=== PATIENT | female | born 1980 | race Caucasian/White ===

== ENCOUNTER 2020-03-26 19:14 | Emergency (ER) | payer MEDICAID, SELFPAY | END 2020-03-26 20:30 | disposition left against medical advice (07) | PROVIDERS: Emergency Provider Internal Medicine; PCP Nurse Practitioner Family | DX: J45.909 Unspecified asthma, uncomplicated (principal) ==

== ENCOUNTER 2020-04-08 15:21 | Emergency (ER) | payer MEDICAID, SELFPAY ==
[2020-04-08 16:05] VITALS: BP 128/100; PULSE 90; RESP 18; TEMP 36.6; O2SAT 97; BMI 32.6
--- NOTE | 2020-04-08 16:55 | PC.NURSE ---
TO BED 20 AFTER EXTERNAL TRIAGE. AWAITING PRIMARY EVAL BY PROVIDER
[2020-04-08 16:57] VITALS: BP 117/79; PULSE 76; RESP 18; O2SAT 96
--- NOTE | 2020-04-08 17:19 | ED.ASTHMA ---
HPI - Asthma General Chief Complaint: Asthma Stated Complaint: ASTHMA Time Seen by Provider: 04/08/20 17:12 Source: patient Mode of arrival: ambulatory Limitations: no limitations History of Present Illness HPI Narrative: Patient comes to the emergency room complaining of shortness of breath, chest tightness. Patient states she has been having an asthma exacerbation that has been ongoing for about a week. Patient states she has been using albuterol nebulizations and her pump at home. Patient has not had any steroids yet. Patient denies any fever, no chest pain. To her knowledge she has no contact with [employer] people complaint: asthma attack Related Data Previous Rx's Medication Instructions Recorded albuterol sulfate 2 puff INHALATION Q4-6H PRN #18 g 04/08/20 albuterol sulfate 2.5 mg INHALATION Q6H PRN #600 ml 04/08/20 prednisone 50 mg PO DAILY #4 tab 04/08/20 Allergies Allergy/AdvReac Type Severity Reaction Status Date / Time No Known Allergies Allergy Verified 04/08/20 16:08 [No Known Allergies*] Review of Systems Review of Systems: Constitutional : No Weight loss, No Fever, No Chills, No Night Sweats, No Fatigue, No Malaise ENT/Mouth : No Hearing loss, No Ear Pain, No Nasal Congestion, No Sinus Pain, No Hoarseness, No sore throat, No Rhinorrhea, No Swallowing Difficulty Eyes: No Eye Pain, No Swelling, No Redness, No Foreign Body, No Discharge, No Vision Changes Cardiovascular : No Chest Pain, No SOB, No Dyspnea on Exertion, No Orthopnea, No Edema, No Palpitations Respiratory : Patient complaining of mild dry cough, chest tightness with wheezing No Smoke Exposure, mild Dyspnea Gastrointestinal : No Nausea, No Vomiting, No Diarrhea, No Constipation, No abdominal Pain, No Hematochezia, No Melena Genitourinary : no irregular bleeding, No Dysuria, No Urinary Frequency, No Hematuria, No Urinary Incontinence, No Urgency, No Flank Pain, No Urinary Flow Changes, No Hesitancy Musculoskeletal : No joint pain, No Myalgias, No Joint Swelling Skin : No Skin Lesions, No rash Neuro : No Weakness, No Numbness, No Paresthesias, No Loss of Consciousness, No Dizziness, No Headache Psych : No Anxiety/Panic, No Depression, No SI/HI/AH/VH, No Social Issues, Heme/Lymph: No Bruising, No Bleeding,No Lymphadenopathy Endocrine : No Polyuria, No Polydipsia, No Temperature Intolerance [facility] Past Medical History Medical History Asthma Surgical History (Updated 04/08/20 @ 17:21 by Michelle Peterson MD) History of lumpectomy of left breast Social History Social History Smoking Status: Current every day smoker Use of substances other than those prescribed or required for medical reasons: No Advance Directives: No Advance Directives Information Provided: Yes Physical Exam Vital Signs: Vital Signs: Last Vital Signs Temp 97.8 F 04/08/20 16:05 Pulse 76 04/08/20 17:28 Resp 18 04/08/20 16:57 BP 117/79 04/08/20 16:57 Pulse Ox 96 04/08/20 16:57 Body Mass Index 32.6 Appearance: Alert. Oriented X3. No acute distress. Eyes: Pupils equal, round and reactive to light. ENT: Pharynx normal. Neck: Normal inspection. Neck supple. No lymph nodes noted. No crepitus CVS: Normal heart rate and rhythm. Pulses normal. Normal S1 and S2 Respiratory: No respiratory distress. very mild bilateral wheezing, good air movement Abdomen: Soft and nontender. No rigidity. No distention. good BS x4 Skin: Skin warm and dry. Normal skin color. Normal skin turgor. Extremities: No lower extremity edema. No lower extremity edema. No Lacerations. No Rash Neuro: Oriented X 3. No motor deficit. No sensory deficit. Moving all extermities. No slurred speech. Course Course Course Narrative: Patient feeling much better after updraft an IV medications. On physical exam patient no longer wheezing, good air movement bilaterally, oxygen saturation 98% on room air. MDM - Asthma Differential Diagnosis Differential diagnosis: Likely Acute exacerbation, Acute asthmatic bronchitis and COPD exacerbation Medical Records Attestation: I reviewed the patient's medical records. Discharge Plan Discharge Clinical Impression: Asthma with acute exacerbation Qualifiers: Asthma severity: unspecified severity Asthma persistence: unspecified Qualified Code(s): J45.901 - Unspecified asthma with (acute) exacerbation Patient Disposition: Home, Self-Care Instructions: Asthma (ED) Additional Instructions: Please follow-up with your primary care physician tomorrow. If you have any worsening or new symptoms, please return to the emergency room or call 911 Prescriptions: New albuterol sulfate 90 mcg/actuation HFA aerosol inhaler 2 puff inhalation Q4-6H PRN (Reason: shortness of breath or wheezing) Qty: 18 RF: 0 albuterol sulfate 5 mg/mL solution for nebulization 2.5 mg inhalation Q6H PRN (Reason: shortness of breath or wheezing) Qty: 600 RF: 0 prednisone 50 mg tablet 50 mg PO DAILY Qty: 4 RF: 0
[2020-04-08] MEDS: Albuterol Sulfate (0.083%) 2.5 MG/3 ML VIAL.NEB 5 MG INHALE (17:25)
--- NOTE | 2020-04-08 17:25 | XR_ITS ---
EXAMINATION: XR CHEST CLINICAL INFORMATION: Cough COMPARISON: Chest x-ray 11/03/2018 TECHNIQUE: Frontal portable view of the chest was obtained. 5:28 PM FINDINGS: No significant abnormality is noted involving the heart, lungs, mediastinum, bony thorax or soft tissues. XR/XR chest 1V IMPRESSION: Unremarkable examination.
[2020-04-08 17:28] VITALS: PULSE 76; O2SAT 95
[2020-04-08] MEDS: methylPREDNISolone Sod Succ/PF 125 MG/2 ML VIAL IVPUSH (17:52)
[2020-04-08 18:39] VITALS: PULSE 108; RESP 16; O2SAT 96
== END 2020-04-08 18:46 | disposition home or self-care (01) ==
PROVIDERS: Emergency Provider Emergency Medicine; PCP Nurse Practitioner Family
DX: J45.901 Unspecified asthma with (acute) exacerbation (principal); F17.200 Nicotine dependence, unspecified, uncomplicated; Z71.6 Tobacco abuse counseling; Z20.828 Contact with and (suspected) exposure to other viral communicable diseases; Z79.899 Other long term (current) drug therapy
CPT/HCPCS: 71045; 94640; 96374; 99284; J2930

== ENCOUNTER 2020-04-24 11:34 | Outpatient (REF) | payer MEDICAID, SELFPAY ==
--- NOTE | 2020-04-24 11:44 | XR_ITS ---
EXAMINATION: XR CHEST CLINICAL INFORMATION: Shortness of breath, moderate persistent asthma COMPARISON: Chest radiographs 04/08/2020, 11/03/2018 TECHNIQUE: 2 views of the chest were obtained. FINDINGS: The heart is normal in size. The vascularity is normal. There is subsegmental disc atelectasis inferior lingula left anterior base. The lungs otherwise clear. There is no lobar or segmental airspace consolidation or groundglass opacities. No hyperinflation. The costophrenic sulci are clear. The hilar and mediastinal contours are normal. There are mild multilevel degenerative changes thoracic spine. XR/XR chest 2V IMPRESSION: 1. Disc atelectasis left anterior base. 2. Lungs otherwise clear. No hyperinflation.
== END 2020-04-24 11:35 | disposition home or self-care (01) ==
LOC: HO.XRAY 11:34
PROVIDERS: PCP Nurse Practitioner Family; Visit Provider Emergency Medicine
DX: J45.40 Moderate persistent asthma, uncomplicated (principal); R06.02 Shortness of breath
CPT/HCPCS: 71046

== ENCOUNTER 2020-05-12 15:44 | Outpatient (REF) | payer MEDICAID, SELFPAY ==
--- NOTE | 2020-05-12 15:48 | MM_ITS ---
EXAMINATION: MM SCREENING DIGITAL BREAST TOMOSYNTHESIS, BILATERAL CLINICAL INFORMATION: Screening. Asymptomatic. Prior benign left breast surgery 2009 and benign right breast biopsy 2015. The lifetime risk of breast cancer based on the Tyrer-Cuzick Model is 9%. COMPARISON: Mammography: 05/08/2019, 10/13/2016 TECHNIQUE: Digital breast tomosynthesis is performed in both the craniocaudal and mediolateral oblique views along with computer-aided detection (CAD). Synthesized 2D images are generated from the tomosynthesis. FINDINGS: There are scattered areas of fibroglandular density (ACR BI-RADS breast composition Category b). There are no significant masses, abnormal calcifications, or other abnormalities. Parenchymal pattern is similar to prior studies. There is a biopsy clip marker outer right breast. The axilla and skin contours are unremarkable. MM/MM tomosynthesis screening BI IMPRESSION: No mammographic evidence of malignancy. ASSESSMENT: BI-RADS 1: Negative RECOMMENDATION: Routine annual mammography screening. This patient's information was entered into a reminder system with a target due date for their next mammogram.
== END 2020-05-12 15:45 | disposition home or self-care (01) ==
LOC: HO.MAMMO 15:44
PROVIDERS: Visit Provider Nurse Practitioner Family
DX: Z12.31 Encounter for screening mammogram for malignant neoplasm of breast (principal)
CPT/HCPCS: 77063; 77067

== ENCOUNTER 2020-06-05 14:29 | Outpatient (REF) | payer MEDICAID, SELFPAY ==
--- NOTE | 2020-06-05 | US_ITS ---
EXAMINATION: US PELVIS COMPLETE US TRANSVAGINAL CLINICAL INFORMATION: Left lower quadrant pain. COMPARISON: Ultrasound pelvis 01/28/2017. TECHNIQUE: Transabdominal and transvaginal imaging of pelvis is performed. FINDINGS: The uterus is anteverted, anteflexed measuring 10.7 cm in length, 4.4 cm in AP and 6.2 cm in transverse dimension. The uterus is homogeneous echotexture. The endometrial stripe is thickened measuring 1.9 cm. Several anechoic nabothian cysts are seen in the cervix. Right ovary measures 2.6 x 2.1 x 1.4 cm and volume 4.0 mL. It appears unremarkable. Previously, the right ovary measured 2.3 x 2.1 x 1.1 cm. Left ovary measures 2.7 x 2.6 x 3.1 cm and volume 9.9 mL. There is a small corpus luteal cyst measuring 1.9 x 2.1 x 1.6 cm. Previously, the left ovary measured 2.6 x 1.8 x 2.8 cm. There is no free fluid in the cul-de-sac. US/US pelvic complete IMPRESSION: Unremarkable uterus. Multiple nabothian cysts seen in the cervix. Small corpus luteal cyst left ovary. Unremarkable right ovary.
--- NOTE | 2020-06-05 | US_ITS ---
EXAMINATION: US PELVIS COMPLETE US TRANSVAGINAL CLINICAL INFORMATION: Left lower quadrant pain. COMPARISON: Ultrasound pelvis 01/28/2017. TECHNIQUE: Transabdominal and transvaginal imaging of pelvis is performed. FINDINGS: The uterus is anteverted, anteflexed measuring 10.7 cm in length, 4.4 cm in AP and 6.2 cm in transverse dimension. The uterus is homogeneous echotexture. The endometrial stripe is thickened measuring 1.9 cm. Several anechoic nabothian cysts are seen in the cervix. Right ovary measures 2.6 x 2.1 x 1.4 cm and volume 4.0 mL. It appears unremarkable. Previously, the right ovary measured 2.3 x 2.1 x 1.1 cm. Left ovary measures 2.7 x 2.6 x 3.1 cm and volume 9.9 mL. There is a small corpus luteal cyst measuring 1.9 x 2.1 x 1.6 cm. Previously, the left ovary measured 2.6 x 1.8 x 2.8 cm. There is no free fluid in the cul-de-sac. US/US transvaginal IMPRESSION: Unremarkable uterus. Multiple nabothian cysts seen in the cervix. Small corpus luteal cyst left ovary. Unremarkable right ovary.
== END 2020-06-05 14:30 | disposition home or self-care (01) ==
LOC: HO.US 14:29
PROVIDERS: Visit Provider Nurse Practitioner
DX: R10.32 Left lower quadrant pain (principal)
CPT/HCPCS: 76830; 76856

== ENCOUNTER → 2020-07-17 15:15 | Outpatient (BNVA) | payer MEDICAID, SELFPAY | PROVIDERS: PCP Nurse Practitioner Family; Visit Provider Internal Medicine Pulmonary Disease | DX: J45.909 Unspecified asthma, uncomplicated (principal); Z91.09 Other allergy status, other than to drugs and biological substances | CPT/HCPCS: 99202 ==

== ENCOUNTER 2020-07-23 10:00 | Outpatient (REF) | payer MEDICAID, SELFPAY ==
[2020-07-23 10:24] LABS: MANUAL DIFF FLAG NO
[2020-07-23 10:27] LABS: Basophils Percent Auto 0.4 % (0-2); Eosinophils Absolute Auto 0.1 X10*3/uL (0.0-0.4); Eosinophils Percent Auto 1.3 % (0-4); Hematocrit 42.9 % (37-47); Hemoglobin 14.5 g/dl (12.0-16.0); Imm Gran Abs Auto 0.02 X10*3/uL (0.00-0.03); Imm Gran Pct Auto 0.2 % (0.0-0.4); Lymphocytes Absolute Auto 3.3 X10*3/uL (1.2-4.9); Lymphocytes Percent Auto 40.6 % (20-40); Mean Corpuscular HGB Conc 33.8 g/dl (31.0-35.0); Mean Corpuscular Hemoglobin 29.2 pg (27.0-33.0); Mean Corpuscular Volume 86.5 fL (80-98); Mean Platelet Volume 10.7 fL (9.4-12.3); Monocytes Absolute Auto 0.7 X10*3/uL (0.1-1.2); Neutrophils Percent Auto 49.5 % (45-73); Platelet Count 308 X10*3/uL (160-400); Red Blood Count 4.96 X10*6/uL (4.20-5.50); Red Cell Distribution Width 12.5 % (11.0-16.0); White Blood Count 8.2 X10*3/uL (4.8-10.8)
== END 2020-07-23 10:01 | disposition home or self-care (01) ==
LOC: HO.LAB 10:00
PROVIDERS: PCP Nurse Practitioner Family; Visit Provider Internal Medicine Pulmonary Disease
DX: Z91.09 Other allergy status, other than to drugs and biological substances (principal)
CPT/HCPCS: 36415; 82785; 85025; 86003

== ENCOUNTER → 2020-08-07 14:06 | Outpatient (BNVA) | payer MEDICAID, SELFPAY | PROVIDERS: Visit Provider Internal Medicine Pulmonary Disease | DX: J45.909 Unspecified asthma, uncomplicated (principal); Z91.09 Other allergy status, other than to drugs and biological substances; Z87.891 Personal history of nicotine dependence | CPT/HCPCS: 99212 ==

== ENCOUNTER 2020-08-26 15:42 | Outpatient (REF) | payer MEDICAID, SELFPAY ==
--- NOTE | 2020-08-26 17:22 | PFT_ITS ---
Forced vital capacity and FEV1 are both slightly decreased. [id number] is normal. MVV moderately decreased. Post bronchodilator therapy, there is no significant improvement. Total lung capacity and residual volume are moderately decreased. Diffusion capacity normal. CONCLUSION: Mild to moderate degree of restrictive pulmonary disorder. No significant obstructive airway disorder. MD ELANA Bautista/MODL / [id number]
== END 2020-08-26 15:43 | disposition home or self-care (01) ==
LOC: HO.RESP 15:42
PROVIDERS: PCP Nurse Practitioner Family; Visit Provider Internal Medicine Pulmonary Disease
DX: J45.909 Unspecified asthma, uncomplicated (principal)
CPT/HCPCS: 94060; 94727; 94729

== ENCOUNTER → 2020-08-28 15:10 | Outpatient (BNVA) | payer MEDICAID, SELFPAY | PROVIDERS: PCP Nurse Practitioner Family; Visit Provider Internal Medicine Pulmonary Disease | DX: J45.909 Unspecified asthma, uncomplicated (principal); Z91.09 Other allergy status, other than to drugs and biological substances | CPT/HCPCS: 99212 ==

== ENCOUNTER → 2020-11-26 15:24 | Outpatient (BNVA) | payer MEDICAID, SELFPAY | PROVIDERS: PCP Nurse Practitioner Family; Visit Provider Internal Medicine Pulmonary Disease | DX: J45.909 Unspecified asthma, uncomplicated (principal); Z91.09 Other allergy status, other than to drugs and biological substances | CPT/HCPCS: 99212 ==

== ENCOUNTER 2020-12-10 09:57 | Outpatient (REF) | payer MEDICAID, SELFPAY | END 2020-12-10 09:58 | disposition home or self-care (01) | LOC: HO.MDS 09:57 | PROVIDERS: PCP Nurse Practitioner Family; Visit Provider Internal Medicine Pulmonary Disease | DX: J45.50 Severe persistent asthma, uncomplicated (principal) | CPT/HCPCS: 96372; J2357 ==

== ENCOUNTER 2020-12-24 14:35 | Outpatient (REF) | payer MEDICAID, SELFPAY | END 2020-12-24 14:36 | disposition home or self-care (01) | LOC: HO.MDS 14:35 | PROVIDERS: PCP Nurse Practitioner Family; Visit Provider Internal Medicine Pulmonary Disease | DX: J45.50 Severe persistent asthma, uncomplicated (principal) | CPT/HCPCS: 96372; J2357 ==

== ENCOUNTER 2021-01-22 11:04 | Outpatient (REF) | payer MEDICAID, SELFPAY | END 2021-01-22 11:05 | disposition home or self-care (01) | LOC: HO.MDS 11:04 | PROVIDERS: PCP Nurse Practitioner Family; Visit Provider Internal Medicine Pulmonary Disease | DX: J45.50 Severe persistent asthma, uncomplicated (principal) | CPT/HCPCS: 96372; J2357 ==

== ENCOUNTER 2021-02-05 11:55 | Outpatient (REF) | payer MEDICAID, SELFPAY | END 2021-02-05 11:56 | disposition home or self-care (01) | LOC: HO.MDS 11:55 | PROVIDERS: PCP Nurse Practitioner Family; Visit Provider Internal Medicine Pulmonary Disease | DX: J45.50 Severe persistent asthma, uncomplicated (principal) | CPT/HCPCS: 96372; J2357 ==

== ENCOUNTER 2021-02-19 11:05 | Outpatient (REF) | payer MEDICAID, SELFPAY | END 2021-02-19 11:06 | disposition home or self-care (01) | LOC: HO.MDS 11:05 | PROVIDERS: PCP Nurse Practitioner Family; Visit Provider Internal Medicine Pulmonary Disease | DX: J45.50 Severe persistent asthma, uncomplicated (principal) | CPT/HCPCS: 96372; J2357 ==

== ENCOUNTER 2021-03-09 10:48 | Outpatient (REF) | payer MEDICAID, SELFPAY | END 2021-03-09 10:49 | disposition home or self-care (01) | LOC: HO.MDS 10:48 | PROVIDERS: PCP Nurse Practitioner Family; Visit Provider Internal Medicine Pulmonary Disease | DX: J45.50 Severe persistent asthma, uncomplicated (principal) ==

== ENCOUNTER → 2021-03-10 10:36 | Outpatient (BNVA) | payer MEDICAID, SELFPAY | PROVIDERS: PCP Nurse Practitioner Family; Visit Provider Internal Medicine Pulmonary Disease | DX: J45.909 Unspecified asthma, uncomplicated (principal); Z91.09 Other allergy status, other than to drugs and biological substances | CPT/HCPCS: 99212 ==

== ENCOUNTER → 2021-06-04 11:18 | Outpatient (BNVA) | payer MEDICAID, SELFPAY | PROVIDERS: PCP Nurse Practitioner Family; Visit Provider Internal Medicine Pulmonary Disease | DX: J45.909 Unspecified asthma, uncomplicated (principal); Z91.09 Other allergy status, other than to drugs and biological substances | CPT/HCPCS: 99212 ==

== ENCOUNTER → 2021-09-08 11:02 | Outpatient (BNVA) | payer MEDICAID, SELFPAY | PROVIDERS: PCP Nurse Practitioner Family; Visit Provider Internal Medicine Pulmonary Disease | DX: J45.909 Unspecified asthma, uncomplicated (principal); Z91.09 Other allergy status, other than to drugs and biological substances | CPT/HCPCS: 99212 ==

== ENCOUNTER → 2021-12-02 14:11 | Outpatient (BNVA) | payer MEDICAID, SELFPAY | PROVIDERS: PCP Nurse Practitioner Family; Visit Provider Internal Medicine Pulmonary Disease | DX: J45.909 Unspecified asthma, uncomplicated (principal); Z91.09 Other allergy status, other than to drugs and biological substances | CPT/HCPCS: 99212 ==

== ENCOUNTER 2021-12-17 08:02 | Outpatient (REF) | payer MEDICAID, SELFPAY | END 2021-12-17 08:03 | disposition home or self-care (01) | LOC: HO.MDS 08:02 | PROVIDERS: Visit Provider Internal Medicine Pulmonary Disease | DX: J45.50 Severe persistent asthma, uncomplicated (principal) | CPT/HCPCS: 96372; J2182 ==

== ENCOUNTER 2022-01-14 12:40 | Outpatient (REF) | payer MEDICAID, SELFPAY | END 2022-01-14 12:41 | disposition home or self-care (01) | LOC: HO.MDS 12:40 | PROVIDERS: Visit Provider Internal Medicine Pulmonary Disease | DX: J45.50 Severe persistent asthma, uncomplicated (principal) | CPT/HCPCS: 96372; J2182 ==

== ENCOUNTER 2022-02-19 08:41 | Outpatient (REF) | payer MEDICAID, SELFPAY | END 2022-02-19 08:42 | disposition home or self-care (01) | LOC: HO.MDS 08:41 | PROVIDERS: Visit Provider Internal Medicine Pulmonary Disease | DX: J45.50 Severe persistent asthma, uncomplicated (principal) | CPT/HCPCS: 96372; J2182 ==

== ENCOUNTER 2022-04-05 13:18 | Outpatient (REF) | payer MEDICAID, SELFPAY | END 2022-04-05 13:19 | disposition home or self-care (01) | LOC: HO.MDS 13:18 | PROVIDERS: Visit Provider Internal Medicine Pulmonary Disease | DX: J45.50 Severe persistent asthma, uncomplicated (principal) | CPT/HCPCS: 96372; J2182 ==

== ENCOUNTER → 2022-04-29 15:19 | Outpatient (BNVA) | payer MEDICAID, SELFPAY | PROVIDERS: PCP Nurse Practitioner Family; Visit Provider Internal Medicine Pulmonary Disease | DX: J45.50 Severe persistent asthma, uncomplicated (principal); E66.01 Morbid (severe) obesity due to excess calories; Z68.35 Body mass index [BMI] 35.0-35.9, adult; Z91.09 Other allergy status, other than to drugs and biological substances | CPT/HCPCS: 99212 ==

== ENCOUNTER 2022-06-01 13:37 | Outpatient (REF) | payer MEDICAID, SELFPAY | END 2022-06-01 13:38 | disposition home or self-care (01) | LOC: HO.MDS 13:37 | PROVIDERS: Visit Provider Internal Medicine Pulmonary Disease | DX: J45.50 Severe persistent asthma, uncomplicated (principal) | CPT/HCPCS: 96372; J2182 ==

== ENCOUNTER 2022-07-02 13:46 | Outpatient (REF) | payer MEDICAID, SELFPAY | END 2022-07-02 13:47 | disposition home or self-care (01) | LOC: HO.MDS 13:46 | PROVIDERS: Visit Provider Internal Medicine Pulmonary Disease | DX: J45.50 Severe persistent asthma, uncomplicated (principal) | CPT/HCPCS: 96372; J2182 ==

== ENCOUNTER 2022-07-30 14:57 | Outpatient (REF) | payer MEDICAID, SELFPAY | END 2022-07-30 14:58 | disposition home or self-care (01) | LOC: HO.MDS 14:57 | PROVIDERS: Visit Provider Internal Medicine Pulmonary Disease | DX: J45.50 Severe persistent asthma, uncomplicated (principal) | CPT/HCPCS: 96372; J2182 ==

== ENCOUNTER 2022-09-08 14:02 | Outpatient (REF) | payer MEDICAID, SELFPAY | END 2022-09-08 14:03 | disposition home or self-care (01) | LOC: HO.MDS 14:02 | PROVIDERS: Visit Provider Internal Medicine Pulmonary Disease | DX: J45.50 Severe persistent asthma, uncomplicated (principal) | CPT/HCPCS: 96372; J2182 ==

== ENCOUNTER 2022-09-14 09:05 | Outpatient (REF) | payer MEDICAID, SELFPAY | END 2022-09-14 09:06 | disposition home or self-care (01) | LOC: HO.MDS 09:05 | PROVIDERS: Visit Provider Internal Medicine Pulmonary Disease | DX: J45.50 Severe persistent asthma, uncomplicated (principal) | CPT/HCPCS: 96372; J2182 ==

== ENCOUNTER 2023-02-27 23:05 | Emergency (ER) | payer MEDICAID, SELFPAY ==
[2023-02-27 23:22] VITALS: BP 145/91; PULSE 90; RESP 16; TEMP 37.1; O2SAT 96; BMI 35.5
--- NOTE | 2023-02-27 23:44 | MHC.EDTECH ---
PATIENT EKG TAKEN AND WAS READ BY PROVIDER ,BLOOD DRAWN AND SENT TO LAB .
[2023-02-28 02:34] VITALS: BP 113/66; PULSE 83; RESP 16; TEMP 36.8; O2SAT 98
--- NOTE | 2023-02-28 02:34 | MHC.EDTECH ---
THIS PCT JUST ASSUMED CARE OF PT ,VITALS TAKEN PT WAS HOOKED UP TO AUDIO VISUAL TECH ,PATIENT AT BEDSIDE ,PT COMFORTABLE ,NO APPARENT DISTRESS ,WILL CONTINUE TO MONITOR .
--- NOTE | 2023-02-28 03:07 | ED.CHESTPAIN ---
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 Chest pain started 3 days ago on an off, no clear aggravating or relieving factor, radiates to the right shoulder, no association with SOB or fever or chills, no coughing, patient is known to have anxiety. Decline history of HTN, dm, high cholesterol, or history of smoking. No recent travel, no lower extremity swelling or tenderness. Related Data Previous Rx's Medication Instructions Recorded albuterol sulfate 5 mg/mL(0.5 %) 2.5 mg (0.5 mL) inhalation Q6H PRN 04/08/20 solution for nebulization shortness of breath or wheezing #600 mL albuterol sulfate 90 mcg/actuation 2 puff inhalation Q4-6H PRN 04/08/20 aerosol inhaler shortness of breath or wheezing #18 grams mepolizumab 100 mg/mL subcutaneous 100 mg subcut Q4W 28 days #1 mL 06/05/21 syringe (Nucala) Allergies Allergy/AdvReac Type Severity Reaction Status Date / Time No Known Allergies Allergy Verified 04/29/22 15:27 [No Known Allergies*] Review of Systems Review of Systems: All other systems are reviewed and are negative Constitutional: Reports as per HPI and Reports no additional constitutional complaints Eyes: Reports as per HPI and Reports no additional eye complaints Reports system reviewed and no additional complaints, except as documented Cardiovascular: Reports as per HPI and Reports no additional cardiovascular complaints Respiratory: Reports as per HPI and Reports no additional respiratory complaints Gastrointestinal: Reports as per HPI and Reports no additional gastrointestinal complaints Genitourinary: Reports no additional female genitourinary complaints Musculoskeletal: Reports no additional musculoskeletal complaints Skin/Breast: Reports system reviewed and no additional complaints, except as docu Psychiatric: Reports no additional psychiatric complaints Endocrine: Reports no additional endocrine complaints Hematologic/Lymphatic: Reports no additional hematologic/lymphatic complaints Allergic/Immunologic: Reports no additional allergic/immunologic complaints Reports system reviewed and no additional complaints, except as documented and Reports Abnormal speech present COUNTS INCLUDE 234 BEDS AT THE [facility] Past Medical History Medical History Asthma Surgical History History of lumpectomy of left breast Social History Social History Advance Directives: No Advance Directives Information Provided: No Physical Exam Vital Signs: Vital Signs: Last Vital Signs Temp 98.2 F 02/28/23 02:34 Pulse 83 02/28/23 02:34 Resp 16 02/28/23 02:34 BP 113/66 02/28/23 02:34 Pulse Ox 98 02/28/23 02:34 O2 Del Method Room Air 02/28/23 02:34 BMI result Body Mass Index 35.5 Vital signs have been reviewed and appear to be correct. Blood pressure elevated. Heart rate normal. Respiratory rate normal. Temperature normal. Oxygen saturation normal. Appearance: Alert. Oriented X3. No acute distress. Head: Normal external exam. Normocephalic. Atraumatic. No Fox signs noted. No raccoon eyes noted Eyes: PERRLA. EOMI. Conjunctiva and sclera normal. Eyelids normal. ENT: TM's Normal. Pharynx normal. Uvula midline. Moist mucous membranes. No trismus noted. No drooling noted. No muffled voice noted. Neck: Normal inspection. Neck supple. FROM. No adenopathy. Thyroid Normal. No meningeal signs. No neck mass noted. CVS: Normal heart rate and rhythm. Heart sound normal. No murmurs noted. Pulses normal throughout. Respiratory: No respiratory distress. Painless inspiration. Breath sounds normal. No wheezes/rales/rhonchi noted. Chest nontender. No accessory muscle usage noted or decreased air movement noted. Abdomen: Soft and nontender. Bowel sounds normal in all 4 quadrants. No distention noted. No organomegaly noted. No visible injury noted. Back: No CVA tenderness. Full range of motion noted. Skin: Skin warm and dry. Normal skin color. Normal skin turgor. No rashes/lesions/lacerations noted. Extremities: No lower extremity edema. Extremities exhibit normal range of motion. Extremities nontender. Neuro: Oriented X 3. Cranial nerve exam: II-XII are grossly intact No motor deficit. No sensory deficit. Reflexes normal. Course Course Course Narrative: Noncardiac chest pain for 2 days with unremarkable labs, patient's symptoms is likely related to anxiety. Will reassure and discharged. Medical Decision Making Differential Diagnosis Differential Diagnoses: The differential diagnosis associated with the presentation includes (Anxiety, ACS, pulmonary embolism, pneumonia, pleural effusion, [id number] abnormality, severe anemia.) Admission/Observation Consideration of admission/observation: Escalation of care including admission/observation considered Lab Data MDM Lab Attestation statement: I reviewed the patient's lab results. 02/27/23 23:42 02/27/23 23:42 Labs: Lab Results 02/27/23 Range/Units 23:42 WBC 9.1 (4.8-10.8) X10*3/uL RBC 4.88 (4.20-5.50) X10*6/uL Hgb 14.1 (12.0-16.0) g/dl Hct 40.9 (37.0-47.0) % MCV 83.8 (80.0-98.0) fL MCH 28.9 (27.0-33.0) pg MCHC 34.5 (31.0-35.0) g/dl RDW 12.4 (11.0-16.0) % Plt Count 289 (160-400) X10*3/uL MPV 9.9 (9.4-12.3) fL Immature Gran % (Auto) 0.1 (0.0-0.4) % Neut % (Auto) 50.0 (45-73) % Lymph % (Auto) 41.1 H (20-40) % Perry % (Auto) 7.3 (2-11) % Eos % (Auto) 1.2 (0-4) % Baso % (Auto) 0.3 (0-2) % Lymph # (Auto) 3.8 (1.2-4.9) X10*3/uL Perry # (Auto) 0.7 (0.1-1.2) X10*3/uL Eos # (Auto) 0.1 (0.0-0.4) X10*3/uL Baso # (Auto) 0.0 (0.0-0.2) X10*3/uL Abs Immat Gran (auto) 0.01 (0.00-0.03) X10*3/uL Absolute Neuts (auto) 4.6 (2.0-8.3) x10*3/uL Absolute Nucleated RBC 0.000 (0.0-0.012) X10*3/uL Nucleated RBC % (auto) 0.0 (0.0-0.2) /100WBC Sodium 141 (135-145) mmol/L Potassium 4.0 (3.3-5.1) mmol/L Chloride 107 (96-108) mmol/L Carbon Dioxide 23 (22-29) mmol/L Anion Gap 15 (12-20) BUN 12 (9-16) mg/dL Creatinine 0.92 (0.5-1.4) mg/dL Estim Creat Clear Calc 77.4 Estimated GFR > 60 Random Glucose 119 H (60-115) mg/dL Calcium 9.5 (8.4-10.2) mg/dL Total Bilirubin 0.2 (0.0-1.0) mg/dL AST 25 (5-31) U/L ALT 42 H (0-31) U/L Alkaline Phosphatase 73 (39-117) U/L Troponin I High Sens < 2.7 (<3.5-17.0) ng/L Total Protein 7.5 (6.5-8.0) g/dL Albumin 4.1 (3.5-5.0) g/dL Independent Interpretation I performed an independent interpretation of an: EKG (Normal sinus rhythm at 93 beats per minute, normal axis deviation, normal intervals, no ST-T changes.) and Plain X-Ray (Chest: No acute intrathoracic pathology.) Radiology Impression Discussion of test interpretation with radiology: I have reviewed the radiologist's reading. Discharge Plan Discharge Clinical Impression: Anxiety Chest pain Qualifiers: Chest pain type: unspecified Qualified Code(s): R07.9 - Chest pain, unspecified Patient Disposition: Home, Self-Care Instructions: Chest Pain (ED) Prescriptions: No Action Nucala 100 mg/mL syringe 100 mg subcut Q4W 28 Days Qty: 1 12RF albuterol sulfate 90 mcg/actuation HFA aerosol inhaler 2 puff inhalation Q4-6H PRN (Reason: shortness of breath or wheezing) Qty: 18 0RF albuterol sulfate 5 mg/mL solution for nebulization 2.5 mg inhalation Q6H PRN (Reason: shortness of breath or wheezing) Qty: 600 0RF Referrals: Stephanie Cotton FNP [Primary Care Provider] -
[2023-02-28 04:30] VITALS: BP 126/74; PULSE 79; RESP 18; O2SAT 99
== END 2023-02-28 05:05 | disposition home or self-care (01) ==
PROVIDERS: Emergency Provider Emergency Medicine; PCP Registered Nurse
DX: R07.89 Other chest pain (principal); F41.1 Generalized anxiety disorder; F43.0 Acute stress reaction; Z79.899 Other long term (current) drug therapy
CPT/HCPCS: 36415; 71045; 80053; 84484; 85025; 93005; 99284

== ENCOUNTER 2023-07-15 15:54 | Outpatient (AMB) | payer MEDICAID, SELFPAY ==
[2023-07-15 15:56] VITALS: BP 108/67; PULSE 98; O2SAT 96; BMI 37.0
--- NOTE | 2023-07-15 15:56 | MHC.OFFVIS ---
Intake Vital Signs 07/15/23 15:56 Height 5 ft 1 in Weight 196 lb BMI 37.0 BP 108/67 Blood Pressure Location Rt brachial Position Sitting Pulse 98 Pulse Source Doppler Pulse Oximetry (%) 96 Oxygen Delivery Method Room Air Intake Visit Reasons: Asthma Distribution Technician Required: Yes Distribution Technician Name: Mady Montoya Joseph Allergies No Known Allergies [No Known Allergies*] Allergy (Verified 07/15/23 15:59) HPI Asthma HPI Details 42-year-old lady, active 20 pack-year recent smoker, quit March 2020, with underlying history of asthma diagnosed in her childhood, now followed for underlying severe allergic asthma and environmental allergies.? She has had good symptom control on Xolair, however she developed and adverse reaction to it and it was stopped.? She has been using Nucala and Symbicort with excellent control of her symptoms. She rarely requires to use her albuterol MDI. [facility] Medical History Asthma Surgical History History of lumpectomy of left breast Review of Systems Const Denies daytime sleepiness, Denies excessive sweating, Denies fatigue, Denies fever(s), Denies lethargy, Denies malaise, Denies night sweats, Denies snoring and Denies weight loss Eyes Denies blurry vision and Denies itchy eyes ENT Denies nasal congestion, Denies post nasal drip, Denies sinus pain, Denies sinus pressure and Denies other ( Thrush) Card Denies chest pain, Denies pedal edema, Denies dyspnea, Denies orthopnea and Denies paroxysmal nocturnal dyspnea Resp Denies cough, Denies hemoptysis, Denies excessive phlegm production, Denies dyspnea, Denies snoring and Denies wheezing GI Denies abdominal pain and Denies heartburn Musc Denies myalgias, Denies arthralgias and Denies joint swelling Skin/Breast Denies rash Neuro Denies memory loss and Denies seizure-like activity Psych Denies abnormal sleep pattern, Denies anxiety and Denies memory loss Endo Denies excessive sweating, Denies fatigue and Denies heat intolerance Ike/Lymph Denies easy bruising Aller/Immun Denies itchy eyes, Denies seasonal rhinorrhea and Denies wheezing Physical Exam Vital Signs: Last Vital Signs Pulse 98 07/15/23 15:56 BP 108/67 07/15/23 15:56 Pulse Ox 96 07/15/23 15:56 Oxygen Delivery Method Room Air 07/15/23 15:56 BMI result Body Mass Index 37.0 Const General: no acute distress and alert Nutritional Appearance: obese Orientation/consciousness: Other orientation findings ( oriented) HEENT Head: Yes atraumatic Eyes General: appearance normal, both eyes and all related structures Sclerae: sclerae normal EOM: EOMs intact bilaterally Neck Neck: Yes supple Lymphatic: no lymphadenopathy noted Resp Effort & Inspection: normal respiratory effort and no use of accessory muscles Auscultation: clear to auscultation bilaterally Cardio Rate: regular rate Rhythm: regular rhythm Heart sounds: no gallops, no murmurs and no rubs Skin General skin exam: other ( warm) Extrem General: No clubbing, No cyanosis and No edema Assessment & Plan Assessment & Plan (1) Asthma: Code(s): J45.909 - Unspecified asthma, uncomplicated Plan: Well controlled on Symbicort, Nucala, and albuterol MDI. Continue current regimen. (2) Environmental allergies: Code(s): Z91.09 - Other allergy status, other than to drugs and biological substances Plan: Well controlled on Nucala. Continue current regimen. Coding Level of Care Code Est Pt Level 4 (12312) Diagnoses Asthma J45.909 Environmental allergies Z91.09
== END 2023-07-15 16:09 | disposition home or self-care (01) ==
PROVIDERS: PCP Registered Nurse; Visit Provider Internal Medicine Pulmonary Disease
DX: J45.909 Unspecified asthma, uncomplicated (principal); Z91.09 Other allergy status, other than to drugs and biological substances
CPT/HCPCS: 99214

== ENCOUNTER → 2023-07-15 15:54 | Outpatient (BNVA) | payer MEDICAID, SELFPAY | PROVIDERS: PCP Registered Nurse; Visit Provider Internal Medicine Pulmonary Disease | DX: J45.909 Unspecified asthma, uncomplicated (principal); Z91.09 Other allergy status, other than to drugs and biological substances | CPT/HCPCS: 99212 ==

== ENCOUNTER 2023-10-29 12:16 | Emergency (ER) | payer MEDICAID, SELFPAY ==
[2023-10-29 12:29] VITALS: BP 110/58; PULSE 85; RESP 16; TEMP 36.3; O2SAT 96; BMI 36.6
== END 2023-10-29 16:45 | disposition left against medical advice (07) ==
LOC: HO.ED 16:43
PROVIDERS: Emergency Provider Emergency Medicine; PCP Registered Nurse
DX: R21 Rash and other nonspecific skin eruption (principal); J02.9 Acute pharyngitis, unspecified; Z53.21 Procedure and treatment not carried out due to patient leaving prior to being seen by health care provider
CPT/HCPCS: 99281

== ENCOUNTER 2023-11-22 15:32 | Outpatient (REF) | payer MEDICAID, SELFPAY | END 2023-11-22 15:33 | disposition home or self-care (01) | LOC: HO.MAMMO 15:32 | PROVIDERS: PCP Registered Nurse; Visit Provider Registered Nurse | DX: Z13.89 Encounter for screening for other disorder (principal) ==

== ENCOUNTER 2024-08-08 05:53 | Emergency (ER) | payer OTHER, MEDICAID, SELFPAY ==
--- NOTE | 2024-08-08 | ECG_ITS ---
Test Reason : CP Blood Pressure : */* mmHG Vent. Rate : 77 BPM Atrial Rate : 77 BPM P-R Int : 146 ms QRS Dur : 74 ms QT Int : 386 ms P-R-T Axes : 8 16 16 degrees QTcB Int : 436 ms Normal sinus rhythm Normal ECG When compared with ECG of 27-Feb-2023 23:34, No significant change was found Referred By: Generic ED Physician Electronically Signed By: Javed Gao
--- NOTE | ~2024-08-08 | XR_ITS ---
EXAMINATION: XR CHEST CLINICAL INFORMATION: cp COMPARISON: February 28, 2023. TECHNIQUE: Frontal view of the chest was obtained. FINDINGS: No consolidation, pleural effusion or pneumothorax. No hyperinflation. Cardiomediastinal silhouette size is normal. Osseous structures are intact. XR/XR chest 1V IMPRESSION: No acute airspace disease. Electronically signed by: Lamberto Puckett MD 08/08/2024 07:51 AM EDT
--- NOTE | ~2024-08-08 | CT_ITS ---
EXAMINATION: CT HEAD WITHOUT CONTRAST CLINICAL INFORMATION: COFFEY, CP, body waarmth blurry vision COMPARISON: CT brain dated November 27, 2008 is not available on PACS. TECHNIQUE: Contiguous axial imaging was performed from the skull base to vertex without intravenous administration of contrast. This CT examination was performed using dose optimization techniques as appropriate, variously including the following: *Automated exposure control *Adjustment of mA and/or kV according to patient size (this includes techniques or standardized protocols for targeted exams where dose is matched to indication/reason for exam; i.e. extremities or head) *Use of iterative reconstruction technique DLP: 652 mGy-cm FINDINGS: Bony calvarium is intact. Skull base is intact. No acute intracranial hemorrhage, mass effect, midline shift, hydrocephalus or herniation. Posterior cranial fossa contents demonstrated a 1 cm peripheral calcified cystic lesion centered in the pineal gland. Sellar/suprasellar region demonstrated no masses. There is a intrasellar CSF prominence. Craniocervical junction is intact and normal. No air-fluid levels in the included paranasal sinuses. For pneumatization of the frontal sinuses. Tympanic cavities and mastoid cells are aerated. No masses or fluid collections in the intraconal or extraconal compartments of the orbits. CT/CT head/brain wo IV con IMPRESSION: No acute intracranial hemorrhage. 1 cm partially calcified pineal cyst. Electronically signed by: Lamberto Puckett MD 08/08/2024 08:10 AM EDT
[2024-08-08 06:09] LABS: Basophils Percent Auto 0.3 % (0-2); Eosinophils Absolute Auto 0.1 X10*3/uL (0.0-0.4); Eosinophils Percent Auto 1.6 % (0-4); Hematocrit 40.6 % (37.0-47.0); Hemoglobin 14.1 g/dl (12.0-16.0); Imm Gran Abs Auto 0.03 X10*3/uL (0.00-0.03); Imm Gran Pct Auto 0.3 % (0.0-0.4); Lymphocytes Absolute Auto 4.2 X10*3/uL (1.2-4.9); Lymphocytes Percent Auto 47.2 % (20-40); MANUAL DIFF FLAG NO; Mean Corpuscular HGB Conc 34.7 g/dl (31.0-35.0); Mean Corpuscular Hemoglobin 29.4 pg (27.0-33.0); Mean Corpuscular Volume 84.6 fL (80.0-98.0); Mean Platelet Volume 10.1 fL (9.4-12.3); Monocytes Absolute Auto 0.6 X10*3/uL (0.1-1.2); Monocytes Percent Auto 6.8 % (2-11); Neutrophils Absolute Auto 3.9 x10*3/uL (2.0-8.3); Neutrophils Percent Auto 43.8 % (45-73); Platelet Count 276 X10*3/uL (160-400); Red Cell Distribution Width 13.2 % (11.0-16.0)
[2024-08-08 06:13] VITALS: BP 136/79; PULSE 71; RESP 16; TEMP 37.1; O2SAT 95; BMI 33.8
[2024-08-08 06:29] LABS: Alanine Aminotransferase 15 U/L (0-31); Albumin Level 3.6 g/dL (3.5-5.0); Alkaline Phosphatase 68 U/L (39-117); Anion Gap 11 (12-20); Aspartate Amino Transferase 21 U/L (5-31); Bilirubin Total 0.3 mg/dL (0.0-1.0); Blood Urea Nitrogen 18 mg/dL (9-16); Calcium 8.9 mg/dL (8.4-10.2); Carbon Dioxide 20 mmol/L (22-29); Chloride 111 mmol/L (96-108); Creatinine Clr Calc Pharmacy 92.6; Estimated Glomerular Filt Rate > 60; Glucose Random 100 mg/dL (60-115); Potassium 3.8 mmol/L (3.3-5.1); Sodium 138 mmol/L (135-145); Total Protein 7.1 g/dL (6.5-8.0); Troponin-I High Sensitivity < 2.7 ng/L (<3.5-17.0)
[2024-08-08 08:12] LABS: Magnesium 1.9 mg/dL (1.6-2.6)
--- NOTE | 2024-08-08 08:58 | ED_ITS ---
HPI - General Adult General Chief complaint: General Medical Stated complaint: CP Time Seen by Provider: 08/08/24 06:30 Source: patient, RN notes reviewed and old records reviewed Mode of arrival: ambulatory History of Present Illness ED Provider: Ale Kurtz PA-C HPI narrative: 44-year-old female with a past medical history of asthma presenting to the ED complaining of warm sensation diffusely over body, starting in chest radiating to bilateral upper extremities and head since 5AM with associated headache, bilateral hand numbness, chest pain, & weakness. Also reports blurry vision and nausea. Denies fever, chills, vision loss, focal weakness, abdominal pain, vomiting, diarrhea. Denies anticoagulation use Related Data Previous Rx's ?Medication ?Instructions ?Recorded albuterol sulfate 5 mg/mL(0.5 %) 2.5 mg (0.5 mL) inhalation Q6H PRN 04/08/20 solution for nebulization shortness of breath or wheezing #600 mL albuterol sulfate 90 mcg/actuation 2 puff inhalation Q4-6H PRN 04/08/20 aerosol inhaler shortness of breath or wheezing #18 grams mepolizumab 100 mg/mL subcutaneous 100 mg subcut Q4W 28 days #1 mL 06/05/21 syringe (Nucala) budesonide-formoterol HFA 160 2 puff inhalation BID 30 days 06/08/23 mcg-4.5 mcg/actuation aerosol #10.2 grams inhaler (Symbicort) Allergies Allergy/AdvReac Type Severity Reaction Status Date / Time No Known Allergies Allergy Verified 08/08/24 06:13 [No Known Allergies*] Review of Systems 2 Review of Systems: Yes all other systems are reviewed and are negative Constitutional: Constitutional: Reports as per HPI Neurologic: Denies Abnormal speech present [facility] Past Medical History Attestation statement: The following information was validated with the patient. Source: old records reviewed Medical History Asthma Surgical History History of lumpectomy of left breast Social History Social History Unable to assess alcohol history related to: Unknown Physical Exam ED Vital Signs: Vital Signs - 24 hr 08/08/24 06:13 08/08/24 09:10 08/08/24 11:20 Temperature 98.7 F 98.5 F 98 F Pulse Rate 71 72 69 Respiratory Rate 16 14 14 Blood Pressure 136/79 123/70 122/72 Pulse Oximetry 95 95 99 Oxygen Delivery Method Room Air Room Air Room Air BMI result Body Mass Index 33.8 Const General: cooperative, healthy appearing and no acute distress Orientation/consciousness: patient oriented x3 Limitations: no limitations HENMT Head: Yes normal to inspection and Yes atraumatic Ears: hearing grossly normal bilaterally General nose exam: Normal external nose present Face and sinus: Yes normal facial exam Mouth: Normal oral and palatal mucosa present Throat: Yes posterior oropharynx normal Eyes General: appearance normal, both eyes and all related structures Pupils: Equal, round and reactive pupils present EOM: EOMs intact bilaterally Neck Neck: Yes normal visual inspection and Yes no meningeal signs Resp Effort & Inspection: normal respiratory effort, no respiratory distress and no stridor Auscultation: clear to auscultation bilaterally and no wheezes Cardio Rate: regular rate Heart sounds: S1 normal heart sound present and S2 normal heart sound present GI Inspection: Yes normal to inspection Palpation (GI): Soft to palpation, nontender, no guarding and not rigid Skin Rashes: no rashes Wounds: no wounds Neuro General: patient oriented x3, tone normal, moves all extremities, no meningeal signs, no focal motor deficits and CN's II-XI intact bilaterally Cranial nerves: Yes CN's II-XII intact bilaterally, Yes Equal, round and reactive pupils present and Yes Bilaterally intact EOM present Cognition (Neuro): normal cognition Speech: No Abnormal speech present Gait exam (Neuro): Normal gait present Motor exam (neuro): 5/5 motor strength present throughout and no tremor noted Romberg Test: Negative Extrem General: Yes normal to inspection Course Course Course Narrative: -0903--labs reassuring, initial troponin negative will obtain repeat XR chest 1V IMPRESSION: No acute airspace disease. CT head/brain wo IV con IMPRESSION: No acute intracranial hemorrhage. 1 cm partially calcified pineal cyst. -1105--troponin x2 negative, mi unlikely. Viral testing negative > on re-evaluation patient reports symptomatic improvement. Results discussed with patient including worrisome signs and symptoms and strict return precautions, and when to return to the emergency department. They verbalized understanding and feel safe for discharge at this time. Medications Administered Discontinued Medications Generic Name Dose Route Start Last Admin Trade Name Maida PRN Reason Stop Dose Admin Acetaminophen/Butalbital/Caffeine 1 tab 08/08/24 09:02 08/08/24 09:20 Butalb/Acetamin/Caff 50/325/40 Tablet PO 08/08/24 09:03 1 tab ONCE ONE Administration Medical Decision Making Medical Decision Making [facility] Narrative: 44-year-old female with a past medical history of asthma presenting to the ED complaining of warm sensation diffusely over body, starting in chest radiating to bilateral upper extremities and head since 5AM with associated headache, bilateral hand numbness, chest pain, & weakness. Also reports blurry vision and nausea. On exam vital signs stable, NAD, nontoxic appearing, no focal neuro deficits. Lungs CTA. Concern for atypical ACS vs complicated migraine headache vs metabolic/infectious etiologies. Lower suspicion for ICH, meningitis, encephalitis, CVA/TIA or SAH at this time. Plan: EKG, labs, CXR, head CT, re-evaluate Please refer to course for remaining clinical decision making, interpretation of labs/imaging results, and discussions with consultants and/or family members. Differential Diagnosis Differential Diagnoses: The differential diagnosis associated with the presentation includes As above Admission/Observation Consideration of admission/observation: Escalation of care including admission/observation considered Lab Data [facility] Lab Attestation statement: I reviewed the patient's lab results. 08/08/24 06:04 08/08/24 06:04 Labs: Lab Results 08/08/24 08/08/24 Range/Units 06:04 09:43 WBC 9.0 (4.8-10.8) X10*3/uL RBC 4.80 (4.20-5.50) X10*6/uL Hgb 14.1 (12.0-16.0) g/dl Hct 40.6 (37.0-47.0) % MCV 84.6 (80.0-98.0) fL MCH 29.4 (27.0-33.0) pg MCHC 34.7 (31.0-35.0) g/dl RDW 13.2 (11.0-16.0) % Plt Count 276 (160-400) X10*3/uL MPV 10.1 (9.4-12.3) fL Immature Gran % (Auto) 0.3 (0.0-0.4) % Neut % (Auto) 43.8 L (45-73) % Lymph % (Auto) 47.2 H (20-40) % [place] % (Auto) 6.8 (2-11) % Eos % (Auto) 1.6 (0-4) % Baso % (Auto) 0.3 (0-2) % Lymph # (Auto) 4.2 (1.2-4.9) X10*3/uL [place] # (Auto) 0.6 (0.1-1.2) X10*3/uL Eos # (Auto) 0.1 (0.0-0.4) X10*3/uL Baso # (Auto) 0.0 (0.0-0.2) X10*3/uL Abs Immat Gran (auto) 0.03 (0.00-0.03) X10*3/uL Absolute Neuts (auto) 3.9 (2.0-8.3) x10*3/uL Absolute Nucleated RBC 0.000 (0.0-0.012) X10*3/uL Nucleated RBC % (auto) 0.0 (0.0-0.2) /100WBC Sodium 138 (135-145) mmol/L Potassium 3.8 (3.3-5.1) mmol/L Chloride 111 H (96-108) mmol/L Carbon Dioxide 20 L (22-29) mmol/L Anion Gap 11 L (12-20) BUN 18 H (9-16) mg/dL Creatinine 0.74 (0.5-1.4) mg/dL Estim Creat Clear Calc 92.6 Estimated GFR > 60 Random Glucose 100 (60-115) mg/dL Calcium 8.9 D (8.4-10.2) mg/dL Magnesium 1.9 (1.6-2.6) mg/dL Total Bilirubin 0.3 (0.0-1.0) mg/dL AST 21 (5-31) U/L ALT 15 (0-31) U/L Alkaline Phosphatase 68 (39-117) U/L Troponin I High Sens < 2.7 < 2.7 (<3.5-17.0) ng/L Total Protein 7.1 (6.5-8.0) g/dL Albumin 3.6 (3.5-5.0) g/dL Influenza Type A (PCR) NEGATIVE (Negative) Influenza Type B (PCR) NEGATIVE (Negative) RSV RNA Qual (PCR) NEGATIVE (Negative) SARS-CoV-2 RNA (RT-PCR) NEGATIVE (Negative) Independent Interpretation I performed an independent interpretation of an: EKG (My interpretation EKG normal sinus rhythm rate of 77. ID interval 146. No significant change when compared to prior. No STEMI), Plain X-Ray and CT Scan Radiology Impression Discussion of test interpretation with radiology: I have reviewed the radiologist's reading. External Record Review External record reviewed: Inpatient record, Office record, Outpatient record, Prior outpatient labs, Prior outpatient radiology, Primary care record and Outside ED record Tests considered The following testing was considered but not selected: As above Prescription Management I considered prescription management with: Pain Medication and Other Chronic Conditions Patient?s care impacted by: Other (Asthma) Social Determinants Patient?s care significantly limited by Social Determinants of Health including: Other Social Determinant of Health Discharge Plan Discharge Clinical Impression: Headache, Sensation of being warm, Atypical chest pain Patient Disposition: Home, Self-Care Instructions: Acute Headache (DC), Paresthesia (ED), Noncardiac Chest Pain (ED) Additional Instructions: Your blood work, head CT, and x-ray are reassuring Continue home prescribed medications Please have close follow-up with your primary care doctor as well as Neurology Call to make an appointment If her symptoms persist or worsen, you have constant worsening headache, vision change or loss, focal weakness, chest pain/shortness of breath return to the ED immediately Prescriptions: No Action Nucala 100 mg/mL syringe 100 mg subcut Q4W 28 Days Qty: 1 12RF budesonide-formoterol [Symbicort] 160-4.5 mcg/actuation HFA aerosol inhaler 2 puff inhalation BID 30 Days Qty: 10.2 6RF albuterol sulfate 90 mcg/actuation HFA aerosol inhaler 2 puff inhalation Q4-6H PRN (Reason: shortness of breath or wheezing) Qty: 18 0RF albuterol sulfate 5 mg/mL solution for nebulization 2.5 mg inhalation Q6H PRN (Reason: shortness of breath or wheezing) Qty: 600 0RF Referrals: [facility] [place] Neuro/Sleep [Provider Group] - 5 days Physician,Unknown J [Primary Care Provider] - Interventions: ED Discharge Assessment Last Done: 08/08/24 11:20 Discharge Date/Time: 08/08/24 11:21 Print Language: Czech
[2024-08-08 09:10] VITALS: BP 123/70; PULSE 72; RESP 14; TEMP 36.9; O2SAT 95
[2024-08-08] MEDS: Butalb/Acetamin/Caff 50/325/40 TABLET 1 TAB PO (09:20)
[2024-08-08 10:22] LABS: Troponin-I High Sensitivity < 2.7 ng/L (<3.5-17.0)
[2024-08-08 10:40] LABS: Influenza A PCR NEGATIVE (Negative); Influenza B PCR NEGATIVE (Negative); Resp Syncy Virus RNA Qual PCR NEGATIVE (Negative); SARS COV2 PCR INHOUSE NEGATIVE (Negative)
[2024-08-08 11:20] VITALS: BP 122/72; PULSE 69; RESP 14; TEMP 36.6; O2SAT 99
== END 2024-08-08 11:21 | disposition home or self-care (01) ==
PROVIDERS: Physician Assistant; Emergency Provider Emergency Medicine
DX: R07.89 Other chest pain (principal); R51.9 Headache, unspecified; R20.0 Anesthesia of skin; R53.1 Weakness; Z03.818 Encounter for observation for suspected exposure to other biological agents ruled out; Z79.899 Other long term (current) drug therapy
CPT/HCPCS: 0241U; 36415; 70450; 71045; 80053; 83735; 84484; 85025; 93005; 99284

== ENCOUNTER → 2024-08-08 05:56 | Outpatient (BNV) | payer OTHER, MEDICAID, SELFPAY | PROVIDERS: Emergency Provider Emergency Medicine; Visit Provider Internal Medicine Cardiovascular Disease | DX: R07.9 Chest pain, unspecified (principal) | CPT/HCPCS: 93010 ==

== ENCOUNTER → 2024-08-08 07:25 | Outpatient (BNV) | payer OTHER, MEDICAID, SELFPAY | PROVIDERS: Emergency Provider Emergency Medicine; Visit Provider Radiology Diagnostic Radiology | DX: E34.8 Other specified endocrine disorders (principal); R51.9 Headache, unspecified; R07.9 Chest pain, unspecified | CPT/HCPCS: 70450; 71045 ==

== ENCOUNTER 2024-08-10 19:39 | Emergency (ER) | payer OTHER, MEDICAID, SELFPAY ==
--- NOTE | 2024-08-10 19:49 | ED.URI ---
HPI - URI/Sore Throat General Chief Complaint: General Medical Stated Complaint: chills Time Seen by Provider: 08/11/24 04:30 Source: patient Mode of arrival: ambulatory Limitations: no limitations History of Present Illness ED Provider: HPI Narrative: Patient is prediabetic no other significant medical history complaining of feeling shivering feeling in the chest off and on for last 3 days along with tingling in the hand was seen here on 08/08 workup was negative denies any urinary complaints no flank pain no nausea no vomiting no fever no cough to do also patient has had high sensitive troponin negative cardiogram without any ischemic changes Related Data Previous Rx's ?Medication ?Instructions ?Recorded albuterol sulfate 5 mg/mL(0.5 %) 2.5 mg (0.5 mL) inhalation Q6H PRN 04/08/20 solution for nebulization shortness of breath or wheezing #600 mL albuterol sulfate 90 mcg/actuation 2 puff inhalation Q4-6H PRN 04/08/20 aerosol inhaler shortness of breath or wheezing #18 grams mepolizumab 100 mg/mL subcutaneous 100 mg subcut Q4W 28 days #1 mL 06/05/21 syringe (Nucala) budesonide-formoterol HFA 160 2 puff inhalation BID 30 days 06/08/23 mcg-4.5 mcg/actuation aerosol #10.2 grams inhaler (Symbicort) Allergies Allergy/AdvReac Type Severity Reaction Status Date / Time No Known Allergies Allergy Verified 08/10/24 19:53 [No Known Allergies*] Review of Systems Review of Systems: Yes all other systems are reviewed and are negative PMFSH Past Medical History Medical History Asthma Surgical History History of lumpectomy of left breast Social History Social History Unable to assess alcohol history related to: Unknown Smoked in Last 30 Days: Yes Use of substances other than those prescribed or required for medical reasons: No Advance Directives: No Advance Directives Information Provided: Yes Patient : No Physical Exam Vital Signs: Vital Signs: Last Vital Signs Temp 98.8 F 08/11/24 01:14 Pulse 69 08/11/24 01:14 Resp 16 08/11/24 01:14 BP 113/71 08/11/24 01:14 Pulse Ox 97 08/11/24 01:14 O2 Del Method Room Air 08/11/24 01:14 BMI result Body Mass Index 34.3 Appearance: Alert. Oriented X3. No acute distress. Eyes: No pallor or icterus ENT: Pharynx normal. Oral Mucosa moist Neck: Normal inspection. Neck supple. CVS: Normal heart rate and rhythm. Pulses normal. Respiratory: No respiratory distress. Equal air entry bilateral, no wheezing/rales/rhonchi Abdomen: Soft and nontender. Bowel sounds are present, no mass palpable, no CVA tenderness Skin: Skin warm and dry. Normal skin color. Normal skin turgor. Extremities: No lower extremity edema. No calf tenderness Neuro: Oriented X 3. No motor deficit. No sensory deficit.No cerebellar signs , cranial nerves II-XII intact Course Course Course Narrative: This is a Rapid Medical Exam performed in triage by Ale Kurtz PA-C. Full HPI, ROS and PE to be performed by primary ED provider. 44yo F w/PMHx asthma presenting to the ED c/o chills, cold chest, hands/feet & feet feel numb. Patient was seen & tx in our ED on 08/08 for warm body sensation & COFFEY had negative w/u at that time. Took Motrin around 1800 PE: tearful, congested, nonfocal, afebrile Plan: EKG, SARs, labs Medical Decision Making Medical Decision Making MDM Narrative: Patient has atypical symptoms cardiac enzymes negative workup is negative will check UA rule out UTI UA is negative for UTI patient has slept during stay in the ER advised to follow up with PCP what nonspecific symptoms possible anxiety Lab Data [facility] Lab Attestation statement: I reviewed the patient's lab results. 08/10/24 20:00 08/10/24 20:00 Labs: Lab Results 08/10/24 08/11/24 Range/Units 20:00 05:40 WBC 10.8 (4.8-10.8) X10*3/uL RBC 4.71 (4.20-5.50) X10*6/uL Hgb 13.8 (12.0-16.0) g/dl Hct 39.6 (37.0-47.0) % MCV 84.1 (80.0-98.0) fL MCH 29.3 (27.0-33.0) pg MCHC 34.8 (31.0-35.0) g/dl RDW 13.1 (11.0-16.0) % Plt Count 292 (160-400) X10*3/uL MPV 10.3 (9.4-12.3) fL Immature Gran % (Auto) 0.3 (0.0-0.4) % Neut % (Auto) 57.6 (45-73) % Lymph % (Auto) 34.6 (20-40) % [place] % (Auto) 6.4 (2-11) % Eos % (Auto) 0.6 (0-4) % Baso % (Auto) 0.5 (0-2) % Lymph # (Auto) 3.7 (1.2-4.9) X10*3/uL [place] # (Auto) 0.7 (0.1-1.2) X10*3/uL Eos # (Auto) 0.1 (0.0-0.4) X10*3/uL Baso # (Auto) 0.1 (0.0-0.2) X10*3/uL Abs Immat Gran (auto) 0.03 (0.00-0.03) X10*3/uL Absolute Neuts (auto) 6.2 (2.0-8.3) x10*3/uL Absolute Nucleated RBC 0.000 (0.0-0.012) X10*3/uL Nucleated RBC % (auto) 0.0 (0.0-0.2) /100WBC Sodium 140 (135-145) mmol/L Potassium 3.6 (3.3-5.1) mmol/L Chloride 111 H (96-108) mmol/L Carbon Dioxide 23 (22-29) mmol/L Anion Gap 10 L (12-20) BUN 10 (9-16) mg/dL Creatinine 0.76 (0.5-1.4) mg/dL Estim Creat Clear Calc 91.0 Estimated GFR > 60 Random Glucose 99 (60-115) mg/dL Calcium 9.2 (8.4-10.2) mg/dL Magnesium 2.2 (1.6-2.6) mg/dL Total Bilirubin 0.4 (0.0-1.0) mg/dL Direct Bilirubin 0.1 (0.0-0.5) mg/dL AST 20 (5-31) U/L ALT 21 (0-31) U/L Alkaline Phosphatase 60 (39-117) U/L Troponin I High Sens < 2.7 (<3.5-17.0) ng/L Total Protein 7.6 (6.5-8.0) g/dL Albumin 4.0 (3.5-5.0) g/dL Urine Color Yellow Urine Appearance Clear Urine pH 5.5 (5.0-9.0) Ur Specific [place] 1.020 (1.005-1.025) Urine Protein Negative (Neg-Trace) mg/dL Urine Glucose (UA) Negative (Negative) mg/dL Urine Ketones Negative (Negative) mg/dL Urine Blood Trace H (Negative) Urine Nitrite Negative (Negative) Ur Leukocyte Esterase Negative (Negative) Urine RBC 0-2 (0-2) /HPF Urine WBC 0-5 (0-5) /HPF Ur Squamous Epith Cells 3-5 (0-2) /HPF Urine Bacteria Trace (None Seen) Hyaline Casts 0-2 (0-2) /LPF Influenza Type A (PCR) NEGATIVE (Negative) Influenza Type B (PCR) NEGATIVE (Negative) RSV RNA Qual (PCR) NEGATIVE (Negative) SARS-CoV-2 RNA (RT-PCR) NEGATIVE (Negative) Independent Interpretation I performed an independent interpretation of an: EKG Interpretation: Normal sinus rhythm heart rate 77 beats per minute normal intervals normal axis no acute STT changes no ischemia impression normal EKG Discharge Plan Discharge Clinical Impression: Atypical chest pain Patient Disposition: Home, Self-Care Instructions: Noncardiac Chest Pain (ED) Additional Instructions: Follow with your PCP Your chest pain is not from the heart Prescriptions: No Action Nucala 100 mg/mL syringe 100 mg subcut Q4W 28 Days Qty: 1 12RF budesonide-formoterol [Symbicort] 160-4.5 mcg/actuation HFA aerosol inhaler 2 puff inhalation BID 30 Days Qty: 10.2 6RF albuterol sulfate 90 mcg/actuation HFA aerosol inhaler 2 puff inhalation Q4-6H PRN (Reason: shortness of breath or wheezing) Qty: 18 0RF albuterol sulfate 5 mg/mL solution for nebulization 2.5 mg inhalation Q6H PRN (Reason: shortness of breath or wheezing) Qty: 600 0RF Interventions: ED Discharge Assessment Last Done: 08/11/24 06:41 Print Language: Chinese
[2024-08-10 19:50] VITALS: BP 148/93; PULSE 85; RESP 18; TEMP 36.7; O2SAT 99; BMI 34.3
--- NOTE | 2024-08-10 19:53 | ECG_ITS ---
Test Reason : COLD CHEST Blood Pressure : */* mmHG Vent. Rate : 77 BPM Atrial Rate : 77 BPM P-R Int : 154 ms QRS Dur : 70 ms QT Int : 374 ms P-R-T Axes : 23 12 20 degrees QTcB Int : 423 ms Normal sinus rhythm Normal ECG When compared with ECG of 08-Aug-2024 05:56, No significant change was found Referred By: Ale uKrtz Electronically Signed By: Javed Gao
[2024-08-10 20:08] LABS: MANUAL DIFF FLAG NO
[2024-08-10 20:11] LABS: Basophils Absolute Auto 0.1 X10*3/uL (0.0-0.2); Basophils Percent Auto 0.5 % (0-2); Eosinophils Absolute Auto 0.1 X10*3/uL (0.0-0.4); Eosinophils Percent Auto 0.6 % (0-4); Hematocrit 39.6 % (37.0-47.0); Hemoglobin 13.8 g/dl (12.0-16.0); Imm Gran Abs Auto 0.03 X10*3/uL (0.00-0.03); Imm Gran Pct Auto 0.3 % (0.0-0.4); Lymphocytes Absolute Auto 3.7 X10*3/uL (1.2-4.9); Lymphocytes Percent Auto 34.6 % (20-40); Mean Corpuscular HGB Conc 34.8 g/dl (31.0-35.0); Mean Corpuscular Hemoglobin 29.3 pg (27.0-33.0); Mean Corpuscular Volume 84.1 fL (80.0-98.0); Mean Platelet Volume 10.3 fL (9.4-12.3); Monocytes Absolute Auto 0.7 X10*3/uL (0.1-1.2); Monocytes Percent Auto 6.4 % (2-11); Neutrophils Absolute Auto 6.2 x10*3/uL (2.0-8.3); Neutrophils Percent Auto 57.6 % (45-73); Platelet Count 292 X10*3/uL (160-400); Red Blood Count 4.71 X10*6/uL (4.20-5.50); Red Cell Distribution Width 13.1 % (11.0-16.0); White Blood Count 10.8 X10*3/uL (4.8-10.8)
[2024-08-10 20:28] LABS: Alanine Aminotransferase 21 U/L (0-31); Alkaline Phosphatase 60 U/L (39-117); Anion Gap 10 (12-20); Aspartate Amino Transferase 20 U/L (5-31); Bilirubin Direct 0.1 mg/dL (0.0-0.5); Bilirubin Total 0.4 mg/dL (0.0-1.0); Blood Urea Nitrogen 10 mg/dL (9-16); Calcium 9.2 mg/dL (8.4-10.2); Carbon Dioxide 23 mmol/L (22-29); Chloride 111 mmol/L (96-108); Estimated Glomerular Filt Rate > 60; Glucose Random 99 mg/dL (60-115); Magnesium 2.2 mg/dL (1.6-2.6); Potassium 3.6 mmol/L (3.3-5.1); Sodium 140 mmol/L (135-145); Total Protein 7.6 g/dL (6.5-8.0)
[2024-08-10 20:36] LABS: Troponin-I High Sensitivity < 2.7 ng/L (<3.5-17.0)
[2024-08-10 20:59] LABS: Influenza A PCR NEGATIVE (Negative); Influenza B PCR NEGATIVE (Negative); Resp Syncy Virus RNA Qual PCR NEGATIVE (Negative); SARS COV2 PCR INHOUSE NEGATIVE (Negative)
[2024-08-11 01:14] VITALS: BP 113/71; PULSE 69; RESP 16; TEMP 37.1; O2SAT 97
[2024-08-11 05:47] LABS: Appearance Urine Clear; Color Urine Yellow; Glucose Urine UA Negative (Negative); Leukocyte Esterase Urine Negative (Negative); Nitrite Urine Negative (Negative); PH 5.5 (5.0-9.0); UMIC TRIGGER UACC YES; Urine Blood Trace (Negative); Urine Ketones Negative (Negative); Urine Protein Negative (Neg-Trace)
[2024-08-11 05:51] LABS: Bacteria Urine Trace (None Seen); Hyaline Casts Urine 0-2 /LPF (0-2); RBC Urine 0-2 /HPF (0-2); WBC Urine 0-5 /HPF (0-5)
[2024-08-11 06:41] VITALS: BP 113/71; PULSE 69; RESP 16; TEMP 37.1; O2SAT 97
== END 2024-08-11 06:41 | disposition home or self-care (01) ==
PROVIDERS: Physician Assistant; Emergency Provider Internal Medicine; PCP Registered Nurse
DX: R07.89 Other chest pain (principal); R68.83 Chills (without fever); J45.909 Unspecified asthma, uncomplicated; Z03.818 Encounter for observation for suspected exposure to other biological agents ruled out; Z79.899 Other long term (current) drug therapy
CPT/HCPCS: 0241U; 80048; 80076; 81001; 83735; 84484; 85025; 93005; 99283; 99284

== ENCOUNTER → 2024-08-10 19:53 | Outpatient (BNV) | payer OTHER, MEDICAID, SELFPAY | PROVIDERS: Emergency Provider Internal Medicine; PCP Registered Nurse; Visit Provider Internal Medicine Cardiovascular Disease | DX: R09.89 Other specified symptoms and signs involving the circulatory and respiratory systems (principal) | CPT/HCPCS: 93010 ==

== ENCOUNTER → 2024-08-26 13:30 | Outpatient (BNV) | payer OTHER, MEDICAID, SELFPAY | PROVIDERS: PCP Registered Nurse; Visit Provider Radiology Diagnostic Radiology | DX: E34.8 Other specified endocrine disorders (principal); M50.221 Other cervical disc displacement at C4-C5 level | CPT/HCPCS: 70553; 72141 ==

== ENCOUNTER 2024-08-26 13:33 | Outpatient (REF) | payer OTHER, MEDICAID, SELFPAY ==
--- NOTE | ~2024-08-26 | MR_ITS ---
EXAMINATION: MR CERVICAL SPINE WITHOUT CONTRAST CLINICAL INFORMATION: Numbness and tingling, both upper extremities COMPARISON: None available. TECHNIQUE: MRI of the cervical spine was obtained using routine sequences without contrast. FINDINGS: Craniocervical junction is intact. No bone marrow STIR signal abnormality. Normal alignment. Mild disc desiccation more conspicuous at C4-5. Cervical spinal cord signal is normal. C2-3: No disc herniation. No neuroforamina stenosis. The C3-4: Small central disc herniation. Mild ventral indentation to the thecal sac. No cord compression. No neuroforamina stenosis. C4-5: Central disc herniation resulting in ventral deformity of spinal cord. No cord compression. No cord signal abnormality. No neuroforamina stenosis. C5-6: No disc herniation. No neuroforamina stenosis. C6-7: No disc herniation. No neuroforamina stenosis. C7-T1: No disc herniation. No neuroforamina stenosis. No prevertebral compartment hematoma, mass or fluid collection. Flow-void signal within the mean vessels is normal. Right vertebral artery is dominant. MR/MR cervical spine wo con IMPRESSION: Central disc herniation C4-5 abutting the cord without cord compression, edema and or myelopathy. Electronically signed by: Lamberto Puckett MD 08/27/2024 09:01 AM EDT
--- NOTE | ~2024-08-26 | MR_ITS ---
EXAMINATION: MR BRAIN WITHOUT AND WITH CONTRAST CLINICAL INFORMATION: 1 cm partially calcified pineal cyst. COMPARISON: Correlated to CT dated August 08, 2024. TECHNIQUE: Multiplanar, multisequence MRI of the brain was obtained before and after the intravenous administration of 8.5 mL gadolinium based without reported complications. FINDINGS: There is a 1 cm nonenhancing peripheral susceptibility signal in the pineal gland. No restricted diffusion. No acute intracranial hemorrhage, mass effect, midline shift, hydrocephalus or herniation. Singh-white matter differentiation is normal. Nonspecific bilateral multifocal punctate nonenhancing no restricted diffusion hyperintense T2 FLAIR signal within the white matter of the centrum semiovale and ocampo radiata. Sellar/suprasellar region demonstrated no signal abnormality or enhancing lesion. Craniocervical junction is intact and normal. Flow-void signal within the main cerebral vessels is normal No enhancing mass within the intra-axial or extra-axial compartment of the cranium. MR/MR head/brain wo/w con IMPRESSION: No enhancing mass. No acute brain abnormality. Nonspecific, white matter T2 FLAIR signal. This could be seen patients with migraines. Electronically signed by: Lamberto Puckett MD 08/27/2024 09:18 AM EDT
--- OUTSIDE RECORDS SUMMARY | 2024-08-26 14:04 | XMS_ITS | Encounter Summary ---
Author Organization [employer] Address [address] [place] [address] Care Team Providers Care Emergency Care Attendant Name Role Phone Stephanie Cotton Primary Care Provider [phone] Reason for Visit * Reason Comments Med Refill Encounter Details Date Type Department Care Team (Late st Contact Info) Description 09/29/2023 Refill [facility] [address] [place] [address] Stephanie Engel FNP Social History Tobacco Use Types Packs/Day Years Used Date Smoking Tobacco: Never Passive Smoke Exposure: Current Smokeless Tobacco: Never Comments:Vape Passive Exposure Comments:Vape Alcohol Use Standard Drinks/Week Comments Never 0 (1 standard drink = 0.6 oz pur e alcohol) Depression Answer Date Recorded Patient Health Questionnaire-9 Score 15 08/31/2023 Patient Health Questionnaire-9 Score 15 08/31/2023 Last PHQ-9: Questionnaire Data Not on file 0 08/31/2023 Housing Stability Answer Date Recorded What is your housing situation today? I have [place] 08/31/[address] you li ve. Do you have problems with any of the following? None of the above 08/31/2023 Food Insecurity Answer Date Recorded Within the past 12 months, y ou worried that your food would run out before you got money to buy more: Never True 08/31/2023 Within the past 12 months,th e food you bought just didn't last and you didn't have enough money to get more: Never True 02/2024 Transportation Answer Date Recorded In the past 12 months, has l ack of transportation kept you from medical appts, meetings, work or from getting things needed for daily living? No 08/31/2023 Utilities Answer Date Recorded In the past 12 months, has t he electric, gas, oil or water company threatened to shut off services in your home? No 08/31/2023 Depression Answer Date Recorded Patient Health Questionnaire-2 Score 3 08/31/2023 Comments Unknown Sex and Gender Information Value Date Recorded Sex Assigned at Female 03/22/2022 10:16 AM EDT Legal Sex Female 10:16 AM EDT Gender Identity Female 06/16/2022 10:53 AM EST Sexual Orientation Don't know 06/16/2022 10 :53 AM EST documented as of this encounter Plan of Treatment Upcoming Encounters Date Type Department Care Team (Late st Contact Info) Description 10/19/2024 2:30 PM EDT Office Visit [facility] [address] [place] [address] Stephanie Cotton FNP [address] [place] [address] 10/26/2024 8:30 AM EDT Procedure Visit [facility] [address] [place] [address] Stephanie Cotton FNP [address] [place] [address] documented as of this encounter Visit Diagnoses Not on filedocumented in this encounter Additional Health Concerns Assessment Noted Time PHQ-9 Depression Total Score: 15 024 10:16 AM EDT documented as of this encounter Care Teams Emergency Care Attendant Relationship Specialty Start Date End Date Stephanie Cotton FNP [address] [place] [id number] PCP - General Family Medicine 03/16/21 documented as of this encounter
--- OUTSIDE RECORDS SUMMARY | 2024-08-26 14:04 | XMS_ITS | Clinical Summary ---
Author Organization [employer] Address [address] [place] [address] Care Team Providers Care Bus Trolley And Taxi Instructor Name Role Phone Stephanie Cotton MARRIAGE COUNSELOR Primary Care Provider [phone] Allergies No known active allergies Medications biotin 1 MG capsule Take by mouth. Activ e hydrocortisone (Anusol-HC) 2.5 % rectal creamIndication s:Constipation, unspecified constipation type,Other hemorrhoids Apply to rectal area twice daily as needed for hemorrhoids 28 g 2 023 Active polyethylene glycol, PEG, 3350 (MiraLax) 17 GM/SCOOP powderIndicatio ns:Constipation , unspecified constipation type Mix 17g into 8oz liquid and drink daily for constipation 527 g 2 023 Active omeprazole OTC (PriLOSEC OTC) 20 MG EC tabletIndicatio ns:Dysphagia, unspecified type Take 1 tablet (20 mg) by mouth before breakfast. Do not crush, chew, or split. 30 tablet 11 023 Active Diclofenac Sodium 1 % gelIndications: Acute right-sided thoracic back pain Apply to the affected areas 4x/day as needed 50 g 1 023 Active FreeStyle lancets 1 each by Other route in the morning. 100 each 024 Active Alcohol Swabs pads 1 each in the morning. 100 each 3 024 Active glucose blood test strip Use to check BG once daily 100 each 12 024 2024 Active ibuprofen 600 MG tabletIndicatio ns:Pain Take 1 tablet (600 mg) by mouth every 8 (eight) hours if needed for mild pain, moderate pain or fever. 90 tablet 2 Active loratadine (Claritin) 10 MG tabletIndicatio ns:Seasonal allergies Take 1 tablet (10 mg) by mouth in the morning. For allergies 90 tablet 3 Active famotidine (Pepcid) 20 MG tablet Take 1 tablet (20 mg) by mouth if needed in the morning and at bedtime for heartburn. 90 tablet 3 Active lidocaine (Lidoderm) 5 % patch Apply 1 patch topically in the morning. Remove & discard patch within 12 hours or as directed by MD. 30 patch 3 Active Fluocinonide Emulsified Base 0.05 % cream Apply small amount to affected area on arms, abdomen, legs twice daily. Do not apply to face. 60 g 1 Active calamine-zinc oxide lotion Apply topically if needed (itching). 118 mL Active doxepin (SINEquan) 10 MG capsuleIndicati ons:Mixed insomnia Take 1 capsule (10 mg) by mouth at bedtime. 90 capsule 025 2025 Active citalopram (CeleXA) 20 MG tabletIndicatio ns:Anxiety and depression Take 1 tablet (20 mg) by mouth in the morning. 90 tablet 1 Active Symbicort 160-4.5 MCG/ACT inhalerIndicati ons:Severe persistent allergic asthma .INHALE 2 PUFFS BY MOUTH 2 TIMES A DAY. Rinse mouth with water after use to reduce aftertaste and incidence of candidiasis. Do not swallow 1 each 3 Active albuterol 108 (90 Base) MCG/ACT inhalerIndicati ons:Severe persistent allergic asthma Inhale 2 puffs every 4 (four) hours if needed for wheezing or shortness of breath. 18 g 11 025 2025 Active albuterol (2.5 MG/3ML) 0.083% nebulizer solutionIndicat ions:Severe persistent allergic asthma Take 3 mL (2.5 mg) by nebulization every 4 (four) hours if needed for wheezing. 75 mL 11 025 2025 Active montelukast (Singulair) 10 MG tabletIndicatio ns:Severe persistent allergic asthma Take 1 tablet (10 mg) by mouth at bedtime. 90 tablet 3 025 Active Tirzepatide-Gianfranco ght Management (Zepbound) 2.5 MG/0.5ML solution auto-injectorIn dications:Class 2 obesity without serious comorbidity with body mass index (BMI) of 37.0 to 37.9 in adult, unspecified obesity type Inject 0.5 mL (2.5 mg) under the skin 1 (one) time per week. 2 mL 3 025 Active Tirzepatide-Gianfranco ght Management (Zepbound) 2.5 MG/0.5ML solution auto-injectorIn dications:Class 2 obesity without serious comorbidity with body mass index (BMI) of 37.0 to 37.9 in adult, unspecified obesity type Inject 1 mL (5 mg) under the skin 1 (one) time per week. 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 Overview (08/12/2024): - Incidental finding on CT head/brain wo contrast 08[place]08[place]24 [place] [facility] 1 cm partially calcified pineal cyst - Referral to neurology placed 08/12/2024 Mixed insomnia 06/25/2024 Overview (08/12/2024): -Previous med trials for sleep include: ambien, hydroxyzine, trazodone, doxepin, and melatonin -Reviewed lifestyle recommendations -Declines referral to at this time -Referral to sleep medicine placed July 2024 Healthcare maintenance 09/01/2023 Overview (06/25/2024): Optometry: scheduled 09/15/23 Colonoscopy: referral placed 06/25/24 Mammogram: ordered 06/25/24 Pap: encouraged to schedule following appt 06/25/24 Allergic rhinitis 06/12/2015 Constipation 06/12/2015 Assessment & Plan (06/16/2022 8:43 PM EST): -Restart miralax daily -Restart colace 100mg BID PRN -Reviewed med safety and SE -Encourage hydration, movement, and fiber rich diet Anxiety and depression 06/12/2015 Assessment & Plan (06/25/2024 2:57 PM EST): - Continue escitalopram 20 mg daily - Follow up if interested in referral to [facility] Assessment & Plan (09/01/2022 12:50 PM EDT): -Increased situational stress/anxiety related to family matters -Previous med trials for sleep include: ambien, hydroxyzine, and melatonin -Start trazodone 25mg nightly PRN for sleep -Restart escitalopram 10mg daily for anxiety, increase to 20mg daily in 1 month if well tolerated. Reviewed med SE and safety -Declines referral to [facility]/therapist at this time -Follow up in 6 weeks for transfer patient visit, sooner PRN Severe persistent allergic asthma 06/12/2015 Overview (06/25/2024): Previously [place] [facility]. Had received Nucala injections, no longer using d/t improvement in symptoms. Continues with Symbicort 160-4.5mcg/act: 2 puffs BID Rescue: albuterol PRN Assessment & Plan (06/25/2024 2:52 PM EST): Well controlled, cont with current regimen Assessment & Plan (09/01/2023 8:11 AM EDT): [place] [facility] Continues with Symbicort 160-4.5mcg/act: 2 puffs BID Well controlled, cont with current regimen Smoker 06/12/2015 Obesity 06/12/2015 Overview (08/12/2024): Wt Readings from Last 7 Encounters: 06/25/24 181 lb 6 oz (82.3 kg) 03/02/24 181 lb 8 oz (82.3 kg) 12/16/23 190 lb (86.2 kg) 11/01/23 187 lb (84.8 kg) 09/26/23 196 lb 6 oz (89.1 kg) 08/31/23 199 lb (90.3 kg) -Continues multimodal approach to sustainable weight loss including nutrition, movement, social support, and sleep. Previously tx with Wegovy with good therapeutic response from August - Apr 2024. Lost ~9% total body weight, and noticed improvements in energy level throughout the day. Transition to Zepbound 2024. PA requested July 2024 as her insurance has changed. Will start with dose 2.5 mg subcutaneous weekly Assessment & Plan (06/25/2024 2:51 PM EST): Starting weight: 199 lbs Today's weight: 181 lbs - She has lost ~9% of BW since initiating Wegovy, which is within target for medication goals. She is considered appropriate to continue with GLP1. Initiate Zepbound transition. Assessment & Plan (03/08/2024 8:18 PM EDT): Starting weight: 199 lbs Today's weight: 181 lbs - She has lost ~9% of BW over the past 6 months, which is within target for medication goals. She is considered appropriate to continue with medication. Request for PA renewal sent 03/08/24 Assessment & Plan (12/18/2023 7:15 PM EDT): Wt Readings from Last 10 Encounters: 12/16/23 190 lb (86.2 kg) 11/01/23 187 lb (84.8 kg) 09/26/23 196 lb 6 oz (89.1 kg) 08/31/23 199 lb (90.3 kg) 08/03/23 200 lb 6.4 oz (90.9 kg) 03/14/23 194 lb 12.8 oz (88.4 kg) 09/01/22 190 lb (86.2 kg) 08/31/22 191 lb 3.2 oz (86.7 kg) 06/16/22 187 lb (84.8 kg) 03/12/20 179 lb 12.8 oz (81.6 kg) -Reports difficulty with losing weight, associated with worsening of pre- existing mental health conditions. Discussed multimodal approach to sustainable weight loss including nutrition, movement, and sleep. Given that there is a component of eating 2/2 stress, would also expect therapy to be a helpful tx avenue. Continue Wegovy subcutaneous weekly, Reviewed med SE, injection teaching, safety. Dosing as follows: 0.25mg subcutaneous dose initiated 09/13/23 0.5mg subcutaneous dose to start 10/11/23 1mg subcutaneous dose to start 11/08/23 1.7mg subcutaneous dose to start 12/06/23 - Increased to 2.4mg subcutaneous weekly with next med refill. Pt to call in with any symptoms -Congratulated on increase in exercise and social outings Assessment & Plan (09/26/2023 9:10 PM EDT): Wt Readings from Last 10 Encounters: 09/26/23 196 lb 6 oz (89.1 kg) 08/31/23 199 lb (90.3 kg) 08/03/23 200 lb 6.4 oz (90.9 kg) 03/14/23 194 lb 12.8 oz (88.4 kg) 09/01/22 190 lb (86.2 kg) 08/31/22 191 lb 3.2 oz (86.7 kg) 06/16/22 187 lb (84.8 kg) 03/12/20 179 lb 12.8 oz (81.6 kg) 05/17/19 178 lb (80.7 kg) -Reports difficulty with losing weight, associated with worsening of pre- existing mental health conditions. Discussed multimodal approach to sustainable weight loss including nutrition, movement, and sleep. Given that there is a component of eating 2/2 stress, would also expect therapy to be a helpful tx avenue. Continue Wegovy subcutaneous weekly, Reviewed med SE, injection teaching, safety. Dosing as follows: 0.25mg subcutaneous dose initiated 09/13/23 0.5mg subcutaneous dose to start 10/11/23 1mg subcutaneous dose to start 11/08/23 1.7mg subcutaneous dose to start 12/06/23 Assessment & Plan (09/01/2023 8:13 AM EDT): Wt Readings from Last 10 Encounters: 08/31/23 199 lb (90.3 kg) 08/03/23 200 lb 6.4 oz (90.9 kg) 03/14/23 194 lb 12.8 oz (88.4 kg) 09/01/22 190 lb (86.2 kg) 08/31/22 191 lb 3.2 oz (86.7 kg) 06/16/22 187 lb (84.8 kg) 03/12/20 179 lb 12.8 oz (81.6 kg) 05/17/19 178 lb (80.7 kg) -Reports difficulty with losing weight, associated with worsening of pre- existing mental health conditions. Discussed multimodal approach to sustainable weight loss including nutrition, movement, and sleep. Given that there is a component of eating 2/2 stress, would also expect therapy to be a helpful tx avenue. Discussed available pharmacotherapy, pt interested in trial of Wegovy. -PA for Wegovy sent 09/01/23. Plan to return to office once approved for med start. Resolved Problems Problem Noted Date Diagnosed Date Resolved Date Prediabetes 09/01/2023 09/26/2023 Overview (09/01/2023): Lab Results Component Value Date HGBA1C 5.7 08/03/2023 -Reviewed healthy lifestyle interventions Acute cough 07/06/2022 09/01/2022 Assessment & Plan (07/06/2022 10:09 AM EST): Patient refers having sore throat, cough, congestion, chills started on Tuesday, tested positive for covid 07/06. Paxlovid offered, reviewed medications, risk vs benefits were discussed, told to rest, stay hydrated and in case of worsening symtpoms to visit er COVID 07/06/2022 09/01/2022 Encounters Date Type Department Care Team Description 08/13/2024 Orders Only [place] [employer] [facility] [address] [place] [address] Provider, MD Charisse 08/10/2024 3:30 PM EDT Office Visit [facility] [address] [place] [address] Stephanie Cotton, BUCKY Numbness and tingling of both upper extremities (Primary Dx); Class 2 obesity without serious comorbidity with body mass index (BMI) of 37.0 to 37.9 in adult, unspecified obesity type; Mixed insomnia; Cyst of pineal gland; Cervical pain (neck) 08/10/2024 Travel 08/10/2024 Telephone [facility] [address] [place] [address] Stephanie Cotton FNP Chart Prep 07/30/2024 Telephone [facility] [address] [place] [address] Stephanie Cotton FNP No Show 07/06/2024 Telephone [facility] [address] [place] [address] Stephanie Cotton FNP Prior Authorization 06/25/2024 1:45 PM EST Office Visit [facility] [address] [place] [address] Stephanie Cotton FNP Class 2 obesity without serious comorbidity with body mass index (BMI) of 37.0 to 37.9 in adult, unspecified obesity type (Primary Dx); Encounter for screening mammogram for malignant neoplasm of breast; Colon cancer screening; Mixed insomnia; Severe persistent allergic asthma; Healthcare maintenance; Anxiety and depression 06/25/2024 Travel 06/21/2024 Telephone [facility] [address] [place] [address] Judie Pena MA Chart Prep 06/07/2024 Travel 06/01/2024 Orders Only [facility] [address] [place] [address] Stephanie Cotton FNP Class 2 obesity without serious comorbidity with body mass index (BMI) of 37.0 to 37.9 in adult, unspecified obesity type from Last 3 Months Immunizations Name Administration Dates Next Due Influenza Injectable Quadriv alant Preservative Free IIV4 MDCK 02/13/2018 Influenza injectable quadrivalent preservative f ree 03/29/2020,03/27/2019 Influenza, IIV3, injectable 03/06/2007 Moderna Covid-19 Vaccine 12+ 10/15/2020,09/18/19 21 Pneumococcal Polysaccharide PPSV23 05/25/2011 TD (adult), 2 Lf tetanus tox oid, preservative free, adsorbed 12/12/2007 Tdap 01/19/2016 Social History Tobacco Use Types Packs/Day Years Used Date Smoking Tobacco: Never Passive Smoke Exposure: Current Smokeless Tobacco: Never Tobacco Cessation:Counseling Given: Not Answered Comments:Vape Passive Exposure Comments:Vape Alcohol Use Standard Drinks/Week Comments Never 0 (1 standard drink = 0.6 oz pur e alcohol) Depression Answer Date Recorded Patient Health Questionnaire-9 Score 9 06/25/2024 Patient Health Questionnaire-9 Score 9 06/25/2024 Last PHQ-9: Questionnaire Data Not on file 0 06/25/2024 Housing Stability Answer Date Recorded What is your housing situation today? I have cliffkaitlynn salas 08/31/[address] you [...] Answer Date Recorded Patient Health Questionnaire-2 Score 2 06/25/2024 Comments Unknown Sex and Gender Information Value Date Recorded Sex Assigned at Female 03/22/2022 10:16 AM EDT Legal Sex Female 10:16 AM EDT Gender Identity Female 06/16/2022 10:53 AM EST Sexual Orientation Don't know 06/16/2022 10 :53 AM EST Last Filed Vital Signs Vital Sign Reading Time Taken Comments Blood Pressure 117/73 08/10/2024 3:41 PM EDT Pulse 70 08/10/2024 3:41 PM EDT Temperature 36.9 ??C (98.5 ??F) 08/10/2024 3:41 PM ED T Respiratory Rate 20 08/10/2024 3:41 PM EDT Oxygen Saturation 97% 08/10/2024 3:41 PM EDT Inhaled Oxygen Concentration - - Weight 80.8 kg (178 lb 2 oz) 08/10/2024 3:41 PM EDT Height 154.9 cm (5' 1 ) 08/10/2024 3:41 PM EDT Body Mass Index 33.66 08/10/2024 3:41 PM EDT Plan of Treatment Upcoming Encounters Date Type Department Care Team ([facility] st Contact Info) Description 10/19/2024 2:30 PM EDT Office Visit [facility] [address] [place] [address] Stephanie Cotton FNP [address] [place] [address] 10/26/2024 8:30 AM EDT Procedure Visit [facility] [address] [place], [place] [phone] Stephanie Cotton FNP [address] [place] [address] Health Maintenance Due Date Last Done Comments CT Colonography 1979 Colonoscopy 1979 Colorectal Cancer Screening 1979 FIT DNA/Cologuard 1979 FIT 1979 FOBT 1979 Lipid Panel 1979 Sigmoidoscopy 1979 Family Planning (PISQ) 1994 Hepatitis B Vaccines (1 of 3 - 19+ 3-dose series) 1998 Pap Smear 01/09/2000 Pneumococcal Vaccine: Pediatrics (0 to 5 Years) and At-Risk Patients (6 to 49) Years) (2 of 2 - PCV) 05/25/2012 05/25/2011 Mammogram 05/09/2021 05/09/2019 Cervical Cancer Screening 11/08/2022 HPV/Cotest 11/08/2022 11/08/2017 COVID-19 Vaccine ( season) 2024 10/15/2020, 09/17/2020 Influenza Vaccine (#1) 2024 , 03/27/2019, 02/13/2018, Additional history exists Diabetes: Hemoglobin A1C 08/02/2024 08/03/2023, 12/0 01/2019 SDOH Screening 08/30/2024 08/31/2023 Depression Monitoring (PHQ-9) 12/23/2024 06/25/2024, 06/25/2024 Alcohol/Substance Use Screening 03/02/2025 03/02/2024 Depression Screening 06/25/2025 06/25/2024, 06/25/19 Tobacco Screening 08/10/2025 08/10/2024 DTaP/Tdap/Td Vaccines (2 - Td or Tdap) 01/18/2026 01/19/2016, 12/12/2007 Zoster Vaccines (1 of 2) 2029 RSV Patients and Patients Aged 60 years or older (1 - 1-dose 75+ series) 2054 HIV Screening Completed 04/30/2019 Hepatitis C Screening Completed 04/30/2019 HIB Vaccines Aged Out No longer eligi ble based on patient's age to complete this topic HPV Vaccines Aged Out No longer eligi ble based on patient's age to complete this topic Hepatitis A Vaccines Aged Out No long er eligible based on patient's age to complete this topic IPV Vaccines Aged Out No longer eligi ble based on patient's age to complete this topic Meningococcal Vaccine Aged Out No lars robert eligible based on patient's age to complete this topic RSV under 20 months Aged Out No longe r eligible based on patient's age to complete this topic Rotavirus Vaccines Aged Out No longer eligible based on patient's age to complete this topic Procedures Procedure Name Priority Date/Time Associated Diagnosis Comments URINALYSIS, COMPLETE, WITH REFLEX TO CULTURE Routine 08/11/2024 5:40 AM EDT Class 2 obesity without serious comorbidity with body mass index (BMI) of 37.0 to 37.9 in adult, unspecified obesity type CT HEAD WO CONTRAST Routine 08/08/2024 1 :46 PM EDT POCT GLYCATED HEMOGLOBIN, TOTAL Routine 08/03/2023 6:36 PM EDT Prediabetes BI MAMMOGRAM SCREENING BILATERAL Routine 05/09/2019 10:16 AM EST ZZZ HISTORICAL HEPATITIS C ANTIBODY Routine 04/30/2019 11:10 AM EST ZZZ HISTORICAL HIV AB/AG Routine 04/30/2019 11:10 AM EST REGINALDO HISTORICAL HPV MRNA E6/E7 Routine 11/08/2017 10:07 AM EDT from Last 3 Months or Most Recently Relevant to Health Maintenance Results * (ABNORMAL) Urinalysis, Complete, with Reflex to Culture (08/11/2024 5:40 AM EDT) Color Urine Yellow [facility] Appearance Urine Clear [facility] PH 5.5 5.0 - 9.0 [facility] Glucose Urine UA Negative Negative mg/dL [facility] Urine Blood Trace(A) Negative [facility] Specific [place] - Urine 1.020 1.005 - 1.025 [facility] Urine Protein Negative Neg-Trace mg/dL [facility] Urine Ketones Negative Negative mg/dL [facility] Nitrite Urine Negative Negative [facility] Leukocyte Esterase Urine Negative Negative [facility] RBC Urine 0-2 0 - 2 /HPF [facility] Urine WBC 0-5 0 - 5 /HPF [facility] Urine Squamous Epithelial Cell 3-5 0 - 2 /HPF [facility] Urine Bacteria Trace None Seen [facility] Hyaline Casts, Urine 0-2 0 - 2 /LPF [facility] 08/11/2024 5:40 AM EDT 08/11/2024 5:43 AM EDT Narrative [facility] - 08/11/2024 5:52 AM EDT [id number], [employer] us Generic External Data Provider LAB URINE ORDERAB LES Final Result [facility] [address] [place] [phone] * CT Head w/o Contrast (08/08/2024 1:46 PM EDT) Anatomical Region Laterality Modality Head, Neck Computed Tomogra phy us Historical Provider MD IMG CT PROCEDURES Final R esult * POCT A1C (08/03/2023 6:36 PM EDT) [facility] Hemoglobin A1C 5.7 4.0 - 6.0 % QC Media Lot # [id number] Lot# Expiration Date Blood 08/03/2023 6:36 PM EDT Stephanie Engel MARRIAGE COUNSELOR POINT OF CARE TEST ENTER/EDIT ORDERABLES Final Result * 3D DIGITAL ALLISON SCR MAMMO 1 (05/09/2019 10:16 AM EST) Anatomical Region Laterality Modality Breast Bilateral Mammography 05/09/2019 10:1 6 AM EST Narrative 05/09/2019 10:17 AM EST Refer to the Notes tab for result details [facility] Procedure: 3D DIGITAL ALLISON SCR MAMMO 1 Procedure Note Provider, Charisse, - 08/14/2022 Refer to the Notes tab for result details [facility] Procedure: 3D DIGITAL ALLISON SCR MAMMO 1 us Felecia Moseley NP IMG BI PROCEDURES Final Result * HEPATITIS C ANTIBODY (04/30/2019 11:10 AM EST) [facility] HEPATITIS C ANTIBODY NONREACTIVE NONREACTIVE [facility] Comment: Antibodies to HCV not detected; does not exclude early acute HCV infection. 04/30/2019 11:1 0 AM EST Felecia Moseley NP HISTORICAL/NON ORDERABLE LABS Fi nal Result [facility] [address] * HIV AB/AG (04/30/2019 11:10 AM EST) [facility] HIV AG/AB [facility] Comment: HIV-1 p24 Ag and/or HIV-1/HIV-2 Ab not detected. ?? A test result that is nonreactive does not exclude the possibility of exposure to or infection with HIV-1 and/or HIV-2. Nonreactive results in this assay for individuals with prior exposure to HIV-1 and/or HIV-2 may be due to antigen and antibody levels that are below the limit of detection of this assay. ?? The [employer] Specialist HIV Ag/Ab Combo assay result and supplemental assay results should be interpreted in conjunction with the patient's clinical presentation, history and other laboratory results. ??If the results are inconsistent with clinical evidence, additional testing is suggested to confirm the result. 04/30/2019 11:1 0 AM EST us Felecia Moseley NP HISTORICAL/NON ORDERABLE LABS Fi nal Result [facility] [address] * HPV mRNA E6/E7 (11/08/2017 10:07 AM EDT) HPV mRNA E6/E7 Not Detected NOT DETECTED [facility] Comment: This test was performed using the APTIMA(R) HPV Assay ([employer] This assay detects E6/E7 viral messenger RNA (mRNA) from 14 high-risk HPV types (16,18,31,33,35,39,45,51, 52,56,58,59,66,68). For additional information please refer to: http://education.[employer] OTR/faq/CAB589h0 (This link is being provided for informational/ educational purposes only.) The analytical performance characteristics of this assay have been determined by [employer] [place], [place]. The modifications have not been cleared or approved by the FDA. This assay has been validated pursuant to the CLIA regulations and is used for clinical purposes. Test Performed by [email or web address] [employer] [facility], [address] [place] [address] Claudio Sanchez M.D., Ph.D., Director of Laboratories , CLIA [id number] Please note: ??Effective 02/02/2016, HPV testing will be performed using [employer]'s APTIMA test which targets mRNA. Detecting mRNA instead of DNA, as in older methods, offers significant improvements in specificity. 11/08/2017 10:0 7 AM EDT us Felecia oMseley NP HISTORICAL/NON ORDERABLE LABS Fi nal Result [facility] [address] from Last 3 Months or Most Recently Relevant to Health Maintenance [place] [address] [place] [address] Care Teams Bus Trolley And Taxi Instructor Relationship Specialty Start Date End Date Stephanie Cotton FNP [address] [place], [place] PCP - General Family Medicine 03/16/21
--- OUTSIDE RECORDS SUMMARY | 2024-08-26 14:04 | XMS_ITS | Encounter Summary ---
Author Organization [employer] Address [address] [facility] [address] [place] [address] Care Team Providers Care Captain/Check Airman Name Role Phone Stephanie Cotton OPHTHALMIC TECH Primary Care Provider [phone] Encounter Details Date Type Department Care Team ([facility] Contact Info) Description 08/13/2024 Orders Only [facility] [address] [place] [address] ProviderCharisse MD Social History Tobacco Use Types Packs/Day Years [...] Description 10/19/2024 2:30 PM EDT Office Visit [facility] [address] [place] [address] Stephanie Cotton FNP [address] [place] [address] 10/26/2024 8:30 AM EDT Procedure Visit [facility] [address] [place] [address] Stephanie Cotton FNP [address] [place] [address] documented as of this encounter Procedures Procedure Name Priority Date/Time Associated Diagnosis Comments CT HEAD WO CONTRAST Routine 08/08/2024 1:46 PM EDT documented in this encounter Results * CT Head w/o Contrast (08/08/2024 1:46 PM EDT) Anatomical Region Laterality Modality Head, Neck Computed Tomogra phy us Historical Provider MD [facility]CL[facility] CT PROCEDURES Final R esult documented in this encounter Visit Diagnoses Not on filedocumented in this encounter Additional Health Concerns Assessment Noted Time PHQ-9 Depression Total Score: 9 06/25/19 25 2:35 PM EST documented as of this encounter Care Teams Captain/Check Airman Relationship Specialty Start Date End Date Stephanie Cotton FNP [address] [place] [address] PCP - General Family Medicine 03/16/21 documented as of this encounter
--- OUTSIDE RECORDS SUMMARY | 2024-08-26 14:04 | XMS_ITS | Encounter Summary ---
Author Organization [employer] [facility] Address [address] [place] [address] Care Team Providers Care Cartridge Filler Name Role Phone Stephanie Cotton Primary Care Provider [phone] Reason for Visit * Reason Comments Med Change Request Encounter Details Date Type Department Care Team (Late Contact Info) Description 03/14/2023 Refill [facility] [address] [place] [address] Scott Ferguson MD [address] [place] [address] Dysphagia, unspecified type Social History Tobacco Use Types Packs/Day Years Used Date Smoking Tobacco: Never Passive Smoke Exposure: Current Smokeless Tobacco: Never Comments:Vape Passive Exposure Comments:Vape Alcohol Use Standard Drinks/Week Comments Never 0 (1 standard drink = 0.6 oz pur e alcohol) Comments Unknown Sex and Gender Information Value Date Recorded Sex Assigned at Female 03/22/2022 10:16 AM EDT Legal Sex Female 10:16 AM EDT Gender Identity Female 06/16/2022 10:53 AM EST Sexual Orientation Don't know 06/16/2022 10 :53 AM EST documented as of this encounter Plan of Treatment Upcoming Encounters Date Type Department Care Team ([facility] Contact Info) Description 10/19/2024 2:30 PM EDT Office Visit [facility] [address] [place], [place] [phone] Stephanie Cotton FNP [address] [place], [place] [phone] 10/26/2024 8:30 AM EDT Procedure Visit [facility] [address] [place] [address] Stephanie Cotton FNP [address] [place] [address] documented as of this encounter Visit Diagnoses Diagnosis Dysphagia, unspecified type documented in this encounter Care Teams Cartridge Filler Relationship Specialty Start Date End Date Stephanie Cotton FNP [address] [place] [id number] PCP - General Family Medicine 03/16/21 documented as of this encounter
[2024-08-26] MEDS: gadobutroL 10 ML VIAL IVPUSH (15:04)
== END 2024-08-26 13:34 | disposition home or self-care (01) ==
LOC: HO.MRI 13:33
PROVIDERS: PCP Registered Nurse; Visit Provider Registered Nurse
DX: E34.8 Other specified endocrine disorders (principal); R20.2 Paresthesia of skin; R20.0 Anesthesia of skin; M54.2 Cervicalgia
CPT/HCPCS: 70553; 72141; A9585

== ENCOUNTER 2024-11-07 14:43 | Outpatient (AMB) | payer OTHER, MEDICAID, SELFPAY ==
--- NOTE | 2024-11-07 14:49 | A.OFFVIS_ITS ---
Vital Signs 11/07/24 14:50 Height 5 ft 1 in Weight 185 lb BMI 35.0 BP 111/63 Blood Pressure Location Lt brachial Position Sitting Pulse 86 Pulse Oximetry (%) 99 Oxygen Delivery Method Room Air Intake Visit Reasons: [place] screening. Intake Note: Patient new consult for 1st pre Colonoscopy screening. Patient cc: abdominal bloating, heartburn, constipation, and also swallowing diificulty. Internet Marketing Coordinator Required: No Internet Marketing Coordinator Name: [facility] interpeter Accompanied by: Family/Other Allergies No Known Allergies (No Known Allergies*) Allergy (Verified 11/07/24 14:49) Medication List - Last Reconciled 11/07/24 by Pretty Carpio CNP albuterol sulfate 90 mcg/actuation 2 puffs inhalation Q4-6H PRN albuterol sulfate 2.5 mg (0.5 mL) inhalation Q6H PRN bisacodyl 5 mg PO ONCE 1 day budesonide-formoterol 160-4.5 mcg/actuation (Symbicort) 2 puffs inhalation BID 30 days citalopram 20 mg PO QAM doxepin 10 mg PO BEDTIME ibuprofen 600 mg PO Q8H PRN mepolizumab (Nucala) 100 mg subcut Q4W 28 days montelukast 10 mg PO BEDTIME omeprazole 20 mg PO DAILY polyethylene glycol 3350 (Miralax) 17 grams PO DAILY 30 days polyethylene glycol 3350 (Miralax) 238 grams PO ONCE tirzepatide (weight loss) (Zepbound) 2.5 mg subcut QWEEK HPI HPI [place] screening.: Details: Patient is a Estonian-speaking 44-year-old female with PMH of asthma, obesity, anxiety and depression. Referred by PCP for pre colonoscopy screening Patient is accompanied by her who is translating during this visit. This will be her first colonoscopy. Abbie reports experiencing bloating and constipation. She has bowel movements every other day and describes her stools as hard, requiring significant straining. There is no blood in stools. She has been using suppositories approximately once or twice a week which provides some relief. Abbie experiences associated lower abdominal pain, primarily on the left side, which sometimes radiates to the back. This discomfort is intermittent associated with her constipation and resolves after a bowel movement. Abbie also reports occasional nausea when constipated but denies vomiting. She struggles with heartburn daily and has had infrequent difficulty swallowing, particularly with certain types of food, although this does not cause choking. Reports symptoms relief with Tums. Patient denies: fever/chills, appetite changes, unintentional wt loss or melena/hematochezia. Social History - Diet: Avoids sodas, prefers natural juices (orange, cranberry), consumes maribell alejandro occasionally, and eats bananas. - Alcohol/Tobacco/Drug Use: Occasional alcohol, recently resumed smoking cigarettes (3/day), no recreational drug use. - family hx as below -denies personal hx of [facility] Medical History (Updated 11/07/24 @ 16:46 by Pretty Carpio CNP) Constipation Acid reflux Colon cancer screening Asthma Surgical History History of lumpectomy of left breast Family History (Updated 11/07/24 @ 15:21 by Pretty Carpio CNP) Father Liver disease Mother Hypertension Diabetes Social History Unable to assess alcohol history related to: Unknown Review of Systems Const Reports as per HPI ENT Reports as per HPI Card Reports as per HPI Resp Reports as per HPI GI Reports as per HPI Reports as per HPI Physical Exam Vital Signs: Last Vital Signs Pulse 86 11/07/24 14:50 BP 111/63 11/07/24 14:50 Pulse Ox 99 11/07/24 14:50 Oxygen Delivery Method Room Air 11/07/24 14:50 BMI result Body Mass Index 35.0 Const General: healthy appearing, no acute distress and well developed Nutritional Appearance: average body habitus Orientation/consciousness: patient oriented x3 HEENT Head: Yes normal to inspection, Yes normocephalic and Yes atraumatic Face and sinus: Yes normal facial exam Eyes General: appearance normal, both eyes and all related structures Neck Neck: Yes normal visual inspection Resp Effort & Inspection: normal respiratory effort, able to speak in complete sentences, no tracheal deviation and symmetric chest movement Auscultation: clear to auscultation bilaterally Cardio Jugular venous distension: no JVD Rate: regular rate Rhythm: regular rhythm Heart sounds: S1 normal heart sound present, S2 normal heart sound present, no gallops and no murmurs GI Inspection: Yes normal to inspection, No distended and Yes obesity Palpation (GI): Soft to palpation, not firm, nontender and No hepatosplenomegaly present Auscultation: normal bowel sounds Neuro General: patient oriented x3 Gait exam (Neuro): Normal gait present Psych Appearance: grossly normal Mental Status: mental status grossly normal Speech and movement: Normal speech and movement present Affect: normal affect Attitude: cooperative Thought process: Normal thought process present Thought content: Normal thought content present Insight: Good insight present (Psych) Judgement: Good judgement present (Psych) Assessment & Plan Assessment & Plan (1) Colon cancer screening: Code(s): Z12.11 - Encounter for screening for malignant neoplasm of colon Category: Medical Plan: Due for index screening colonoscopy Medications: -prescriptions for laxative tablets and MiraLax sent to pharmacy; instructions for Gatorade purchase and clear liquid diet given. - understands to hold zepbound 7 days prior to procedure. Patient educated on scheduling process, procedure preparation, including avoiding certain foods and ensuring clear liquid intake Advised on necessity for ride post-procedure due to sedation. (2) Acid reflux: Code(s): K21.9 - Gastro-esophageal reflux disease without esophagitis Category: Medical Qualifiers: Esophagitis presence: esophagitis presence not specified Qualified Code(s): K21.9 - Gastro-esophageal reflux disease without esophagitis Plan: Daily heartburn, mild dysphagia, partial response to OTC antacids, NSAID use, and dietary triggers. Upper endoscopy indicated to evaluate for esophagitis, stricture, or other pathology given chronicity and dysphagia. Additional Tests: - EGD at time of colonoscopy Medications: - Start Omeprazole 20mg, once daily before breakfast. - Reduce ibuprofen use; switch to Tylenol if necessary for pain. Encouraged to take omeprazole as prescribed, taken at least 30-60 minutes before a meal. Education on GERD prevention : -Advised against heavy meals; encouraged small, frequent meals instead of large ones. - Instructed to remain upright for 2?3 hours after eating. - Advised to avoid late-night meals, spicy foods, caffeine, alcohol, known dietary triggers, and tight-fitting clothing. - Emphasis placed on gradual implementation of lifestyle changes to improve adherence and symptom control. (3) Constipation: Code(s): K59.00 - Constipation, unspecified Category: Medical Qualifiers: Constipation type: unspecified constipation type Qualified Code(s): K59.00 - Constipation, unspecified Plan: Chronic symptoms, hard stools, straining, intermittent relief with suppositories , no alarm features. Additional Tests: colonoscopy scheduled for routine screening and to rule out structural causes. Medications: - Miralax 17g PO QD in 8oz beverage Reinforced lifestyle modifications to promote regularity: -higher fiber diet, examples provided -adequate hydration with water -150 minutes of moderate intensity exercise per week Plan Follow-up after endoscopy or sooner as needed Time: I spent a total of 45 minutes on the date of encounter which includes: Preparing to see the patient (reviewed previous documentation, test results and medical history) Performing a medically appropriate exam and/or evaluation Ordering medications, tests, and procedures Documenting clinical information in the health record Medications: New bisacodyl Take four tablets once for 1 day per colonoscopy instructions 5 mg PO ONCE 4 tabs 0RF 1 day polyethylene glycol 3350 (Miralax) Take 17G (one cap full) daily with 8oz of water 17 grams PO DAILY 510 grams 2RF constipation 30 days omeprazole 20 mg PO DAILY 90 caps 1RF polyethylene glycol 3350 (Miralax) per colonoscopy prep instructions 238 grams PO ONCE 238 grams 0RF Coding Level of Care Code New Pt New Pt Level 4 (91398) Patient Type New Diagnoses Colon cancer screening Z12.11 Gastroesophageal reflux disease, unspecified whether esophagitis present K21.9 Esophagitis presence: esophagitis presence not specified Constipation, unspecified constipation type K59.00 Constipation type: unspecified constipation type
[2024-11-07 14:50] VITALS: BP 111/63; PULSE 86; O2SAT 99; BMI 35.0
--- OUTSIDE RECORDS SUMMARY | 2024-11-07 16:56 | XMS_ITS | Encounter Summary ---
Author Organization [employer] Address [address] [facility] [address] [place] [address] Care Team Providers Care Pairer Name Role Phone Stephanie Cotton BUCKY Primary Care Provider [phone] Encounter Details Date Type Department Care Team ([facility] st Contact Info) Description 08/13/2024 Orders Only [facility] [address] [place], [place] [phone] Provider, MD Charisse Social History Tobacco Use Types Packs/Day Years [...] the past 12 months, has t he [employer], gas, oil or water company threatened to [...] as of this encounter Plan of Treatment Not on file documented as of this encounter Procedures Procedure [...] documented as of this encounter Care Teams Pairer Relationship Specialty Start Date End Date Stephanie Cotton FNP [address] [place] [address] PCP - General Family Medicine 03/16/21 documented as of this encounter
== END 2024-11-07 15:36 | disposition home or self-care (01) ==
LOC: HO.HGI 14:44
PROVIDERS: PCP Registered Nurse; Visit Provider Nurse Practitioner Family
DX: Z01.818 Encounter for other preprocedural examination (principal); Z12.11 Encounter for screening for malignant neoplasm of colon; K21.9 Gastro-esophageal reflux disease without esophagitis; K59.00 Constipation, unspecified
CPT/HCPCS: 99202

== ENCOUNTER 2024-11-15 11:22 | Emergency (ER) | payer OTHER, MEDICAID, SELFPAY ==
--- NOTE | ~2024-11-15 | XR_ITS ---
EXAMINATION: XR CHEST CLINICAL INFORMATION: CP COMPARISON: August 08, 2024 TECHNIQUE: 2 views of the chest were obtained. FINDINGS: The lungs are clear and well aerated. Heart size is within normal limits. There is no pleural effusion. Bony structures are within normal limits. XR/XR chest 2V IMPRESSION: No acute disease Electronically signed by: Stiven Mi MD 11/15/2024 12:16 PM EDT
--- NOTE | 2024-11-15 11:24 | ECG_ITS ---
Test Reason : chest pain Blood Pressure : */* mmHG Vent. Rate : 83 BPM Atrial Rate : 83 BPM P-R Int : 152 ms QRS Dur : 74 ms QT Int : 368 ms P-R-T Axes : 15 8 38 degrees QTcB Int : 432 ms Normal sinus rhythm Normal ECG When compared with ECG of 10-Aug-2024 19:57, No significant change was found Referred By: Generic ED Physician Electronically Signed By: SAUL YAN
[2024-11-15 11:40] VITALS: BP 123/81; PULSE 80; RESP 18; TEMP 36.6; O2SAT 97; BMI 34.5
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
[2024-11-15 12:23] LABS: MANUAL DIFF FLAG NO
[2024-11-15 12:27] LABS: Basophils Percent Auto 0.5 % (0-2); Eosinophils Absolute Auto 0.1 X10*3/uL (0.0-0.4); Eosinophils Percent Auto 0.7 % (0-4); Hematocrit 44.3 % (37.0-47.0); Hemoglobin 15.3 g/dl (12.0-16.0); Imm Gran Abs Auto 0.02 X10*3/uL (0.00-0.03); Imm Gran Pct Auto 0.2 % (0.0-0.4); Lymphocytes Absolute Auto 2.3 X10*3/uL (1.2-4.9); Lymphocytes Percent Auto 28.2 % (20-40); Mean Corpuscular HGB Conc 34.5 g/dl (31.0-35.0); Mean Corpuscular Hemoglobin 29.4 pg (27.0-33.0); Mean Corpuscular Volume 85.2 fL (80.0-98.0); Mean Platelet Volume 9.8 fL (9.4-12.3); Monocytes Absolute Auto 0.4 X10*3/uL (0.1-1.2); Monocytes Percent Auto 5.4 % (2-11); Neutrophils Absolute Auto 5.3 x10*3/uL (2.0-8.3); Platelet Count 311 X10*3/uL (160-400); Red Cell Distribution Width 12.7 % (11.0-16.0); White Blood Count 8.2 X10*3/uL (4.8-10.8)
[2024-11-15 12:36] VITALS: BP 121/79; PULSE 66; RESP 16; O2SAT 97
[2024-11-15 12:50] LABS: Alanine Aminotransferase 19 U/L (0-31); Albumin Level 4.4 g/dL (3.5-5.0); Alkaline Phosphatase 62 U/L (39-117); Anion Gap 12 (12-20); Aspartate Amino Transferase 20 U/L (5-31); Bilirubin Direct 0.1 mg/dL (0.0-0.5); Bilirubin Total 0.4 mg/dL (0.0-1.0); Blood Urea Nitrogen 13 mg/dL (9-16); Calcium 9.4 mg/dL (8.4-10.2); Carbon Dioxide 23 mmol/L (22-29); Chloride 109 mmol/L (96-108); Creatinine Clr Calc Pharmacy 105.1; Estimated Glomerular Filt Rate > 60; Glucose Random 86 mg/dL (60-115); Lipase 25 U/L (8-78); Magnesium 2.1 mg/dL (1.6-2.6); Potassium 3.7 mmol/L (3.3-5.1); Sodium 140 mmol/L (135-145); Total Protein 7.3 g/dL (6.5-8.0)
[2024-11-15 12:52] LABS: HCG Quantitative < 2 mIU/mL; Troponin-I High Sensitivity < 2.7 ng/L (<3.5-17.0)
[2024-11-15 13:01] LABS: Influenza A PCR NEGATIVE (Negative); Influenza B PCR NEGATIVE (Negative); Resp Syncy Virus RNA Qual PCR NEGATIVE (Negative); SARS COV2 PCR INHOUSE NEGATIVE (Negative)
[2024-11-15 14:05] VITALS: BP 111/65; PULSE 70; RESP 16; O2SAT 96
[2024-11-15 14:08] VITALS: BP 111/65; PULSE 70; RESP 16; TEMP 36.6; O2SAT 96
--- OUTSIDE RECORDS SUMMARY | 2024-11-15 16:25 | XMS_ITS | Encounter Summary ---
Author Organization [employer] Address [address] [place] [address] Care Team Providers Care Business Agent Name Role Phone Stephanie Cotton BUCKY Primary Care Provider [phone] Encounter Details Date Type Department Care Team ([facility] st Contact Info) Description 08/13/2024 Orders Only [facility] [address] [place], [place] [id number] Provider, MD Charisse Social History Tobacco Use [...] the past 12 months, has t he [employer] gas, oil or water company threatened to [...] documented as of this encounter Care Teams Business Agent Relationship Specialty Start Date End Date Stephanie Cotton FNP [address] [place] [address] PCP - General Family Medicine 03/16/21 documented as of this encounter
== END 2024-11-15 14:08 | disposition home or self-care (01) ==
PROVIDERS: Physician Assistant Medical; Emergency Provider Emergency Medicine; PCP Registered Nurse
DX: R07.89 Other chest pain (principal); R20.0 Anesthesia of skin; R51.9 Headache, unspecified; R10.2 Pelvic and perineal pain; Z79.899 Other long term (current) drug therapy; Z03.818 Encounter for observation for suspected exposure to other biological agents ruled out
CPT/HCPCS: 0241U; 36415; 71046; 80048; 80076; 83690; 83735; 84484; 84702; 85025; 93005; 99283; 99285

== ENCOUNTER → 2024-11-15 11:24 | Outpatient (BNV) | payer OTHER, MEDICAID, SELFPAY | PROVIDERS: Emergency Provider Emergency Medicine; PCP Registered Nurse; Visit Provider Internal Medicine | DX: R07.9 Chest pain, unspecified (principal) | CPT/HCPCS: 93010 ==

== ENCOUNTER → 2024-11-15 11:43 | Outpatient (BNV) | payer OTHER, MEDICAID, SELFPAY | PROVIDERS: Emergency Provider Emergency Medicine; PCP Registered Nurse; Visit Provider Radiology Diagnostic Radiology | DX: R07.9 Chest pain, unspecified (principal) | CPT/HCPCS: 71046 ==

== ENCOUNTER 2024-11-22 03:01 | Emergency (ER) | payer OTHER, MEDICAID, SELFPAY ==
[2024-11-22 03:10] VITALS: BP 143/98; PULSE 96; RESP 17; TEMP 36.6; O2SAT 98; BMI 36.5
--- NOTE | 2024-11-22 03:23 | ECG_ITS ---
Test Reason : FALL Blood Pressure : */* mmHG Vent. Rate : 85 BPM Atrial Rate : 85 BPM P-R Int : 146 ms QRS Dur : 86 ms QT Int : 358 ms P-R-T Axes : -4 14 36 degrees QTcB Int : 426 ms Normal sinus rhythm Normal ECG When compared with ECG of 15-Nov-2024 11:30, No significant change was found Referred By: Kiesha Aguiar Electronically Signed By: ISATU LEVY MD
--- NOTE | 2024-11-22 03:51 | ED.GENADULT ---
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 She has pain in both trapezius areas but no trauma. She felt tingling in all of her hands/feet. She has no fevers. She has chronic metal taste in mouth (not new). She states she just doesn't feel good but no travel, sick contacts. She is newly on zepbound has had two injections but feels she is eating and drinking enough. She notes they start after zepbound injections - she was put on prednisone on last visit her for inflammation she notes she feels shaky and weak and has a glucometer one time her sugar was 70 but she was able to eat a banana and bring it up. She has not talked to her prescriber about this yet MD complaint: malaise Onset (ago): hour(s) (several) Location: neck, left, right, upper extremity and lower extremity Radiation: non-radiation Severity: moderate Quality: aching Pain Consistency: constant Relieving factors: immobilization Exacerbating factors: movement Associated symptoms: malaise and weakness Treatments prior to arrival: none Related Data Home Medications ?Medication ?Instructions ?Recorded ?Confirmed citalopram 20 mg tablet 20 mg PO QAM 11/07/24 11/07/24 doxepin 10 mg capsule 10 mg PO BEDTIME 11/07/24 11/07/24 ibuprofen 600 mg tablet 600 mg PO Q8H PRN fever 11/07/24 11/07/24 montelukast 10 mg tablet 10 mg PO BEDTIME 11/07/24 11/07/24 tirzepatide (weight loss) 2.5 2.5 mg subcut QWEEK 11/07/24 11/07/24 mg/0.5 mL subcutaneous pen injector (Zepbound) Previous Rx's ?Medication ?Instructions ?Recorded albuterol sulfate 5 mg/mL(0.5 %) 2.5 mg (0.5 mL) inhalation Q6H PRN 04/08/20 solution for nebulization shortness of breath or wheezing #600 mL albuterol sulfate 90 mcg/actuation 2 puff inhalation Q4-6H PRN 04/08/20 aerosol inhaler shortness of breath or wheezing #18 grams mepolizumab 100 mg/mL subcutaneous 100 mg subcut Q4W 28 days #1 mL 06/05/21 syringe (Nucala) budesonide-formoterol HFA 160 2 puff inhalation BID 30 days 06/08/23 mcg-4.5 mcg/actuation aerosol #10.2 grams inhaler (Symbicort) bisacodyl 5 mg tablet,delayed 5 mg PO ONCE 1 day #4 tabs 11/07/24 release omeprazole 20 mg capsule,delayed 20 mg PO DAILY #90 caps 11/07/24 release polyethylene glycol 3350 17 17 g PO DAILY constipation 30 days 11/07/24 gram/dose oral powder (Miralax) #510 grams polyethylene glycol 3350 17 238 g PO ONCE #238 grams 11/07/24 gram/dose oral powder (Miralax) prednisone 10 mg tablet See Rx Instructions .Route 11/15/24 .COMPLEX #15 tabs Allergies Allergy/AdvReac Type Severity Reaction Status Date / Time No Known Allergies (No Known Allergy Verified 11/22/24 03:12 Allergies*) Review of Systems Review of Systems: Constitutional : No Fever, No Chills, pos Fatigue ENT/Mouth : No sore throat, No Rhinorrhea Eyes: No Eye Pain, No Swelling, No Redness Cardiovascular : No Chest Pain, No SOB, No Dyspnea on Exertion Respiratory : No Cough, No Sputum Gastrointestinal : No Nausea, No Vomiting, No Diarrhea, No abdominal Pain Genitourinary : No Dysuria, No Urinary Frequency, No Hematuria, Musculoskeletal : No joint pain, pos Myalgias, No Joint Swelling Skin : No Skin Lesions, No rash Neuro : No Weakness, No Numbness, No Dizziness, positive Headache All other systems reviewed and are negative [facility] Past Medical History Attestation statement: The following information was validated with the patient. Source: old records reviewed Medical History Constipation Acid reflux Colon cancer screening Asthma Surgical History History of lumpectomy of left breast Family History Family History (Updated 11/07/24 @ 15:21 by Pretty Carpio CNP) Father Liver disease Mother Hypertension Diabetes Social History Social History Unable to assess alcohol history related to: Unknown Smoked in Last 30 Days: Yes Use of substances other than those prescribed or required for medical reasons: No Advance Directives: No Advance Directives Information Provided: Yes Do you have a plan to hurt others: No Plan Patient : No Physical Exam ED Vital Signs: Vital Signs - 24 hr 11/22/24 03:10 11/22/24 05:08 Temperature 97.8 F 97.6 F Pulse Rate 96 80 Respiratory Rate 17 16 Blood Pressure 143/98 H 106/64 Pulse Oximetry 98 95 Oxygen Delivery Method Room Air Room Air BMI result Body Mass Index 36.5 Appearance: Alert. Oriented X3. No acute distress. Eyes: Pupils equal, round and reactive to light. ENT: Pharynx normal. Neck: Normal inspection. Neck supple. ttp along L trapezius CVS: Normal heart rate and rhythm. Pulses normal. Respiratory: No respiratory distress. Breath sounds normal. Abdomen: Soft and nontender. Skin: Skin warm and dry. Normal skin color. Normal skin turgor. Extremities: No lower extremity edema. No calf ttp Neuro: Oriented X 3. No motor deficit. No sensory deficit. CN2-12 intact. NV intact in both UE and LE Course Course Course Narrative: repeat trips to the bathroom with steady gait Medications Administered Discontinued Medications Generic Name Dose Route Start Last Admin Trade Name Freq PRN Reason Stop Dose Admin Lactated Ringer's 1,000 mls @ 999 mls/hr 11/22/24 04:16 11/22/24 04:38 Lr IV 11/22/24 05:16 999 mls/hr .Q1H1M ONE Administration Methocarbamol 500 mg 11/22/24 04:16 11/22/24 04:40 Methocarbamol 500 Mg Tablet PO 11/22/24 04:17 500 mg ONCE ONE Administration Potassium Chloride 20 meq 11/22/24 04:45 11/22/24 05:22 Potassium Chloride Er 20 Meq Tab.Er.Prt PO 11/22/24 04:46 20 meq ONCE ONE Administration Medical Decision Making Medical Decision Making MDM Narrative: 44 yo female with PMH of asthma, GERD, constipation here with c/o body aches and feeling shaky with paresthesias on exam she is NV intact she will need labs, EKG, UA. She denies travel/tick bites, infectious symptoms. She has a steady gait. She is on zepbound but feels she is eating and drinking okay. She has no meningeal signs or symptoms. IVF ordered. She just took a dose and her prior symptoms were after her first dose. I suspect her shakiness and feeling unwell are related to her zepbound. She has had BS checks of 70 but she responds to snacks. I had a long discussion with them about possible side effects they are going to talk to her doctor Differential Diagnosis Differential Diagnoses: The differential diagnosis associated with the presentation includes viral syndrome lyte abnormality dehydration reaction to zepbound Admission/Observation Consideration of admission/observation: Escalation of care including admission/observation considered feels better stable for DC Lab Data MDM Lab Attestation statement: I reviewed the patient's lab results. wbc count from prednisone 11/22/24 03:50 11/22/24 03:50 Labs: Lab Results 11/22/24 11/22/24 Range/Units 03:50 04:37 WBC 13.9 H (4.8-10.8) X10*3/uL RBC 4.79 (4.20-5.50) X10*6/uL Hgb 14.2 (12.0-16.0) g/dl Hct 40.2 (37.0-47.0) % MCV 83.9 (80.0-98.0) fL MCH 29.6 (27.0-33.0) pg MCHC 35.3 H (31.0-35.0) g/dl RDW 12.7 (11.0-16.0) % Plt Count 288 (160-400) X10*3/uL MPV 10.1 (9.4-12.3) fL Immature Gran % (Auto) 0.5 H (0.0-0.4) % Neut % (Auto) 63.4 (45-73) % Lymph % (Auto) 29.9 (20-40) % [place] % (Auto) 5.5 (2-11) % Eos % (Auto) 0.4 (0-4) % Baso % (Auto) 0.3 (0-2) % Lymph # (Auto) 4.2 (1.2-4.9) X10*3/uL [place] # (Auto) 0.8 (0.1-1.2) X10*3/uL Eos # (Auto) 0.1 (0.0-0.4) X10*3/uL Baso # (Auto) 0.0 (0.0-0.2) X10*3/uL Abs Immat Gran (auto) 0.07 H (0.00-0.03) X10*3/uL Absolute Neuts (auto) 8.8 H (2.0-8.3) x10*3/uL Absolute Nucleated RBC 0.000 (0.0-0.012) X10*3/uL Nucleated RBC % (auto) 0.0 (0.0-0.2) /100WBC Sodium 138 (135-145) mmol/L Potassium 3.3 (3.3-5.1) mmol/L Chloride 106 (96-108) mmol/L Carbon Dioxide 23 (22-29) mmol/L Anion Gap 12 (12-20) BUN 13 (9-16) mg/dL Creatinine 0.78 (0.5-1.4) mg/dL Estim Creat Clear Calc 91.5 Estimated GFR > 60 Random Glucose 96 (60-115) mg/dL Calcium 8.8 D (8.4-10.2) mg/dL Urine Color Yellow Urine Appearance Clear Urine pH 6.0 (5.0-9.0) Ur Specific [place] <= 1.005 (1.005-1.025) Urine Protein Negative (Neg-Trace) mg/dL Urine Glucose (UA) Negative (Negative) mg/dL Urine Ketones Negative (Negative) mg/dL Urine Blood Negative (Negative) Urine Nitrite Negative (Negative) Ur Leukocyte Esterase Negative (Negative) Influenza Type A (PCR) NEGATIVE (Negative) Influenza Type B (PCR) NEGATIVE (Negative) RSV RNA Qual (PCR) NEGATIVE (Negative) SARS-CoV-2 RNA (RT-PCR) NEGATIVE (Negative) Independent Interpretation I performed an independent interpretation of an: EKG Interpretation: Rate: 85 Rhythm: NSR [place]: normal Normal P waves. Normal KARI. Normal QRS complex. ST T wave : normal no CHERRIE qTC: 426 prior studies: no acute ischemia The study has been interpreted contemporaneously by me. . Independent Historian Clinical information obtained from an independent historian. History obtained from or confirmed by: Spouse External Record Review External record reviewed: Outpatient record Discharge Plan Discharge Clinical Impression: Malaise and fatigue Patient Disposition: Home, Self-Care Instructions: Fatigue (ED) Additional Instructions: labs reassuring, urine normal at this time suspect your symptoms might be due to lower blood sugar levels - please talk to your zeound provider would follow up next week and repeat your labs including potassium carry your glucometer and small snacks with you at all times. Prescriptions: No Action Nucala 100 mg/mL syringe 100 mg subcut Q4W 28 Days Qty: 1 12RF budesonide-formoterol [Symbicort] 160-4.5 mcg/actuation HFA aerosol inhaler 2 puff inhalation BID 30 Days Qty: 10.2 6RF albuterol sulfate 90 mcg/actuation HFA aerosol inhaler 2 puff inhalation Q4-6H PRN (Reason: shortness of breath or wheezing) Qty: 18 0RF albuterol sulfate 5 mg/mL solution for nebulization 2.5 mg inhalation Q6H PRN (Reason: shortness of breath or wheezing) Qty: 600 0RF prednisone 10 mg tablet See Rx Instructions .ROUTE .COMPLEX Qty: 15 0RF Rx Instructions: 50mg (5 tabs) x1 day, then 40 mg (4 tabs) x1 day, then 30 mg (3 tabs) x1 day, then 20 mg (2 tabs) times 1 day, then 10 mg (1 tab) x1 day doxepin 10 mg capsule 10 mg PO BEDTIME citalopram 20 mg tablet 20 mg PO QAM montelukast 10 mg tablet 10 mg PO BEDTIME ibuprofen 600 mg tablet 600 mg PO Q8H PRN (Reason: fever) omeprazole 20 mg capsule,delayed release(DR/EC) 20 mg PO DAILY Qty: 90 1RF bisacodyl 5 mg tablet,delayed release (DR/EC) 5 mg PO ONCE 1 Days Qty: 4 0RF Rx Instructions: Take four tablets once for 1 day per colonoscopy instructions polyethylene glycol 3350 [Miralax] 17 gram/dose powder 17 g PO DAILY 30 Days Qty: 510 2RF Rx Instructions: Take 17G (one cap full) daily with 8oz of water polyethylene glycol 3350 [Miralax] 17 gram/dose powder 238 g PO ONCE Qty: 238 0RF Rx Instructions: per colonoscopy prep instructions Zepbound 2.5 mg/0.5 mL pen injector 2.5 mg subcut QWEEK Rx Instructions: for 4 weeks Print Language: [place]
[2024-11-22 04:12] LABS: MANUAL DIFF FLAG NO
[2024-11-22 04:14] LABS: Hematocrit 40.2 % (37.0-47.0); Hemoglobin 14.2 g/dl (12.0-16.0); Imm Gran Abs Auto 0.07 X10*3/uL (0.00-0.03); Imm Gran Pct Auto 0.5 % (0.0-0.4); Lymphocytes Absolute Auto 4.2 X10*3/uL (1.2-4.9); Mean Corpuscular HGB Conc 35.3 g/dl (31.0-35.0); Mean Corpuscular Hemoglobin 29.6 pg (27.0-33.0); Mean Corpuscular Volume 83.9 fL (80.0-98.0); NRBC Abs Auto 0.000 X10*3/uL (0.0-0.012); NRBC Pct Auto 0.0 /100WBC (0.0-0.2); Platelet Count 288 X10*3/uL (160-400); Red Blood Count 4.79 X10*6/uL (4.20-5.50); White Blood Count 13.9 X10*3/uL (4.8-10.8)
[2024-11-22 04:23] LABS: Anion Gap 12 (12-20); Blood Urea Nitrogen 13 mg/dL (9-16); Calcium 8.8 mg/dL (8.4-10.2); Carbon Dioxide 23 mmol/L (22-29); Chloride 106 mmol/L (96-108); Creatinine Clr Calc Pharmacy 91.5; Estimated Glomerular Filt Rate > 60; Potassium 3.3 mmol/L (3.3-5.1); Sodium 138 mmol/L (135-145)
[2024-11-22] MEDS: Lactated Ringers 1,000 ML 999 ML IV (04:38)
[2024-11-22 04:47] LABS: Appearance Urine Clear; Glucose Urine UA Negative (Negative); PH 6.0 (5.0-9.0); Specific Gravity - Urine <= 1.005 (1.005-1.025)
[2024-11-22 05:08] VITALS: BP 106/64; PULSE 80; RESP 16; TEMP 36.4; O2SAT 95
[2024-11-22 05:22] LABS: Resp Syncy Virus RNA Qual PCR NEGATIVE (Negative); SARS COV2 PCR INHOUSE NEGATIVE (Negative)
[2024-11-22] MEDS: Potassium Chloride ER 20 MEQ TAB.ER.PRT PO (05:22)
[2024-11-22 06:22] VITALS: BP 113/58; PULSE 86; RESP 16; TEMP 36.8; O2SAT 95
[2024-11-22 06:28] VITALS: BP 113/58; PULSE 86; RESP 16; TEMP 36.8; O2SAT 95
== END 2024-11-22 06:29 | disposition home or self-care (01) ==
PROVIDERS: Emergency Provider Emergency Medicine
DX: M54.50 Low back pain, unspecified (principal); R53.83 Other fatigue; R11.2 Nausea with vomiting, unspecified; Z79.899 Other long term (current) drug therapy; Z03.818 Encounter for observation for suspected exposure to other biological agents ruled out
CPT/HCPCS: 36415; 80048; 81003; 85025; 87637; 93005; 96360; 96361; 99284; J2250; J3010; J7120

== ENCOUNTER → 2024-11-22 03:23 | Outpatient (BNV) | payer OTHER, MEDICAID, SELFPAY | PROVIDERS: Emergency Provider Emergency Medicine; Visit Provider Internal Medicine Cardiovascular Disease | DX: Z13.6 Encounter for screening for cardiovascular disorders (principal); W19.XXXA Unspecified fall, initial encounter | CPT/HCPCS: 93010 ==

== ENCOUNTER 2024-12-09 01:37 | Emergency (ER) | payer OTHER, MEDICAID, SELFPAY ==
--- NOTE | ~2024-12-09 | CT_ITS ---
CLINICAL HISTORY: Epigastric Tenderness; Nausea; Body Aches CT abdomen and pelvis with contrast Comparison: CT - CT ABDOMEN PELVIS W IV CON - 12/09/24 04:38 EDT Findings: The lung bases are clear. The gallbladder demonstrates a likely Phrygian cap but is otherwise unremarkable. The liver is normal. The rest of the solid organs are unremarkable. No bowel obstruction, pneumoperitoneum, or pneumatosis. Fallopian tube clips are noted. The uterus and adnexa are otherwise unremarkable. The bones are intact. IMPRESSION: No acute findings. This document has been electronically signed by: Tyrone Malone MD on 12/09/2024 06:19:01
[2024-12-09 01:44] VITALS: BP 126/81; PULSE 82; RESP 20; TEMP 36.3; O2SAT 97; BMI 34.0
--- NOTE | 2024-12-09 03:31 | ED.GENADULT ---
HPI - General Adult General Chief complaint: General Medical Stated complaint: generalized pain Time Seen by Provider: 12/09/24 03:05 Source: patient Mode of arrival: ambulatory Limitations: language barrier (Offset Second Press Operator utilized) History of Present Illness ED Provider: Clive DIAZ HPI narrative: The patient is a 44-year-old female presenting to the ED for evaluation of multiple complaints including cold sensation of her hands, intermittent rigorous movements of her extremities, subjective chills, waxing and waning headache, and frequent urination without hesitancy, dysuria, or hematuria. The patient also reports experiencing epigastric abdominal pain with associated nausea without vomiting. The patient was evaluated here twice in the past 2 months for similar symptoms, the 1st time was primarily for neck pain which was diagnosed as a herniated cervical disc for which she is following up with a spinal surgeon. The patient returned approximately 2 weeks ago for evaluation of symptoms similar to today's complaints which began after starting weekly Zepbound injections. The patient reports she has not administered the Zepbound since her most recent visit on 11/22. Patient reports this evening her symptoms increased in severity prompting ED evaluation. The patient denies associated chest pain, shortness of breath, pleurisy, cough, vomiting, diarrhea, hematochezia, melena, focal neurological deficit, near-syncope, or syncope. Related Data Home Medications ?Medication ?Instructions ?Recorded ?Confirmed citalopram 20 mg tablet 20 mg PO QAM 11/07/24 11/07/24 doxepin 10 mg capsule 10 mg PO BEDTIME 11/07/24 11/07/24 ibuprofen 600 mg tablet 600 mg PO Q8H PRN fever 11/07/24 11/07/24 montelukast 10 mg tablet 10 mg PO BEDTIME 11/07/24 11/07/24 tirzepatide (weight loss) 2.5 2.5 mg subcut QWEEK 11/07/24 11/07/24 mg/0.5 mL subcutaneous pen injector (Zepbound) Previous Rx's ?Medication ?Instructions ?Recorded albuterol sulfate 5 mg/mL(0.5 %) 2.5 mg (0.5 mL) inhalation Q6H PRN 04/08/20 solution for nebulization shortness of breath or wheezing #600 mL albuterol sulfate 90 mcg/actuation 2 puff inhalation Q4-6H PRN 04/08/20 aerosol inhaler shortness of breath or wheezing #18 grams mepolizumab 100 mg/mL subcutaneous 100 mg subcut Q4W 28 days #1 mL 06/05/21 syringe (Nucala) budesonide-formoterol HFA 160 2 puff inhalation BID 30 days 06/08/23 mcg-4.5 mcg/actuation aerosol #10.2 grams inhaler (Symbicort) bisacodyl 5 mg tablet,delayed 5 mg PO ONCE 1 day #4 tabs 11/07/24 release omeprazole 20 mg capsule,delayed 20 mg PO DAILY #90 caps 11/07/24 release polyethylene glycol 3350 17 17 g PO DAILY constipation 30 days 11/07/24 gram/dose oral powder (Miralax) #510 grams polyethylene glycol 3350 17 238 g PO ONCE #238 grams 11/07/24 gram/dose oral powder (Miralax) prednisone 10 mg tablet See Rx Instructions .Route 11/15/24 .COMPLEX #15 tabs lorazepam 1 mg tablet (Ativan) 1 mg PO TID PRN anxiety #10 tabs 12/09/24 Allergies Allergy/AdvReac Type Severity Reaction Status Date / Time No Known Allergies (No Known Allergy Verified 12/09/24 01:46 Allergies*) Review of Systems Review of Systems: Yes all other systems are reviewed and are negative [facility] Past Medical History Medical History Constipation Acid reflux Colon cancer screening Asthma Surgical History History of lumpectomy of left breast Family History Family History (Updated 11/07/24 @ 15:21 by Pretty Carpio CNP) Father Liver disease Mother Hypertension Diabetes Social History Social History Unable to assess alcohol history related to: Unknown Alcohol intake: never Smoked in Last 30 Days: Yes Use of substances other than those prescribed or required for medical reasons: No Advance Directives: No Advance Directives Information Provided: Yes Patient : No Physical Exam ED Vital Signs: Vital Signs - 24 hr 12/09/24 01:44 12/09/24 03:53 12/09/24 04:33 Temperature 97.4 F 98.5 F Pulse Rate 82 75 70 Respiratory Rate 20 18 20 Blood Pressure 126/81 113/58 L 98/53 L Pulse Oximetry 97 96 95 Oxygen Delivery Method Room Air Room Air Room Air BMI result Body Mass Index 34.0 CONSTITUTIONAL: The patient appears non-toxic, well nourished and in no acute distress. Vital signs as documented. HEAD: Atraumatic, normocephalic. EYES: EOMs grossly intact, pupils equal, conjunctiva clear, no exudate. ENT: Nares patent, no discharge. Airway patent, no audible stridor, visible mucosa is pink and moist without noted lesions. NECK: Trachea is midline, no obvious masses or gross abnormalities. CHEST: Symmetric movement, normal appearance. LUNGS: LS present and CTAB, no w/r/r. Non-labored work of breathing. CARDIAC: Regular Rhythm, S1/S2 appreciated, no murmurs, rubs or gallops. ABDOMEN: Abdomen soft x4 quadrants, positive tenderness to palpation of the epigastrium and periumbilical area, negative rebound, negative Flores's, no palpable masses or organomegaly. Negative CVAT bilaterally. : Deferred. EXTREMITIES: Normal tone, moves all extremities spontaneously without reported pain. No obvious acute injury or deformity noted. NEURO: Alert and oriented x3, CN II-XII appear grossly intact. Cerebellar Functioning grossly intact. No obvious sensory or motor deficits. Speech clear and appropriate. PSYCH: normal affect, appropriate eye contact, fluid speech, with appropriate response to questioning. No reported suicidality or homicidality. SKIN: Warm, dry, color appropriate, normal turgor. No rashes noted. Medications Administered Discontinued Medications Generic Name Dose Route Start Last Admin Trade Name Freq PRN Reason Stop Dose Admin Al Hydroxide/Mg Hydroxide 30 ml 12/09/24 03:22 12/09/24 03:42 Magnesium Hydrox/Alum Hydrox 30 Ml Oral.Susp PO 12/09/24 03:23 30 ml ONCE ONE Administration Famotidine 20 mg 12/09/24 03:22 12/09/24 03:41 Famotidine 20 Mg Tablet PO 12/09/24 03:23 20 mg ONCE ONE Administration Iohexol 85 ml 12/09/24 04:46 12/09/24 04:46 Iohexol 350 Mg/Ml 100 Ml Infus..Btl IV 12/09/24 04:47 85 ml ONCE ONE Administration Lidocaine HCl 15 ml 12/09/24 03:22 12/09/24 03:42 Lidocaine Hcl Viscous 2 % 15 Ml Solution PO 12/09/24 03:23 15 ml ONCE ONE Administration Medical Decision Making Medical Decision Making MDM Narrative: 3:50 AM 12/09/2024 (Ko DIAZ): The patient is a 44-year-old female presenting to the ED for evaluation of multiple complaints including shaking chills, frequent urination, cold sensation in the bilateral upper extremities, epigastric abdominal pain, nausea, and generalized malaise. The patient's exam is positive for epigastric and periumbilical tenderness without rebound. The patient was ordered for urinalysis which is pending collection. We will add on CBC, CMP, lipase, and the patient will be sent for CT abdomen and pelvis due to epigastric and periumbilical tenderness. Patient was offered Toradol for pain control however advises that her epigastric pain feels burning in nature, as such patient will be treated 1st with a GI cocktail, if no relief from GI cocktail patient will be treated with Toradol while awaiting CT results. 12/09/24 Los Rojo MD 08:22 I assumed care of this patient from my colleague, Physician Wiring Technician Clive Ortega at 04:00 hours pending the patient's laboratory evaluation and CT abdomen pelvis result. 44-year-old female with a history of anxiety, gastritis, GERD, asthma who presents emergency department for evaluation of feeling cold shaky, lightheaded and dizzy. Patient states that she has had episodes where she developed perioral numbness and numbness in her hands and feet. She states she had times times feels like her extremities are very cold when she has these events and that her hands and feet are cramping. She feels lightheaded and dizzy as if she was going to pass out. Patient states that these symptoms started since she took Zepbound I am but she has not taken this medication in 2 weeks. Patient states she does take citalopram for anxiety and depression has been compliant with these medications. My independent interpretation of the patient's laboratory evaluation is as follows: CBC was normal. CMP was normal. Urinalysis was unremarkable. Quantitative beta-hCG was below detectable limits. CT scan of the abdomen pelvis with IV contrast did not reveal any acute abnormalities. Medical Decision Making: The patient's symptoms are consistent with hyperventilation/anxiety syndrome and I did discuss this with the patient. And I did reassure her that her studies were all negative and that the Zepbound should be out of her system at this time. The patient was advised to continue taking your medications as prescribed including your citalopram. The patient was prescribed Ativan 1 mg pills, 1 pill every 6 hours as needed for anxiety. She was given printed and verbal instructions and discharged home. Admission/Observation Consideration of admission/observation: Escalation of care including admission/observation considered Lab Data MDM Lab Attestation statement: I reviewed the patient's lab results. 12/09/24 03:49 12/09/24 03:49 Labs: Lab Results 12/09/24 12/09/24 Range/Units 03:49 04:38 WBC 10.4 (4.8-10.8) X10*3/uL RBC 4.82 (4.20-5.50) X10*6/uL Hgb 14.3 (12.0-16.0) g/dl Hct 40.9 (37.0-47.0) % MCV 84.9 (80.0-98.0) fL MCH 29.7 (27.0-33.0) pg MCHC 35.0 (31.0-35.0) g/dl RDW 13.0 (11.0-16.0) % Plt Count 302 (160-400) X10*3/uL MPV 10.0 (9.4-12.3) fL Immature Gran % (Auto) 0.3 (0.0-0.4) % Neut % (Auto) 54.5 (45-73) % Lymph % (Auto) 37.8 (20-40) % Morris % (Auto) 6.2 (2-11) % Eos % (Auto) 0.8 (0-4) % Baso % (Auto) 0.4 (0-2) % Lymph # (Auto) 3.9 (1.2-4.9) X10*3/uL Morris # (Auto) 0.6 (0.1-1.2) X10*3/uL Eos # (Auto) 0.1 (0.0-0.4) X10*3/uL Baso # (Auto) 0.0 (0.0-0.2) X10*3/uL Abs Immat Gran (auto) 0.03 (0.00-0.03) X10*3/uL Absolute Neuts (auto) 5.7 (2.0-8.3) x10*3/uL Absolute Nucleated RBC 0.000 (0.0-0.012) X10*3/uL Nucleated RBC % (auto) 0.0 (0.0-0.2) /100WBC Sodium 142 (135-145) mmol/L Potassium 4.0 D (3.3-5.1) mmol/L Chloride 110 H (96-108) mmol/L Carbon Dioxide 23 (22-29) mmol/L Anion Gap 13 (12-20) BUN 13 (9-16) mg/dL Creatinine 0.73 (0.5-1.4) mg/dL Estim Creat Clear Calc 94.2 Estimated GFR > 60 Random Glucose 102 (60-115) mg/dL Calcium 9.1 (8.4-10.2) mg/dL Total Bilirubin 0.2 (0.0-1.0) mg/dL AST 20 (5-31) U/L ALT 19 (0-31) U/L Alkaline Phosphatase 66 (39-117) U/L Total Protein 6.7 (6.5-8.0) g/dL Albumin 4.0 (3.5-5.0) g/dL Lipase 18 (8-78) U/L Beta HCG, Quant < 2 mIU/mL Urine Color Yellow Urine Appearance Clear Urine pH 6.5 (5.0-9.0) Ur Specific [place] 1.015 (1.005-1.025) Urine Protein Negative (Neg-Trace) mg/dL Urine Glucose (UA) Negative (Negative) mg/dL Urine Ketones Negative (Negative) mg/dL Urine Blood Trace H (Negative) Urine Nitrite Negative (Negative) Ur Leukocyte Esterase Negative (Negative) Urine RBC 0-2 (0-2) /HPF Urine WBC 0-5 (0-5) /HPF Ur Squamous Epith Cells 0-2 (0-2) /HPF Urine Bacteria None Seen (None Seen) Hyaline Casts 0-2 (0-2) /LPF Radiology Impression Discussion of test interpretation with radiology: I have reviewed the radiologist's reading. Radiologist Impression: CT abdomen and pelvis with contrast Comparison: CT - CT ABDOMEN PELVIS W IV CON - 12/09/24 04:38 EDT Findings: The lung bases are clear. The gallbladder demonstrates a likely Phrygian cap but is otherwise unremarkable. The liver is normal. The rest of the solid organs are unremarkable. No bowel obstruction, pneumoperitoneum, or pneumatosis. Fallopian tube clips are noted. The uterus and adnexa are otherwise unremarkable. The bones are intact. IMPRESSION: No acute findings. This document has been electronically signed by: Tyrone Malone MD on 12/09/2024 06:19:01 Independent Historian Clinical information obtained from an independent historian. History obtained from or confirmed by: Other (Significant other/boyfriend) Critical Care Time Critical Care Time Critical Care Time: Yes Total Critical Care Time: 35 Attestation: Critical Care: The patient was critically ill with a high probability of imminent or life threatening deterioration. I spent greater than 30 minutes of discontinuous time evaluating the patient,delivering critical care at the bedside, discussing and evaluating pertinent data with consultants. Critical care time does not include time spent performing separately billable procedures or teaching. Total time spent performing critical care was 35 minutes. Discharge Plan Discharge Clinical Impression: Gastritis, Acute hyperventilation syndrome, Anxiety Patient Disposition: Home, Self-Care Instructions: Hyperventilation (ED) Additional Instructions: Your blood work was unremarkable. The CT scan of your abdomen pelvis with IV contrast did not reveal any significant abnormalities which is very reassuring. Your abdominal pain is most likely caused by inflammation of your stomach (gastritis). Continue take your omeprazole as prescribed by your provider. At this time, I do not think that your symptoms are secondary to Zepbound and are more consistent with hyperventilation/anxiety syndrome. Continue taking your citalopram as prescribed by your provider. Take Ativan 1 mg pills, 1 pill every 6 hours as needed for anxiety. ?This medication will make you sleepy, do not drive or work while taking this medication. ?This medication can be addicting, if your concerned about addiction you can ask the pharmacist for less medications or do not get the prescription filled. Follow-up with your doctor in 2 days. Please return to the emergency department if your symptoms get worse or if you develop any symptoms that are concerning to you. Prescriptions: New lorazepam [Ativan] 1 mg tablet 1 mg PO TID PRN (Reason: anxiety) Qty: 10 0RF Rx Instructions: Patient may request partial fill No Action Nucala 100 mg/mL syringe 100 mg subcut Q4W 28 Days Qty: 1 12RF budesonide-formoterol [Symbicort] 160-4.5 mcg/actuation HFA aerosol inhaler 2 puff inhalation BID 30 Days Qty: 10.2 6RF albuterol sulfate 90 mcg/actuation HFA aerosol inhaler 2 puff inhalation Q4-6H PRN (Reason: shortness of breath or wheezing) Qty: 18 0RF albuterol sulfate 5 mg/mL solution for nebulization 2.5 mg inhalation Q6H PRN (Reason: shortness of breath or wheezing) Qty: 600 0RF prednisone 10 mg tablet See Rx Instructions .ROUTE .COMPLEX Qty: 15 0RF Rx Instructions: 50mg (5 tabs) x1 day, then 40 mg (4 tabs) x1 day, then 30 mg (3 tabs) x1 day, then 20 mg (2 tabs) times 1 day, then 10 mg (1 tab) x1 day doxepin 10 mg capsule 10 mg PO BEDTIME citalopram 20 mg tablet 20 mg PO QAM montelukast 10 mg tablet 10 mg PO BEDTIME ibuprofen 600 mg tablet 600 mg PO Q8H PRN (Reason: fever) omeprazole 20 mg capsule,delayed release(DR/EC) 20 mg PO DAILY Qty: 90 1RF bisacodyl 5 mg tablet,delayed release (DR/EC) 5 mg PO ONCE 1 Days Qty: 4 0RF Rx Instructions: Take four tablets once for 1 day per colonoscopy instructions polyethylene glycol 3350 [Miralax] 17 gram/dose powder 17 g PO DAILY 30 Days Qty: 510 2RF Rx Instructions: Take 17G (one cap full) daily with 8oz of water polyethylene glycol 3350 [Miralax] 17 gram/dose powder 238 g PO ONCE Qty: 238 0RF Rx Instructions: per colonoscopy prep instructions Zepbound 2.5 mg/0.5 mL pen injector 2.5 mg subcut QWEEK Rx Instructions: for 4 weeks Print Language: Lithuanian
[2024-12-09] MEDS: Magnesium Hydrox/Alum Hydrox 30 ML ORAL.SUSP PO (03:42)
[2024-12-09] MEDS: Lidocaine HCl Viscous 2 % 15 ML SOLUTION PO (03:42)
[2024-12-09 03:53] VITALS: BP 113/58; PULSE 75; RESP 18; O2SAT 96
[2024-12-09 03:57] LABS: Hematocrit 40.9 % (37.0-47.0); Hemoglobin 14.3 g/dl (12.0-16.0); Imm Gran Abs Auto 0.03 X10*3/uL (0.00-0.03); Imm Gran Pct Auto 0.3 % (0.0-0.4); Lymphocytes Absolute Auto 3.9 X10*3/uL (1.2-4.9); MANUAL DIFF FLAG NO; Mean Corpuscular HGB Conc 35.0 g/dl (31.0-35.0); Mean Corpuscular Hemoglobin 29.7 pg (27.0-33.0); Mean Corpuscular Volume 84.9 fL (80.0-98.0); NRBC Abs Auto 0.000 X10*3/uL (0.0-0.012); NRBC Pct Auto 0.0 /100WBC (0.0-0.2); Platelet Count 302 X10*3/uL (160-400); Red Blood Count 4.82 X10*6/uL (4.20-5.50); White Blood Count 10.4 X10*3/uL (4.8-10.8)
[2024-12-09 04:17] LABS: Alanine Aminotransferase 19 U/L (0-31); Albumin Level 4.0 g/dL (3.5-5.0); Alkaline Phosphatase 66 U/L (39-117); Anion Gap 13 (12-20); Aspartate Amino Transferase 20 U/L (5-31); Blood Urea Nitrogen 13 mg/dL (9-16); Calcium 9.1 mg/dL (8.4-10.2); Carbon Dioxide 23 mmol/L (22-29); Chloride 110 mmol/L (96-108); Creatinine Clr Calc Pharmacy 94.2; Estimated Glomerular Filt Rate > 60; Lipase 18 U/L (8-78); Potassium 4.0 mmol/L (3.3-5.1); Sodium 142 mmol/L (135-145); Total Protein 6.7 g/dL (6.5-8.0)
[2024-12-09 04:33] VITALS: BP 98/53; PULSE 70; RESP 20; TEMP 36.9; O2SAT 95
[2024-12-09] MEDS: iohexoL 350 MG/ML 100 ML INFUS..BTL 85 ML IV (04:46)
[2024-12-09 04:55] LABS: Appearance Urine Clear; Glucose Urine UA Negative (Negative); PH 6.5 (5.0-9.0); Specific Gravity - Urine 1.015 (1.005-1.025); UMIC TRIGGER UACC YES
[2024-12-09 08:24] VITALS: BP 113/68; PULSE 76; RESP 17; TEMP 36.8; O2SAT 95
== END 2024-12-09 08:30 | disposition home or self-care (01) ==
PROVIDERS: Physician Assistant; Emergency Provider Emergency Medicine Emergency Medical Services; PCP Registered Nurse
DX: K29.70 Gastritis, unspecified, without bleeding (principal); F41.9 Anxiety disorder, unspecified; R51.9 Headache, unspecified; R35.0 Frequency of micturition; R31.9 Hematuria, unspecified; R30.0 Dysuria; R10.2 Pelvic and perineal pain; R42 Dizziness and giddiness; R20.0 Anesthesia of skin; M54.2 Cervicalgia; Z79.899 Other long term (current) drug therapy
CPT/HCPCS: 36415; 74177; 80053; 81001; 83690; 84702; 85025; 99284; 99291; Q9967

== ENCOUNTER → 2024-12-09 03:22 | Outpatient (BNV) | payer OTHER, MEDICAID, SELFPAY | PROVIDERS: Emergency Provider Emergency Medicine Emergency Medical Services; PCP Registered Nurse; Visit Provider Radiology Diagnostic Radiology | DX: R10.13 Epigastric pain (principal) | CPT/HCPCS: 74177 ==

== ENCOUNTER 2024-12-11 10:20 | Outpatient (REF) | payer OTHER, MEDICAID, SELFPAY ==
--- OUTSIDE RECORDS SUMMARY | 2024-12-11 11:27 | XMS_ITS | Encounter Summary ---
Author Organization [employer] Address [address] [place] [address] Care Team Providers Care Inside Sales Assistant Name Role Phone Stephanie Cotton BUCKY Primary Care Provider [phone] Encounter Details Date Type Department Care Team ([facility] st Contact Info) Description 08/13/2024 Orders Only [facility] [address] [place], [place] [id number] Provider, MD Charisse Social History Tobacco Use [...] the past 12 months, has t he [employer] gas, oil or water company threatened to [...] documented as of this encounter Care Teams Inside Sales Assistant Relationship Specialty Start Date End Date Stephanie Cotton FNP [address] [place] [address] PCP - General Family Medicine 03/16/21 documented as of this encounter
== END 2024-12-11 10:21 | disposition home or self-care (01) ==
LOC: HO.NEURO 10:20
PROVIDERS: PCP Registered Nurse; Visit Provider Psychiatry & Neurology Neurology
DX: Z13.89 Encounter for screening for other disorder (principal)

== ENCOUNTER 2024-12-28 07:05 | Emergency (ER) | payer OTHER, SELFPAY ==
--- NOTE | 2024-12-28 07:37 | ED.ANXIETY ---
HPI - Anxiety General Chief Complaint: General Medical Stated Complaint: Anxiety Time Seen by Provider: 12/28/24 07:41 Source: patient and old records reviewed Mode of arrival: ambulatory Limitations: no limitations History of Present Illness ED Provider: STEVEN BENNETT narrative: 44 yo female with PMH of asthma, GERD, constipation here with c/o again a few weeks of cold sensation of her hands, intermittent rigorous movements of her extremities, subjective chills, waxing and waning headache - she gets a warm sensation in her head she did not sleep at all last night. She has not seen her PCP. She has an appointment in Jan with PCP. She does have a lot of stress at home. Her son has been in snf. She has other significant stress. She feels chest tightness at time as well. She notes when she was given ativan the symptoms went away. Her symptoms resolved with the anxiety medications. MD complaint: anxiety Onset (ago): week(s) Symptoms: chest pain, palpitations, extremity numbness/tingling, dry mouth and sense of impending doom Severity: moderate Quality: intermittent Place: home History of similar episodes: Yes Provoking factors: emotional stress Relieving factors: medication Exacerbating factors: nothing Associated symptoms: chest pain, shortness of breath, palpitations and weakness Related Data Home Medications ?Medication ?Instructions ?Recorded ?Confirmed citalopram 20 mg tablet 20 mg PO QAM 11/07/24 11/07/24 doxepin 10 mg capsule 10 mg PO BEDTIME 11/07/24 11/07/24 ibuprofen 600 mg tablet 600 mg PO Q8H PRN fever 11/07/24 11/07/24 montelukast 10 mg tablet 10 mg PO BEDTIME 11/07/24 11/07/24 tirzepatide (weight loss) 2.5 2.5 mg subcut QWEEK 11/07/24 11/07/24 mg/0.5 mL subcutaneous pen injector (Zepbound) Previous Rx's ?Medication ?Instructions ?Recorded albuterol sulfate 5 mg/mL(0.5 %) 2.5 mg (0.5 mL) inhalation Q6H PRN 04/08/20 solution for nebulization shortness of breath or wheezing #600 mL albuterol sulfate 90 mcg/actuation 2 puff inhalation Q4-6H PRN 04/08/20 aerosol inhaler shortness of breath or wheezing #18 grams mepolizumab 100 mg/mL subcutaneous 100 mg subcut Q4W 28 days #1 mL 06/05/21 syringe (Nucala) budesonide-formoterol HFA 160 2 puff inhalation BID 30 days 06/08/23 mcg-4.5 mcg/actuation aerosol #10.2 grams inhaler (Symbicort) bisacodyl 5 mg tablet,delayed 5 mg PO ONCE 1 day #4 tabs 11/07/24 release omeprazole 20 mg capsule,delayed 20 mg PO DAILY #90 caps 11/07/24 release polyethylene glycol 3350 17 17 g PO DAILY constipation 30 days 11/07/24 gram/dose oral powder (Miralax) #510 grams polyethylene glycol 3350 17 238 g PO ONCE #238 grams 11/07/24 gram/dose oral powder (Miralax) prednisone 10 mg tablet See Rx Instructions .Route 11/15/24 .COMPLEX #15 tabs lorazepam 1 mg tablet (Ativan) 1 mg PO TID PRN anxiety #10 tabs 12/09/24 hydroxyzine HCl 50 mg tablet 50 mg PO BEDTIME PRN anxiety #30 12/28/24 tabs Allergies Allergy/AdvReac Type Severity Reaction Status Date / Time No Known Allergies (No Known Allergy Verified 12/28/24 07:39 Allergies*) Review of Systems Review of Systems: Constitutional : No Weight loss, No Fever, No Chills, pos fatigue ENT/Mouth : No sore throat, No Rhinorrhea Eyes: No Eye Pain, No Swelling Cardiovascular : pos Chest Pain, pos SOB, no Dyspnea on Exertion, No Orthopnea, No Edema, pos Palpitations Respiratory : No Cough, No Sputum Gastrointestinal : pos Nausea, No Vomiting, No Diarrhea, No abdominal Pain, No Hematochezia, No Melena Genitourinary : No Dysuria, No Urinary Frequency Musculoskeletal : No joint pain, No Myalgias, No Joint Swelling Skin : No Skin Lesions, No rash Neuro : No Weakness, No Numbness, No Dizziness, No Headache Psych : pos Anxiety/Panic, pos Depression All other systems reviewed and are negative [facility] Past Medical History Attestation statement: The following information was validated with the patient. Source: old records reviewed Medical History Constipation Acid reflux Colon cancer screening Asthma Surgical History History of lumpectomy of left breast Family History Family History (Updated 11/07/24 @ 15:21 by Pretty Carpio CNP) Father Liver disease Mother Hypertension Diabetes Social History Social History (Updated 12/28/24 @ 07:48 by Kiesha Aguiar DO) Unable to assess alcohol history related to: Unknown Alcohol intake: never Patient Tobacco Use Status: Never used Tobacco Physical Exam Vital Signs: Vital Signs: Last Vital Signs Temp 97 F 12/28/24 07:38 Pulse 70 12/28/24 07:38 Resp 18 12/28/24 07:38 BP 134/73 12/28/24 07:38 Pulse Ox 96 12/28/24 07:38 O2 Del Method Room Air 12/28/24 07:38 BMI result Body Mass Index 33.8 Appearance: Alert. Oriented X3. No acute distress. Eyes: Pupils equal, round and reactive to light. ENT: Pharynx normal. Neck: Normal inspection. Neck supple. CVS: Normal heart rate and rhythm. Pulses normal. Respiratory: No respiratory distress. Breath sounds normal. Abdomen: Soft and nontender. Skin: Skin warm and dry. Normal skin color. Normal skin turgor. Extremities: No lower extremity edema. No calf ttp Neuro: Oriented X 3. No motor deficit. No sensory deficit. CN2-12 intact Medical Decision Making Medical Decision Making [facility] Narrative: 44 yo female with PMH of asthma, GERD, anxiety who has been having anxiety and inabilty to sleep with atypical symptoms of cold tinling, warmth in head overall she looks well will obtain basic labs and EKG, treat for anxiety plan to start on atarax 50mg nightly PRN anxiety. Low susp for VTE/ACS. Her symptoms improved with ativan in the past. Differential Diagnosis Differential Diagnoses: The differential diagnosis associated with the presentation includes anxiety, lyte abnormality Admission/Observation Consideration of admission/observation: Escalation of care including admission/observation considered work up reassuring stable for DC Lab Data [facility] Lab Attestation statement: I reviewed the patient's lab results. 12/28/24 07:50 12/28/24 07:50 Labs: Lab Results 12/28/24 Range/Units 07:50 WBC 8.1 (4.8-10.8) X10*3/uL RBC 4.76 (4.20-5.50) X10*6/uL Hgb 14.1 (12.0-16.0) g/dl Hct 40.6 (37.0-47.0) % MCV 85.3 (80.0-98.0) fL MCH 29.6 (27.0-33.0) pg MCHC 34.7 (31.0-35.0) g/dl RDW 12.9 (11.0-16.0) % Plt Count 261 (160-400) X10*3/uL MPV 10.2 (9.4-12.3) fL Immature Gran % (Auto) 0.4 (0.0-0.4) % Neut % (Auto) 58.5 (45-73) % Lymph % (Auto) 32.8 (20-40) % [place] % (Auto) 6.9 (2-11) % Eos % (Auto) 1.0 (0-4) % Baso % (Auto) 0.4 (0-2) % Lymph # (Auto) 2.7 (1.2-4.9) X10*3/uL [place] # (Auto) 0.6 (0.1-1.2) X10*3/uL Eos # (Auto) 0.1 (0.0-0.4) X10*3/uL Baso # (Auto) 0.0 (0.0-0.2) X10*3/uL Abs Immat Gran (auto) 0.03 (0.00-0.03) X10*3/uL Absolute Neuts (auto) 4.7 (2.0-8.3) x10*3/uL Absolute Nucleated RBC 0.000 (0.0-0.012) X10*3/uL Nucleated RBC % (auto) 0.0 (0.0-0.2) /100WBC Independent Interpretation I performed an independent interpretation of an: EKG Interpretation: Rate: 72 Rhythm: NSR [place]: normal Normal P waves. Normal KARI. Normal QRS complex. ST T wave : no CHER[place], normal qTC: 418 prior studies: no acute ischemia The study has been interpreted contemporaneously by me. . Independent Historian Clinical information obtained from an independent historian. History obtained from or confirmed by: Spouse External Record Review External record reviewed: Inpatient record and Outpatient record Prescription Management I considered prescription management with: Other Discharge Plan Discharge Clinical Impression: Anxiety Patient Disposition: Home, Self-Care Instructions: Anxiety (ED) Additional Instructions: labs and EKG reassuring return for any worsening symptoms or concerns please follow up with your family medicine doctor as planned Prescriptions: New hydroxyzine HCl 50 mg tablet 50 mg PO BEDTIME PRN (Reason: anxiety) Qty: 30 0RF No Action Nucala 100 mg/mL syringe 100 mg subcut Q4W 28 Days Qty: 1 12RF budesonide-formoterol [Symbicort] 160-4.5 mcg/actuation HFA aerosol inhaler 2 puff inhalation BID 30 Days Qty: 10.2 6RF albuterol sulfate 90 mcg/actuation HFA aerosol inhaler 2 puff inhalation Q4-6H PRN (Reason: shortness of breath or wheezing) Qty: 18 0RF albuterol sulfate 5 mg/mL solution for nebulization 2.5 mg inhalation Q6H PRN (Reason: shortness of breath or wheezing) Qty: 600 0RF prednisone 10 mg tablet See Rx Instructions .ROUTE .COMPLEX Qty: 15 0RF Rx Instructions: 50mg (5 tabs) x1 day, then 40 mg (4 tabs) x1 day, then 30 mg (3 tabs) x1 day, then 20 mg (2 tabs) times 1 day, then 10 mg (1 tab) x1 day lorazepam [Ativan] 1 mg tablet 1 mg PO TID PRN (Reason: anxiety) Qty: 10 0RF Rx Instructions: Patient may request partial fill doxepin 10 mg capsule 10 mg PO BEDTIME citalopram 20 mg tablet 20 mg PO QAM montelukast 10 mg tablet 10 mg PO BEDTIME ibuprofen 600 mg tablet 600 mg PO Q8H PRN (Reason: fever) omeprazole 20 mg capsule,delayed release(DR/EC) 20 mg PO DAILY Qty: 90 1RF bisacodyl 5 mg tablet,delayed release (DR/EC) 5 mg PO ONCE 1 Days Qty: 4 0RF Rx Instructions: Take four tablets once for 1 day per colonoscopy instructions polyethylene glycol 3350 [Miralax] 17 gram/dose powder 17 g PO DAILY 30 Days Qty: 510 2RF Rx Instructions: Take 17G (one cap full) daily with 8oz of water polyethylene glycol 3350 [Miralax] 17 gram/dose powder 238 g PO ONCE Qty: 238 0RF Rx Instructions: per colonoscopy prep instructions Zepbound 2.5 mg/0.5 mL pen injector 2.5 mg subcut QWEEK Rx Instructions: for 4 weeks Print Language: Mohawk
[2024-12-28 07:38] VITALS: BP 134/73; PULSE 70; RESP 18; TEMP 36.1; O2SAT 96; BMI 33.8
--- NOTE | 2024-12-28 07:41 | ECG_ITS ---
Test Reason : cp Blood Pressure : */* mmHG Vent. Rate : 72 BPM Atrial Rate : 72 BPM P-R Int : 142 ms QRS Dur : 76 ms QT Int : 382 ms P-R-T Axes : 2 8 16 degrees QTcB Int : 418 ms Normal sinus rhythm Normal ECG When compared with ECG of 22-Nov-2024 03:37, No significant change was found Referred By: Kiesha Aguiar Electronically Signed By: SAUL YAN
[2024-12-28 07:55] LABS: MANUAL DIFF FLAG NO
[2024-12-28 07:58] LABS: Hematocrit 40.6 % (37.0-47.0); Hemoglobin 14.1 g/dl (12.0-16.0); Imm Gran Abs Auto 0.03 X10*3/uL (0.00-0.03); Imm Gran Pct Auto 0.4 % (0.0-0.4); Lymphocytes Absolute Auto 2.7 X10*3/uL (1.2-4.9); Mean Corpuscular HGB Conc 34.7 g/dl (31.0-35.0); Mean Corpuscular Hemoglobin 29.6 pg (27.0-33.0); Mean Corpuscular Volume 85.3 fL (80.0-98.0); NRBC Abs Auto 0.000 X10*3/uL (0.0-0.012); NRBC Pct Auto 0.0 /100WBC (0.0-0.2); Platelet Count 261 X10*3/uL (160-400); Red Blood Count 4.76 X10*6/uL (4.20-5.50); White Blood Count 8.1 X10*3/uL (4.8-10.8)
[2024-12-28 08:11] LABS: Alanine Aminotransferase 23 U/L (0-31); Albumin Level 4.0 g/dL (3.5-5.0); Alkaline Phosphatase 63 U/L (39-117); Anion Gap 10 (12-20); Aspartate Amino Transferase 21 U/L (5-31); Blood Urea Nitrogen 9 mg/dL (9-16); Calcium 8.6 mg/dL (8.4-10.2); Carbon Dioxide 24 mmol/L (22-29); Chloride 111 mmol/L (96-108); Creatinine Clr Calc Pharmacy 103.9; Estimated Glomerular Filt Rate > 60; Magnesium 2.1 mg/dL (1.6-2.6); Potassium 3.6 mmol/L (3.3-5.1); Sodium 141 mmol/L (135-145); Total Protein 6.8 g/dL (6.5-8.0)
[2024-12-28 08:20] LABS: Troponin-I High Sensitivity < 2.7 ng/L (<3.5-17.0)
[2024-12-28 08:32] VITALS: BP 134/73; PULSE 70; RESP 18; TEMP 36.1; O2SAT 96
== END 2024-12-28 08:33 | disposition home or self-care (01) ==
PROVIDERS: Emergency Provider Emergency Medicine; PCP Registered Nurse
DX: F41.9 Anxiety disorder, unspecified (principal); R07.9 Chest pain, unspecified; R51.9 Headache, unspecified; R20.2 Paresthesia of skin
CPT/HCPCS: 36415; 80048; 80076; 83735; 84484; 85025; 93005; 99283

== ENCOUNTER → 2024-12-28 07:41 | Outpatient (BNV) | payer OTHER, SELFPAY | PROVIDERS: Emergency Provider Emergency Medicine; PCP Registered Nurse; Visit Provider Internal Medicine | DX: R07.9 Chest pain, unspecified (principal) | CPT/HCPCS: 93010 ==

== ENCOUNTER 2025-01-01 23:02 | Emergency (ER) | payer OTHER, SELFPAY ==
[2025-01-01 23:08] VITALS: BP 130/80; PULSE 82; RESP 18; TEMP 36.2; O2SAT 97; BMI 34.0
--- NOTE | 2025-01-02 00:15 | ED.GENADULT ---
HPI - General Adult General Chief complaint: General Medical Stated complaint: neck pain Time Seen by Provider: 01/02/25 00:15 Source: patient Mode of arrival: ambulatory Limitations: language barrier History of Present Illness ED Provider: Dr. Batsheva Cason HPI narrative: 44 year old female with history of GERD, anxiety, chronic neck and back pain presenting with continued neck and back pain, numbness and sweating of the hands, headaches that have been an issue over the last several months, worsening over the last 6 weeks or so. Patient admits that her symptoms are really unchanged since before August when she had an MRI of the head and neck. States that she continues to have these symptoms and has been seen in this emergency department at least 4 times since then with the same complaints. Each time she comes to the hospital she is prescribed some new drug. Initially prescribed lorazepam which she admits helped her symptoms extensively. The next visit she got hydroxyzine which she reports makes her feel ?drunk?. Her last visit to urgent care this week she was given tizanidine, which she reports does help her neck pain/headaches. No reported fever. No neck stiffness. Denies numbness/tingling/weakness of the extremities. No facial droop or word-finding issues. She still gets her menstrual cycle, she is currently menstruating. 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 No direct trauma or injury. Denies other issues or illness. Related Data Home Medications ?Medication ?Instructions ?Recorded ?Confirmed citalopram 20 mg tablet 20 mg PO QAM 11/07/24 11/07/24 doxepin 10 mg capsule 10 mg PO BEDTIME 11/07/24 11/07/24 ibuprofen 600 mg tablet 600 mg PO Q8H PRN fever 11/07/24 11/07/24 montelukast 10 mg tablet 10 mg PO BEDTIME 11/07/24 11/07/24 tirzepatide (weight loss) 2.5 2.5 mg subcut QWEEK 11/07/24 11/07/24 mg/0.5 mL subcutaneous pen injector (Zepbound) Previous Rx's ?Medication ?Instructions ?Recorded albuterol sulfate 5 mg/mL(0.5 %) 2.5 mg (0.5 mL) inhalation Q6H PRN 04/08/20 solution for nebulization shortness of breath or wheezing #600 mL albuterol sulfate 90 mcg/actuation 2 puff inhalation Q4-6H PRN 04/08/20 aerosol inhaler shortness of breath or wheezing #18 grams mepolizumab 100 mg/mL subcutaneous 100 mg subcut Q4W 28 days #1 mL 06/05/21 syringe (Nucala) budesonide-formoterol HFA 160 2 puff inhalation BID 30 days 06/08/23 mcg-4.5 mcg/actuation aerosol #10.2 grams inhaler (Symbicort) bisacodyl 5 mg tablet,delayed 5 mg PO ONCE 1 day #4 tabs 11/07/24 release omeprazole 20 mg capsule,delayed 20 mg PO DAILY #90 caps 11/07/24 release polyethylene glycol 3350 17 17 g PO DAILY constipation 30 days 11/07/24 gram/dose oral powder (Miralax) #510 grams polyethylene glycol 3350 17 238 g PO ONCE #238 grams 11/07/24 gram/dose oral powder (Miralax) prednisone 10 mg tablet See Rx Instructions .Route 11/15/24 .COMPLEX #15 tabs lorazepam 1 mg tablet (Ativan) 1 mg PO TID PRN anxiety #10 tabs 12/09/24 hydroxyzine HCl 50 mg tablet 50 mg PO BEDTIME PRN anxiety #30 12/28/24 tabs Allergies Allergy/AdvReac Type Severity Reaction Status Date / Time No Known Allergies (No Known Allergy Verified 01/01/25 23:09 Allergies*) Review of Systems Review of Systems: As per HPI, full review of systems performed and negative but for the above mentioned pertinent positives and negatives. [facility] Past Medical History Attestation statement: The following information was validated with the patient. (GERD, asthma, anxiety) [facility] Narrative: Uses tobacco daily Denies alcohol or illicit substance use Source: old records reviewed Medical History Constipation Acid reflux Colon cancer screening Asthma Surgical History History of lumpectomy of left breast Family History Family History Father Liver disease Mother Hypertension Diabetes Social History Social History Unable to assess alcohol history related to: Unknown Alcohol intake: never Patient Tobacco Use Status: Never used Tobacco Smoked in Last 30 Days: No Use of substances other than those prescribed or required for medical reasons: No Advance Directives: No Do you have a plan to hurt others: No Plan Physical Exam ED Exam Exam: GENERAL: Anxious, tearful. SKIN: Normal skin color for ethnicity, warm, dry, intact, no rashes noted. HEENT: Normocephalic, atraumatic, no stridor, posterior oropharynx nonerythematous, dentition intact, EOMI. NECK: Soft, supple, full ROM, midline structures nontender, no step-offs, no deformities, no lymphadenopathy. CHEST: Heart regular rhythm, no murmurs, symmetric chest rise and fall, no crepitus. PULMONARY: Clear to auscultation bilaterally, no labored breathing, no wheezes/rhales/ rhonchi. ABDOMINAL: Soft, nondistended, nontender, positive bowel sounds in all quadrants. : Deferred. MUSCULOSKELETAL: Normal tone, full range of motion, no deformities, no peripheral edema. NEURO: Alert and oriented x3, CN II through XII intact, equal strength and sensation bilateral upper and lower extremities, no focal neurologic deficits. PSYCHIATRIC: Anxious affect, tearful, fluid speech, good eye contact and appropriate demeanor. Vital Signs: Vital Signs - 24 hr 01/01/25 23:08 01/02/25 01:10 01/02/25 01:18 Temperature 97.1 F 98.5 F 98.5 F Pulse Rate 82 71 71 Respiratory Rate 18 20 Blood Pressure 130/80 106/43 L 106/43 L Pulse Oximetry 97 95 95 Oxygen Delivery Method Room Air Room Air Room Air BMI result Body Mass Index 34.0 Medical Decision Making Medical Decision Making MDM Narrative: Patient presents with a chief complaint of headache. The differential diagnosis on this patient includes but is not limited to migraine headache, tension headache, cluster headache, subarachnoid hemorrhage, dissection, venous thrombosis, meningitis, sinusitis, bleeding or tumor. Based on history and physical exam, appropriate work-up was initiated. She no focal neurologic deficits on my exam. Clinical picture is consistent with anxiety which she is not treating very effectively. It sounds like she barely takes her citalopram that she is prescribed for anxiety and instead has come to the emergency department, seeing several different providers for this issue over the last 6 weeks. Admits that when she takes tizanidine it does help her symptoms. I feel that her hot flashes may be hormonal in nature. No evidence of serotonin syndrome on exam though we discussed the possibility of developing serotonin syndrome if she continues to have multiple different drugs for her neck and headache pain. After an extensive discussion, decision was made to follow-up with the primary care. I encouraged her to start taking her citalopram every day to see if this helps her underlying anxiety. 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 Using shared decision making, plan for discharge home to follow-up with primary care and/or specialist. Patient understands and agrees with plan for discharge. Discharged home in stable condition. Differential Diagnosis Differential Diagnoses: The differential diagnosis associated with the presentation includes (as above) Admission/Observation Consideration of admission/observation: Escalation of care including admission/observation considered External Record Review External record reviewed: Outpatient record and Prior outpatient labs Prescription Management I considered prescription management with: Pain Medication (Tizanidine for muscle relaxation, citalopram for anxiety) Chronic Conditions Patient?s care impacted by: Other (GERD, asthma) Discharge Plan Discharge Clinical Impression: Cervical myofascial strain, Anxiety and depression, At risk for polypharmacy Patient Disposition: Home, Self-Care Instructions: Cervical Strain (ED), Generalized Anxiety Disorder (ED) Additional Instructions: Take tizanidine up to 3 times a day as needed for muscle spasms and neck pain. Continue to use Motrin as well. Take your citalopram every day, once a day, to prevent panic attacks. Return to the emergency department with any new or worsening symptoms including: Worsening chest pain, difficulty breathing, fevers greater than 100?, passing out, any new symptom that concerns you. Otherwise follow-up with your primary care doctor as soon as possible. Colman tizanidina hasta 3 veces al d?a seg?n sea necesario para espasmos musculares y dolor de carey. Contin?e usando Motrin. Colman citalopram todos los d?as, gurwinder vez al d?a, para prevenir ataques de p?igor. Regrese a urgencias si presenta cualquier s?ntoma nuevo o que empeore, incluyendo: empeoramiento del dolor en el pecho, dificultad para respirar, fiebre superior a 38 ?C, desmayos o cualquier s?ntoma nuevo que le preocupe. De lo contrario, consulte con rodriguez m?dico de cabecera lo antes posible. Prescriptions: No Action Nucala 100 mg/mL syringe 100 mg subcut Q4W 28 Days Qty: 1 12RF budesonide-formoterol [Symbicort] 160-4.5 mcg/actuation HFA aerosol inhaler 2 puff inhalation BID 30 Days Qty: 10.2 6RF albuterol sulfate 90 mcg/actuation HFA aerosol inhaler 2 puff inhalation Q4-6H PRN (Reason: shortness of breath or wheezing) Qty: 18 0RF albuterol sulfate 5 mg/mL solution for nebulization 2.5 mg inhalation Q6H PRN (Reason: shortness of breath or wheezing) Qty: 600 0RF prednisone 10 mg tablet See Rx Instructions .ROUTE .COMPLEX Qty: 15 0RF Rx Instructions: 50mg (5 tabs) x1 day, then 40 mg (4 tabs) x1 day, then 30 mg (3 tabs) x1 day, then 20 mg (2 tabs) times 1 day, then 10 mg (1 tab) x1 day lorazepam [Ativan] 1 mg tablet 1 mg PO TID PRN (Reason: anxiety) Qty: 10 0RF Rx Instructions: Patient may request partial fill hydroxyzine HCl 50 mg tablet 50 mg PO BEDTIME PRN (Reason: anxiety) Qty: 30 0RF doxepin 10 mg capsule 10 mg PO BEDTIME citalopram 20 mg tablet 20 mg PO QAM montelukast 10 mg tablet 10 mg PO BEDTIME ibuprofen 600 mg tablet 600 mg PO Q8H PRN (Reason: fever) omeprazole 20 mg capsule,delayed release(DR/EC) 20 mg PO DAILY Qty: 90 1RF bisacodyl 5 mg tablet,delayed release (DR/EC) 5 mg PO ONCE 1 Days Qty: 4 0RF Rx Instructions: Take four tablets once for 1 day per colonoscopy instructions polyethylene glycol 3350 [Miralax] 17 gram/dose powder 17 g PO DAILY 30 Days Qty: 510 2RF Rx Instructions: Take 17G (one cap full) daily with 8oz of water polyethylene glycol 3350 [Miralax] 17 gram/dose powder 238 g PO ONCE Qty: 238 0RF Rx Instructions: per colonoscopy prep instructions Zepbound 2.5 mg/0.5 mL pen injector 2.5 mg subcut QWEEK Rx Instructions: for 4 weeks Interventions: ED Discharge Assessment Last Done: 01/02/25 01:18 Discharge Date/Time: 01/02/25 01:19 Print Language: Kinyarwanda
[2025-01-02 01:10] VITALS: BP 106/43; PULSE 71; TEMP 36.9; O2SAT 95
--- NOTE | 2025-01-02 01:16 | PC.NURSE ---
review discharge instruction with pt. pt verbalized understanding, no sign of distress.
[2025-01-02 01:18] VITALS: BP 106/43; PULSE 71; RESP 20; TEMP 36.9; O2SAT 95
== END 2025-01-02 01:19 | disposition home or self-care (01) ==
PROVIDERS: Emergency Provider Emergency Medicine; PCP Registered Nurse
DX: M62.838 Other muscle spasm (principal); M54.2 Cervicalgia; F41.8 Other specified anxiety disorders; Z91.148 Patient's other noncompliance with medication regimen for other reason
CPT/HCPCS: 99283; 99284

== ENCOUNTER 2025-01-18 12:54 | Outpatient (AMB) | payer OTHER, SELFPAY ==
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
[2025-01-18 13:00] VITALS: BP 119/79; PULSE 85; O2SAT 99; BMI 33.6
== END 2025-01-18 14:07 | disposition home or self-care (01) ==
LOC: HO.PMC 12:55
PROVIDERS: PCP Registered Nurse; Visit Provider Nurse Practitioner Family
DX: M47.812 Spondylosis without myelopathy or radiculopathy, cervical region (principal); M54.12 Radiculopathy, cervical region; M50.20 Other cervical disc displacement, unspecified cervical region; M54.6 Pain in thoracic spine; M62.838 Other muscle spasm
CPT/HCPCS: 99204

== ENCOUNTER 2025-01-18 12:54 | Outpatient (REF) | payer OTHER, SELFPAY ==
--- NOTE | ~2025-01-18 | XR_ITS ---
CLINICAL HISTORY: M54.6 - Pain in thoracic spine Two views of the thoracic spine. COMPARISON: None provided. FINDINGS: Normal vertebral body alignment. Vertebral body heights are maintained. No evidence of acute vertebral body injury. Prominent marginal osteophytes along the midthoracic spine. Vertebral disc space heights are preserved. Visualized portions of the lungs are unremarkable. IMPRESSION: 1. No radiographic evidence of acute injury to the thoracic spine. 2. Moderate midthoracic spondylosis. This document has been electronically signed by: Anil Payne MD on 01/19/2025 14:32:17
--- NOTE | ~2025-01-18 | XR_ITS ---
EXAMINATION: XR CERVICAL SPINE 2-3 VIEWS HISTORY: M47.812 - Spondylosis without myelopathy or radiculopathy, cervical region COMPARISON: Comparison is made with the prior examination 02/16/2013. FINDINGS: AP, lateral, swimmer's, and open-mouth odontoid views of the cervical spine are submitted. Osseous mineralization is normal. Seven cervical vertebral bodies are identified maintaining normal height without evidence of fracture or subluxation. There is straightening of the normal cervical lordosis. The intervertebral disc spaces are preserved. The odontoid and lateral masses of C1 are intact. There is no prevertebral soft tissue swelling. XR/XR cervical spine 3V IMPRESSION: Straightening of the normal cervical lordosis. Otherwise unremarkable examination of the cervical spine. Electronically signed by: Ld Yepez MD 01/18/2025 02:04 PM EDT
--- OUTSIDE RECORDS SUMMARY | 2025-01-18 13:47 | XMS_ITS | Encounter Summary ---
Author Organization [employer] Address [address] [facility] [address] [place] [address] Care Team Providers Care Fishing Hand Name Role Phone Stephanie Cotton BUCKY Primary Care Provider [phone] Encounter Details Date Type Department Care Team ([facility] st Contact Info) Description 08/13/2024 Orders Only [facility] [address] [place], [place] [phone] Provider, MD Charisse Social History Tobacco Use [...] the past 12 months, has t he [employer], gas, oil or water company threatened to [...] Care Team (Late st Contact Info) Description 01/18/2025 3:15 PM EDT Office Visit [facility] [address] [place] [address] Stephanie Cotton FNP [address] [place] [address] 02/11/2025 10:15 AM EDT Office Visit [facility] [address] [place] [address] Stephanie Cotton FNP [address] [place] [address] documented as of this encounter Procedures Procedure [...] documented as of this encounter Care Teams Fishing Hand Relationship Specialty Start Date End Date Stephanie Cotton FNP [address] [place] [address] PCP - General Family Medicine 03/16/21 documented as of this encounter
--- OUTSIDE RECORDS SUMMARY | 2025-01-18 13:47 | XMS_ITS | Encounter Summary ---
Author Organization [employer] Address [address] [facility] [address] [place] [address] Care Team Providers Care Burrer Marker Axle Name Role Phone Lula Stephanie LAWLER Primary Care Provider [phone] Reason for Visit * Reason Comments Med Refill Encounter Details Date Type Department Care Team ([facility] st Contact Info) Description 09/29/2023 Refill [facility] [address] [place] [address] Stephanie Engel FNP Social History Tobacco Use [...] Description 01/18/2025 3:15 PM EDT Office Visit [facility] PED[facility] [address] [place] [address] Stephanie Cotton FNP [address] [place] [address] 02/11/2025 10:15 AM EDT Office Visit [facility] [address] [place] [address] Stephanie Cotton FNP [address] [place] [address] documented as of this encounter Visit Diagnoses Not on filedocumented in this encounter Additional Health Concerns Assessment Noted Time PHQ-9 Depression Total Score: 15 024 10:16 AM EDT documented as of this encounter Care Teams Burrer Marker Axle Relationship Specialty Start Date End Date Stephanie Cotton FNP [address] [place] [address] PCP - General Family Medicine 03/16/21 documented as of this encounter
--- OUTSIDE RECORDS SUMMARY | 2025-01-18 13:47 | XMS_ITS | Encounter Summary ---
Author Organization [employer] Address [address] [facility] [address] [place] [address] Care Team Providers Care Blueprint Duplicator Name Role Phone Stephanie Cotton Primary Care Provider Reason for Visit * Reason Comments Med Change Request Encounter Details Date Type Department Care Team ([facility] Contact Info) Description 03/14/2023 Refill [facility] [address] [place] [address] Scott Ferguson MD [address] [place] [address] Dysphagia, unspecified type Social History Tobacco Use [...] Encounters Date Type Department Care Team (Late Contact Info) Description 01/18/2025 3:15 PM EDT Office Visit [facility] [address] [place], [place] [phone] Stephanie Cotton FNP [address] [place] [address] 02/11/2025 10:15 AM EDT Office Visit [facility] [address] [place] [address] Stephanie Cotton FNP [address] [place] [address] documented as of this encounter Visit Diagnoses Diagnosis Dysphagia, unspecified type documented in this encounter Care Teams Blueprint Duplicator Relationship Specialty Start Date End Date Stephanie Cotton FNP [address] [place] [address] PCP - General Family Medicine 03/16/21 documented as of this encounter
--- OUTSIDE RECORDS SUMMARY | 2025-01-18 13:47 | XMS_ITS | Clinical Summary ---
Author Organization [employer] Address [address] [place] [address] Care Team Providers Care Mate Relief Name Role Phone Stephanie Cotton BUCKY Primary Care Provider [phone] Allergies No known active allergies Medications biotin 1 MG capsule Take by mouth. Activ e hydrocortisone (Anusol-HC) 2.5 % rectal creamIndication s:Constipation, unspecified constipation type,Other hemorrhoids Apply to rectal area twice daily as needed for hemorrhoids 28 g 2 023 Active Diclofenac Sodium 1 % gelIndications: Acute right-sided thoracic back pain Apply to the affected areas 4x/day as needed 50 g 1 023 Active FreeStyle lancets 1 each by Other route in the morning. 100 each 11 024 Active Alcohol Swabs pads 1 each in the morning. 100 each 3 024 Active Fluocinonide Emulsified Base 0.05 % cream Apply small amount to affected area on arms, abdomen, legs twice daily. Do not apply to face. 60 g 1 024 Active calamine-zinc oxide lotion Apply topically if needed (itching). 118 mL 024 Active albuterol 108 (90 Base) MCG/ACT inhalerIndicati ons:Severe persistent allergic asthma Inhale 2 puffs every 4 (four) hours if needed for wheezing or shortness of breath. 18 g 025 2025 Active albuterol (2.5 MG/3ML) 0.083% nebulizer solutionIndicat ions:Severe persistent allergic asthma Take 3 mL (2.5 mg) by nebulization every 4 (four) hours if needed for wheezing. 75 mL 11 2025 Active montelukast (Singulair) 10 MG tabletIndicatio ns:Severe persistent allergic asthma Take 1 tablet (10 mg) by mouth at bedtime. 90 tablet 3 Active Tirzepatide-Gianfranco ght Management (Zepbound) 2.5 MG/0.5ML solution auto-injectorIn dications:Class 2 obesity without serious comorbidity with body mass index (BMI) of 37.0 to 37.9 in adult, unspecified obesity type Inject 0.5 mL (2.5 mg) under the skin 1 (one) time per week. 2 mL 3 Active loratadine (Claritin) 10 MG tabletIndicatio ns:Seasonal allergies Take 1 tablet (10 mg) by mouth Once per day. For allergies 90 tablet 3 Active Symbicort 160-4.5 MCG/ACT inhalerIndicati ons:Severe persistent allergic asthma .INHALE 2 PUFFS BY MOUTH 2 TIMES A DAY. Rinse mouth with water after use to reduce aftertaste and incidence of candidiasis. Do not swallow 1 each Active citalopram (CeleXA) 20 MG tabletIndicatio ns:Anxiety and depression Take 1 tablet (20 mg) by mouth in the morning. 90 tablet 1 Active lidocaine (Lidoderm) 5 % patchIndication s:Cervical disc herniation Apply 1 patch topically Once per day. Remove & discard patch within 12 hours or as directed by MD. 30 patch 3 Active polyethylene glycol, PEG, 3350 (MiraLax) 17 GM/SCOOP powderIndicatio ns:Constipation , unspecified constipation type Mix 17g into 8oz liquid and drink daily for constipation 527 g 2 Active famotidine (Pepcid) 20 MG tablet Take 1 tablet (20 mg) by mouth if needed in the morning and at bedtime for heartburn. 90 tablet 3 Active omeprazole OTC (PriLOSEC OTC) 20 MG EC tabletIndicatio ns:Dysphagia, unspecified type Take 1 tablet (20 mg) by mouth before breakfast. Do not crush, chew, or split. 30 tablet 11 025 2025 Active tiZANidine (Zanaflex) 2 MG tabletIndicatio ns:Cervical disc herniation Take 1-2 tablets (2-4 mg) by mouth if needed at bedtime for muscle spasms for up to 10 days. 30 tablet 2 025 Active ibuprofen 600 MG tabletIndicatio ns:Pain TAKE 1 TABLET BY MOUTH EVERY 8 HOURS NEEDED FOR MILD PAIN OR FEVER 90 tablet 2 025 Active meloxicam (Mobic) 15 MG tabletIndicatio ns:Cervical disc herniation TAKE 1 TABLET BY MOUTH EVERY DAY NEEDED FOR PAIN 30 tablet 1 025 Active meloxicam (Mobic) 15 MG tabletIndicatio ns:Cervical disc herniation Take 1 tablet (15 mg) by mouth if needed each day (pain). 30 tablet 1 025 2024 Discontinued(R eorder (will not trigger notification to Pharmacy)) Active Problems Problem Noted Date Diagnosed Date Cervical disc herniation 10/21/2024 Overview (10/21/2024): - August 2024: Cervical spine w/o contrast: Central disc herniation C4-5 abutting the cord without cord compression, edema and or myelopathy. - Referral to [facility] placed 10/21/24 Assessment & Plan (10/21/2024 7:37 AM EDT): - No red flag s/sx but continues with moderate pain impacting iADLs. Discussed possible tx options. - Pharmacotherapy: start meloxicam PRN pain. Start tizanidine PRN muscle spasms. Reviewed med safety and SE. Cont topical lidocaine patches PRN - Referrals: interested in eval at [facility]. Will consider physical therapy therapy. - Encouraged to cont with symptomatic management Cyst of pineal gland 08/12/2024 Overview (10/21/2024): - Incidental finding on CT head/brain wo contrast 08/08/24 at [facility] ED: 1 cm partially calcified pineal cyst - Brain MRI August 2024: There is a 1 cm nonenhancing peripheral susceptibility signal in the pineal gland. - Consult with [facility] neurology Dr. Bryant on 10/16/2024. 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 No need for intervention. Reassurance provided. Mixed insomnia 06/25/2024 Overview (08/12/2024): -Previous med [...] med SE and safety -Declines referral to N/therapist at this time -Follow up in 6 weeks for transfer patient visit, sooner PRN Severe persistent allergic asthma 06/12/2015 Overview (06/25/2024): Previously by [facility] Pulm - Dr. Whitney. Had received Nucala injections, no longer using d/t improvement in symptoms. Continues with Symbicort 160-4.5mcg/act: 2 puffs BID Rescue: albuterol PRN Assessment & Plan (06/25/2024 2:52 PM EST): Well controlled, cont with current regimen Assessment & Plan (09/01/2023 8:11 AM EDT): Followed by [facility] Pulm - Dr. Whitney Continues with Symbicort 160-4.5mcg/act: 2 puffs [...] 2.5 mg subcutaneous weekly Assessment & Plan (10/21/2024 7:34 AM EDT): Request update on PA for Zepbound Assessment & Plan (06/25/2024 2:51 PM EST): [...] Encounters Date Type Department Care Team Description 01/07/2025 Refill [facility] [address] [place] [address] Stephanie Cotton FNP Cervical disc herniation 01/04/[address] [address] Stephanie Cotton FNP Hospital Follow-up 12/28/2024 Orders Only GENERIC EXTERNAL DATA DEPARTMENT Provider, Generic External Data 12/12/2024 Refill [facility] [address] [place] [address] Stephanie Cotton FNP Pain 12/09/2024 Orders Only GENERIC EXTERNAL DATA DEPARTMENT Provider, Generic External Data 11/15/2024 Orders Only [facility] External Provider, [facility] 10/26/[address] [address] Stephanie Cotton FNP No Show 10/25/2024 Telephone [facility] [address] [place] [address] Stephanie Cotton FNP Pa Approval 10/25/2024 Telephone [facility] [address] [place] [address] Stephanie Cotton FNP Chart Prep 10/19/2024 2:30 PM EDT Office Visit [facility] [address] [place] [address] Stephanie Cotton FNP Chronic bilateral back pain, unspecified back location (Primary Dx); Seasonal allergies; Severe persistent allergic asthma; Anxiety and depression; Constipation, unspecified constipation type; Dysphagia, unspecified type; Class 2 obesity without serious comorbidity with body mass index (BMI) of 37.0 to 37.9 in adult, unspecified obesity type; Cervical disc herniation; Cyst of pineal gland 10/19/2024 Travel from Last 3 Months Immunizations Immunization Administration Dates Next Due Influenza Injectable Quadriv [...] housing situation today? I have [place] 10/08/[address] you li ve. Do you have problems with any of the following? None of the above 10/08/2024 Food Insecurity Answer Date Recorded Within the past 12 months, y ou worried that your food would run out before you got money to buy more: Never True 10/08/2024 Within the past 12 months,th e food you bought just didn't last and you didn't have enough money to get more: Never True Transportation Answer Date Recorded In the past 12 months, has l ack of transportation kept you from medical appts, meetings, work or from getting things needed for daily living? No 10/08/2024 Utilities Answer Date Recorded In the past 12 months, has t he electric, gas, oil or water company threatened to shut off services in your home? No 10/08/2024 Depression Answer Date Recorded Patient Health Questionnaire-2 Score 2 06/25/2024 Internet Access Answer Date Recorded Internet Access Q1 Yes 10/08/2024 Internet Access Q2 Not on file 10/08/2024 Comments Unknown Sex and Gender Information Value Date Recorded Sex Assigned at Female 03/22/2022 10:16 AM EDT Legal Sex Female 10:16 AM EDT Gender Identity Female 06/16/2022 10:53 AM EST Sexual Orientation Don't know 06/16/2022 10 :53 AM EST Last Filed Vital Signs Vital Sign Reading Time Taken Comments Blood Pressure 131/86 10/19/2024 2:41 PM EDT Pulse 81 10/19/2024 2:41 PM EDT Temperature 37 C (98.6 F) 10/19/2024 2:41 PM EDT Respiratory Rate 16 10/19/2024 2:41 PM EDT Oxygen Saturation 97% 10/19/2024 2:41 PM EDT Inhaled Oxygen Concentration - - Weight 83.9 kg (185 lb) 10/19/2024 2:41 PM EDT Height 154.9 cm (5' 1 ) 10/19/2024 2:41 PM EDT Body Mass Index 34.96 10/19/2024 2:41 PM EDT Plan of Treatment Upcoming Encounters Date Type Department Care Team (Late st Contact Info) Description 01/18/2025 3:15 PM EDT Office Visit [facility] [address] [place] [address] Stephanie Cotton FNP [address] [place] [address] 02/11/2025 10:15 AM EDT Office Visit [facility] [address] [place] [address] Stephanie Cotton FNP [address] [place] [address] Health Maintenance Due Date Last Done Comments CT Colonography 1980 Colonoscopy 1980 Colorectal Cancer Screening 1980 FIT DNA/Cologuard 1979 FIT 1980 FOBT 1980 Lipid Panel 1980 Sigmoidoscopy 1980 Disability Screening 1980 Family Planning (PISQ) 1994 Hepatitis B Vaccines (1 of 3 - 19+ 3-dose series) 1998 Pap Smear 01/09/2000 Pneumococcal Vaccine: Pediatrics (0 to 5 Years) and At-Risk Patients (6 to 49) Years (2 of 2 - PCV) 05/25/2012 05/25/2011 Mammogram 05/09/2021 05/09/2019 Cervical Cancer Screening 11/08/2022 HPV/Cotest 11/08/2022 11/08/2017 COVID-19 Vaccine ( season) 2024 10/15/2020, 09/17/2020 Depression Monitoring 12/23/2024 06/25/2024, 025 Influenza Vaccine (#1) 2025 , 03/27/2019, 02/13/2018, Additional history exists Alcohol/Substance Use Screening 03/02/2025 03/02/2024 Tobacco Screening 08/10/2025 08/10/2024 SDOH Screening 10/08/2025 10/08/2024 DTaP/Tdap/Td Vaccines (2 - Td or Tdap) [...] patient's age to complete this topic Meningococcal B Vaccine Aged Out No l onger eligible based on patient's age to complete [...] Procedure Name Priority Date/Time Associated Diagnosis Comments HIGH SENSITIVITY TROPONIN I Routine 12/28/2024 7:50 AM EDT MAGNESIUM Routine 12/28/2024 7:50 AM EDT BASIC METABOLIC PANEL Routine 12/28/2024 7:50 AM EDT HEPATIC FUNCTION PANEL Routine 7:50 AM EDT CBC WITH AUTO DIFFERENTIAL Routine 12/28/2024 7:[address] ABDOMEN PELVIS W CONTRAST Routine 12/09/2024 6:19 AM EDT URINALYSIS, COMPLETE, WITH REFLEX TO CULTURE Routine 12/09/2024 4:38 AM EDT HCG, TOTAL, QN Routine 12/09/2024 3:49 AM EDT LIPASE Routine 12/09/2024 3:49 AM EDT COMPREHENSIVE METABOLIC PANEL Routine 12/09/2024 3:49 AM EDT CBC WITH AUTO DIFFERENTIAL Routine 12/09/2024 3:49 AM EDT HIGH SENSITIVITY TROPONIN I Routine 11/15/2024 12:13 PM EDT HCG, TOTAL, QN Routine 11/15/2024 12:13 PM EDT LIPASE Routine 11/15/2024 12:13 PM EDT MAGNESIUM Routine 11/15/2024 12:13 PM EDT BASIC METABOLIC PANEL Routine 11/15/2024 12:13 PM EDT HEPATIC FUNCTION PANEL Routine 12:13 PM EDT CBC WITH AUTO DIFFERENTIAL Routine 11/15/2024 12:13 PM EDT SARS COV2/INFLUENZA A/B AND RSV RNA QL NAAT Routine 11/15/2024 12:13 PM EDT XR CHEST 2 VIEWS Routine 11/15/2024 11:0 3 AM EDT BI MAMMOGRAM SCREENING BILATERAL Routine 05/09/2019 10:16 AM EST [facility] HISTORICAL HEPATITIS C ANTIBODY Routine 04/30/2019 11:10 AM EST [facility] HISTORICAL HIV AB/AG Routine 04/30/2019 11:10 AM EST [facility] HISTORICAL HPV MRNA E6/E7 Routine 11/08/2017 10:07 AM EDT from Last 3 Months or Most Recently Relevant to Health Maintenance Results * High Sensitivity Troponin I (12/28/2024 7:50 AM EDT) Only the most recent of2 resultswithin the time period is included. Pathologist [facility] TROPONIN I HIGH SENSITIVITY <2.7 <3.5 - 17.0 ng/L [facility] Comment:The [facility] high sens itivity Troponin-I results should beused in conjunction with other diagnostic information suchas ECG, clinical observations and information, and patientsymptoms to aid in the diagnosis of [place]. 12/28/2024 7:50 AM EDT 12/28/2024 7:54 AM EDT us Generic External Data Provider LAB BLOOD ORDERAB LES Final Result [facility] [address] [place] [phone] * CBC auto differential (12/28/2024 7:50 AM EDT) Only the most recent of3 resultswithin the time period is included. White Blood Count 8.1 4.8 - 10.8 X10*3/uL [facility] Red Blood Count 4.76 4.20 - 5.50 X10*6/uL [facility] Hemoglobin 14.1 12.0 - 16.0 g/dl [facility] Hematocrit 40.6 37.0 - 47.0 % [facility] Mean Corpuscular Volume 85.3 80.0 - 98.0 fL [facility] Mean Corpuscular Hemoglobin 29.6 27.0 - 33.0 pg [facility] Mean Corpuscular HGB Conc 34.7 31.0 - 35.0 g/dl [facility] Red Cell Distribution Width 12.9 11.0 - 16.0 % [facility] Platelet Count 261 160 - 400 X10*3/uL [facility] Mean Platelet Volume 10.2 9.4 - 12.3 fL [facility] Neutrophils Percent Auto 58.5 45 - 73 % [facility] Imm Gran Pct Auto 0.4 0.0 - 0.4 % [facility] Lymphocytes Percent Auto 32.8 20 - 40 % [facility] Monocytes Percent Auto 6.9 2 - 11 % [facility] Eosinophils Percent Auto 1.0 0 - 4 % [facility] Basophils Percent Auto 0.4 0 - 2 % [facility] NRBC Pct Auto 0.0 0.0 - 0.2 /100WBC [facility] Neutrophils Absolute Auto 4.7 2.0 - 8.3 x10*3/uL [facility] Imm Gran Abs Auto 0.03 0.00 - 0.03 X10*3/uL [facility] Lymphocytes Absolute Auto 2.7 1.2 - 4.9 X10*3/uL [facility] Monocytes Absolute Auto 0.6 0.1 - 1.2 X10*3/uL [facility] Eosinophils Absolute Auto 0.1 0.0 - 0.4 X10*3/uL [facility] Basophils Absolute Auto 0.0 0.0 - 0.2 X10*3/uL [facility] NRBC Abs Auto 0.000 0.0 - 0.012 X10*3/uL [facility] 12/28/2024 7:50 AM EDT 12/28/2024 7:54 AM EDT us Generic External Data Provider LAB BLOOD ORDERAB LES Final Result Performing Organization Address City/[facility] Co de Phone Number [facility] [address] [place] [phone] * Magnesium (12/28/2024 7:50 AM EDT) Only the most recent of2 resultswithin the time period is included. Magnesium 2.1 1.6 - 2.6 mg/dL [facility] 12/28/2024 7:50 AM EDT 12/28/2024 7:54 AM EDT us Generic External Data Provider LAB BLOOD ORDERAB LES Final Result Performing Organization Address [facility] Co de Phone Number [facility] [address] [place] [phone] * Hepatic Function Panel (12/28/2024 7:50 AM EDT) Only the most recent of2 resultswithin the time period is included. Bilirubin, Total 0.5 0.0 - 1.0 mg/dL [facility] Bilirubin, Direct 0.2 0.0 - 0.5 mg/dL [facility] Aspartate Amino Transferase 21 5 - 31 U/L [facility] Alanine Aminotransferase 23 0 - 31 U/L [facility] Total Protein 6.8 6.5 - 8.0 g/dL [facility] Albumin Level 4.0 3.5 - 5.0 g/dL [facility] Alkaline Phosphatase 63 39 - 117 U/L [facility] 12/28/2024 7:50 AM EDT 12/28/2024 7:54 AM EDT Generic External Data Provider LAB BLOOD ORDERAB LES Final Result Performing Organization Address City/[facility]/ZIP Co de Phone Number [facility] [address] [place] [phone] * (ABNORMAL) Basic Metabolic Panel (12/28/2024 7:50 AM EDT) Only the most recent of2 resultswithin the time period is included. Sodium 141 135 - 145 mmol/L [facility] Potassium 3.6 3.3 - 5.1 mmol/L [facility] Chloride 111(H) 96 - 108 mmol/L [facility] Carbon Dioxide 24 22 - 29 mmol/L [facility] Anion Gap 10(L) 12 - 20 [facility] Urea Nitrogen (BUN) 9 9 - 16 mg/dL [facility] Creatinine, Serum 0.66 0.5 - 1.4 mg/dL [facility] Creatinine Clr Calc Pharmacy 103.9 [facility] Comment:Provided height and weight: 154.94 cm,81.193 kg.eGFR (calculated from the MDRD study equation) and eCrCl(calculated from the Cockcroft-Gault equation) are based ondifferent parameters and may not yield comparable results.If eCrCl result is absurd, please check patient'sheight/weight. Estimated Glomerular Filt Rate >60 [facility] Comment:Chronic Kidney Disea se: Estimated GFR < 60 mL/min/1.04i2Qwtidj Kidney Disease: Estimated GFR < 15 mL/min/1.73m2 Glucose 102 60 - 115 mg/dL [facility] Calcium 8.6 8.4 - 10.2 mg/dL [facility] 12/28/2024 7:50 AM EDT 12/28/2024 7:54 AM EDT us Generic External Data Provider LAB BLOOD ORDERAB LES Final Result Performing Organization Address [facility]/ZIP Co de Phone Number [facility] [address] [place] [phone] [phone] * CT Abdomen Pelvis w/ Contrast (12/09/2024 6:19 AM EDT) Anatomical Region Laterality Modality Body, Pelvis, Abdomen Computed T omography 12/09/2024 6:19 AM EDT Narrative 12/09/2024 6:21 AM EDT [address] [address] [address] Scan Report Signed Patient: Abbie Hernandez MR#: [id number] : 1980 Acct:[id number] Age/Sex: 44 / F ADM Date: 12/09/24 Loc: HO.ED Attending Dr: Ordering Physician: Clive Ortega PA-C Date of Service: 12/09/24 Procedure(s): CT abdomen pelvis w IV con Accession Number(s): [id number] cc: Clive Ortega PA-C; Stephanie Cotton LINE PERSON Report Number: [id number]: Total DLP = 669.00 mGy-cm CLINICAL HISTORY: Epigastric Tenderness; Nausea; Body Aches CT abdomen and pelvis with contrast Comparison: CT - CT ABDOMEN PELVIS W IV CON - 12/09/24 04:38 EDT Findings: The lung bases are clear. The gallbladder demonstrates a likely Phrygian cap but is otherwise unremarkable. The liver is normal. The rest of the solid organs are unremarkable. No bowel obstruction, pneumoperitoneum, or pneumatosis. Fallopian tube clips are noted. The uterus and adnexa are otherwise unremarkable. The bones are intact. IMPRESSION: No acute findings. This document has been electronically signed by: Tyrone Malone MD on 12/09/2024 06:19:01 Dictated By: Tyrone Malone MD Signed By: <Electronically signed by Tyrone Malone MD in OV> 12/09/24619 DD/ 8 TD/TT: 12/09/24618 Senior Interactive Developer: Procedure Note Donotuseinterpreter, Image - 12/09/[address] [address] [address] Scan Report Signed Patient: Galen HernandezR#: [id number] : 1980Acct:[id number] Age/Sex: 44 / FADM Date: 12/09/24 Loc: HO.ED Attending Dr: Ordering Physician: Clive Ortega PA-C Date of Service: 12/09/24 Procedure(s): CT abdomen pelvis w IV con Accession Number(s): [id number] cc: Clive Ortega PA-C; Stephanie Cotton [facility] Report Number: [id number]: Total DLP = 669.00 mGy-cm CLINICAL HISTORY: Epigastric Tenderness; Nausea; Body Aches CT abdomen and pelvis with contrast Comparison: CT - CT ABDOMEN PELVIS W IV CON - 12/09/24 04:38 EDT Findings: The lung bases are clear. The gallbladder demonstrates a likely Phrygian cap but is otherwise unremarkable. The liver is normal. The rest of the solid organs are unremarkable. No bowel obstruction, pneumoperitoneum, or pneumatosis. Fallopian tube clips are noted. The uterus and adnexa are otherwise unremarkable. The bones are intact. IMPRESSION: No acute findings. This document has been electronically signed by: Tyrone Malone MD on 12/09/2024 06:19:01 Dictated By: Tyrone Malone MD Signed By: <Electronically signed by Tyrone Malone MD in OV> 12/09/24619 DD/ 8 TD/TT: 12/09/24618 Senior Interactive Developer: [facility] External Provider IMG CT PROCEDURES Final Result * (ABNORMAL) Urinalysis, Complete, with Reflex to Culture (12/09/2024 4:38 AM EDT) Color Urine Yellow [facility] Appearance Urine Clear [facility] PH 6.5 5.0 - 9.0 [facility] Glucose Urine UA Negative Negative mg/dL [facility] Urine Blood Trace(A) Negative [facility] Specific [place] - Urine 1.015 1.005 - 1.025 [facility] Urine Protein Negative Neg-Trace mg/dL [facility] Urine Ketones Negative Negative mg/dL [facility] Nitrite Urine Negative Negative [facility] Leukocyte Esterase Urine Negative Negative [facility] RBC Urine 0-2 0 - 2 /HPF [facility] Urine WBC 0-5 0 - 5 /HPF [facility] Urine Squamous Epithelial Cell 0-2 0 - 2 /HPF [facility] Urine Bacteria None Seen None Seen [facility] Hyaline Casts, Urine 0-2 0 - 2 /LPF [facility] 12/09/2024 4:38 AM EDT 12/09/2024 4:52 AM EDT Narrative [facility] - 12/09/2024 5:06 AM EDT Urine, Clean Catch us Generic External Data Provider LAB URINE ORDERAB LES Final Result Performing Organization Address [facility] Co de Phone Number [facility] [address] [place] [phone] * hCG, Total, Quantitative (12/09/2024 3:49 AM EDT) Only the most recent of2 resultswithin the time period is included. HCG Quantitative <2 mIU/mL [facility] Comment:Weeks post LMP Appro ximate hCG(Last Menstrual Period) Range (mIU/ml)3 - 4 weeks 9 - 1304 - 5 weeks 75 - 2,6005 - 6 weeks 850 - 20,8006 - 7 weeks 4000 - 100,2007 - 12 weeks 11,500 - 289,98978 - 16 weeks 18,300 - 137,10463 - 29 weeks (2nd trimester) 1,400 - 53,65835 - 41 weeks (3rd trimester) 940 - 60,000The [place] B- hCG assay is used for the early detection ofpregnancy; it cannot be used to diagnose any conditionunrelated to . If a B-hCG level is not supportedby the clinical evidence, results should be confirmed by analternative method (qualitative urine hCG, for example). 12/09/2024 3:49 AM EDT 12/09/2024 3:56 AM EDT us Generic External Data Provider LAB BLOOD ORDERAB LES Final Result Performing Organization Address [facility]/ZIP Co de Phone Number [facility] [address] [place] [phone] * Lipase (12/09/2024 3:49 AM EDT) Only the most recent of2 resultswithin the time period is included. Lipase 18 8 - 78 U/L [facility] 12/09/2024 3:49 AM EDT 12/09/2024 3:56 AM EDT us Generic External Data Provider LAB BLOOD ORDERAB LES Final Result [facility] [address] [place] [phone] * (ABNORMAL) Comprehensive Metabolic Panel (12/09/2024 3:49 AM EDT) Sodium 142 135 - 145 mmol/L [facility] Potassium 4.0 3.3 - 5.1 mmol/L [facility] Chloride 110(H) 96 - 108 mmol/L [facility] Carbon Dioxide 23 22 - 29 mmol/L [facility] Anion Gap 13 12 - 20 [facility] Urea Nitrogen (BUN) 13 9 - 16 mg/dL [facility] Creatinine, Serum 0.73 0.5 - 1.4 mg/dL [facility] Creatinine Clr Calc Pharmacy 94.2 [facility] Comment:Provided height and weight: 154.94 cm,81.647 kg.eGFR (calculated from the MDRD study equation) and eCrCl(calculated from the Cockcroft-Gault equation) are based ondifferent parameters and may not yield comparable results.If eCrCl result is absurd, please check patient'sheight/weight. Estimated Glomerular Filt Rate >60 [facility] Comment:Chronic Kidney Disea se: Estimated GFR < 60 mL/min/1.13s2Ooomys Kidney Disease: Estimated GFR < 15 mL/min/1.73m2 Glucose 102 60 - 115 mg/dL [facility] Calcium 9.1 8.4 - 10.2 mg/dL [facility] Bilirubin, Total 0.2 0.0 - 1.0 mg/dL [facility] Aspartate Amino Transferase 20 5 - 31 U/L [facility] Alanine Aminotransferase 19 0 - 31 U/L [facility] Total Protein 6.7 6.5 - 8.0 g/dL [facility] Albumin Level 4.0 3.5 - 5.0 g/dL [facility] Alkaline Phosphatase 66 39 - 117 U/L [facility] 12/09/2024 3:49 AM EDT 12/09/2024 3:56 AM EDT us Generic External Data Provider LAB BLOOD ORDERAB LES Final Result [facility] [address] [place] [address] [phone] * SARS-CoV-2 RNA, Influenza A/B, and RSV RNA, Ql NAAT (11/15/2024 12:13 PM EDT) Influenza A PCR NEGATIVE Negative [facility] Influenza B PCR NEGATIVE Negative [facility] Resp Syncy Virus RNA Qual PCR NEGATIVE Negative [facility] SARS COV2 PCR NEGATIVE Negative [facility] Comment:All test results mus t be correlated with clinical findings.Negative results do not preclude SARS-CoV2, influenza Avirus, influenza B virus and/or RSV infectionand should not be used as the sole basis for treatment orother patient management decisions. Negative results must becombined with clinical observations, patient history, andepidemiological information.This test has not been evaluated for monitoring treatment ofinfection.This test has been authorized by the FDA under an EmergencyUse Authorization (EUA) for use by authorized laboratories.Testing performed on the [employer] GeneXpert utilizingreal-time RT-PCR.All SARS CoV2 and positive influenza A/B results arereported to [facility]. 11/15/2024 12:1 3 PM EDT 11/15/2024 12:21 PM EDT us Generic External Data Provider LAB MICROBIOLOGY - GENERAL ORDERABLES Final Result [facility] [address] [place] [phone] * XR Chest 2 Views (11/15/2024 11:03 AM EDT) Anatomical Region Laterality Modality Chest Radiographic Karlie ging 11/15/2024 11:0 3 AM EDT Narrative 11/15/2024 12:18 PM EDT [address] [address] XRay Report Signed Patient: Abbie Hernandez MR#: [id number] : 1980 Acct:[id number] Age/Sex: 44 / F ADM Date: 11/15/24 Loc: HO.ED Attending Dr: Ordering Physician: Samira Ron Date of Service: 11/15/24 Procedure(s): XR chest 2V Accession Number(s): [id number] cc: Samira Ron; Stephanie Cotton EXAMINATION: XR CHEST CLINICAL INFORMATION: CP COMPARISON: August 08, 2024 TECHNIQUE: 2 views of the chest were obtained. FINDINGS: The lungs are clear and well aerated. Heart size is within normal limits. There is no pleural effusion. Bony structures are within normal limits. XR/XR chest 2V IMPRESSION: No acute disease Electronically signed by: Stiven Mi MD 11/15/2024 12:16 PM EDT Dictated By: Stiven Mi MD Signed By: <Electronically signed by Stiven Mi MD in OV> 11/15/24 1216 DD/ 1103 TD/TT: 11/15/24 1203 Senior Interactive Developer: Procedure Note Donotuseinterpreter, Image - 11/15/[address] [address] XRay Report Signed Patient: Galen HernandezR#: [id number] : 1980Acct:[id number] Age/Sex: 44 / FADM Date: 11/15/24 Loc: HO.ED Attending Dr: Ordering Physician: Samira Ron Date of Service: 11/15/24 Procedure(s): XR chest 2V Accession Number(s): [id number] cc: Samira Ron; Stephanie Cotton LINE PERSON EXAMINATION: XR CHEST CLINICAL INFORMATION: CP COMPARISON: August 08, 2024 TECHNIQUE: 2 views of the chest were obtained. FINDINGS: The lungs are clear and well aerated. Heart size is within normal limits. There is no pleural effusion. Bony structures are within normal limits. XR/XR chest 2V IMPRESSION: No acute disease Electronically signed by: Stiven Mi MD 11/15/2024 12:16 PM EDT RP Dictated By: Stiven Mi MD Signed By: <Electronically signed by Stiven Mi MD in OV> 11/15/24 1216 DD/ 1103 TD/TT: 11/15/24 1203 Senior Interactive Developer: [facility] External Provider IMG XR PROCEDURES Final Result * 3D DIGITAL ALLISON SCR MAMMO 1 (05/09/2019 10:16 AM EST) Anatomical Region Laterality Modality Breast Bilateral Mammography 05/09/2019 10:1 6 AM EST Narrative 05/09/2019 10:17 AM EST Refer to the Notes tab for result details [facility] Procedure: 3D DIGITAL ALLISON SCR MAMMO 1 Procedure Note Provider, MD Charisse - 08/14/2022 Refer to the Notes tab for result details [facility] Procedure: 3D DIGITAL ALLISON SCR MAMMO 1 Felecia Moseley NP IMG BI PROCEDURES Final Result * HEPATITIS C ANTIBODY (04/30/2019 11:10 AM EST) HEPATITIS C ANTIBODY NONREACTIVE NONREACTIVE [facility] Comment: Antibodies to HCV not detected; does not exclude early acute HCV infection. 04/30/2019 11:1 0 AM EST us Felecia Moseley NP HISTORICAL/NON ORDERABLE LABS Fi nal Result Performing Organization Address [facility] Phone Number [facility] [address] * HIV AB/AG (04/30/2019 11:10 AM EST) Pathologist [facility] HIV AG/AB NONREACTIVE [facility] Comment: HIV-1 p24 Ag and/or HIV-1/HIV-2 Ab not detected. A test result that is nonreactive does not exclude the possibility of exposure to or infection with HIV-1 and/or HIV-2. Nonreactive results in this assay for individuals with prior exposure to HIV-1 and/or HIV-2 may be due to antigen and antibody levels that are below the limit of detection of this assay. The [employer] HIV Ag/Ab Combo assay result and supplemental assay results should be interpreted in conjunction with the patient's clinical presentation, history and other laboratory results. If the results are inconsistent with clinical evidence, additional testing is suggested to confirm the result. 04/30/2019 11:1 0 AM EST us Felecia Moseley NP HISTORICAL/NON ORDERABLE LABS [facility] Result Performing Organization Address [facility] Phone Number [facility] * HPV mRNA E6/E7 (11/08/2017 10:07 AM EDT) Pathologist [facility] HPV mRNA E6/E7 Not Detected NOT DETECTED [facility] Comment: This test was performed using the APTIMA(R) HPV Assay ([employer] This assay detects E6/E7 viral messenger RNA (mRNA) from 14 high-risk HPV types (16,18,31,33,35,39,45,51, 52,56,58,59,66,68). For additional information please refer to: http://education.Uvinum/faq/FQD319z5 (This link is being provided for informational/ educational purposes only.) The analytical performance characteristics of this assay have been determined by [employer] [place], [place]. The modifications have not been cleared or approved by the FDA. This assay has been validated pursuant to the CLIA regulations and is used for clinical purposes. Test Performed by [facility], [facility], [address] [place] [address] Claudio Sanchez M.D., Ph.D., Director of Laboratories , CLIA [id number] Please note: Effective 02/02/2016, HPV testing will be performed using [employer]s APTIMA test which targets mRNA. Detecting mRNA instead of DNA, as in older methods, offers significant improvements in specificity. 11/08/2017 10:0 7 AM EDT us Felecia Moseley NP HISTORICAL/NON ORDERABLE LABS Fi nal Result [facility] from Last 3 Months or Most Recently Relevant to Health Maintenance Insurance Care Teams Mate Relief Relationship Specialty Start Date End Date Stephanie Cotton FNP [address] [place] [phone] PCP - General Family Medicine 03/16/21
== END 2025-01-18 12:55 | disposition home or self-care (01) ==
LOC: HO.XRAY 12:54
PROVIDERS: PCP Registered Nurse; Visit Provider Nurse Practitioner Family
DX: M47.22 Other spondylosis with radiculopathy, cervical region (principal); M50.221 Other cervical disc displacement at C4-C5 level; M54.6 Pain in thoracic spine; M62.838 Other muscle spasm; R20.2 Paresthesia of skin; R20.0 Anesthesia of skin; Z79.1 Long term (current) use of non-steroidal anti-inflammatories (NSAID)
CPT/HCPCS: 72040; 72070

== ENCOUNTER → 2025-01-18 13:46 | Outpatient (BNV) | payer OTHER, SELFPAY | PROVIDERS: PCP Registered Nurse; Visit Provider Radiology Diagnostic Radiology | DX: M47.812 Spondylosis without myelopathy or radiculopathy, cervical region (principal) | CPT/HCPCS: 72040 ==

== ENCOUNTER 2025-01-24 09:01 | Outpatient (REF) | payer OTHER, SELFPAY ==
--- OUTSIDE RECORDS SUMMARY | 2025-01-24 09:33 | XMS_ITS | Encounter Summary ---
Author Organization [employer] Address [address] [facility] [address] [place] [address] Care Team Providers Care Laborer Concrete Plant Name Role Phone Stephanie Cotton BUCKY Primary Care Provider [phone] Encounter Details Date Type Department Care Team ([facility] st Contact Info) Description 08/13/2024 Orders Only [facility] [address] [place], [place] [phone] Provider, MD Charisse Social History Tobacco Use [...] the past 12 months, has t he [employer], gas, oil or water company threatened to [...] Care Team (Late st Contact Info) Description 02/11/2025 10:15 AM EDT Office Visit [facility] [address] [place], [place] [phone] Stephanie Cotton FNP [address] [place] [address] documented as of this encounter Procedures Procedure [...] documented as of this encounter Care Teams Laborer Concrete Plant Relationship Specialty Start Date End Date Stephanie Cotton FNP [address] [place] [address] PCP - General Family Medicine 03/16/21 documented as of this encounter
--- OUTSIDE RECORDS SUMMARY | 2025-01-24 09:33 | XMS_ITS | Encounter Summary ---
Author Organization [employer] Address [address] [facility] [address] [place] [address] Care Team Providers Care Defective Cigarette Slitter Name Role Phone Stephanie Cotton Primary Care Provider [phone] Reason for Visit * Reason Comments Med Change Request Encounter Details Date Type Department Care Team ([facility] Contact Info) Description 03/14/2023 Refill [facility] [address] [place] [address] Scott Ferguson MD [address] [place] [address] Dysphagia, unspecified type Social History Tobacco Use [...] Department Care Team (Late Contact Info) Description 02/11/2025 10:15 AM EDT Office Visit [facility] [address] [place], [place] [phone] Stephanie Cotton FNP [address] [place], [place] [phone] documented as of this encounter Visit Diagnoses Diagnosis Dysphagia, unspecified type documented in this encounter Care Teams Defective Cigarette Slitter Relationship Specialty Start Date End Date Stephanie Cotton FNP [address] [place] [phone] PCP - General Family Medicine 03/16/21 documented as of this encounter
--- OUTSIDE RECORDS SUMMARY | 2025-01-24 09:33 | XMS_ITS | Encounter Summary ---
Author Organization [employer] Address [address] [facility] [address] [place] [address] Care Team Providers Care Gun Welder Name Role Phone Stephanie Cotton Primary Care Provider [phone] Reason for Visit * Reason Onset Date Comments Med Refill 01/22/2025 Encounter Details Date Type Department Care Team ([facility] st Contact Info) Description 01/22/2025 Refill [facility] [address] [place], [place] [phone] Stephanie Cotton FNP [address] [place] [address] Prediabetes (Primary Dx) Social History Tobacco Use Types Packs/Day Years Used Date Smoking Tobacco: Never Passive Smoke Exposure: Current Smokeless Tobacco: Never Comments:Vape Passive Exposure Comments:Vape Alcohol Use Standard Drinks/Week Comments Never 0 (1 standard drink = 0.6 oz pur e alcohol) Depression Answer Date Recorded Patient Health Questionnaire-9 Score 13 01/18/2025 Patient Health Questionnaire-9 Score 13 01/18/2025 Last PHQ-9: Questionnaire Data Not on file 0 01/18/2025 Housing Stability Answer Date Recorded What is [...] Date Recorded Patient Health Questionnaire-2 Score 3 01/18/2025 Internet Access Answer Date Recorded Internet Access Q1 Yes 10/08/2024 Internet Access Q2 Not on file 10/08/2024 Comments Unknown Sex and Gender Information Value Date Recorded Sex Assigned at Female 03/22/2022 10:16 AM EDT Legal Sex Female 10:16 AM EDT Gender Identity Female 06/16/2022 10:53 AM EST Sexual Orientation Don't know 06/16/2022 10 :53 AM EST documented as of this encounter Miscellaneous Notes * Telephone Encounter - Mady Vega LPN - 01/22/2025 11:53 AM EDT Per pharmacy what brand? Chrystal pended. documented in this encounter Plan of Treatment Upcoming Encounters Date Type Department Care Team (Late st Contact Info) Description 02/11/2025 10:15 AM EDT Office Visit [facility] [address] [place] [address] Stephanie Cotton FNP [address] [place] [address] documented as of this encounter Visit Diagnoses Diagnosis Prediabetes- Primary Other abnormal glucose documented in this encounter Additional Health Concerns Assessment Noted Time PHQ-9 Depression Total Score: 13 025 4:44 PM EDT documented as of this encounter Care Teams Gun Welder Relationship Specialty Start Date End Date Stephanie Cotton FNP [address] [place] [phone] PCP - General Family Medicine 03/16/21 documented as of this encounter
--- OUTSIDE RECORDS SUMMARY | 2025-01-24 09:33 | XMS_ITS | Encounter Summary ---
Author Organization [employer] Address [address] [facility] [address] [place] [address] Care Team Providers Care Drill Press Tender Name Role Phone Lula Stephanie LAWLER Primary Care Provider [phone] Reason for Visit * Reason Comments Med Refill Encounter Details Date Type Department Care Team ([facility] st Contact Info) Description 09/29/2023 Refill [facility] [address] [place] [address] Stephanie Engel FNP Social History Tobacco Use [...] Description 02/11/2025 10:15 AM EDT Office Visit [facility] [address] [place] [address] Stephanie Cotton FNP [address] [place] [address] documented as of this encounter Visit Diagnoses Not on filedocumented in this encounter Additional Health Concerns Assessment Noted Time PHQ-9 Depression Total Score: 15 024 10:16 AM EDT documented as of this encounter Care Teams Drill Press Tender Relationship Specialty Start Date End Date Stephanie Cotton FNP [address] [place] [address] PCP - General Family Medicine 03/16/21 documented as of this encounter
--- OUTSIDE RECORDS SUMMARY | 2025-01-24 09:33 | XMS_ITS | Clinical Summary ---
Author Organization [employer] Address [address] [place] [address] Care Team Providers Care Funeral Pre Arrangement Counselor Name Role Phone Stephanie Cotton BUCKY Primary Care Provider [phone] Allergies No known active allergies Medications biotin [...] up to 10 days. 30 tablet 2 Active ibuprofen 600 MG tabletIndicatio ns:Pain TAKE 1 TABLET BY MOUTH EVERY 8 HOURS NEEDED FOR MILD PAIN OR FEVER 90 tablet 2 Active meloxicam (Mobic) 15 MG tabletIndicatio ns:Cervical disc herniation TAKE 1 TABLET BY MOUTH EVERY DAY NEEDED FOR PAIN 30 tablet 1 Active busPIRone (Buspar) 5 MG tablet Take 1 tablet (5 mg) by mouth at bedtime. 30 tablet 1 025 2025 Active glucose blood test strip Use to check blood sugar once daily 100 each 12 025 2025 Active Lancets misc Use to check once daily 100 each Active meloxicam (Mobic) 15 MG tabletIndicatio ns:Cervical disc herniation Take 1 tablet (15 mg) by mouth if needed each day (pain). 30 tablet 1 025 2024 Discontinued(R eorder (will not trigger notification to Pharmacy)) busPIRone (Buspar) 5 MG tablet Take 1 tablet (5 mg) by mouth at bedtime. 30 tablet 1 025 2024 Discontinued(R eorder (will not trigger notification to Pharmacy)) Active Problems Problem Noted Date Diagnosed Date Cervical disc herniation 10/21/2024 Overview (10/21/2024): - August 2024: Cervical spine w/o contrast: Central disc herniation C4-5 abutting the cord without cord compression, edema and or myelopathy. - Referral to [facility] Pain Management placed 10/21/24 Assessment & Plan [...] on CT head/brain wo contrast 08/08/24 at [facility] ED: 1 cm partially calcified pineal cyst - Brain MRI August 2024: There is a 1 cm nonenhancing peripheral susceptibility signal in the pineal gland. - Consult with [facility] neurology Dr. Bryant on 10/16/2024. MRI of [...] allergic asthma 06/12/2015 Overview (06/25/2024): Previously by [facility] Pulchemo - Dr. Whitney. Had received Nucala injections, no longer using d/t improvement in symptoms. Continues with Symbicort 160-4.5mcg/act: 2 puffs BID Rescue: albuterol PRN Assessment & Plan (06/25/2024 2:52 PM EST): Well controlled, cont with current regimen Assessment & Plan (09/01/2023 8:11 AM EDT): Followed by [facility] Pulchemo - Dr. Whitney Continues with Symbicort 160-4.5mcg/act: [...] social support, and sleep. Previously tx with Yonas with good therapeutic response from August - [...] Encounters Date Type Department Care Team Description 01/22/2025 Refill [facility] [address] [place] [address] Stephanie Cotton FNP Prediabetes (Primary Dx) 01/18/2025 3:15 PM EDT Office Visit [facility] [address] [place] [phone] Stephanie Cotton FNP Anxiety (Primary Dx); Nervousness; Healthcare maintenance 01/18/2025 Travel 01/07/2025 Refill [facility] [address] [place] [address] Stephanie Cotton FNP Cervical disc herniation 01/04/2025 Telephone [facility] [address] [place], [place] [phone] Stephanie Cotton FNP Hospital Follow-up 12/28/2024 Orders Only GENERIC EXTERNAL DATA DEPARTMENT Provider, Generic External Data 12/12/2024 Refill [facility] [address] [place], [place] [phone] Stephanie Cotton FNP Pain 12/09/2024 Orders Only GENERIC EXTERNAL DATA DEPARTMENT Provider, Generic External Data 11/15/2024 Orders Only [facility] External Provider, [facility] 10/26/2024 Telephone [facility] [address] [place] [address] Stephanie Cotton FNP No Show 10/25/2024 Telephone [facility] [address] [place] [phone] Stephanie Cotton FNP Pa Approval 10/25/2024 Telephone [facility] [address] [place] [address] Stephanie Cotton FNP Chart Prep from Last 3 Months Immunizations Immunization Administration [...] Sign Reading Time Taken Comments Blood Pressure 122/76 01/18/2025 3:12 PM EDT Pulse 96 01/18/2025 3:12 PM EDT Temperature 37.4 C (99.4 F) 01/18/2025 3:12 PM EDT Respiratory Rate 20 01/18/2025 3:12 PM EDT Oxygen Saturation 97% 10/19/2024 2:41 PM EDT Inhaled Oxygen Concentration - - Weight 81.2 kg (179 lb) 01/18/2025 3:12 PM EDT Height 154.9 cm (5' 1 ) 10/19/2024 2:41 PM EDT Body Mass Index 33.82 10/19/2024 2:41 PM EDT Plan of Treatment Upcoming Encounters Date Type Department Care Team (Late st Contact Info) Description 02/11/2025 10:15 AM EDT Office Visit [facility] [address] [place] [address] Stephanie Cotton FNP [address] [place] [address] Health Maintenance Due Date Last Done Comments [...] Cervical Cancer Screening 11/08/2022 HPV/Cotest 11/08/2022 11/08/2017 Diabetes: Hemoglobin A1C 08/02/2024 08/03/2023, 1201/2019 COVID-19 Vaccine ( season) 2025 10/15/2020, 09/17/2020 Influenza Vaccine (#1) 2025 , 03/27/2019, 02/13/2018, Additional history exists Alcohol/Substance Use Screening 03/02/2025 03/02/2024 Depression Monitoring 07/20/2025 01/18/2025, 025 SDOH Screening 10/08/2025 10/08/2024 DTaP/Tdap/Td Vaccines (2 - Td or Tdap) 01/18/2026 01/19/2016, 12/12/2007 Disability Screening 01/18/2026 01/18/2025 Tobacco Screening 01/18/2026 01/18/2025 Zoster Vaccines (1 of 2) 2029 RSV [...] Procedure Name Priority Date/Time Associated Diagnosis Comments XR THORACIC SPINE 2 VIEWS Routine 01/19/2025 2:32 PM EDT XR CERVICAL SPINE 3V Routine 01/18/2025 1:50 PM EDT HIGH SENSITIVITY TROPONIN I Routine 12/28/2024 7:50 [...] VIEWS Routine 11/15/2024 11:0 3 AM EDT POCT GLYCATED HEMOGLOBIN, TOTAL Routine 08/03/2023 6:36 PM EDT Prediabetes BI MAMMOGRAM SCREENING BILATERAL Routine 05/09/2019 10:16 AM EST [facility] HISTORICAL HEPATITIS C ANTIBODY Routine 04/30/2019 11:10 AM EST [facility] HISTORICAL HIV AB/AG Routine 04/30/2019 11:10 AM EST [facility] HISTORICAL HPV MRNA E6/E7 Routine 11/08/2017 10:07 AM EDT from Last 3 Months or Most Recently Relevant to Health Maintenance Results * XR Thoracic Spine 2 Views (01/19/2025 2:32 PM EDT) Anatomical Region Laterality Modality Spine, T-spine Radiographic Karlie ging 01/19/2025 2:32 PM EDT Narrative 01/19/2025 2:33 PM EDT [address] [address] XRay Report Signed Patient: Abbie Hernandez MR#: M [id number] : 1980 Acct:[id number] Age/Sex: 45 / F ADM Date: 01/18/25 Loc: [facility] Attending Dr: Aubree LAWLER Ordering Physician: Aubree Mayfield Date of Service: 01/18/25 Procedure(s): XR thoracic spine 2V Accession Number(s): [id number] cc: Aubree Mayfield; Stephanie Cotton CLINICAL HISTORY: M54.6 - Pain in thoracic spine Two views of the thoracic spine. COMPARISON: None provided. FINDINGS: Normal vertebral body alignment. Vertebral body heights are maintained. No evidence of acute vertebral body injury. Prominent marginal osteophytes along the midthoracic spine. Vertebral disc space heights are preserved. Visualized portions of the lungs are unremarkable. IMPRESSION: 1. No radiographic evidence of acute injury to the thoracic spine. 2. Moderate midthoracic spondylosis. This document has been electronically signed by: Anil Payne MD on 01/19/2025 14:32:17 Dictated By: Anil Payne MD Signed By: <Electronically signed by Anil Payne MD in OV> 01/19/25 1433 DD/ 1432 TD/TT: 01/19/25 1432 Brusher Warp: Procedure Note Donotuseinterpreter, Image - 01/19/2025 [place] [address] XRay Report Signed Patient: Galen HernandezR#: Chemo [id number] : 1980Acct:[id number] Age/Sex: 45 / FADM Date: 01/18/25 Loc: [facility] Attending Dr: Aubree LAWLER Ordering Physician: Aubree Mayfield Date of Service: 01/18/25 Procedure(s): XR thoracic spine 2V Accession Number(s): [id number] cc: Aubree Mayfield; Stephanie Cotton CLINICAL HISTORY: M54.6 - Pain in thoracic spine Two views of the thoracic spine. COMPARISON: None provided. FINDINGS: Normal vertebral body alignment. Vertebral body heights are maintained. No evidence of acute vertebral body injury. Prominent marginal osteophytes along the midthoracic spine. Vertebral disc space heights are preserved. Visualized portions of the lungs are unremarkable. IMPRESSION: 1. No radiographic evidence of acute injury to the thoracic spine. 2. Moderate midthoracic spondylosis. This document has been electronically signed by: Anil Payne MD on 01/19/2025 14:32:17 Dictated By: Anil Payne MD Signed By: <Electronically signed by Anil Payne MD in OV> 01/19/25 1433 DD/ 1432 TD/TT: 01/19/25 1432 Brusher Warp: [facility] External Provider IMG XR PROCEDURES Final Result * XR CERVICAL SPINE 3V (01/18/2025 1:50 PM EDT) Anatomical Region Laterality Modality Abdomen Radiographic Karlie ging 01/18/2025 1:50 PM EDT Narrative 01/18/2025 2:06 PM EDT [place] [address] XRay Report Signed Patient: Abbie Hernandez MR#: M [id number] : 1980 Acct:[id number] Age/Sex: 45 / F ADM Date: 01/18/25 Loc: [facility] Attending Dr: Aubree LAWLER Ordering Physician: Aubree Mayfield Date of Service: 01/18/25 Procedure(s): XR cervical spine 3V Accession Number(s): [id number] cc: Aubree MayfieldP; Stephanie CottonP EXAMINATION: XR CERVICAL SPINE 2-3 VIEWS HISTORY: M47.812 - Spondylosis without myelopathy or radiculopathy, cervical region COMPARISON: Comparison is made with the prior examination 02/16/2013. FINDINGS: AP, lateral, swimmer's, and open-mouth odontoid views of the cervical spine are submitted. Osseous mineralization is normal. Seven cervical vertebral bodies are identified maintaining normal height without evidence of fracture or subluxation. There is straightening of the normal cervical lordosis. The intervertebral disc spaces are preserved. The odontoid and lateral masses of C1 are intact. There is no prevertebral soft tissue swelling. XR/XR cervical spine 3V IMPRESSION: Straightening of the normal cervical lordosis. Otherwise unremarkable examination of the cervical spine. Electronically signed by: Ld Yepez MD 01/18/2025 02:04 PM EDT RP Dictated By: Ld Yepez MD Signed By: <Electronically signed by Ld Yepez MD in OV> 01/18/25 1404 DD/ 1350 TD/TT: 01/18/25 1400 Brusher Warp: Procedure Note Donotuseinterpreter, Image - 01/18/[address] [address] XRay Report Signed Patient: Maria Alejandra Hernandez#: M [id number] : 1980Acct:[id number] Age/Sex: 45 / FADM Date: 01/18/25 Loc: [facility] Attending Dr: Aubree LAWLER Ordering Physician: Aubree Mayfield Date of Service: 01/18/25 Procedure(s): XR cervical spine 3V Accession Number(s): [id number] cc: Aubree Mayfield LIME SPREADER; Stephanie Cotton LIME SPREADER EXAMINATION: XR CERVICAL SPINE 2-3 VIEWS HISTORY: M47.812 - Spondylosis without myelopathy or radiculopathy, cervical region COMPARISON: Comparison is made with the prior examination 02/16/2013. FINDINGS: AP, lateral, swimmer's, and open-mouth odontoid views of the cervical spine are submitted. Osseous mineralization is normal. Seven cervical vertebral bodies are identified maintaining normal height without evidence of fracture or subluxation. There is straightening of the normal cervical lordosis. The intervertebral disc spaces are preserved. The odontoid and lateral masses of C1 are intact. There is no prevertebral soft tissue swelling. XR/XR cervical spine 3V IMPRESSION: Straightening of the normal cervical lordosis. Otherwise unremarkable examination of the cervical spine. Electronically signed by: Ld Yepez MD 01/18/2025 02:04 PM EDT RP Dictated By: Ld Yepez MD Signed By: <Electronically signed by Ld Yepez MD in OV> 01/18/25 1404 DD/ 1350 TD/TT: 01/18/25 1400 Brusher Warp: [facility] External Provider IMG XR PROCEDURES Final Result * High Sensitivity Troponin I (12/28/2024 7:50 AM EDT) Only the most recent of2 resultswithin the time period is included. [facility] TROPONIN I HIGH SENSITIVITY <2.7 <3.5 - 17.0 ng/L [facility] Comment:The [place] high sens itivity Troponin-I results should beused in conjunction with other diagnostic information suchas ECG, clinical observations and information, and patientsymptoms to aid in the diagnosis of [place]. 12/28/2024 7:50 AM EDT 12/28/2024 7:54 AM EDT Generic External Data Provider LAB BLOOD ORDERAB LES Final Result Performing Organization Address City/State/[facility] Co de Phone Number [facility] [address] [place] [phone] * CBC auto differential (12/28/2024 7:50 AM EDT) Only the most recent of3 resultswithin the time period is included. [facility] White Blood Count 8.1 4.8 - 10.8 X10*3/uL [facility] Red Blood Count 4.76 4.20 - 5.50 X10*6/uL [facility] Hemoglobin 14.1 12.0 - 16.0 g/dl [facility] Hematocrit 40.6 37.0 - 47.0 % [facility] Mean Corpuscular Volume 85.3 80.0 - 98.0 fL [facility] Mean Corpuscular Hemoglobin 29.6 27.0 - 33.0 pg [facility] Mean Corpuscular HGB Conc 34.7 31.0 - 35.0 g/dl [facility] Red Cell Distribution Width 12.9 11.0 - 16.0 % [facility] Platelet Count 261 160 - 400 X10*3/uL [facility] Mean Platelet Volume 10.2 9.4 - 12.3 fL [facility] Neutrophils Percent Auto 58.5 45 - 73 % [facility] Imm Gran Pct Auto 0.4 0.0 - 0.4 % [facility] Lymphocytes Percent Auto 32.8 20 - 40 % [facility] Monocytes Percent Auto 6.9 2 - 11 % [facility] Eosinophils Percent Auto 1.0 0 - 4 % [facility] Basophils Percent Auto 0.4 0 - 2 % [facility] NRBC Pct Auto 0.0 0.0 - 0.2 /100WBC [facility] Neutrophils Absolute Auto 4.7 2.0 - 8.3 x10*3/uL [facility] Imm Gran Abs Auto 0.03 0.00 - 0.03 X10*3/uL [facility] Lymphocytes Absolute Auto 2.7 1.2 - 4.9 X10*3/uL [facility] Monocytes Absolute Auto 0.6 0.1 - 1.2 X10*3/uL [facility] Eosinophils Absolute Auto 0.1 0.0 - 0.4 X10*3/uL [facility] Basophils Absolute Auto 0.0 0.0 - 0.2 X10*3/uL [facility] NRBC Abs Auto 0.000 0.0 - 0.012 X10*3/uL [facility] 12/28/2024 7:50 AM EDT 12/28/2024 7:54 AM EDT us Generic External Data Provider LAB BLOOD ORDERAB LES Final Result [facility] [address] [place] [phone] * Magnesium (12/28/2024 7:50 AM EDT) Only the most recent of2 resultswithin the time period is included. Magnesium 2.1 1.6 - 2.6 mg/dL [facility] 12/28/2024 7:50 AM EDT 12/28/2024 7:54 AM EDT Generic External Data Provider LAB BLOOD ORDERAB LES Final Result Performing Organization Address City/[facility] Co de Phone Number [facility] [address] [place] [phone] * Hepatic Function Panel (12/28/2024 7:50 AM EDT) Only the most recent of2 resultswithin the time period is included. Pathologist [facility] Bilirubin, Total 0.5 0.0 - 1.0 mg/dL [facility] Bilirubin, Direct 0.2 0.0 - 0.5 mg/dL [facility] Aspartate Amino Transferase 21 5 - 31 U/L [facility] Alanine Aminotransferase 23 0 - 31 U/L [facility] Total Protein 6.8 6.5 - 8.0 g/dL [facility] Albumin Level 4.0 3.5 - 5.0 g/dL [facility] Alkaline Phosphatase 63 39 - 117 U/L [facility] 12/28/2024 7:50 AM EDT 12/28/2024 7:54 AM EDT Generic External Data Provider LAB BLOOD ORDERAB LES Final Result Performing Organization Address City/[facility] Co de Phone Number [facility] [address] [place] [phone] * (ABNORMAL) Basic Metabolic Panel (12/28/2024 7:50 AM EDT) Only the most recent of2 resultswithin the time period is included. Sodium 141 135 - 145 mmol/L [facility] Potassium 3.6 3.3 - 5.1 mmol/L [facility] Chloride 111(H) 96 - 108 mmol/L [facility] Carbon Dioxide 24 22 - 29 mmol/L [facility] Anion Gap 10(L) 12 - 20 [facility] Urea Nitrogen (BUN) 9 9 - 16 mg/dL [facility] Creatinine, Serum 0.66 0.5 - 1.4 mg/dL [facility] Creatinine Clr Calc Pharmacy 103.9 [facility] Comment:Provided height and weight: 154.94 cm,81.193 kg.eGFR (calculated from the MDRD study equation) and eCrCl(calculated from the Cockcroft-Gault equation) are based ondifferent parameters and may not yield comparable results.If eCrCl result is absurd, please check patient'sheight/weight. Estimated Glomerular Filt Rate >60 [facility] Comment:Chronic Kidney Disea se: Estimated GFR < 60 mL/min/1.66c6Mcqlox Kidney Disease: Estimated GFR < 15 mL/min/1.73m2 Glucose 102 60 - 115 mg/dL [facility] Calcium 8.6 8.4 - 10.2 mg/dL [facility] 12/28/2024 7:50 AM EDT 12/28/2024 7:54 AM EDT us Generic External Data Provider LAB BLOOD ORDERAB LES Final Result [facility] [address] [place] [phone] * CT Abdomen Pelvis w/ Contrast (12/09/2024 6:19 AM EDT) Anatomical Region Laterality Modality Body, Pelvis, Abdomen Computed T omography 12/09/2024 6:19 AM EDT Narrative 12/09/2024 6:21 AM EDT [address] [address] [address] Scan Report Signed Patient: Abbie Hernandez MR#: M [id number] : 1980 Acct:[id number] Age/Sex: 44 / F ADM Date: 12/09/24 Loc: HO.ED Attending Dr: Ordering Physician: Clive Ortega PA-C Date of Service: 12/09/24 Procedure(s): CT abdomen pelvis w IV con Accession Number(s): [id number] cc: Clive Ortega PA-C; Stephanie Cotton Report Number: [id number]: Total DLP = 669.00 mGy-cm CLINICAL HISTORY: [...] in OV> 12/09/24619 DD/ 8 TD/TT: 12/09/24618 Brusher Warp: Procedure Note Donotuseinterpreter, Image - 12/09/[address] [place] [address] [address] Scan Report Signed Patient: Maria Alejandra Hernandez#: M [id number] : 1980Acct:[id number] Age/Sex: 44 / FADM Date: 12/09/24 Loc: HO.ED Attending Dr: Ordering Physician: Clive Ortega PA-C Date of Service: 12/09/24 Procedure(s): CT abdomen pelvis w IV con Accession Number(s): [id number] cc: Clive Ortega PA-C; Stephanie Cotton Report Number: [id number]: Total DLP = 669.00 mGy-cm CLINICAL HISTORY: [...] in OV> 12/09/24619 DD/ 8 TD/TT: 12/09/24618 Brusher Warp: [facility] External Provider IMG CT PROCEDURES Final Result * (ABNORMAL) Urinalysis, Complete, with Reflex to Culture (12/09/2024 4:38 AM EDT) Color Urine Yellow [facility] Appearance Urine Clear [facility] PH 6.5 5.0 - 9.0 [facility] Glucose Urine UA Negative Negative mg/dL [facility] Urine Blood Trace(A) Negative [facility] Specific [place] - Urine 1.015 1.005 - 1.025 [facility] Urine Protein Negative Neg-Trace mg/dL [facility] Urine Ketones Negative Negative mg/dL [facility] Nitrite Urine Negative Negative [facility] Leukocyte Esterase Urine Negative Negative [facility] RBC Urine 0-2 0 - 2 /HPF [facility] Urine WBC 0-5 0 - 5 /HPF [facility] Urine Squamous Epithelial Cell 0-2 0 - 2 /HPF [facility] Urine Bacteria None Seen None Seen [facility] Hyaline Casts, Urine 0-2 0 - 2 /LPF [facility] 12/09/2024 4:38 AM EDT 12/09/2024 4:52 AM EDT Narrative [facility] - 12/09/2024 5:06 AM EDT Urine, Clean Catch Generic External Data Provider LAB URINE ORDERAB LES Final Result Performing Organization Address [facility] Co de Phone Number [facility] [address] [place] [phone] * hCG, Total, Quantitative (12/09/2024 3:49 AM EDT) Only the most recent of2 resultswithin the time period is included. HCG Quantitative <2 mIU/mL [facility] Comment:Weeks post LMP Appro ximate hCG(Last Menstrual Period) Range (mIU/ml)3 - 4 weeks 9 - 1304 - 5 weeks 75 - 2,6005 - 6 weeks 850 - 20,8006 - 7 weeks 4000 - 100,2007 - 12 weeks 11,500 - 289,69869 - 16 weeks 18,300 - 137,98736 - 29 weeks (2nd trimester) 1,400 - 53,80696 - 41 weeks (3rd trimester) 940 - [...] ORDERAB LES Final Result Performing Organization Address [facility]/ZIP Co de Phone Number [facility] [address] [place] [phone] * Lipase (12/09/2024 3:49 AM EDT) Only the most recent of2 resultswithin the time period is included. Lipase 18 8 - 78 U/L [facility] 12/09/2024 3:49 AM EDT 12/09/2024 3:56 AM EDT us Generic External Data Provider LAB BLOOD ORDERAB LES Final Result [facility] [address] [place] [phone] * (ABNORMAL) Comprehensive Metabolic Panel (12/09/2024 3:49 AM EDT) Sodium 142 135 - 145 mmol/L [facility] Potassium 4.0 3.3 - 5.1 mmol/L [facility] Chloride 110(H) 96 - 108 mmol/L [facility] Carbon Dioxide 23 22 - 29 mmol/L [facility] Anion Gap 13 12 - 20 [facility] Urea Nitrogen (BUN) 13 9 - 16 mg/dL [facility] Creatinine, Serum 0.73 0.5 - 1.4 mg/dL [facility] Creatinine Clr Calc Pharmacy 94.2 [facility] Comment:Provided height and weight: 154.94 cm,81.647 kg.eGFR (calculated from the MDRD study equation) and eCrCl(calculated from the Cockcroft-Gault equation) are based ondifferent parameters and may not yield comparable results.If eCrCl result is absurd, please check patient'sheight/weight. Estimated Glomerular Filt Rate >60 [facility] Comment:Chronic Kidney Disea se: Estimated GFR < 60 mL/min/1.25k0Tugzgf Kidney Disease: Estimated GFR < 15 mL/min/1.73m2 Glucose 102 60 - 115 mg/dL [facility] Calcium 9.1 8.4 - 10.2 mg/dL [facility] Bilirubin, Total 0.2 0.0 - 1.0 mg/dL [facility] Aspartate Amino Transferase 20 5 - 31 U/L [facility] Alanine Aminotransferase 19 0 - 31 U/L [facility] Total Protein 6.7 6.5 - 8.0 g/dL [facility] Albumin Level 4.0 3.5 - 5.0 g/dL [facility] Alkaline Phosphatase 66 39 - 117 U/L [facility] 12/09/2024 3:49 AM EDT 12/09/2024 3:56 AM EDT Generic External Data Provider LAB BLOOD ORDERAB LES Final Result Performing Organization Address [facility] Co de Phone Number [facility] [address] [place] [phone] * SARS-CoV-2 RNA, Influenza A/B, and RSV RNA, Ql NAAT (11/15/2024 12:13 PM EDT) Influenza A PCR NEGATIVE Negative [facility] Influenza B PCR NEGATIVE Negative [facility] Resp Syncy Virus RNA Qual PCR NEGATIVE Negative [facility] SARS COV2 PCR NEGATIVE Negative [facility] Comment:All test results mus t be [...] use by authorized laboratories.Testing performed on the [employer] GeneXpert utilizingreal-time RT-PCR.All SARS CoV2 and positive influenza A/B results arereported to [facility]. 11/15/2024 12:1 3 PM EDT 11/15/2024 12:21 PM EDT us Generic External Data Provider LAB MICROBIOLOGY - GENERAL ORDERABLES Final Result Performing Organization Address [facility]/ZIP Co de Phone Number [facility] [address] [place] [phone] * XR Chest 2 Views (11/15/2024 11:03 AM EDT) Anatomical Region Laterality Modality Chest Radiographic Karlie ging 11/15/2024 11:0 3 AM EDT Narrative 11/15/2024 12:18 PM EDT [address] [address] [address] XRay Report Signed Patient: Abbie Hernandez MR#: [id number] : 1980 Acct:[id number] Age/Sex: 44 / F ADM Date: 11/15/24 Loc: HO.ED Attending Dr: Ordering Physician: Samira Ron Date of Service: 11/15/24 Procedure(s): XR chest 2V Accession Number(s): [id number] cc: Samira Ron; LulaStephanie LIME SPREADER EXAMINATION: XR CHEST CLINICAL INFORMATION: CP COMPARISON: [...] 11/15/24 1216 DD/ 1103 TD/TT: 11/15/24 1203 Brusher Warp: Procedure Note Donotuseinterpreter, Image - 11/15/[address] [address] XRay Report Signed Patient: Galen HernandezR#: [id number] : 1980Acct:[id number] Age/Sex: 44 / FADM Date: 11/15/24 Loc: HO.ED Attending Dr: Ordering Physician: Samira Ron Date of Service: 11/15/24 Procedure(s): XR chest 2V Accession Number(s): [id number] cc: Samira Ron; Stephanie Cotton LIME SPREADER EXAMINATION: XR CHEST CLINICAL INFORMATION: CP COMPARISON: [...] 11/15/24 1216 DD/ 1103 TD/TT: 11/15/24 1203 Brusher Warp: [facility] External Provider IMG XR PROCEDURES Final Result * POCT A1C (08/03/2023 6:36 PM EDT) Hemoglobin A1C 5.7 4.0 - 6.0 % QC Media Lot # [id number] Lot# Expiration Date Blood 08/03/2023 6:36 PM EDT Stephanie Egnel LIME SPREADER POINT OF CARE TEST ENTER/EDIT ORDERABLES Final [...] AM EST) HEPATITIS C ANTIBODY NONREACTIVE NONREACTIVE [facility] Comment: Antibodies to HCV not detected; does not exclude early acute HCV infection. 04/30/2019 11:1 0 AM EST us Felecia Moseley NP HISTORICAL/NON ORDERABLE LABS Fi nal Result Performing Organization Address [facility] Phone Number [facility] [address] * HIV AB/AG (04/30/2019 11:10 AM EST) Pathologist [facility] HIV AG/AB NONREACTIVE [facility] [...] limit of detection of this assay. The Camp Operations Administrator HIV Ag/Ab Combo assay result and supplemental assay results should be interpreted in conjunction with the patient's clinical presentation, history and other laboratory results. If the results are inconsistent with clinical evidence, additional testing is suggested to confirm the result. 04/30/2019 11:1 0 AM EST us Felecia Moseley NP HISTORICAL/NON ORDERABLE LABS [facility] Result Performing Organization Address [facility] Phone Number [facility]ly [facility] Any[address] * HPV mRNA E6/E7 (11/08/2017 10:07 AM EDT) Pathologist [facility] HPV mRNA E6/E7 Not Detected NOT DETECTED [facility] Comment: This test was performed using the APTIMA(R) HPV Assay ([employer] This assay detects E6/E7 viral messenger RNA (mRNA) from 14 high-risk HPV types (16,18,31,33,35,39,45,51, 52,56,58,59,66,68). For additional information please refer to: http://education.Hoonto/faq/OED401o7 (This link is being provided for informational/ educational purposes only.) The analytical performance characteristics of this assay have been determined by [employer] [place], [place]. The modifications have not been cleared or approved by the FDA. This assay has been validated pursuant to the CLIA regulations and is used for clinical purposes. Test Performed by [facility], [facility], [address] [place] [address] Claudio Sanchez M.D., Ph.D., Director of Laboratories , CLIA [id number] Please note: Effective 02/02/2016, HPV testing will be performed using [employer]'s APTIMA test which targets mRNA. Detecting mRNA instead of DNA, as in older methods, offers significant improvements in specificity. 11/08/2017 10:0 7 AM EDT us Felecia Moseley NP HISTORICAL/NON ORDERABLE LABS Fi nal Result [facility] Anywhere [address] from Last 3 Months or Most Recently Relevant to Health Maintenance Insurance Care Teams Funeral Pre Arrangement Counselor Relationship Specialty Start Date End Date Stephanie Cotton FNP [address] [place] [id number] PCP - General Family Medicine 03/16/21
[2025-01-24 10:36] LABS: Hemoglobin A1C 128.9743 umol/L; Total Hemoglobin (HGBA1C) 3679.3971 umol/L
[2025-01-24 11:22] LABS: Cholesterol 175 mg/dL (<200); HDL Cholesterol 34 mg/dL (>40); Triglycerides 112 mg/dL (<150)
== END 2025-01-24 09:02 | disposition home or self-care (01) ==
LOC: HO.LAB 09:01
PROVIDERS: PCP Registered Nurse; Visit Provider Registered Nurse
DX: Z00.00 Encounter for general adult medical examination without abnormal findings (principal); R45.0 Nervousness; F41.9 Anxiety disorder, unspecified; Z13.6 Encounter for screening for cardiovascular disorders; Z13.1 Encounter for screening for diabetes mellitus
CPT/HCPCS: 36415; 80061; 83036; 84443

== ENCOUNTER 2025-02-19 09:49 | Outpatient (AMB) | payer OTHER, SELFPAY ==
--- NOTE | 2025-02-19 09:49 | A.OFFVIS_ITS ---
Intake Visit Reasons: Follow up Admin Secretary Required: Yes Admin Secretary Services: Admin Secretary Offered & Declined (S/O to translate) Accompanied by: Spouse Allergies No Known Allergies (No Known Allergies*) Allergy (Verified 02/19/25 10:54) Medication List - Last Reconciled 02/19/25 by Luba Valdes CNP albuterol sulfate 90 mcg/actuation 2 puffs inhalation Q4-6H PRN albuterol sulfate 2.5 mg (0.5 mL) inhalation Q6H PRN bisacodyl 5 mg PO ONCE 1 day budesonide-formoterol 160-4.5 mcg/actuation (Symbicort) 2 puffs inhalation BID 30 days citalopram 20 mg PO QAM doxepin 10 mg PO BEDTIME hydroxyzine HCl 50 mg PO BEDTIME PRN ibuprofen 600 mg PO Q8H PRN lorazepam (Ativan) 1 mg PO TID PRN mepolizumab (Nucala) 100 mg subcut Q4W 28 days montelukast 10 mg PO BEDTIME omeprazole 20 mg PO DAILY polyethylene glycol 3350 (Miralax) 17 grams PO DAILY 30 days polyethylene glycol 3350 (Miralax) 238 grams PO ONCE prednisone 50mg (5 tabs) x1 day, then 40 mg (4 tabs) x1 day, then 30 mg (3 tabs) x1 day, then 20 mg (2 tabs) times 1 day, then 10 mg (1 tab) x1 day tirzepatide (weight loss) (Zepbound) 2.5 mg subcut QWEEK tizanidine 2 mg PO TID PRN 30 days HPI Comments Details: 44-year-old woman with intermittent numbness in both hands, R > L, since end of 2023. Several years ago, she fell and may have passed out. 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 There are a few nonspecific white matter hyperintensities, otherwise the MRI is normal. She was doing so-so. She was still having numbness and tingling in hands, R > L, that happened off and on. It sometimes woke her up at night. 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 No new or increased weakness. She did not have nerve conduction studies done that was ordered at appointment in 09/2024. [facility] Medical History Constipation Acid reflux Colon cancer screening Asthma Surgical History History of lumpectomy of left breast Family History Father Liver disease Mother Hypertension Diabetes Social History Alcohol intake: never Patient Tobacco Use Status: Never used Tobacco Review of Systems Const Denies chills, Denies daytime sleepiness, Denies difficulty sleeping, Denies fatigue, Denies fever(s), Denies frequent falls, Denies headache(s), Denies increased appetite, Denies poor appetite, Denies snoring, Denies weakness, Denies weight gain and Denies weight loss Eyes Denies loss of vision ENT Denies vertigo, Denies dizziness, Denies headache(s) and Denies neck pain Card Denies chest pain at rest, Denies chest pain with activity, Denies syncope, Denies leg edema, Denies palpitations, Denies dyspnea and Denies dyspnea on exertion Resp Denies cough, Denies dyspnea, Denies dyspnea on exertion and Denies snoring GI Denies abdominal pain, Denies constipation, Denies heartburn, Denies diarrhea and Denies nausea Denies urinary frequency, Denies urinary incontinence and Denies urinary urgency Musc Denies abnormal gait, Denies back pain, Denies myalgias, Denies arthralgias, Denies neck pain, Reports numbness and Reports tingling Neuro Denies abnormal gait, Denies vertigo, Denies dizziness, Denies syncope, Denies frequent falls, Denies headache(s), Denies lack of coordination, Denies loss of vision, Denies memory loss, Reports numbness, Denies Other visual disturbances, Denies restless legs, Denies seizure-like activity, Reports tingling, Denies paresthesias, Denies tremor(s) and Denies weakness Psych Denies anxiety, Denies depression, Denies auditory hallucinations, Denies memory loss and Denies visual hallucinations Endo Denies fatigue and Denies palpitations Physical Exam Const Other: General Appearance:? normal, in no acute distress. Heart:? S1, S2 normal, no murmurs. Lungs:? clear anteriorly and posteriorly. Musculoskeletal:? normal. Extremities:? no edema. Psych:? alert, oriented, cognitive function intact, cooperative with exam. Neuro Other: Abnormal Neurological Findings:?none.? Mental Status: alert and oriented X 3. Normal attention, orientation, memory, and affect. Cranial Nerves: Pupils are equal, round, and reactive to light. External ocular muscles are intact. Visual powell are full, no ptosis. Face is symmetrical, no facial weakness or droop. Facial sensations are normal. Tongue protrudes in midline. Palate elevates symmetrically. Shoulder shrugging is normal Motor Examination: Normal muscle tone, bulk and strength. No atrophy or fasciculations. No drift of the extended upper extremities. DTR 2+. Plantars are flexor. Sensory Exam: Normal light touch, temperature, pinprick, vibration, and joint- position sensations. Rhomberg sign is absent. Coordination: No ataxia. No titubation. Gait Exam: Within normal limits. Cerebellar Signs: [id number] is okay. Extrapyramidal System: No tremor, rigidity with normal facial expressions. No bradykinesia. No bradyphrenia. Normal arm swing and posture. No propulsion or retropulsion. Speech: Normal. Assessment & Plan Assessment & Plan (1) Bilateral carpal tunnel syndrome: Code(s): G56.03 - Carpal tunnel syndrome, bilateral upper limbs Category: Medical Plan: NCV/EMG appointments on 10/31/2024 and 01/01/2025 were marked as no showed, test was requested again. (2) Pineal gland cyst: Comment: Nothing needs to be done for this Code(s): E34.8 - Other specified endocrine disorders Category: Medical Plan . Orders: Orders NE electromyogram (EMG) Today G56.03 - Carpal tunnel syndrome, bilateral upper limbs NE nerve conduction velocity Today G56.03 - Carpal tunnel syndrome, bilateral upper limbs Coding Level of Care Code Est Pt Level 4 (32169) Diagnoses Bilateral carpal tunnel syndrome G56.03 Pineal gland cyst E34.8
--- OUTSIDE RECORDS SUMMARY | 2025-02-19 10:40 | XMS_ITS | Encounter Summary ---
Author Organization [employer] Address [address] [facility] [address] [place] [address] Care Team Providers Care Open Die Inspector Name Role Phone Stephanie Cotton BUCKY Primary Care Provider [phone] Encounter Details Date Type Department Care Team ([facility] st Contact Info) Description 08/13/2024 Orders Only [facility] [address] [place], [place] [id number] Provider, MD Charisse Social History Tobacco Use [...] the past 12 months, has t he [email or web address], gas, oil or water company threatened to [...] Care Team (Late st Contact Info) Description 03/05/2025 10:20 AM EDT Procedure Visit [facility] [address] [place], [place] [phone] Pam Barton MD [address] [place] [address] documented as of this encounter Procedures Procedure [...] documented as of this encounter Care Teams Open Die Inspector Relationship Specialty Start Date End Date Stephanie Cotton FNP [address] [place] [address] PCP - General Family Medicine 03/16/21 documented as of this encounter
--- OUTSIDE RECORDS SUMMARY | 2025-02-19 10:40 | XMS_ITS | Encounter Summary ---
Author Organization [employer] Address [address] [place] [address] Care Team Providers Care Deburrer Machine Name Role Phone Lula Stephanie LAWLER Primary Care Provider [phone] Reason for Visit * Reason Comments Med Refill Encounter Details Date Type Department Care Team ([facility] st Contact Info) Description 09/29/2023 Refill [facility] [address] [place] [address] Stephanie Engel FNP Social History Tobacco Use [...] Description 03/05/2025 10:20 AM EDT Procedure Visit [facility] [address] [place] [address] Pam Barton MD [address] [place] [address] documented as of this encounter Visit Diagnoses Not on filedocumented in this encounter Additional Health Concerns Assessment Noted Time PHQ-9 Depression Total Score: 15 024 10:16 AM EDT documented as of this encounter Care Teams Deburrer Machine Relationship Specialty Start Date End Date Stephanie Cotton FNP [address] [place] [address] PCP - General Family Medicine 03/16/21 documented as of this encounter
--- OUTSIDE RECORDS SUMMARY | 2025-02-19 10:40 | XMS_ITS | Encounter Summary ---
Author Organization [employer] Address [address] [facility] [address] [place] [address] Care Team Providers Care Adult Services Librarian Name Role Phone Stephanie Cotton SHOCK ABSORBER INSTALLER Primary Care Provider [phone] Reason for Visit * Reason Comments Med Change Request Encounter Details Date Type Department Care Team ([facility] Contact Info) Description 03/14/2023 Refill [facility] [address] [place] [address] Scott Ferguson MD [address] [place] [address] Dysphagia, unspecified type Social History Tobacco Use [...] Department Care Team (Late Contact Info) Description 03/05/2025 10:20 AM EDT Procedure Visit [facility] [address] [place], [place] [phone] Pam Barton MD [address] [place], [place] [phone] documented as of this encounter Visit Diagnoses Diagnosis Dysphagia, unspecified type documented in this encounter Care Teams Adult Services Librarian Relationship Specialty Start Date End Date Stephanie Cotton FNP [address] [place] [address] PCP - General Family Medicine 03/16/21 documented as of this encounter
--- OUTSIDE RECORDS SUMMARY | 2025-02-19 10:41 | XMS_ITS | Clinical Summary ---
Author Organization [email or web address] Address [address] [facility] [address] [place] [address] Care Team Providers Care House Servant Name Role Phone Stephanie Cotton BRASS MOLDER HELPER Primary Care Provider [phone] Allergies No known active allergies Medications * This document contains information received from the source organization and may not represent a complete record from that organization. biotin 1 MG capsule Take by mouth. Activ e hydrocortisone (Anusol-HC) 2.5 % rectal creamIndication s:Constipation, unspecified constipation type,Other hemorrhoids Apply to rectal area twice daily as needed for hemorrhoids 28 g 2 06/16/19 23 Active Diclofenac Sodium 1 % gelIndications: Acute right-sided thoracic back pain Apply to the affected areas 4x/day as needed 50 g 1 03/14/20 23 Active FreeStyle lancets 1 each by Other route in the morning. 100 each 11 08/31/19 24 Active Alcohol Swabs pads 1 each in the morning. 100 each 3 08/31/19 24 Active Fluocinonide Emulsified Base 0.05 % cream Apply small amount to affected area on arms, abdomen, legs twice daily. Do not apply to face. 60 g 1 11/01/19 24 Active calamine-zinc oxide lotion Apply topically if needed (itching). 118 mL 11/01/19 24 Active albuterol 108 (90 Base) MCG/ACT inhalerIndicati ons:Severe persistent allergic asthma (HCC) Inhale 2 puffs every 4 (four) hours if needed for wheezing or shortness of breath. 18 g 11 06/25/19 25 2025 Active albuterol (2.5 MG/3ML) 0.083% nebulizer solutionIndicat ions:Severe persistent allergic asthma (HCC) Take 3 mL (2.5 mg) by nebulization every 4 (four) hours if needed for wheezing. 75 mL 11 06/25/19 25 2025 Active montelukast (Singulair) 10 MG tabletIndicatio ns:Severe persistent allergic asthma (HCC) Take 1 tablet (10 mg) by mouth at bedtime. 90 tablet 3 06/25/19 25 Active Tirzepatide-Gianfranco ght Management (Zepbound) 2.5 MG/0.5ML solution auto-injectorIn dications:Class 2 obesity without serious comorbidity with body mass index (BMI) of 37.0 to 37.9 in adult, unspecified obesity type Inject 0.5 mL (2.5 mg) under the skin 1 (one) time per week. 2 mL 08/13/19 25 Active loratadine (Claritin) 10 MG tabletIndicatio ns:Seasonal allergies Take 1 tablet (10 mg) by mouth Once per day. For allergies 90 tablet 10/20/19 25 Active Symbicort 160-4.5 MCG/ACT inhalerIndicati ons:Severe persistent allergic asthma (HCC) .INHALE 2 PUFFS BY MOUTH 2 TIMES A DAY. Rinse mouth with water after use to reduce aftertaste and incidence of candidiasis. Do not swallow 1 each 10/20/19 25 Active citalopram (CeleXA) 20 MG tabletIndicatio ns:Anxiety and depression Take 1 tablet (20 mg) by mouth in the morning. 90 tablet 1 10/20/19 25 Active lidocaine (Lidoderm) 5 % patchIndication s:Cervical disc herniation Apply 1 patch topically Once per day. Remove & discard patch within 12 hours or as directed by MD. 30 patch 3 10/20/19 25 Active polyethylene glycol, PEG, 3350 (MiraLax) 17 GM/SCOOP powderIndicatio ns:Constipation , unspecified constipation type Mix 17g into 8oz liquid and drink daily for constipation 527 g 2 10/20/19 25 Active famotidine (Pepcid) 20 MG tablet Take 1 tablet (20 mg) by mouth if needed in the morning and at bedtime for heartburn. 90 tablet 3 10/20/19 25 Active omeprazole OTC (PriLOSEC OTC) 20 MG EC tabletIndicatio ns:Dysphagia, unspecified type Take 1 tablet (20 mg) by mouth before breakfast. Do not crush, chew, or split. 30 tablet 11 10/20/19 25 2025 Active tiZANidine (Zanaflex) 2 MG tabletIndicatio ns:Cervical disc herniation Take 1-2 tablets (2-4 mg) by mouth if needed at bedtime for muscle spasms for up to 10 days. 30 tablet 2 10/20/19 25 Active ibuprofen 600 MG tabletIndicatio ns:Pain TAKE 1 TABLET BY MOUTH EVERY 8 HOURS NEEDED FOR MILD PAIN OR FEVER 90 tablet 2 12/13/19 25 Active meloxicam (Mobic) 15 MG tabletIndicatio ns:Cervical disc herniation TAKE 1 TABLET BY MOUTH EVERY DAY NEEDED FOR PAIN 30 tablet 1 01/08/20 25 Active glucose blood test stripIndication s:Prediabetes Use to check blood sugar once daily 100 each 01/19/20 25 2025 Active Lancets misc Use to check once daily 100 each 01/19/20 25 Active Blood Glucose Monitoring Suppl (FreeStyle Lite) w/Device kitIndications: Prediabetes 1 each by Other route Once per day. USE TO CHECK BLOOD SUGAR ONCE A DAY 1 kit 01/25/20 25 Active glucose blood (FREESTYLE LITE) test stripIndication s:Prediabetes USE TO CHECK BLOOD SUGAR ONCE A DAY 50 each 01/25/20 25 Active FreeStyle lancetsIndicati ons:Prediabetes 1 each by Other route Once per day. USE TO CHECK BLOOD SUGAR ONCE A DAY 100 each 01/26/20 25 2025 Active busPIRone (Buspar) 5 MG tabletIndicatio ns:Anxiety and depression Take 1 tablet (5 mg) by mouth at bedtime. 30 tablet 1 01/19/20 25 2024 Discontinued TRUEplus Lancets 33G miscIndications :Prediabetes USE TO CHECK BLOOD SUGAR ONCE A DAY 100 each 01/25/20 25 2024 Discontinued Active Problems Problem Noted Date Diagnosed Date Elevated blood pressure reading 02/11/2025 Assessment & Plan (02/11/2025 3:06 PM EDT): BP Readings from Last 4 Encounters: 02/11/25 (!) 130/92 01/18/25 122/76 10/19/24 131/86 08/10/24 117/73 - Elevated BP reading today, previously wnl. Encouraged home BP monitoring and to f/up if above goal - Reviewed lifestyle interventions Panic disorder 02/04/2025 Bereavement 02/04/2025 GERD (gastroesophageal reflux disease) Overview (01/24/2025): [place] [facility] [place] Cont omeprazole 20mg daily through GI Consult note October 2024 - plan for EGD Cervical disc herniation 10/21/2024 Overview (10/21/2024): - August 2024: Cervical spine w/o contrast: Central disc herniation C4-5 abutting the cord without cord compression, edema and or myelopathy. - Ref[place] to [facility] Pain Management placed 10/21/24 [...] on CT head/brain wo contrast 08/08/24 at [facility] [place]: 1 cm partially calcified pineal cyst - Brain MRI August 2024: There is a 1 cm nonenhancing peripheral susceptibility signal in the pineal gland. - Consult with [facility] [place]. Bryant on 10/16/2024. 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 No need for intervention. Reassurance provided. Mixed insomnia 06/25/2024 Overview (02/11/2025): -Previous med trials for sleep include: ambien, hydroxyzine, trazodone, doxepin, buspirone, and melatonin -Reviewed lifestyle recommendations -Referral to sleep medicine placed July 2024 -Referral to services Dec 2024 Assessment & Plan (02/11/2025 3:04 PM EDT): Plan: f/up with as scheduled Healthcare maintenance 09/01/2023 Overview (06/25/2024): Optometry: scheduled 09/15/23 Colonoscopy: referral placed 06/25/24 Mammogram: ordered 06/25/24 Pap: encouraged to schedule following appt 06/25/24 Allergic rhinitis 06/12/2015 Constipation 06/12/2015 Assessment & Plan (06/16/2022 8:43 PM EST): -Restart miralax daily -Restart colace 100mg BID PRN -Reviewed med safety and SE -Encourage hydration, movement, and fiber rich diet Anxiety and depression 06/12/2015 Assessment & Plan (02/11/2025 3:05 PM EDT): - Reports improved compared to last appointment. Has appointment to establish with psych team later today - Continue escitalopram 20 mg daily - Crisis/safety info reviewed Assessment & Plan (01/24/2025 10:36 AM EDT): - Anxiety with panic attacks, likely exacerbated by recent bereavement and psychosocial stressors. - Offered referral to Behavioral Health for counseling and coping strategies, including telehealth options. Discussed avoidance of benzodiazepines for long- term management due to risk of dependence and cognitive effects. Will monitor response to buspirone and adjust as needed. - Continue escitalopram 20 mg daily - BE referral placed - Start buspirone 5mg nightly. (Pt declines BID dosing). Reviewed med safety and SE - Check TSH Assessment & Plan (06/25/2024 2:57 PM EST): [...] allergic asthma 06/12/2015 Overview (06/25/2024): [place] [facility] [place]. Whitney. Had received Nucala injections, no longer using d/t improvement in symptoms. Continues with Symbicort 160-4.5mcg/act: 2 puffs BID Rescue: albuterol PRN Assessment & Plan (06/25/2024 2:52 PM EST): Well controlled, cont with current regimen Assessment & Plan (09/01/2023 8:11 AM EDT): [place] [facility] [place] Whitney Continues with Symbicort 160-4.5mcg/act: 2 puffs BID Well controlled, cont with current regimen Smoker 06/12/2015 Obesity 06/12/2015 Overview (02/11/2025): Wt Readings from Last 6 Encounters: 02/11/25 180 lb (81.6 kg) 01/18/25 179 lb (81.2 kg) 10/19/24 185 lb (83.9 kg) 08/10/24 178 lb 2 oz (80.8 kg) 06/25/24 181 lb 6 oz (82.3 kg) 03/02/24 181 lb 8 oz (82.3 kg) -Continues multimodal approach to sustainable weight [...] 2.5 mg subcutaneous weekly Assessment & Plan (02/11/2025 3:04 PM EDT): - Had break from Zepbound but recently restarted and is tolerating well w/o side effects - Plan to discuss dose increase next appt Assessment & Plan (10/21/2024 7:34 AM EDT): [...] to visit er COVID 07/06/2022 09/01/2022 Encounters * This document contains information received from the source organization and may not represent a complete record from that organization. Date Type Department Care Team Description 02/12/2025 Telephone [facility] [address] [place] [address] Stephanie Cotton FNP Breast Cancer Screening 02/11/2025 10:15 AM EDT Office Visit [facility] [address] [place] [address] Stephanie Cotton FNP Class 2 obesity without serious comorbidity with body mass index (BMI) of 37.0 to 37.9 in adult, unspecified obesity type (Primary Dx); Dietary counseling; Exercise counseling; Anxiety and depression; Healthcare maintenance; Mixed insomnia; Elevated blood pressure reading 02/11/2025 Travel 02/08/2025 Telephone [facility] [address] [place] [address] Stephanie Cotton FNP Chart Prep 02/04/2025 Patient Outreach [facility] [address] [place] [phone] Stephanie Cotton FNP Pre-visit Planning ([facility] screening completed on 10/08/24) 01/24/2025 Refill [facility] [address] [place] [address] Stephanie Cotton FNP Prediabetes 01/22/2025 Refill [facility] [address] [place] [address] Stephanie Cotton FNP Prediabetes (Primary Dx) 01/18/2025 3:15 PM EDT Office Visit [facility] [address] [place] [address] Stephanie Cotton FNP Anxiety and depression (Primary Dx); Healthcare maintenance; Gastroesophageal reflux disease, unspecified whether esophagitis present; Prediabetes 01/18/2025 Travel 01/07/2025 Refill [facility] [address] [place] [address] Stephanie Cotton FNP Cervical disc herniation 01/04/2025 Telephone [facility] [address] [place] [phone] Stephanie Cotton FNP Hospital Follow-up 12/28/2024 Orders Only GENERIC EXTERNAL DATA DEPARTMENT Provider, Generic External Data 12/12/2024 Refill [facility] [address] [place] [address] Stephanie Cotton FNP Pain 12/09/2024 Orders Only GENERIC EXTERNAL DATA DEPARTMENT Provider, Generic External Data from Last 3 Months Immunizations Immunization Administration [...] Date Recorded Patient Health Questionnaire-9 Score 15 02/11/2025 Patient Health Questionnaire-9 Score 15 02/11/2025 Last PHQ-9: Questionnaire Data Not on file 0 02/11/2025 Housing Stability Answer Date Recorded What is [...] Date Recorded Patient Health Questionnaire-2 Score 3 02/11/2025 Internet Access Answer Date Recorded Internet Access [...] Sign Reading Time Taken Comments Blood Pressure 130/92 02/11/2025 10:27 AM EDT Pulse 88 02/11/2025 10:27 AM EDT Temperature 37 C (98.6 F) 02/11/2025 10:27 AM EDT Respiratory Rate 14 02/11/2025 10:27 AM EDT Oxygen Saturation 96% 02/11/2025 10:27 AM EDT Inhaled Oxygen Concentration - - Weight 81.6 kg (180 lb) 02/11/2025 10:27 AM EDT Height 154.9 cm (5' 1 ) 02/11/2025 10:27 AM EDT Body Mass Index 34.01 02/11/2025 10:27 AM EDT Plan of Treatment Upcoming Encounters Date Type Department Care Team (Late st Contact Info) Description 03/05/2025 10:20 AM EDT Procedure Visit [facility] [address] [place] [address] Pam Barton MD [address] [place] [address] Health Maintenance Due Date Last Done Comments CT Colonography 1979 Colonoscopy 1979 Colorectal Cancer Screening 1979 FIT DNA/Cologuard 1979 FIT 1979 FOBT 1979 Sigmoidoscopy 1979 Family Planning (PISQ) 1994 Hepatitis B Vaccines (1 of 3 - 19+ 3-dose series) 1998 Pap Smear 01/09/2000 Pneumococcal Vaccine: Pediatrics (0 to 5 Years) and At-Risk Patients (6 to 49) Years (2 of 2 - PCV) 05/25/2012 05/25/2011 Mammogram 05/09/2021 05/09/2019 Cervical Cancer Screening 11/08/2022 HPV/Cotest 11/08/2022 11/08/2017 COVID-19 Vaccine ( season) 2025 10/15/2020, 09/17/2020 Influenza Vaccine (#1) 2025 0, 03/27/2019, 02/13/2018, Additional history exists Depression Monitoring 08/11/2025 02/11/2025, 025 SDOH Screening 10/08/2025 10/08/2024 DTaP/Tdap/Td Vaccines (2 - Td or Tdap) 01/18/2026 01/19/2016, 12/12/2007 Disability Screening 01/18/2026 01/18/2025 Tobacco Screening 01/18/2026 01/18/2025 Diabetes: Hemoglobin A1C 01/24/2026 025, 08/03/2023, 04/30/2019 Alcohol/Substance Use Screening 02/11/2026 02/11/2025 Zoster Vaccines (1 of 2) 2029 Lipid Panel 01/24/2030 01/24/2025 RSV Patients and Patients Aged 60 years [...] Procedure Name Priority Date/Time Associated Diagnosis Comments LIPID PANEL, STANDARD Routine 01/24/2025 9:11 AM EDT Healthcare maintenance HEMOGLOBIN A1C Routine 01/24/2025 9:11 AM EDT Healthcare maintenance TSH W/REFLEX TO FT4 Routine 01/24/2025 9 :11 AM EDT Anxiety and depression XR THORACIC SPINE 2 VIEWS Routine 01/19/2025 [...] AUTO DIFFERENTIAL Routine 12/09/2024 3:49 AM EDT BI MAMMOGRAM SCREENING BILATERAL Routine 05/09/2019 10:16 AM EST [facility] HISTORICAL HEPATITIS C ANTIBODY Routine 04/30/2019 11:10 AM EST [facility] HISTORICAL HIV AB/AG Routine 04/30/2019 11:10 AM EST [facility] HISTORICAL HPV MRNA E6/E7 Routine 11/08/2017 10:07 AM EDT from Last 3 Months or Most Recently Relevant to Health Maintenance Results * TSH W/Reflex to FT4 (01/24/2025 9:11 AM EDT) TSH reflex Free T4 1.32 0.32 - 4.0 uIU/mL [facility] Blood Venous blood specimen / Unknown 01/24/2025 9:11 AM EDT 01/24/2025 9:11 AM EDT Stephanie Cotton [facility] LAB BLOOD ORDERABLES Final Res ult Performing Organization Address [facility] Co de Phone Number [facility] [address] [place] [phone] * Hemoglobin A1c (01/24/2025 9:11 AM EDT) Hemoglobin A1c 5.4 <6.0 % [facility] Comment:Hemoglobin A1C Refer ence Range Adults: 4.8 - 6.0 % Non diabetic: < 6.0 % Goal: < 7.0 %Additional Action Suggested: > 8.0 %Note: Hemoglobin A1c results are invalid for patients with abnormal amounts of HbF. Blood transfusions may impact the HbA1c concentration in the patient sample. Estimated Average Glucose 108 mg/dL [facility] Comment:eAG = Estimated ave rage glucose which is %A1C expressed asaverage glucose, using the formula of the H0E-SdmbsvrZcogcer Glucose study (ADAG), Diabetes Care, Vol.31,#8,Dec. 2007 Blood Venous blood specimen / Unknown 01/24/2025 9:11 AM EDT 01/24/2025 9:11 AM EDT Stephanie Cotton [facility] LAB BLOOD ORDERABLES Final Res ult Performing Organization Address [facility] Co de Phone Number [facility] [address] [place] [phone] * (ABNORMAL) Lipid Panel, Standard (01/24/2025 9:11 AM EDT) Triglycerides 112 <150 mg/dL [facility] Comment:Desirable Triglyceri de: less than 150 mg/dLBorderline High Triglyceride 150-199 mg/dLHigh Triglyceride: 200-499 mg/dLVery High Triglyceride: greater than or equal to 5OO mg/dL Cholesterol 175 <200 mg/dL [facility] Comment:Desirable Cholestero l: less than 200 mg/dLBorderline High Cholesterol: 200-239 mg/dLHigh Cholesterol: greater than 239 mg/dL LDL Cholesterol Calculated 119(H) <100 mg/dL [facility] Comment:Desirable LDL: less than 100 mg/dLNear Optimal/Above Optimal LDL: 110- 129 mg/dLBorderline High LDL: 130-159 mg/dLHigh LDL: 160-189 mg/dLVery High LDL: greater than or equal to 190 mg/dL HDL Cholesterol 34(L) >40 mg/dL [facility] Comment:Desirable HDL: great er than 40 mg/dL Note: This HDL assay may give artificially low results in patients with liver disease. Blood Venous blood specimen / Unknown 01/24/2025 9:11 AM EDT 01/24/2025 9:11 AM EDT us Stephanie MCCARTYP LAB BLOOD ORDERABLES Final Res ult Performing Organization Address City/State/[facility] Co de Phone Number [facility] [address] [place] [phone] * XR Thoracic Spine 2 Views (01/19/2025 2:32 PM EDT) Anatomical Region Laterality Modality Spine, T-spine Radiographic Karlie ging 01/19/2025 2:32 PM EDT Narrative 01/19/2025 2:33 PM EDT [address] [address] XRay Report Signed Patient: Abbie Hernandez MR#: [id number] : 1980 Acct:[id number] Age/Sex: 45 / F ADM Date: 01/18/25 Loc: [facility] Attending Dr: Aubree LAWLER Ordering Physician: Aubree Mayfield Date of Service: 01/18/25 Procedure(s): XR thoracic spine 2V Accession Number(s): [id number] cc: Aubree Mayfield; Stephanie Cotton CLINICAL HISTORY: [...] 01/19/25 1433 DD/ 1432 TD/TT: 01/19/25 1432 Kick Press Setter: Procedure Note Donotuseinterpreter, Image - 01/19/2025 [place] [address] XRay Report Signed Patient: Maria Alejandra Hernandez#: M [id number] : 1980Acct:[id number] Age/Sex: 45 / FADM Date: 01/18/25 Loc: HO.KEVINAY Attending Dr: Aubree LAWLER Ordering Physician: Aubree Mayfield Date of Service: 01/18/25 Procedure(s): XR thoracic spine 2V Accession Number(s): [id number] cc: Aubree MayfieldP; Stephanie Cotton CLINICAL HISTORY: M54.6 - Pain [...] 01/19/25 1433 DD/ 1432 TD/TT: 01/19/25 1432 Kick Press Setter: us [facility] External Provider IMG XR PROCEDURES Final Result * XR CERVICAL SPINE 3V (01/18/2025 1:50 PM EDT) Anatomical Region Laterality Modality Abdomen Radiographic Karlie ging 01/18/2025 1:50 PM EDT Narrative 01/18/2025 2:06 PM EDT [address] [address] XRay Report Signed Patient: Abbie Hernandez MR#: [id number] : 1980 Acct:[id number] Age/Sex: 45 / F ADM Date: 01/18/25 Loc: PAUAY Attending Dr: Aubree LAWLER Ordering Physician: Aubree Mayfield Date of Service: 01/18/25 Procedure(s): XR cervical spine 3V Accession Number(s): [id number] cc: Aubree Mayfield BRASS MOLDER HELPER; Stephanie Cotton BRASS MOLDER HELPER EXAMINATION: XR CERVICAL SPINE 2-3 VIEWS HISTORY: [...] Ld Yepez MD 01/18/2025 02:04 PM EDT Dictated By: Ld Yepez MD Signed By: <Electronically signed by Ld Yepez MD in OV> 01/18/25 1404 DD/ 1350 TD/TT: 01/18/25 1400 Kick Press Setter: Procedure Note Donotuseinterpreter, Image - 01/18/[address] [address] XRay Report Signed Patient: Maria Alejandra Hernandez#: M [id number] : 1980Acct:[id number] Age/Sex: 45 / FADM Date: 01/18/25 Loc: HOYARI Attending Dr: Aubree Mayfield BRASS MOLDER HELPER Ordering Physician: Aubree Mayfield Date of Service: 01/18/25 Procedure(s): XR cervical spine 3V Accession Number(s): [id number] cc: Aubree Mayfield BRASS MOLDER HELPER; Stephanie Cotton BRASS MOLDER HELPER EXAMINATION: XR CERVICAL SPINE 2-3 VIEWS HISTORY: [...] Ld Yepez MD 01/18/2025 02:04 PM EDT Dictated By: Ld Yepez MD Signed By: <Electronically signed by Ld Yepez MD in OV> 01/18/25 1404 DD/ 1350 TD/TT: 01/18/25 1400 Kick Press Setter: [facility] External Provider IMG XR PROCEDURES Final Result * High Sensitivity Troponin I (12/28/2024 7:50 AM EDT) [facility] TROPONIN I HIGH SENSITIVITY <2.7 <3.5 - 17.0 ng/L [facility] Comment:The [place] high sens itivity Troponin-I results should beused in conjunction with other diagnostic information suchas ECG, clinical observations and information, and patientsymptoms to aid in the diagnosis of NE. 12/28/2024 7:50 AM EDT 12/28/2024 7:54 AM EDT us Generic External Data Provider LAB BLOOD ORDERAB LES Final Result [facility] [address] [place] [phone] * CBC auto differential (12/28/2024 7:50 AM EDT) Only the most recent of2 resultswithin the time period is included. [facility] White Blood Count 8.1 4.8 - 10.8 X10*3/uL [facility] Red Blood Count 4.76 4.20 - 5.50 X10*6/uL [facility] Hemoglobin 14.1 12.0 - 16.0 g/dl [facility] Hematocrit 40.6 37.0 - 47.0 % [facility] Mean Corpuscular Volume 85.3 80.0 - 98.0 fL [facility] Mean Corpuscular Hemoglobin 29.6 27.0 - 33.0 pg [facility] Mean Corpuscular HGB Conc 34.7 31.0 - 35.0 g/dl [facility] Red Cell Distribution Width 12.9 11.0 - 16.0 % [facility] Platelet Count 261 160 - 400 X10*3/uL [facility] Mean Platelet Volume 10.2 9.4 - 12.3 fL [facility] Neutrophils Percent Auto 58.5 45 - 73 % [facility] Imm Gran Pct Auto 0.4 0.0 - 0.4 % [facility] Lymphocytes Percent Auto 32.8 20 - 40 % [facility] Monocytes Percent Auto 6.9 2 - 11 % [facility] Eosinophils Percent Auto 1.0 0 - 4 % [facility] Basophils Percent Auto 0.4 0 - 2 % [facility] NRBC Pct Auto 0.0 0.0 - 0.2 /100WBC [facility] Neutrophils Absolute Auto 4.7 2.0 - 8.3 x10*3/uL [facility] Imm Gran Abs Auto 0.03 0.00 - 0.03 X10*3/uL [facility] Lymphocytes Absolute Auto 2.7 1.2 - 4.9 X10*3/uL [facility] Monocytes Absolute Auto 0.6 0.1 - 1.2 X10*3/uL [facility] Eosinophils Absolute Auto 0.1 0.0 - 0.4 X10*3/uL [facility] Basophils Absolute Auto 0.0 0.0 - 0.2 X10*3/uL [facility] NRBC Abs Auto 0.000 0.0 - 0.012 X10*3/uL [facility] 12/28/2024 7:50 AM EDT 12/28/2024 7:54 AM EDT us Generic External Data Provider LAB BLOOD ORDERAB LES Final Result Performing Organization Address [facility] Co de Phone Number [facility] [address] [place] [phone] * Magnesium (12/28/2024 7:50 AM EDT) Magnesium 2.1 1.6 - 2.6 mg/dL [facility] 12/28/2024 7:50 AM EDT 12/28/2024 7:54 AM EDT Generic External Data Provider LAB BLOOD ORDERAB LES Final Result Performing Organization Address [facility] Co de Phone Number [facility] [address] [place] [phone] [phone] * Hepatic Function Panel (12/28/2024 7:50 AM EDT) Bilirubin, Total 0.5 0.0 - 1.0 mg/dL [facility] Bilirubin, Direct 0.2 0.0 - 0.5 mg/dL [facility] Aspartate Amino Transferase 21 5 - 31 U/L [facility] Alanine Aminotransferase 23 0 - 31 U/L [facility] Total Protein 6.8 6.5 - 8.0 g/dL [facility] Albumin Level 4.0 3.5 - 5.0 g/dL [facility] Alkaline Phosphatase 63 39 - 117 U/L [facility] 12/28/2024 7:50 AM EDT 12/28/2024 7:54 AM EDT us Generic External Data Provider LAB BLOOD ORDERAB LES Final Result Performing Organization Address City/State/[facility] Co de Phone Number [facility] [address] [place] [phone] * (ABNORMAL) Basic Metabolic Panel (12/28/2024 7:50 AM EDT) Pathologist [facility] Sodium 141 135 - 145 mmol/L [facility] Potassium 3.6 3.3 - 5.1 mmol/L [facility] Chloride 111(H) 96 - 108 mmol/L [facility] Carbon Dioxide 24 22 - 29 mmol/L [facility] Anion Gap 10(L) 12 - 20 [facility] Urea Nitrogen (BUN) 9 9 - 16 mg/dL [facility] LABS Creatinine, Serum 0.66 0.5 - 1.4 mg/dL [facility] Creatinine Clr Calc Pharmacy 103.9 [facility] Comment:Provided height and weight: 154.94 cm,81.193 kg.eGFR (calculated from the MDRD study equation) and eCrCl(calculated from the Cockcroft-Gault equation) are based ondifferent parameters and may not yield comparable results.If eCrCl result is absurd, please check patient'sheight/weight. Estimated Glomerular Filt Rate >60 [facility] Comment:Chronic Kidney Disea se: Estimated GFR < 60 mL/min/1.80p2Qztlos Kidney Disease: Estimated GFR < 15 mL/min/1.73m2 Glucose 102 60 - 115 mg/dL [facility] Calcium 8.6 8.4 - 10.2 mg/dL [facility] 12/28/2024 7:50 AM EDT 12/28/2024 7:54 AM EDT us Generic External Data Provider LAB BLOOD ORDERAB LES Final Result Performing Organization Address City/State/[facility] Co de Phone Number [facility] [address] [place] [phone] * CT Abdomen Pelvis w/ Contrast (12/09/2024 6:19 AM EDT) Anatomical Region Laterality Modality Body, Pelvis, Abdomen Computed T omography 12/09/2024 6:19 AM EDT Narrative 12/09/2024 6:21 AM EDT [address] [address] [address] Scan Report Signed Patient: Abbie Hernandez MR#: [id number] : 1980 Acct:[id number] Age/Sex: 44 / F ADM Date: 12/09/24 Loc: .ED Attending Dr: Ordering Physician: Clive Ortega PA-C Date of Service: 12/09/24 Procedure(s): CT abdomen pelvis w IV con Accession Number(s): [id number] cc: Clive Ortega PA-C; Stephanie Cotton BRASS MOLDER HELPER Report Number: [id number]: Total DLP = 669.00 mGy-cm CLINICAL HISTORY: [...] in OV> 12/09/24619 DD/ 8 TD/TT: 12/09/24618 Kick Press Setter: Procedure Note Donotuseinterpreter, Image - 12/09/[address] [place] [address] [address] Scan Report Signed Patient: Maria Alejandra Hernandez#: [id number] : 1980Acct:[id number] Age/Sex: 44 / FADM Date: 12/09/24 Loc: HO.ED Attending Dr: Ordering Physician: Clive Ortega PA-C Date of Service: 12/09/24 Procedure(s): CT abdomen pelvis w IV con Accession Number(s): [id number] cc: Clive Ortega PA-C; Stephanie Cotton [facility] Report Number: [id number]: Total DLP = 669.00 mGy-cm CLINICAL HISTORY: [...] MD in OV> 12/09/24619 DD/ 8 TD/TT: 07/20/25 0619 Kick Press Setter: us [facility] External Provider IMG CT PROCEDURES Final Result * (ABNORMAL) Urinalysis, Complete, with Reflex to Culture (12/09/2024 4:38 AM EDT) Color Urine Yellow [facility] Appearance Urine Clear [facility] PH 6.5 5.0 - 9.0 [facility] Glucose Urine UA Negative Negative mg/dL [facility] Urine Blood Trace(A) Negative [facility] Specific Benld - Urine 1.015 1.005 - 1.025 [facility] Urine Protein Negative Neg-Trace mg/dL [facility] Urine Ketones Negative Negative mg/dL [facility] Nitrite Urine Negative Negative [facility] Leukocyte Esterase Urine Negative Negative [facility] RBC Urine 0-2 0 - 2 /HPF [facility] Urine WBC 0-5 0 - 5 /HPF [facility] Urine Squamous Epithelial Cell 0-2 0 - 2 /HPF [facility] Urine Bacteria None Seen None Seen [facility] Hyaline Casts, Urine 0-2 0 - 2 /LPF [facility] 12/09/2024 4:38 AM EDT 12/09/2024 4:52 AM EDT Narrative [facility] - 12/09/2024 5:06 AM EDT Urine, Clean Catch Generic External Data Provider LAB URINE ORDERAB LES Final Result [facility] [address] [place] [address] [phone] * hCG, Total, Quantitative (12/09/2024 3:49 AM EDT) HCG Quantitative <2 mIU/mL [facility] Comment:Weeks post LMP Appro ximate hCG(Last Menstrual Period) Range (mIU/ml)3 - 4 weeks 9 - 1304 - 5 weeks 75 - 2,6005 - 6 weeks 850 - 20,8006 - 7 weeks 4000 - 100,2007 - 12 weeks 11,500 - 289,24040 - 16 weeks 18,300 - 137,59187 - 29 weeks (2nd trimester) 1,400 - 53,27037 - 41 weeks (3rd trimester) 940 - [...] ORDERAB LES Final Result Performing Organization Address [facility]/ZIP Co de Phone Number [facility] [address] [place] [phone] * Lipase (12/09/2024 3:49 AM EDT) Lipase 18 8 - 78 U/L [facility] 12/09/2024 3:49 AM EDT 12/09/2024 3:56 AM EDT Generic External Data Provider LAB BLOOD ORDERAB LES Final Result Performing Organization Address [facility] Co de Phone Number [facility] [address] [place] [address] [phone] * (ABNORMAL) Comprehensive Metabolic Panel (12/09/2024 3:49 AM EDT) Sodium 142 135 - 145 mmol/L [facility] Potassium 4.0 3.3 - 5.1 mmol/L [facility] Chloride 110(H) 96 - 108 mmol/L [facility] Carbon Dioxide 23 22 - 29 mmol/L [facility] Anion Gap 13 12 - 20 [facility] Urea Nitrogen (BUN) 13 9 - 16 mg/dL [facility] Creatinine, Serum 0.73 0.5 - 1.4 mg/dL [facility] Creatinine Clr Calc Pharmacy 94.2 [facility] Comment:Provided height and weight: 154.94 cm,81.647 kg.eGFR (calculated from the MDRD study equation) and eCrCl(calculated from the Cockcroft-Gault equation) are based ondifferent parameters and may not yield comparable results.If eCrCl result is absurd, please check patient'sheight/weight. Estimated Glomerular Filt Rate >60 [facility] Comment:Chronic Kidney Disea se: Estimated GFR < 60 mL/min/1.89u6Hyfscn Kidney Disease: Estimated GFR < 15 mL/min/1.73m2 Glucose 102 60 - 115 mg/dL [facility] Calcium 9.1 8.4 - 10.2 mg/dL [facility] Bilirubin, Total 0.2 0.0 - 1.0 mg/dL [facility] Aspartate Amino Transferase 20 5 - 31 U/L [facility] Alanine Aminotransferase 19 0 - 31 U/L [facility] Total Protein 6.7 6.5 - 8.0 g/dL [facility] Albumin Level 4.0 3.5 - 5.0 g/dL [facility] Alkaline Phosphatase 66 39 - 117 U/L [facility] 12/09/2024 3:49 AM EDT 12/09/2024 3:56 AM EDT us Generic External Data Provider LAB BLOOD ORDERAB LES Final Result [facility] [address] [place] [phone] * 3D DIGITAL ALLISON SCR MAMMO 1 [...] HEPATITIS C ANTIBODY (04/30/2019 11:10 AM EST) [facility] HEPATITIS C ANTIBODY NONREACTIVE NONREACTIVE [facility] Comment: Antibodies to HCV not detected; does not exclude early acute HCV infection. 04/30/2019 11:1 0 AM EST Felecia Moseley NP HISTORICAL/NON ORDERABLE LABS Fi nal Result Performing Organization Address [facility] de Phone Number [facility] [address] * HIV AB/AG (04/30/2019 11:10 AM EST) [facility] HIV AG/AB NONREACTIVE NR FOUNDAT[facility] ON LAB [...] of detection of this assay. [employer] HIV Ag/Ab Combo assay result and supplemental assay results should be interpreted in conjunction with the patient's clinical presentation, history and other laboratory results. If the results are inconsistent with clinical evidence, additional testing is suggested to confirm the result. 04/30/2019 11:1 0 AM EST us Felecia Moseley NP HISTORICAL/NON ORDERABLE LABS Fi nal Result Performing Organization Address [facility] de Phone Number [facility] [address] * HPV mRNA E6/E7 (11/08/2017 10:07 AM EDT) [facility] HPV mRNA E6/E7 Not Detected NOT DETECTED [facility] Comment: This test was performed using the APTIMA(R) HPV Assay ([employer] This assay detects E6/E7 viral messenger RNA (mRNA) from 14 high-risk HPV types (16,18,31,33,35,39,45,51, 52,56,58,59,66,68). For additional information please refer to: http://education.TrackVia/faq/LNP620m5 (This link is being provided for informational/ educational purposes only.) The analytical performance characteristics of this assay have been determined by [employer] [place], [place]. The modifications have not been cleared or approved by the FDA. This assay has been validated pursuant to the CLIA regulations and is used for clinical purposes. Test Performed by [facility], [employer] [place], [address] [place], [place] Claudio Sanchez M.D., Ph.D., Director of Laboratories , CLIA [id number] Please note: Effective 02/02/2016, HPV testing will be performed using [employer]'s APTIMA test which targets mRNA. Detecting mRNA instead of DNA, as in older methods, offers significant improvements in specificity. 11/08/2017 10:0 7 AM EDT Felecia Moseley NP HISTORICAL/NON ORDERABLE LABS Fi nal Result [facility] [address] from Last 3 Months or Most Recently Relevant to Health Maintenance Insurance [facility] Care Teams House Servant Relationship Specialty Start Date End Date Stephanie Cotton FNP [address] [place] [phone] PCP - General Family Medicine 03/16/21
== END 2025-02-19 10:29 | disposition home or self-care (01) ==
PROVIDERS: PCP Registered Nurse; Visit Provider Registered Nurse
DX: G56.03 Carpal tunnel syndrome, bilateral upper limbs (principal); E34.8 Other specified endocrine disorders
CPT/HCPCS: 99214

== ENCOUNTER 2025-03-05 10:30 | Outpatient (REF) | payer OTHER, SELFPAY ==
--- OUTSIDE RECORDS SUMMARY | 2025-03-05 10:20 | XMS_ITS | Encounter Summary ---
Author Organization [employer] Address [address] [facility] 7t [place] [address] Care Team Providers Care Pre Sales Systems Engineer Name Role Phone Stephanie Cotton APPLIANCE SERVICE REPRESENTATIVE Primary Care Provider [phone] Reason for Referral * Imaging (Routine) - Authorized Specialty Diagnoses / Procedures Referred By Contac t Referred To Contact Radiology Diagnoses Breast cancer screening by mammogram Procedures BI Mammogram Screening Tomosynthesis Bilateral Pam Barton MD [address] [place] [address] Phone: tel: fax: [address] Phone: tel: fax: Referral ID Status Reason Start Date Expiration Date V isits Requested Visits Authorized [id number] Authorized 03/05/2025 03/05/2026 1 1 Reason for Visit * Reason Comments Cervical Cancer Screening Encounter Details Date Type Department Care Team (Latest Contact Info) Description 03/05/2025 10:20 AM EDT Procedure Visit [facility] [address], [place] [phone] Pam Barton MD [address] [place], [place] [phone] Breast cancer screening by mammogram (Primary Dx); Cervical cancer screening Social History Tobacco Use Types Packs/Day Years Used Date Smoking Tobacco: Every Day Cigarettes 0.5 21 Started: 05/23/1998; Last attempted to quit: 2019 Passive Smoke Exposure: Current Smokeless Tobacco: Never Tobacco Cessation:Ready to Q uit: Not Asked; Counseling Given: Not Answered Comments:Vape Passive Exposure Comments:Vape Alcohol Use Standard Drinks/Week Comments Never 0 (1 standard drink = 0.6 oz pur e alcohol) Depression Answer Date Recorded Patient Health Questionnaire-9 Score 15 02/11/2025 Patient Health Questionnaire-9 Score 15 02/11/2025 Last PHQ-9: Questionnaire Data Not on file 0 02/11/2025 Housing Stability Answer Date Recorded What is your housing situation today? I have cliffkaitlynn salas 10/08/[address] you [...] AM EST documented as of this encounter Last Filed Vital Signs Vital Sign Reading Time Taken Comments Blood Pressure 122/78 03/05/2025 10:29 AM EDT Pulse 82 03/05/2025 10:29 AM EDT Temperature 36.9 C (98.5 F) 03/05/2025 10:29 AM EDT Respiratory Rate 20 03/05/2025 10:29 AM EDT Oxygen Saturation 97% 03/05/2025 10:29 AM EDT Inhaled Oxygen Concentration - - Weight 80.1 kg (176 lb 9.6 oz) 03/05/2025 10:29 AM EDT Height 152.4 cm (5') 03/05/2025 10:29 AM EDT Body Mass Index 34.49 03/05/2025 10:29 AM EDT documented in this encounter Progress Notes * Pam Barton MD - 03/05/2025 10:20 AM EDT Subjective Patient ID: Abbie Hsieh is a 45 y.o. female who presents for Cervical Cancer Screening. 45 y.o. female here for annual well woman preventive exam. LMP: Patient's last menstrual period was 02/22/2025 (exact date). Sexual activity: Social History Substance and Sexual Activity Sexual activity: Yes Partners: Male intention: BC method: BTL Smoking hx: Tobacco Use: High Risk (03/05/2025) Tobacco Smoking Tobacco Use: Every Day Smokeless Tobacco Use: Never Passive Exposure: Current Alcohol use hx: Social History Substance and Sexual Activity Alcohol use: Never OBHx: # 1 - Date: None, Sex: None, Weight: None, GA: None, Type: None, Apgar1: None, Apgar5: None, Living: None, Comments: None # 2 - Date: None, Sex: None, Weight: None, GA: None, Type: None, Apgar1: None, Apgar5: None, Living: None, Comments: None # 3 - Date: None, Sex: None, Weight: None, GA: None, Type: None, Apgar1: None, Apgar5: None, Living: None, Comments: None IPV: Denies IPV Reviewed family hx Review of patient's family history indicates: Problem: Diabetes Relation: Mother Name: Age of Onset: (Not Specified) Problem: Hypertension Relation: Mother Name: Age of Onset: (Not Specified) Problem: Liver cancer Relation: Father Name: Age of Onset: (Not Specified) Problem: Other (biliary cancer) Relation: Father Name: Age of Onset: (Not Specified) Health Maintenance: No results found for: HMPAP , HMMAMMO , HMCOLON Review of Systems Constitutional: Negative for appetite change, fatigue and fever. HENT: Negative for congestion, postnasal drip and rhinorrhea. Eyes: Negative for discharge and redness. Respiratory: Negative for apnea, cough, chest tightness and shortness of breath. Cardiovascular: Negative for chest pain. Gastrointestinal: Negative for abdominal pain. Endocrine: Negative for polyphagia. Genitourinary: Negative for difficulty urinating, dysuria and urgency. Musculoskeletal: Negative for arthralgias. Neurological: Negative for dizziness, light-headedness, numbness and headaches. Hematological: Negative for adenopathy. Does not bruise/bleed easily. Objective BP 122/78 Pulse 82 Temp 98.5 ??F (36.9 ??C) (Oral) Resp 20 Ht 5' (1.524 m) Wt 176 lb 9.6 oz (80.1 kg) LMP 02/22/2025 (Exact Date) SpO2 97% BMI 34.49 kg/m?? Physical Exam Vitals reviewed. Exam conducted with a insecticide supervisor present. Constitutional: Appearance: She is obese. HENT: Head: Normocephalic and atraumatic. Pulmonary: Effort: Pulmonary effort is normal. Chest: Chest wall: No deformity, tenderness or crepitus. Breasts: Breasts are symmetrical. Right: Normal. No inverted nipple, mass, nipple discharge, skin change or tenderness. Left: Normal. No inverted nipple, mass, nipple discharge, skin change or tenderness. Genitourinary: Urethra: No prolapse. Vagina: Normal. Cervix: Normal. Rectum: Normal. Musculoskeletal: Cervical back: Normal range of motion. Lymphadenopathy: Upper Body: Right upper body: No supraclavicular, axillary or pectoral adenopathy. Left upper body: No supraclavicular, axillary or pectoral adenopathy. Psychiatric: Mood and Affect: Mood normal. Assessment/Plan Problem List Items Addressed This Visit Cervical cancer screening 45 y.o. here for cervical cancer screening. Will continue monitoring following ASCCP guidelines. Relevant Orders Pap Smear HPV High Risk with Reflex to Subtypes STI testing add on (NG, CT, Trich) Other Visit Diagnoses Breast cancer screening by mammogram - Primary Relevant Orders BI Mammogram Screening Tomosynthesis Bilateral documented in this encounter Miscellaneous Notes * Assessment & Plan Note - Pam Barton MD - 03/05/2025 11:25 AM EDT Associated Problem(s): Cervical cancer screening 45 y.o. here for cervical cancer screening. Will continue monitoring following ASCCP guidelines. documented in this encounter Plan of Treatment Scheduled Orders Name Type Priority Associated Diagnoses Order Schedule BI Mammogram Screening Tomosynthesis Bilateral Imaging Routine Breast cancer screening by mammogram Expected: 03/05/2025, Expires: 05/05/2026 Pap Smear Pathology and Cytology Routine Cervical cancer screening Ordered: 03/05/2025 HPV High Risk with Reflex to Subtypes Lab Routine Cervical cancer screening Ordered: 03/05/2025 STI testing add on (NG, CT, Trich) Pathology and Cytology Routine Cervical cancer screening Ordered: 03/05/2025 documented as of this encounter Visit Diagnoses Diagnosis Breast cancer screening by mammogram- Primary Cervical cancer screening Screening for malignant neoplasm of the cervix documented in this encounter Additional Health Concerns Assessment Noted Time PHQ-9 Depression Total Score: 15 02/11/ 025 10:30 AM EDT documented as of this encounter Care Teams Pre Sales Systems Engineer Relationship Specialty Start Date End Date Stephanie Cotton FNP [address] [place] [phone] PCP - General Family Medicine 03/16/21 documented as of this encounter
--- OUTSIDE RECORDS SUMMARY | 2025-03-05 17:16 | XMS_ITS | Encounter Summary ---
Author Organization [employer] Address [address] [facility] 7t [place] [address] Care Team Providers Care Foundry Manager Name Role Phone Stephanie Cotton BUCKY Primary Care Provider [phone] Encounter Details Date Type Department Care Team ([facility] st Contact Info) Description 08/13/2024 Orders Only [facility] [address], [place] [phone] Provider, MD Charisse Social History Tobacco Use [...] the past 12 months, has t he EmployInsight, gas, oil or water company threatened to [...] documented as of this encounter Care Teams Foundry Manager Relationship Specialty Start Date End Date Stephanie Cotton FNP [address] [place] [address] PCP - General Family Medicine 03/16/21 documented as of this encounter
--- OUTSIDE RECORDS SUMMARY | 2025-03-05 17:17 | XMS_ITS | Encounter Summary ---
Author Organization [employer] Address [address] [facility] 7t [place] [address] Care Team Providers Care Capsule Machine Operator Name Role Phone Stephanie Cotton EVENT ATTENDANT Primary Care Provider [phone] Encounter Details Date Type Department Care Team (Latest Contact Info) Description 03/05/2025 Travel Social History Tobacco Use Types Packs/Day Years [...] on file documented as of this encounter Visit Diagnoses Not on filedocumented in this encounter Additional Health Concerns Assessment Noted Time PHQ-9 Depression Total Score: 15 025 10:30 AM EDT documented as of this encounter Care Teams Capsule Machine Operator Relationship Specialty Start Date End Date Stephanie Cotton FNP [address] [place] [phone] PCP - General Family Medicine 03/16/21 documented as of this encounter
--- OUTSIDE RECORDS SUMMARY | 2025-03-05 17:17 | XMS_ITS | Encounter Summary ---
Author Organization [employer] Address [address] [facility] [address] 7t [place] [address] Care Team Providers Care Food Counselor Name Role Phone Lula Stephanie LAWLER Primary Care Provider [phone] Reason for Visit * Reason Comments Med Refill Encounter Details Date Type Department Care Team ([facility] st Contact Info) Description 09/29/2023 Refill [facility] [address] [place] [address] Stephanie Engel FNP Social History Tobacco Use [...] documented as of this encounter Care Teams Food Counselor Relationship Specialty Start Date End Date Stephanie Cotton FNP [address] [place] [phone] PCP - General Family Medicine 03/16/21 documented as of this encounter
--- OUTSIDE RECORDS SUMMARY | 2025-03-05 17:17 | XMS_ITS | Encounter Summary ---
Author Organization [employer] Address [address] [facility] 7t [place] [address] Care Team Providers Care Production Line Technician Name Role Phone Stephanie Cotton Primary Care Provider [phone] Reason for Visit * Reason Comments Med Change Request Encounter Details Date Type Department Care Team ([facility] st Contact Info) Description 03/14/2023 Refill [facility] [address] [place] [phone] Scott Ferguson MD [address] [place] [phone] Dysphagia, unspecified type Social History Tobacco Use [...] type documented in this encounter Care Teams Production Line Technician Relationship Specialty Start Date End Date Stephanie Cotton FNP [address] [place] [phone] PCP - General Family Medicine 03/16/21 documented as of this encounter
--- OUTSIDE RECORDS SUMMARY | 2025-03-05 17:17 | XMS_ITS | Clinical Summary ---
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 USE TO CHECK BLOOD SUGAR ONCE A DAY 100 each 01/26/20 25 2025 Active hydrOXYzine HCl (Atarax) 25 MG tablet TAKE 1 TABLET BY MOUTH NEEDED FOR ANXIETY- 02/28/20 25 Active omeprazole (PriLOSEC) [address] capsule 02/21/20 25 Active sertraline (Zoloft) 50 MG tablet Take 1 tablet by mouth Once per day. 02/28/20 25 Active busPIRone (Buspar) 5 MG tabletIndicatio ns:Anxiety and depression Take 1 tablet (5 mg) by mouth at bedtime. 30 tablet 1 01/19/20 25 2024 Discontinued Active Problems Problem Noted Date Diagnosed Date Cervical cancer screening 03/05/2025 Assessment & Plan (03/05/2025 11:25 AM EDT): 45 y.o. here for cervical cancer screening. Will continue monitoring following ASCCP guidelines. LIVE (generalized anxiety disorder) 02/20/2025 Elevated blood pressure reading 02/11/2025 Assessment & Plan (02/11/2025 3:06 PM EDT): BP Readings from Last 4 Encounters: 02/11/25 (!) 130/92 01/18/25 122/76 10/19/24 131/86 08/10/24 117/73 - Elevated BP reading today, previously wnl. Encouraged home BP monitoring and to f/up if above goal - Reviewed lifestyle interventions Panic disorder 02/04/2025 Bereavement 02/04/2025 GERD (gastroesophageal reflux disease) Overview (01/24/2025): Followed by [facility] Cont omeprazole 20mg daily through GI Consult note October 2024 - plan for EGD Cervical disc herniation 10/21/2024 Overview (10/21/2024): - August 2024: Cervical spine w/o contrast: Central disc herniation C4-5 abutting the cord without cord compression, edema and or myelopathy. - Referral to [facility] Pain Management placed 10/21/24 Assessment & Plan [...] on CT head/brain wo contrast 08/08/24 at [facility] ED: 1 cm partially calcified pineal cyst - Brain MRI August 2024: There is a 1 cm nonenhancing peripheral susceptibility signal in the pineal gland. - Consult with [facility] neurology Dr. Bryant on 10/16/2024. MRI of [...] allergic asthma 06/12/2015 Overview (06/25/2024): Previously by [facility] Pulchemo Whitney. Had received Nucala injections, no longer using d/t improvement in symptoms. Continues with Symbicort 160-4.5mcg/act: 2 puffs BID Rescue: albuterol PRN Assessment & Plan (06/25/2024 2:52 PM EST): Well controlled, cont with current regimen Assessment & Plan (09/01/2023 8:11 AM EDT): Followed by [facility] Og Whitney Continues with Symbicort 160-4.5mcg/act: 2 puffs [...] organization. Date Type Department Care Team Description 03/05/2025 10:20 AM EDT Procedure Visit [facility] [address] [place] [address] Pam Barton MD Breast cancer screening by mammogram (Primary Dx); Cervical cancer screening 03/05/2025 Travel 02/26/2025 Travel 02/12/2025 Telephone [facility] [address] [place] [address] Stephanie Cotton FNP Breast Cancer Screening 02/11/2025 10:15 AM EDT Office Visit [facility] [address] [place] [address] Stephanie Cotton FNP Class 2 obesity without serious comorbidity with body mass index (BMI) of 37.0 to 37.9 in adult, unspecified obesity type (Primary Dx); Dietary counseling; Exercise counseling; Anxiety and depression; Healthcare maintenance; Mixed insomnia; Elevated blood pressure reading 02/11/2025 Travel 02/08/2025 Telephone [facility] [address] [place] [address] Stephanie Cotton FNP Chart Prep 02/04/2025 Patient Outreach [address] [address] Stephanie Cotton FNP Pre-visit Planning (SDOH screening completed on 10/08/24) 01/24/2025 Refill [facility] [address] [place] [address] Stephanie Cotton FNP Prediabetes 01/22/2025 Refill [facility] [address] [place] [address] Stephanie Cotton FNP Prediabetes (Primary Dx) 01/18/2025 3:15 PM EDT Office Visit [facility] [address] [place] [address] Stephanie Cotton FNP Anxiety and depression (Primary Dx); Healthcare maintenance; Gastroesophageal reflux disease, unspecified whether esophagitis present; Prediabetes 01/18/2025 Travel 01/07/2025 Refill [facility] [address] [place] [address] Stephanie Cotton FNP Cervical disc herniation 01/04/2025 Telephone [facility] [address] [place] [phone] Stephanie Cotton FNP Hospital Follow-up 12/28/2024 Orders Only GENERIC EXTERNAL DATA DEPARTMENT Provider, Generic External Data 12/12/2024 Refill [facility] [address] [place] [address] Stephanie Cotton FNP Pain 12/09/2024 Orders Only [...] oid, preservative free, adsorbed 12/12/2007 Tdap 01/19/2016 Family History Medical History Relation Name Comments Liver cancer Father biliary cancer Father Diabetes Mother Hypertension Mother Relation Name Status Comments Father Mother Social History Tobacco Use Types Packs/Day Years [...] your housing situation today? I have cliff josue 10/08/[address] you li [...] Mass Index 34.49 03/05/2025 10:29 AM EDT Plan of Treatment Health Maintenance Due Date Last Done Comments CT Colonography 1980 Colonoscopy 1979 Colorectal Cancer Screening 1980 FIT DNA/Cologuard 1979 FIT 1979 FOBT 1979 Sigmoidoscopy 1980 Family Planning (PISQ) 1994 Hepatitis B Vaccines (1 of 3 - 19+ 3-dose series) 1998 Pap Smear 01/09/2000 Mammogram 05/09/2021 05/09/2019 Cervical Cancer Screening 11/08/2022 HPV/Cotest 11/08/2022 11/08/2017 Depression Monitoring 08/11/2025 02/11/2025, 025 SDOH Screening 10/08/2025 10/08/2024 Influenza Vaccine (#1) 2025 0, 03/27/2019, 02/13/2018, Additional history exists Postponed from 01/21/2025 (Patient Refused) DTaP/Tdap/Td Vaccines (2 - Td or Tdap) 01/18/2026 01/19/2016, 12/12/2007 Disability Screening 01/18/2026 01/18/2025 Diabetes: Hemoglobin A1C 01/24/2026 025, 08/03/2023, 04/30/2019 Alcohol/Substance Use Screening 02/11/2026 02/11/2025 COVID-19 Vaccine ( - season) 2026 10/15/2020, 09/17/2020 Postponed from 01/21/2025 (Patient Refused) Pneumococcal Vaccine: Pediatrics (0 to 5 Years) and At-Risk Patients (6 to 49) Years (2 of 2 - PCV) 03/05/2026 05/25/2011 Postponed from 05/25/2012 (Patient Refused) Tobacco Screening 03/05/2026 03/05/2025 Zoster Vaccines (1 of 2) 2029 Lipid [...] SCREENING BILATERAL Routine 05/09/2019 10:16 AM EST [facility] HEPATITIS C ANTIBODY Routine 04/30/2019 11:10 AM EST [facility] HIV AB/AG Routine 04/30/2019 11:10 AM EST [facility] HPV MRNA E6/E7 Routine 11/08/2017 10:07 AM EDT from Last 3 Months or Most Recently Relevant to Health Maintenance Results * TSH W/Reflex to FT4 (01/24/2025 9:11 AM EDT) TSH reflex Free T4 1.32 0.32 - 4.0 uIU/mL [facility] Blood Venous blood specimen / Unknown 01/24/2025 9:11 AM EDT 01/24/2025 9:11 AM EDT us Stephanie Cotton 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 Blood transfusions may impact the HbA1c concentration in the patient sample. Estimated Average Glucose 108 mg/dL [facility] Comment:eAG = Estimated ave rage glucose which is %A1C expressed asaverage glucose, using the formula of the Z0H-WsvyzpcDwyaers Glucose study (ADAG), Diabetes Care, Vol.31,#8,Dec. 2007 Blood Venous blood specimen / Unknown 01/24/2025 9:11 AM EDT 01/24/2025 9:11 AM EDT Stephanie Cotton [facility] LAB BLOOD ORDERABLES Final Res ult Performing Organization Address [facility] Co de Phone Number [facility] [address] [place] [phone] * (ABNORMAL) Lipid Panel, Standard (01/24/2025 9:11 AM EDT) Triglycerides 112 <150 mg/dL [facility] Comment:Desirable Triglyceri de: less than 150 mg/dLBorderline High Triglyceride 150-199 mg/dLHigh Triglyceride: 200-499 mg/dLVery High Triglyceride: greater than or equal to 5OO mg/dL Cholesterol 175 <200 mg/dL [facility] Comment:Desirable Cholestero l: less than 200 mg/dLBorderline High Cholesterol: 200-239 mg/dLHigh Cholesterol: greater than 239 mg/dL LDL Cholesterol Calculated 119(H) <100 mg/dL [facility] Comment:Desirable LDL: less than 100 mg/dLNear Optimal/Above Optimal LDL: 110- 129 mg/dLBorderline High LDL: 130-159 mg/dLHigh LDL: 160-189 mg/dLVery High LDL: greater than or equal to 190 mg/dL HDL Cholesterol 34(L) >40 mg/dL [facility] Comment:Desirable HDL: great er than 40 mg/dL Note: This HDL assay may give artificially low results in patients with liver disease. Blood Venous blood specimen / Unknown 01/24/2025 9:11 AM EDT 01/24/2025 9:11 AM EDT us Stephanie Cotton [facility] LAB BLOOD ORDERABLES Final Res ult Performing Organization Address [facility] Co de Phone Number [facility] [address] [place] [phone] * XR Thoracic Spine 2 Views (01/19/2025 2:32 PM EDT) Anatomical Region Laterality Modality Spine, T-spine Radiographic Karlie ging 01/19/2025 2:32 PM EDT Narrative 01/19/2025 2:33 PM EDT [address] [address] XRay Report Signed Patient: Abbie Hernandez MR#: [id number] : 1980 Acct:[id number] Age/Sex: 45 / F ADM Date: 01/18/25 Loc: HILDA Attending Dr: Aubree LAWLER Ordering Physician: Aubree Mayfield Date of Service: 01/18/25 Procedure(s): XR thoracic spine 2V Accession Number(s): [id number] cc: Aubree Mayfield; Stephanie Cotton CLINICAL HISTORY: [...] 01/19/25 1433 DD/ 1432 TD/TT: 01/19/25 1432 Electrical Maintenance Man: Procedure Note Donotuseinterpreter, Image - 01/19/[address] [address] XRay Report Signed Patient: Galen HernandezR#: Chemo [id number] : 1980Acct:[id number] Age/Sex: 45 / FADM Date: 01/18/25 Loc: HILDA Attending Dr: Aubree LAWLER Ordering Physician: Aubree Mayfield Date of Service: 01/18/25 Procedure(s): XR thoracic spine 2V Accession Number(s): [id number] cc: Aubree Mayfield; Stephanie Cotton CLINICAL HISTORY: [...] 01/19/25 1433 DD/ 1432 TD/TT: 01/19/25 1432 Electrical Maintenance Man: [facility] External Provider IMG XR PROCEDURES Final Result * XR CERVICAL SPINE 3V (01/18/2025 1:50 PM EDT) Anatomical Region Laterality Modality Abdomen Radiographic Karlie ging 01/18/2025 1:50 PM EDT Narrative 01/18/2025 2:06 PM EDT [place] [address] XRay Report Signed Patient: Abbie Hernandez MR#: M [id number] : 1980 Acct:[id number] Age/Sex: 45 / F ADM Date: 01/18/25 Loc: HOYARI Attending Dr: Aubree LAWLER Ordering Physician: Aubree Mayfield Date of Service: 01/18/25 Procedure(s): XR cervical spine 3V Accession Number(s): [id number] cc: Aubree Mayfield; Stephanie Cotton EXAMINATION: XR CERVICAL SPINE 2-3 VIEWS HISTORY: [...] 01/18/25 1404 DD/ 1350 TD/TT: 01/18/25 1400 Electrical Maintenance Man: Procedure Note Donotuseinterpreter, Image - 01/18/[address] [address] XRay Report Signed Patient: Maria Alejandra Hernandez#: M [id number] : 1980Acct:[id number] Age/Sex: 45 / FADM Date: 01/18/25 Loc: HO.XRAY Attending Dr: Aubree LAWLER Ordering Physician: Aubree Mayfield Date of Service: 01/18/25 Procedure(s): XR cervical spine 3V Accession Number(s): [id number] cc: Aubree MayfieldP; Stephanie Cotton 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 12/28/2024 7:50 AM EDT 12/28/2024 7:54 AM EDT Generic External Data Provider LAB BLOOD ORDERAB LES Final Result [facility] [address] [place] [phone] * CBC auto differential (12/28/2024 7:50 AM EDT) Only the most recent of2 resultswithin the time period is included. White Blood Count 8.1 4.8 - 10.8 X10*3/uL [facility] Red Blood Count 4.76 4.20 - 5.50 X10*6/uL [facility] Hemoglobin 14.1 12.0 - 16.0 g/dl [facility] Hematocrit 40.6 37.0 - 47.0 % [facility] Mean Corpuscular Volume 85.3 80.0 - 98.0 fL [facility] Mean Corpuscular Hemoglobin 29.6 27.0 - 33.0 pg [facility] Mean Corpuscular HGB Conc 34.7 31.0 - 35.0 g/dl [facility] Red Cell Distribution Width 12.9 11.0 - 16.0 % [facility] Platelet Count 261 160 - 400 X10*3/uL [facility] Mean Platelet Volume 10.2 9.4 - 12.3 fL [facility] Neutrophils Percent Auto 58.5 45 - 73 % [facility] Imm Gran Pct Auto 0.4 0.0 - 0.4 % [facility] Lymphocytes Percent Auto 32.8 20 - 40 % [facility] Monocytes Percent Auto 6.9 2 - 11 % [facility] Eosinophils Percent Auto 1.0 0 - 4 % [facility] Basophils Percent Auto 0.4 0 - 2 % [facility] NRBC Pct Auto 0.0 0.0 - 0.2 /100WBC [facility] Neutrophils Absolute Auto 4.7 2.0 - 8.3 x10*3/uL [facility] Imm Gran Abs Auto 0.03 0.00 - 0.03 X10*3/uL [facility] Lymphocytes Absolute Auto 2.7 1.2 - 4.9 X10*3/uL [facility] Monocytes Absolute Auto 0.6 0.1 - 1.2 X10*3/uL [facility] Eosinophils Absolute Auto 0.1 0.0 - 0.4 X10*3/uL [facility] Basophils Absolute Auto 0.0 0.0 - 0.2 X10*3/uL [facility] NRBC Abs Auto 0.000 0.0 - 0.012 X10*3/uL [facility] 12/28/2024 7:50 AM EDT 12/28/2024 7:54 AM EDT us Generic External Data Provider LAB BLOOD ORDERAB LES Final Result [facility] [address] [place] [phone] * Magnesium (12/28/2024 7:50 AM EDT) [facility] Magnesium 2.1 1.6 - 2.6 mg/dL [facility] 12/28/2024 7:50 AM EDT 12/28/2024 7:54 AM EDT Generic External Data Provider LAB BLOOD ORDERAB LES Final Result Performing Organization Address [facility] Co de Phone Number [facility] [address] [place] [phone] * Hepatic Function Panel (12/28/2024 7:50 AM EDT) [facility] Bilirubin, Total 0.5 0.0 - 1.0 mg/dL [facility] Bilirubin, Direct 0.2 0.0 - 0.5 mg/dL [facility] Aspartate Amino Transferase 21 5 - 31 U/L [facility] Alanine Aminotransferase 23 0 - 31 U/L [facility] Total Protein 6.8 6.5 - 8.0 g/dL [facility] Albumin Level 4.0 3.5 - 5.0 g/dL [facility] Alkaline Phosphatase 63 39 - 117 U/L [facility] 12/28/2024 7:50 AM EDT 12/28/2024 7:54 AM EDT Generic External Data Provider LAB BLOOD ORDERAB LES Final Result Performing Organization Address [facility] Co de Phone Number [facility] [address] [place] [phone] * (ABNORMAL) Basic Metabolic Panel (12/28/2024 7:50 AM EDT) [facility] Sodium 141 135 - 145 mmol/L [facility] Potassium 3.6 3.3 - 5.1 mmol/L [facility] Chloride 111(H) 96 - 108 mmol/L [facility] Carbon Dioxide 24 22 - 29 mmol/L [facility] Anion Gap 10(L) 12 - 20 [facility] Urea Nitrogen (BUN) 9 9 - 16 mg/dL [facility] Creatinine, Serum 0.66 0.5 - 1.4 mg/dL [facility] Creatinine Clr Calc Pharmacy 103.9 [facility] Comment:Provided height and weight: 154.94 cm,81.193 kg.eGFR (calculated from the MDRD study equation) and eCrCl(calculated from the Cockcroft-Gault equation) are based ondifferent parameters and may not yield comparable results.If eCrCl result is absurd, please check patient'sheight/weight. Estimated Glomerular Filt Rate >60 [facility] Comment:Chronic Kidney Disea se: Estimated GFR < 60 mL/min/1.40m9Hnkwtp Kidney Disease: Estimated GFR < 15 mL/min/1.73m2 Glucose 102 60 - 115 mg/dL [facility] Calcium 8.6 8.4 - 10.2 mg/dL [facility] 12/28/2024 7:50 AM EDT 12/28/2024 7:54 AM EDT us Generic External Data Provider LAB BLOOD ORDERAB LES Final Result [facility] [address] [place] [phone] * CT Abdomen Pelvis w/ Contrast (12/09/2024 6:19 AM EDT) Anatomical Region Laterality Modality Body, Pelvis, Abdomen Computed T omography 12/09/2024 6:19 AM EDT Narrative 12/09/2024 6:21 AM EDT [address] [address] [address] Scan Report Signed Patient: Abbie Heranndez MR#: M [id number] : 1980 Acct:[id number] Age/Sex: 44 / F ADM Date: 12/09/24 Loc: HO.ED Attending Dr: Ordering Physician: Clive Ortega PA-C Date of Service: 12/09/24 Procedure(s): CT abdomen pelvis w IV con Accession Number(s): [id number] cc: Clive Ortega PA-C; Stephanie Cotton Report Number: [id number]: Total DLP = 669.00 mGy-cm CLINICAL HISTORY: [...] in OV> 12/09/24619 DD/ 8 TD/TT: 12/09/24618 Electrical Maintenance Man: Procedure Note Donotuseinterpreter, Image - 12/09/[address] [place] [address] [address] Scan Report Signed Patient: Maria Alejandra Hernandez#: M [id number] : 1980Acct:[id number] Age/Sex: 44 / FADM Date: 12/09/24 Loc: HO.ED Attending Dr: Ordering Physician: Clive Ortega PA-C Date of Service: 12/09/24 Procedure(s): CT abdomen pelvis w IV con Accession Number(s): [id number] cc: Clive Ortega PA-C; Stephanie Cotton Report Number: [id number]: Total DLP = 669.00 mGy-cm CLINICAL HISTORY: [...] in OV> 12/09/24619 DD/ 8 TD/TT: 12/09/24618 Electrical Maintenance Man: [facility] External Provider IMG CT PROCEDURES Final Result * (ABNORMAL) Urinalysis, Complete, with Reflex to Culture (12/09/2024 4:38 AM EDT) Color Urine Yellow [facility] Appearance Urine Clear [facility] PH 6.5 5.0 - 9.0 [facility] Glucose Urine UA Negative Negative mg/dL [facility] Urine Blood Trace(A) Negative [facility] Specific [place] - Urine 1.015 1.005 - 1.025 [facility] Urine Protein Negative Neg-Trace mg/dL [facility] Urine Ketones Negative Negative mg/dL [facility] Nitrite Urine Negative Negative [facility] Leukocyte Esterase Urine Negative Negative [facility] RBC Urine 0-2 0 - 2 /HPF [facility] Urine WBC 0-5 0 - 5 /HPF [facility] Urine Squamous Epithelial Cell 0-2 0 - 2 /HPF [facility] Urine Bacteria None Seen None Seen [facility] Hyaline Casts, Urine 0-2 0 - 2 /LPF [facility] 12/09/2024 4:38 AM EDT 12/09/2024 4:52 AM EDT Narrative [facility] - 12/09/2024 5:06 AM EDT Urine, Clean Catch Generic External Data Provider LAB URINE ORDERAB LES Final Result Performing Organization Address [facility] Co de Phone Number [facility] [address] [place] [phone] * hCG, Total, Quantitative (12/09/2024 3:49 AM EDT) HCG Quantitative <2 mIU/mL [facility] Comment:Weeks post LMP Appro ximate hCG(Last Menstrual Period) Range (mIU/ml)3 - 4 weeks 9 - 1304 - 5 weeks 75 - 2,6005 - 6 weeks 850 - 20,8006 - 7 weeks 4000 - 100,2007 - 12 weeks 11,500 - 289,04199 - 16 weeks 18,300 - 137,94641 - 29 weeks (2nd trimester) 1,400 - 53,81888 - 41 weeks (3rd trimester) 940 - [...] ORDERAB LES Final Result Performing Organization Address City/[facility] Co de Phone Number [facility] [address] [place] [phone] * Lipase (12/09/2024 3:49 AM EDT) Lipase 18 8 - 78 U/L [facility] 12/09/2024 3:49 AM EDT 12/09/2024 3:56 AM EDT us Generic External Data Provider LAB BLOOD ORDERAB LES Final Result [facility] [address] [place] [phone] * (ABNORMAL) Comprehensive Metabolic Panel (12/09/2024 3:49 AM EDT) Sodium 142 135 - 145 mmol/L [facility] Potassium 4.0 3.3 - 5.1 mmol/L [facility] Chloride 110(H) 96 - 108 mmol/L [facility] Carbon Dioxide 23 22 - 29 mmol/L [facility] Anion Gap 13 12 - 20 [facility] Urea Nitrogen (BUN) 13 9 - 16 mg/dL [facility] Creatinine, Serum 0.73 0.5 - 1.4 mg/dL [facility] Creatinine Clr Calc Pharmacy 94.2 [facility] Comment:Provided height and weight: 154.94 cm,81.647 kg.eGFR (calculated from the MDRD study equation) and eCrCl(calculated from the Cockcroft-Gault equation) are based ondifferent parameters and may not yield comparable results.If eCrCl result is absurd, please check patient'sheight/weight. Estimated Glomerular Filt Rate >60 [facility] Comment:Chronic Kidney Disea se: Estimated GFR < 60 mL/min/1.19u5Uygilc Kidney Disease: Estimated GFR < 15 mL/min/1.73m2 Glucose 102 60 - 115 mg/dL [facility] Calcium 9.1 8.4 - 10.2 mg/dL [facility] Bilirubin, Total 0.2 0.0 - 1.0 mg/dL [facility] Aspartate Amino Transferase 20 5 - 31 U/L [facility] Alanine Aminotransferase 19 0 - 31 U/L [facility] Total Protein 6.7 6.5 - 8.0 g/dL [facility] Albumin Level 4.0 3.5 - 5.0 g/dL [facility] Alkaline Phosphatase 66 39 - 117 U/L [facility] 12/09/2024 3:49 AM EDT 12/09/2024 3:56 AM EDT us Generic External Data Provider LAB BLOOD ORDERAB LES Final Result Performing Organization Address City/[facility]/ZIP Co de Phone Number [facility] [address] [place] [address] [phone] * 3D DIGITAL ALLISON SCR MAMMO [...] AM EST) HEPATITIS C ANTIBODY NONREACTIVE NON[facility]IVE [facility] Comment: Antibodies to HCV not detected; does not exclude early acute HCV infection. 04/30/2019 11:1 0 AM EST us Felecia Moseley NP HISTORICAL/NON ORDERABLE LABS Fi nal Result Performing Organization Address City/[facility]/ZIP Co de Phone Number [facility] [address] * HIV AB/AG (04/30/2019 11:10 AM EST) HIV AG/AB NONREACTIVE NR [facility] [...] of detection of this assay. [employer] HIV Ag/Ab Combo assay result and supplemental assay results should be interpreted in conjunction with the patient's clinical presentation, history and other laboratory results. If the results are inconsistent with clinical evidence, additional testing is suggested to confirm the result. 04/30/2019 11:1 0 AM EST Felecia Moseley NP HISTORICAL/NON ORDERABLE LABS Fi nal Result Performing Organization Address [facility] Co de Phone Number [facility] [address] * HPV mRNA E6/E7 (11/08/2017 10:07 AM EDT) HPV mRNA E6/E7 Not Detected NOT DETECTED [facility] Comment: This test was performed using the APTIMA(R) HPV Assay ([employer] This assay detects E6/E7 viral messenger RNA (mRNA) from 14 high-risk HPV types (16,18,31,33,35,39,45,51, 52,56,58,59,66,68). For additional information please refer to: http://education.[employer]/faq/ATQ246b7 (This link is being provided for informational/ educational purposes only.) The analytical performance characteristics of this assay have been determined by [facility] [place], [place]. The modifications have not been cleared or approved by the FDA. This assay has been validated pursuant to the CLIA regulations and is used for clinical purposes. Test Performed by [facility], [facility], [address] [place] [address] Claudio Sanchez M.D., Ph.D., Director of Laboratories , CLIA [id number] Please note: Effective 02/02/2016, HPV testing will be performed using [employer]'s APTIMA test which targets mRNA. Detecting mRNA instead of DNA, as in older methods, offers significant improvements in specificity. 11/08/2017 10:0 7 AM EDT Felecia Moseley NP HISTORICAL/NON ORDERABLE LABS Fi nal Result Performing Organization Address [facility]/State/[facility] Co de Phone Number [facility] [address] from Last 3 Months or Most Recently Relevant to Health Maintenance Insurance Care Teams Manager In Home Relationship Specialty Start Date End Date Stephanie Cotton FNP [address] [place] [id number] PCP - General Family Medicine 03/16/21
[2025-03-07 21:37] LABS: C. trachomatis RNA TMA NOT DETECTED (NOT DETECTED); N. gonorrhoeae RNA TMA NOT DETECTED (NOT DETECTED); Trichomonas (NAAT) NOT DETECTED (NOT DETECTED)
== END 2025-03-05 10:31 | disposition home or self-care (01) ==
LOC: HO.HHCLNP 10:30
PROVIDERS: Visit Provider Family Medicine
DX: Z12.4 Encounter for screening for malignant neoplasm of cervix (principal); Z11.51 Encounter for screening for human papillomavirus (HPV)
CPT/HCPCS: 87491; 87591; 87626; 87661; 88175

== ENCOUNTER 2025-03-09 23:46 | Emergency (ER) | payer OTHER, SELFPAY ==
--- OUTSIDE RECORDS SUMMARY | 2025-03-05 10:20 | XMS_ITS | Encounter Summary ---
Author Organization [employer] Address [address] [facility] 7t [place] [address] Care Team Providers Care Topology Teacher Name Role Phone Stephanie Cotton TERMINAL WORKER Primary Care Provider [phone] Reason for Referral * Imaging (Routine) - Authorized Specialty Diagnoses / Procedures Referred By Contac t Referred To Contact Radiology Diagnoses Breast cancer screening by mammogram Procedures BI Mammogram Screening Tomosynthesis Bilateral Pam Barton MD [address] [place] [address] Phone: tel: fax: [address] Phone: tel: fax: Referral ID Status Reason Start Date Expiration Date V isits Requested Visits Authorized [id number] Authorized 03/05/2025 03/05/2026 1 1 Reason for Visit * Reason Comments Cervical Cancer Screening Encounter Details Date Type Department Care Team (Latest Contact Info) Description 03/05/2025 10:20 AM EDT Procedure Visit [facility] P[facility] [address] [place], [place] [phone] Pam Barton MD [address] [place], [place] [phone] Breast cancer screening by mammogram (Primary Dx); Cervical cancer screening Social History Tobacco Use Types Packs/Day Years Used Date Smoking Tobacco: Every Day Cigarettes 0.5 21.1 Started: 05/23/1998; Last attempted to quit: 2019 [...] Exam Vitals reviewed. Exam conducted with a car deliverer present. Constitutional: Appearance: She is obese. HENT: [...] documented in this encounter Plan of Treatment Pending Results Name Type Priority Associated Diagnoses Date /Time STI testing add on (NG, CT, Trich) Pathology and Cytology Routine Cervical cancer screening 03/05/2025 10:30 AM EDT Scheduled Orders Name Type Priority Associated Diagnoses Order Schedule BI Mammogram Screening Tomosynthesis Bilateral Imaging Routine Breast cancer screening by mammogram Expected: 03/05/2025, Expires: 05/05/2026 Pap Smear Pathology and Cytology Routine Cervical cancer screening Ordered: 03/05/2025 HPV High Risk with Reflex to Subtypes Lab Routine Cervical cancer screening Ordered: 03/05/2025 documented as of this encounter Procedures Procedure Name Priority Date/Time Associated Diagnosis Comments CHLAMYDIA/N. GONORRHOEAE AND T. VAGINALIS RNA, QUAL,TMA Routine 03/05/2025 10:30 AM EDT Cervical cancer screening documented in this encounter Visit Diagnoses Diagnosis Breast cancer screening by mammogram- Primary Cervical cancer screening Screening for malignant neoplasm of the cervix documented in this encounter Additional Health Concerns Assessment Noted Time PHQ-9 Depression Total Score: 15 02/11/2 025 10:30 AM EDT documented as of this encounter Care Teams Topology Teacher Relationship Specialty Start Date End Date Stephanie Cotton FNP [address] [place] [phone] PCP - General Family Medicine 03/16/21 documented as of this encounter
--- NOTE | ~2025-03-09 | XR_ITS ---
CLINICAL HISTORY: cp Exam: AP portable chest x-ray. Comparison: November 15, 2024. Findings: Heart size and pulmonary vasculature are within normal limits. No focal infiltrates. No pleural effusion. Mild eventration of the right hemidiaphragm. Impression: No acute finding This document has been electronically signed by: Rgoers Neves MD on 03/10/2025 01:49:32
--- NOTE | 2025-03-09 23:47 | ECG_ITS ---
Test Reason : CP Blood Pressure : */* mmHG Vent. Rate : 74 BPM Atrial Rate : 74 BPM P-R Int : 150 ms QRS Dur : 74 ms QT Int : 400 ms P-R-T Axes : 10 7 29 degrees QTcB Int : 444 ms Normal sinus rhythm Normal ECG When compared with ECG of 28-Dec-2024 07:39, No significant change was found Referred By: Generic ED Physician Electronically Signed By: Javed Gao
[2025-03-09 23:59] VITALS: BP 132/85; PULSE 81; RESP 16; TEMP 35.9; O2SAT 96; BMI 32.7
--- OUTSIDE RECORDS SUMMARY | 2025-03-10 00:18 | XMS_ITS | Encounter Summary ---
Author Organization [employer] Address [address] [facility] [address] [place] [address] Care Team Providers Care E Learning Developer Name Role Phone Stephanie Cotton Primary Care Provider [phone] Reason for Visit * Reason Comments Med Change Request Encounter Details Date Type Department Care Team ([facility] st Contact Info) Description 03/14/2023 Refill [facility] [address] [place] [id number] Scott Ferguson MD [address] [place] [id number] Dysphagia, unspecified type Social History Tobacco Use [...] type documented in this encounter Care Teams E Learning Developer Relationship Specialty Start Date End Date Stephanie Cotton FNP [address] [place] [id number] PCP - General Family Medicine 03/16/21 documented as of this encounter
--- OUTSIDE RECORDS SUMMARY | 2025-03-10 00:18 | XMS_ITS | Encounter Summary ---
Author Organization [employer] Address [address] [place] [address] Care Team Providers Care Reservation Sales Agent Name Role Phone Stephanie Cotton MEDICAL CLERICAL ASSISTANT Primary Care Provider [phone] Encounter Details Date Type Department Care Team [...] documented as of this encounter Care Teams Reservation Sales Agent Relationship Specialty Start Date End Date Stephanie Cotton FNP [address] [place] [phone] PCP - General Family Medicine 03/16/21 documented as of this encounter
--- OUTSIDE RECORDS SUMMARY | 2025-03-10 00:18 | XMS_ITS | Encounter Summary ---
Author Organization [employer] Address [address] [facility] [address] [place] [address] Care Team Providers Care Machine Programmer Name Role Phone Lula Stephanie LAWLER Primary Care Provider [phone] Reason for Visit * Reason Comments Med Refill Encounter Details Date Type Department Care Team ([facility] st Contact Info) Description 09/29/2023 Refill [facility] [address] [place] [address] Stephanie Engel FNP Social History Tobacco Use [...] documented as of this encounter Care Teams Machine Programmer Relationship Specialty Start Date End Date Stephanie Cotton FNP [address] [place] [phone] PCP - General Family Medicine 03/16/21 documented as of this encounter
--- OUTSIDE RECORDS SUMMARY | 2025-03-10 00:18 | XMS_ITS | Encounter Summary ---
Author Organization [employer] Address [address] [facility] [address] [place] [address] Care Team Providers Care Clinical Care Coordinator Name Role Phone Stephanie Cotton BUCKY Primary Care Provider [phone] Encounter Details Date Type Department Care Team ([facility] st Contact Info) Description 08/13/2024 Orders Only [facility] [address] [place], [place] [id number] Provider, MD Charisse Social History Tobacco Use [...] the past 12 months, has t he [employer] gas, oil or water company threatened to [...] documented as of this encounter Care Teams Clinical Care Coordinator Relationship Specialty Start Date End Date Stephanie Cotton FNP [address] [place] [address] PCP - General Family Medicine 03/16/21 documented as of this encounter
[2025-03-10 00:19] LABS: MANUAL DIFF FLAG NO
--- OUTSIDE RECORDS SUMMARY | 2025-03-10 00:19 | XMS_ITS | Clinical Summary ---
Author Organization [employer] Address [address] [facility] [address] [place] [address] Care Team Providers Care Professor Of Apologetics Name Role Phone Stephanie Cotton FLOORING INSTALLER Primary Care Provider Allergies No known active [...] (gastroesophageal reflux disease) Overview (01/24/2025): Followed by [facility] Cont omeprazole 20mg daily through GI Consult note October 2024 - plan for EGD Cervical disc herniation 10/21/2024 Overview (10/21/2024): - August 2024: Cervical spine w/o contrast: Central disc herniation C4-5 abutting the cord without cord compression, edema and or myelopathy. - Referral to [facility] Pain Management placed 10/21/24 Assessment & Plan [...] on CT head/brain wo contrast 08/08/24 at [facility] ED: 1 cm partially calcified pineal cyst - Brain MRI August 2024: There is a 1 cm nonenhancing peripheral susceptibility signal in the pineal gland. - Consult with [facility] neurology Dr. Bryant on 10/16/2024. MRI of [...] allergic asthma 06/12/2015 Overview (06/25/2024): Previously by [facility] Pulchemo Whitney. Had received Nucala injections, no longer using d/t improvement in symptoms. Continues with Symbicort 160-4.5mcg/act: 2 puffs BID Rescue: albuterol PRN Assessment & Plan (06/25/2024 2:52 PM EST): Well controlled, cont with current regimen Assessment & Plan (09/01/2023 8:11 AM EDT): Followed by [facility] Og Whitney Continues with Symbicort 160-4.5mcg/act: 2 [...] Description 03/05/2025 10:20 AM EDT Procedure Visit [facility] [address] [place] [address] Pam Barton MD Breast cancer screening by mammogram (Primary Dx); Cervical cancer screening 03/05/2025 Travel 02/26/2025 Travel 02/12/2025 Telephone [facility] [address] [place] [address] Stephanie Cotton FNP Breast Cancer Screening 02/11/2025 10:15 AM EDT Office Visit [facility] [address] [place] [address] Stephanie Cotton FNP Class 2 obesity without serious comorbidity with body mass index (BMI) of 37.0 to 37.9 in adult, unspecified obesity type (Primary Dx); Dietary counseling; Exercise counseling; Anxiety and depression; Healthcare maintenance; Mixed insomnia; Elevated blood pressure reading 02/11/2025 Travel 02/08/2025 Telephone [facility] [address] [place] [address] Stephanie Cotton FNP Chart Prep 02/04/2025 Patient Outreach [address] [address] Stephanie Cotton FNP Pre-visit Planning (SDOH screening completed on 10/08/24) 01/24/2025 Refill [facility] [address] [place] [address] Stephanie Cotton FNP Prediabetes 01/22/2025 Refill [facility] [address] [place] [address] Stephanie Cotton FNP Prediabetes (Primary Dx) 01/18/2025 3:15 PM EDT Office Visit [facility] [address] [place] [address] Stephanie Cotton FNP Anxiety and depression (Primary Dx); Healthcare maintenance; Gastroesophageal reflux disease, unspecified whether esophagitis present; Prediabetes 01/18/2025 Travel 01/07/2025 Refill [facility] [address] [place] [address] Stephanie Cotton FNP Cervical disc herniation 01/04/2025 Telephone [facility] [address] [place] [phone] Stephanie Cotton FNP Hospital Follow-up 12/28/2024 Orders Only GENERIC EXTERNAL DATA DEPARTMENT Provider, Generic External Data 12/12/2024 Refill [facility] [address] [place] [address] Stephanie Cotton FNP Pain 12/09/2024 Orders Only [...] Use Screening 02/11/2026 02/11/2025 COVID-19 Vaccine ( season) 2026 10/15/2020, 09/17/2020 Postponed from 01/21/2025 [...] topic Meningococcal Vaccine Aged Out No lars robetr eligible based on patient's age to complete [...] 03/05/2025 10:30 AM EDT Cervical cancer screening LIPID PANEL, STANDARD Routine 01/24/2025 9:11 AM [...] SCREENING BILATERAL Routine 05/09/2019 10:16 AM EST [facility] HISTORICAL HEPATITIS C ANTIBODY Routine 04/30/2019 11:10 AM EST [facility] HISTORICAL HIV AB/AG Routine 04/30/2019 11:10 AM EST [facility] HISTORICAL HPV MRNA E6/E7 Routine 11/08/2017 10:07 AM EDT from Last 3 Months or Most Recently Relevant to Health Maintenance Results * TSH W/Reflex to FT4 (01/24/2025 9:11 AM EDT) TSH reflex Free T4 1.32 0.32 - 4.0 uIU/mL [facility] Blood Venous blood specimen / Unknown 01/24/2025 9:11 AM EDT 01/24/2025 9:11 AM EDT Stephanie Cotton FLOORING INSTALLER LAB BLOOD ORDERABLES Final Res ult [facility] [address] [place] [phone] * Hemoglobin A1c (01/24/2025 9:11 AM EDT) Hemoglobin A1c 5.4 <6.0 % [facility] Comment:Hemoglobin A1C Refer ence Range Adults: 4.8 - 6.0 % Non diabetic: < 6.0 % Goal: < 7.0 %Additional Action Suggested: > 8.0 %Note: Hemoglobin A1c results are invalid for patients with abnormal amounts of HbF. Blood transfusions may impact the HbA1c concentration in the patient sample. Estimated Average Glucose 108 mg/dL [facility] Comment:eAG = Estimated ave rage glucose which is %A1C expressed asaverage glucose, using the formula of the B1Q-IlmfurrNxvtipf Glucose study (ADAG), Diabetes Care, Vol.31,#8,2007 Blood Venous blood specimen / Unknown 01/24/2025 9:11 AM EDT 01/24/2025 9:11 AM EDT us Stephanie Cotton [facility] LAB BLOOD ORDERABLES Final Res ult Performing Organization Address City/[facility]/ZIP Co de Phone Number [facility] [address] [place] [address] [phone] * (ABNORMAL) Lipid Panel, Standard (01/24/2025 9:11 AM EDT) Triglycerides 112 <150 mg/dL [facility] Comment:Desirable Triglyceri de: less than 150 mg/dLBorderline High Triglyceride 150-199 mg/dLHigh Triglyceride: 200-499 mg/dLVery High Triglyceride: greater than or equal to 5OO mg/dL Cholesterol 175 <200 mg/dL [facility] Comment:Desirable Cholestero l: less than 200 mg/dLBorderline High Cholesterol: 200-239 mg/dLHigh Cholesterol: greater than 239 mg/dL LDL Cholesterol Calculated 119(H) <100 mg/dL [facility] Comment:Desirable LDL: less than 100 mg/dLNear Optimal/Above Optimal LDL: 110- 129 mg/dLBorderline High LDL: 130-159 mg/dLHigh LDL: 160-189 mg/dLVery High LDL: greater than or equal to 190 mg/dL HDL Cholesterol 34(L) >40 mg/dL [facility] Comment:Desirable HDL: great er than 40 mg/dL Note: This HDL assay may give artificially low results in patients with liver disease. Blood Venous blood specimen / Unknown 01/24/2025 9:11 AM EDT 01/24/2025 9:11 AM EDT Stephanie Cotton FLOORING INSTALLER LAB BLOOD ORDERABLES Final Res ult Performing Organization Address [facility]/ZIP Co de Phone Number [facility] [address] [place] [phone] * XR Thoracic Spine 2 Views (01/19/2025 2:32 PM EDT) Anatomical Region Laterality Modality Spine, T-spine Radiographic Karlie ging 01/19/2025 2:32 PM EDT Narrative 01/19/2025 2:33 PM EDT [address] [address] XRay Report Signed Patient: Abbie Hernandez MR#: M [id number] : 1980 Acct:[id number] Age/Sex: 45 / F ADM Date: 01/18/25 Loc: HO.XRAY Attending Dr: Aubree LAWLER Ordering Physician: Aubree Mayfield Date of Service: 01/18/25 Procedure(s): XR thoracic spine 2V Accession Number(s): [id number] cc: Aubree Mayfield FLOORING INSTALLER; Stephanie CottonP CLINICAL HISTORY: M54.6 - Pain in thoracic [...] 01/19/25 1433 DD/ 1432 TD/TT: 01/19/25 1432 Asphalt Tamping Machine Operator: Procedure Note Donotuseinterpreter, Image - 01/19/[address] [address] XRay Report Signed Patient: Galen HernandezR#: Chemo [id number] : 1980Acct:[id number] Age/Sex: 45 / FADM Date: 01/18/25 Loc: HO.XRAY Attending Dr: Aubree LAWLER Ordering Physician: Aubree Mayfield Date of Service: 01/18/25 Procedure(s): XR thoracic spine 2V Accession Number(s): [id number] cc: Aubree Mayfield; Stephanie Cotton CLINICAL HISTORY: [...] 01/19/25 1433 DD/ 1432 TD/TT: 01/19/25 1432 Asphalt Tamping Machine Operator: [facility] External Provider IMG XR PROCEDURES Final Result * XR CERVICAL SPINE 3V (01/18/2025 1:50 PM EDT) Anatomical Region Laterality Modality Abdomen Radiographic Karlie ging 01/18/2025 1:50 PM EDT Narrative 01/18/2025 2:06 PM EDT [address] [address] XRay Report Signed Patient: Abbie Hernandez MR#: M [id number] : 1980 Acct:[id number] Age/Sex: 45 / F ADM Date: 01/18/25 Loc: HILDA Attending Dr: Aubree LAWLER Ordering Physician: Aubree Mayfield Date of Service: 01/18/25 Procedure(s): XR cervical spine 3V Accession Number(s): [id number] cc: Aubree Mayfield; Phalen,Stephanie FLOORING INSTALLER EXAMINATION: XR CERVICAL SPINE 2-3 VIEWS HISTORY: [...] 01/18/25 1404 DD/ 1350 TD/TT: 01/18/25 1400 Asphalt Tamping Machine Operator: Procedure Note Donotuseinterpreter, Image - 01/18/2025 [place] [address] XRay Report Signed Patient: Maria Alejandra Hernandez#: M [id number] : 1980Acct:[id number] Age/Sex: 45 / FADM Date: 01/18/25 Loc: HILDA Attending Dr: Aubree LAWLER Ordering Physician: Aubree Mayfield Date of Service: 01/18/25 Procedure(s): XR cervical spine 3V Accession Number(s): [id number] cc: Aubree MayfieldP; Stephanie Cotton FLOORING INSTALLER EXAMINATION: XR CERVICAL SPINE 2-3 VIEWS HISTORY: [...] MD Signed By: <Electronically signed by Ld eYpez MD in OV> 01/18/25 1404 DD/ 1350 TD/TT: 01/18/25 1400 Asphalt Tamping Machine Operator: [facility] External Provider IMG XR PROCEDURES Final Result * High Sensitivity Troponin I (12/28/2024 7:50 AM EDT) [facility] TROPONIN I HIGH SENSITIVITY <2.7 <3.5 - 17.0 ng/L [facility] Comment:The Camp high sens itivity Troponin-I results should beused in conjunction with other diagnostic information suchas ECG, clinical observations and information, and patientsymptoms to aid in the diagnosis of AR. 12/28/2024 7:50 AM EDT 12/28/2024 7:54 AM EDT Generic External Data Provider LAB BLOOD ORDERAB LES Final Result [facility] [address] [place] [phone] * CBC auto differential (12/28/2024 7:50 AM EDT) Only the most recent of2 resultswithin the time period is included. [facility] White Blood Count 8.1 4.8 - 10.8 X10*3/uL [facility] Red Blood Count 4.76 4.20 - 5.50 X10*6/uL [facility] Hemoglobin 14.1 12.0 - 16.0 g/dl [facility] Hematocrit 40.6 37.0 - 47.0 % [facility] Mean Corpuscular Volume 85.3 80.0 - 98.0 fL [facility] Mean Corpuscular Hemoglobin 29.6 27.0 - 33.0 pg [facility] Mean Corpuscular HGB Conc 34.7 31.0 - 35.0 g/dl [facility] Red Cell Distribution Width 12.9 11.0 - 16.0 % [facility] Platelet Count 261 160 - 400 X10*3/uL [facility] Mean Platelet Volume 10.2 9.4 - 12.3 fL [facility] Neutrophils Percent Auto 58.5 45 - 73 % [facility] Imm Gran Pct Auto 0.4 0.0 - 0.4 % [facility] Lymphocytes Percent Auto 32.8 20 - 40 % [facility] Monocytes Percent Auto 6.9 2 - 11 % [facility] Eosinophils Percent Auto 1.0 0 - 4 % [facility] Basophils Percent Auto 0.4 0 - 2 % [facility] NRBC Pct Auto 0.0 0.0 - 0.2 /100WBC [facility] Neutrophils Absolute Auto 4.7 2.0 - 8.3 x10*3/uL [facility] Imm Gran Abs Auto 0.03 0.00 - 0.03 X10*3/uL [facility] Lymphocytes Absolute Auto 2.7 1.2 - 4.9 X10*3/uL [facility] Monocytes Absolute Auto 0.6 0.1 - 1.2 X10*3/uL [facility] Eosinophils Absolute Auto 0.1 0.0 - 0.4 X10*3/uL [facility] Basophils Absolute Auto 0.0 0.0 - 0.2 X10*3/uL [facility] NRBC Abs Auto 0.000 0.0 - 0.012 X10*3/uL [facility] 12/28/2024 7:50 AM EDT 12/28/2024 7:54 AM EDT Generic External Data Provider LAB BLOOD ORDERAB LES Final Result Performing Organization Address [facility]/ZIP Co de Phone Number [facility] [address] [place] [phone] * Magnesium (12/28/2024 7:50 AM EDT) Magnesium 2.1 1.6 - 2.6 mg/dL [facility] 12/28/2024 7:50 AM EDT 12/28/2024 7:54 AM EDT Generic External Data Provider LAB BLOOD ORDERAB LES Final Result Performing Organization Address [facility] Phone Number [facility] [address] [place] [phone] * Hepatic Function Panel (12/28/2024 7:50 AM EDT) Bilirubin, Total 0.5 0.0 - 1.0 mg/dL [facility] Bilirubin, Direct 0.2 0.0 - 0.5 mg/dL [facility] Aspartate Amino Transferase 21 5 - 31 U/L [facility] Alanine Aminotransferase 23 0 - 31 U/L [facility] Total Protein 6.8 6.5 - 8.0 g/dL [facility] Albumin Level 4.0 3.5 - 5.0 g/dL [facility] Alkaline Phosphatase 63 39 - 117 U/L [facility] 12/28/2024 7:50 AM EDT 12/28/2024 7:54 AM EDT Generic External Data Provider LAB BLOOD ORDERAB LES Final Result Performing Organization Address [facility] Co de Phone Number [facility] [address] [place] [phone] * (ABNORMAL) Basic Metabolic Panel (12/28/2024 7:50 AM EDT) Sodium 141 135 - 145 mmol/L [facility] Potassium 3.6 3.3 - 5.1 mmol/L [facility] Chloride 111(H) 96 - 108 mmol/L [facility] Carbon Dioxide 24 22 - 29 mmol/L [facility] Anion Gap 10(L) 12 - 20 [facility] Urea Nitrogen (BUN) 9 9 - 16 mg/dL [facility] Creatinine, Serum 0.66 0.5 - 1.4 mg/dL [facility] Creatinine Clr Calc Pharmacy 103.9 [facility] Comment:Provided height and weight: 154.94 cm,81.193 kg.eGFR (calculated from the MDRD study equation) and eCrCl(calculated from the Cockcroft-Gault equation) are based ondifferent parameters and may not yield comparable results.If eCrCl result is absurd, please check patient'sheight/weight. Estimated Glomerular Filt Rate >60 [facility] Comment:Chronic Kidney Disea se: Estimated GFR < 60 mL/min/1.62r4Ppaltz Kidney Disease: Estimated GFR < 15 mL/min/1.73m2 Glucose 102 60 - 115 mg/dL [facility] Calcium 8.6 8.4 - 10.2 mg/dL [facility] 12/28/2024 7:50 AM EDT 12/28/2024 7:54 AM EDT us Generic External Data Provider LAB BLOOD ORDERAB LES Final Result [facility] [address] [place] [phone] * CT Abdomen Pelvis w/ Contrast (12/09/2024 6:19 AM EDT) Anatomical Region Laterality Modality Body, Pelvis, Abdomen Computed T omography 12/09/2024 6:19 AM EDT Narrative 12/09/2024 6:21 AM EDT [address] [address] [address] Scan Report Signed Patient: Abbie Hernandez MR#: M [id number] : 1980 Acct:[id number] Age/Sex: 44 / F ADM Date: 12/09/24 Loc: HO.ED Attending Dr: Ordering Physician: Clive Ortega PA-C Date of Service: 12/09/24 Procedure(s): CT abdomen pelvis w IV con Accession Number(s): [id number] cc: Clive Ortega PA-C; Stephanie Cotton FLOORING INSTALLER Report Number: [id number]: Total DLP = 669.00 mGy-cm CLINICAL HISTORY: [...] in OV> 12/09/24619 DD/ 8 TD/TT: 12/09/24618 Asphalt Tamping Machine Operator: Procedure Note Donotuseinterpreter, Image - 12/09/[address] [place] [address] [address] Scan Report Signed Patient: Galen HernandezR#: M [id number] : 1980Acct:[id number] Age/Sex: 44 / FADM Date: 12/09/24 Loc: HO.ED Attending Dr: Ordering Physician: Clive Ortega PA-C Date of Service: 12/09/24 Procedure(s): CT abdomen pelvis w IV con Accession Number(s): [id number] cc: Clive Ortega PA-C; Stephanie Cotton [facility] Report Number: [id number]: Total DLP = 669.00 mGy-cm CLINICAL HISTORY: [...] in OV> 12/09/24619 DD/ 8 TD/TT: 12/09/24618 Asphalt Tamping Machine Operator: [facility] External Provider IMG CT PROCEDURES Final Result * (ABNORMAL) Urinalysis, Complete, with Reflex to Culture (12/09/2024 4:38 AM EDT) Color Urine Yellow [facility] Appearance Urine Clear [facility] PH 6.5 5.0 - 9.0 [facility] Glucose Urine UA Negative Negative mg/dL [facility] Urine Blood Trace(A) Negative [facility] Specific [place] - Urine 1.015 1.005 - 1.025 [facility] Urine Protein Negative Neg-Trace mg/dL [facility] Urine Ketones Negative Negative mg/dL [facility] Nitrite Urine Negative Negative [facility] Leukocyte Esterase Urine Negative Negative [facility] RBC Urine 0-2 0 - 2 /HPF [facility] Urine WBC 0-5 0 - 5 /HPF [facility] Urine Squamous Epithelial Cell 0-2 0 - 2 /HPF [facility] Urine Bacteria None Seen None Seen [facility] Hyaline Casts, Urine 0-2 0 - 2 /LPF [facility] 12/09/2024 4:38 AM EDT 12/09/2024 4:52 AM EDT Narrative [facility] - 12/09/2024 5:06 AM EDT Urine, Clean Catch us Generic External Data Provider LAB URINE ORDERAB LES Final Result Performing Organization Address City/[facility]/ZIP Co de Phone Number [facility] [address] [place] [address] [phone] * hCG, Total, Quantitative (12/09/2024 3:49 AM EDT) HCG Quantitative <2 mIU/mL [facility] Comment:Weeks post LMP Appr oximate hCG(Last Menstrual Period) Range (mIU/ml)3 - 4 weeks 9 - 1304 - 5 weeks 75 - 2,6005 - 6 weeks 850 - 20,8006 - 7 weeks 4000 - 100,2007 - 12 weeks 11,500 - 289,01398 - 16 weeks 18,300 - 137,00734 - 29 weeks (2nd trimester) 1,400 - 53,52184 - 41 weeks (3rd trimester) 940 - 60,000The Camp B-hCG assay is used for the early detection ofpregnancy; it cannot be used to diagnose any conditionunrelated to . If a B-hCG level is not supportedby the clinical evidence, results should be confirmed by analternative method (qualitative urine hCG, for example). 12/09/2024 3:49 AM EDT 12/09/2024 3:56 AM EDT us Generic External Data Provider LAB BLOOD ORDERAB LES Final Result Performing Organization Address City/[facility]/ZIP Co de Phone Number [facility] [address] [place] [phone] * Lipase (12/09/2024 3:49 AM EDT) Lipase 18 8 - 78 U/L [facility] 12/09/2024 3:49 AM EDT 12/09/2024 3:56 AM EDT us Generic External Data Provider LAB BLOOD ORDERAB LES Final Result [facility] [address] [place] [phone] * (ABNORMAL) Comprehensive Metabolic Panel (12/09/2024 3:49 AM EDT) Sodium 142 135 - 145 mmol/L [facility] Potassium 4.0 3.3 - 5.1 mmol/L [facility] Chloride 110(H) 96 - 108 mmol/L [facility] Carbon Dioxide 23 22 - 29 mmol/L [facility] Anion Gap 13 12 - 20 [facility] Urea Nitrogen (BUN) 13 9 - 16 mg/dL [facility] Creatinine, Serum 0.73 0.5 - 1.4 mg/dL [facility] Creatinine Clr Calc Pharmacy 94.2 [facility] Comment:Provided height and weight: 154.94 cm,81.647 kg.eGFR (calculated from the MDRD study equation) and eCrCl(calculated from the Cockcroft-Gault equation) are based ondifferent parameters and may not yield comparable results.If eCrCl result is absurd, please check patient'sheight/weight. Estimated Glomerular Filt Rate >60 [facility] Comment:Chronic Kidney Disea se: Estimated GFR < 60 mL/min/1.01o8Vkgpbk Kidney Disease: Estimated GFR < 15 mL/min/1.73m2 Glucose 102 60 - 115 mg/dL [facility] Calcium 9.1 8.4 - 10.2 mg/dL [facility] Bilirubin, Total 0.2 0.0 - 1.0 mg/dL [facility] Aspartate Amino Transferase 20 5 - 31 U/L [facility] Alanine Aminotransferase 19 0 - 31 U/L [facility] Total Protein 6.7 6.5 - 8.0 g/dL [facility] Albumin Level 4.0 3.5 - 5.0 g/dL [facility] Alkaline Phosphatase 66 39 - 117 U/L [facility] 12/09/2024 3:49 AM EDT 12/09/2024 3:56 AM EDT Generic External Data Provider LAB BLOOD ORDERAB LES Final Result Performing Organization Address City/[facility]/ZIP Co de Phone Number [facility] [address] [place] [phone] * 3D DIGITAL ALLISON SCR MAMMO [...] HEPATITIS C ANTIBODY (04/30/2019 11:10 AM EST) Pathologist [facility] HEPATITIS C ANTIBODY NONREACTIVE NONREACTIVE [facility] Comment: Antibodies to HCV not detected; does not exclude early acute HCV infection. 04/30/2019 11:1 0 AM EST Felecia Moseley NP HISTORICAL/NON ORDERABLE LABS Fi nal Result Performing Organization Address City/[facility]/ZIP Co de Phone Number [facility] [address] * HIV AB/AG (04/30/2019 11:10 AM [...] of detection of this assay. The [employer] Developer HIV Ag/Ab Combo assay result and supplemental assay results should be interpreted in conjunction with the patient's clinical presentation, history and other laboratory results. If the results are inconsistent with clinical evidence, additional testing is suggested to confirm the result. 04/30/2019 11:1 0 AM EST Felecia Moseley NP HISTORICAL/NON ORDERABLE LABS Fi nal Result [facility] [address] * HPV mRNA E6/E7 (11/08/2017 10:07 AM EDT) HPV mRNA E6/E7 Not Detected NOT DETECTED [facility] Comment: This test was performed using the APTIMA(R) HPV Assay ([employer] This assay detects E6/E7 viral messenger RNA (mRNA) from 14 high-risk HPV types (16,18,31,33,35,39,45,51, 52,56,58,59,66,68). For additional information please refer to: http://education.AmpliSense/faq/GIB933s5 (This link is being provided for informational/ educational purposes only.) The analytical performance characteristics of this assay have been determined by [employer] [place], [place]. The modifications have not been cleared or approved by the FDA. This assay has been validated pursuant to the CLIA regulations and is used for clinical purposes. Test Performed by [facility], [employer] [place], [address] [place] [address] Claudio Sanchez M.D., Ph.D., Director of Laboratories , CLIA [id number] Please note: Effective 02/02/2016, HPV testing will be performed using [employer]'s APTIMA test which targets mRNA. Detecting mRNA instead of DNA, as in older methods, offers significant improvements in specificity. 11/08/2017 10:0 7 AM EDT us Felecia Moseley NP HISTORICAL/NON ORDERABLE LABS Fi nal Result [facility] [address] from Last 3 Months or Most Recently Relevant to Health Maintenance Insurance REPLACED BY [facility] Care Teams Professor Of Apologetics Relationship Specialty Start Date End Date Stephanie Cotton FNP [address] [place] [address] PCP - General Family Medicine 03/16/21
[2025-03-10 00:21] LABS: Hematocrit 42.2 % (37.0-47.0); Hemoglobin 14.4 g/dl (12.0-16.0); Imm Gran Abs Auto 0.03 X10*3/uL (0.00-0.03); Imm Gran Pct Auto 0.3 % (0.0-0.4); Lymphocytes Absolute Auto 3.7 X10*3/uL (1.2-4.9); Mean Corpuscular HGB Conc 34.1 g/dl (31.0-35.0); Mean Corpuscular Hemoglobin 29.3 pg (27.0-33.0); Mean Corpuscular Volume 85.8 fL (80.0-98.0); NRBC Abs Auto 0.000 X10*3/uL (0.0-0.012); NRBC Pct Auto 0.0 /100WBC (0.0-0.2); Platelet Count 329 X10*3/uL (160-400); Red Blood Count 4.92 X10*6/uL (4.20-5.50); White Blood Count 10.5 X10*3/uL (4.8-10.8)
[2025-03-10 00:40] LABS: Alanine Aminotransferase 18 U/L (0-31); Albumin Level 4.5 g/dL (3.5-5.0); Alkaline Phosphatase 78 U/L (39-117); Anion Gap 15 (12-20); Aspartate Amino Transferase 21 U/L (5-31); Blood Urea Nitrogen 11 mg/dL (9-16); Calcium 9.2 mg/dL (8.4-10.2); Carbon Dioxide 20 mmol/L (22-29); Chloride 109 mmol/L (96-108); Creatinine Clr Calc Pharmacy 99.5; Estimated Glomerular Filt Rate > 60; Potassium 4.0 mmol/L (3.3-5.1); Sodium 140 mmol/L (135-145); Total Protein 7.4 g/dL (6.5-8.0); Troponin-I High Sensitivity < 2.7 ng/L (<3.5-17.0)
[2025-03-10 03:10] VITALS: BP 105/62; PULSE 68; RESP 18; TEMP 36.7; O2SAT 96
--- NOTE | 2025-03-10 03:52 | ED.CHESTPAIN ---
HPI - Chest Pain General Chief Complaint: Chest Pain Stated Complaint: CP + Headache Time Seen by Provider: 03/10/25 03:45 Source: patient Mode of arrival: ambulatory Limitations: no limitations History of Present Illness ED Provider: Clive DIAZ HPI narrative: The patient is a 45-year-old female presenting to the ED for evaluation of multiple complaints. Patient reports 2 days ago she developed a right parieto-occipital headache which has been waxing and waning but otherwise constant for the past 2 days. The patient denies any recent head strike, fall, or other trauma. The patient reports today she began experiencing chest pain described as a tightness in the substernal area which radiates into the left chest and arm with cough. The patient reports having a nonproductive cough however states this is common and chronic for her secondary to asthma. The patient denies productive cough, pleurisy, or hemoptysis. Patient reports subjective chills and fatigue but denies objective fever. The patient denies associated abdominal pain, nausea, vomiting, diarrhea, constipation, urinary symptoms, or hematuria. The patient denies any recent sick contacts or trauma. The patient reports she was started on Zoloft 1-2 weeks ago, and is unsure if this is contributing to her symptoms. The patient reports she has been experiencing increasing anxiety since developing her headache, and took Ativan at 22:00, however when symptoms did not improve she presenting to the ED for evaluation. Related Data Home Medications ?Medication ?Instructions ?Recorded ?Confirmed citalopram 20 mg tablet 20 mg PO QAM 11/07/24 02/19/25 doxepin 10 mg capsule 10 mg PO BEDTIME 11/07/24 02/19/25 ibuprofen 600 mg tablet 600 mg PO Q8H PRN fever 11/07/24 02/19/25 montelukast 10 mg tablet 10 mg PO BEDTIME 11/07/24 11/07/24 tirzepatide (weight loss) 2.5 2.5 mg subcut QWEEK 11/07/24 11/07/24 mg/0.5 mL subcutaneous pen injector (Zepbound) Previous Rx's ?Medication ?Instructions ?Recorded albuterol sulfate 5 mg/mL(0.5 %) 2.5 mg (0.5 mL) inhalation Q6H PRN 04/08/20 solution for nebulization shortness of breath or wheezing #600 mL albuterol sulfate 90 mcg/actuation 2 puff inhalation Q4-6H PRN 04/08/20 aerosol inhaler shortness of breath or wheezing #18 grams mepolizumab 100 mg/mL subcutaneous 100 mg subcut Q4W 28 days #1 mL 06/05/21 syringe (Nucala) budesonide-formoterol HFA 160 2 puff inhalation BID 30 days 06/08/23 mcg-4.5 mcg/actuation aerosol #10.2 grams inhaler (Symbicort) bisacodyl 5 mg tablet,delayed 5 mg PO ONCE 1 day #4 tabs 11/07/24 release omeprazole 20 mg capsule,delayed 20 mg PO DAILY #90 caps 11/07/24 release polyethylene glycol 3350 17 17 g PO DAILY constipation 30 days 11/07/24 gram/dose oral powder (Miralax) #510 grams polyethylene glycol 3350 17 238 g PO ONCE #238 grams 11/07/24 gram/dose oral powder (Miralax) prednisone 10 mg tablet See Rx Instructions .Route 11/15/24 .COMPLEX #15 tabs lorazepam 1 mg tablet (Ativan) 1 mg PO TID PRN anxiety #10 tabs 12/09/24 hydroxyzine HCl 50 mg tablet 50 mg PO BEDTIME PRN anxiety #30 12/28/24 tabs tizanidine 2 mg tablet 2 mg PO TID PRN muscle spasticity 01/18/25 30 days #90 tabs Allergies Allergy/AdvReac Type Severity Reaction Status Date / Time No Known Allergies (No Known Allergy Verified 03/10/25 00:04 Allergies*) Review of Systems Review of Systems: Yes all other systems are reviewed and are negative [facility] Past Medical History Medical History Constipation Acid reflux Colon cancer screening Asthma Surgical History History of lumpectomy of left breast Family History Family History Father Liver disease Mother Hypertension Diabetes Social History Social History Alcohol intake: never Patient Tobacco Use Status: Never used Tobacco Advance Directives: No Advance Directives Information Provided: Yes Do you have a plan to hurt others: No Plan Physical Exam Vital Signs: Vital Signs: Last Vital Signs Temp 97.9 F 03/10/25 06:11 Pulse 71 03/10/25 06:29 Resp 17 03/10/25 06:29 BP 111/71 03/10/25 06:11 Pulse Ox 93 03/10/25 06:11 O2 Del Method Room Air 03/10/25 06:11 BMI result Body Mass Index 32.7 CONSTITUTIONAL: The patient appears mildly uncomfortable, otherwise non-toxic, well nourished and in no acute distress. Vital signs as documented. HEAD: Atraumatic, normocephalic. EYES: EOMs grossly intact, pupils equal, conjunctiva clear, no exudate. ENT: Nares patent, no discharge. Airway patent, no audible stridor, visible mucosa is pink and moist without noted lesions. NECK: Trachea is midline, no obvious masses or gross abnormalities. CHEST: Symmetric movement, normal appearance. LUNGS: LS present and CTAB, no w/r/r. There is a nonproductive hacking cough noted during exam. Non-labored work of breathing. CARDIAC: Regular Rhythm, S1/S2 appreciated, no murmurs, rubs or gallops. ABDOMEN: Abdomen soft and non-tender x4 quadrants, no palpable masses or organomegaly. : Deferred. EXTREMITIES: Normal tone, moves all extremities spontaneously without reported pain. No obvious acute injury or deformity noted. NEURO: Alert and oriented x3, CN II-XII intact. Cerebellar Functioning intact. No sensory or motor deficits. Strength 5/5 x4. Speech clear and appropriate. PSYCH: normal affect, appropriate eye contact, fluid speech, with appropriate response to questioning. No reported suicidality or homicidality. SKIN: Warm, dry, color appropriate, normal turgor. No rashes noted. Course Reevaluation(s) Reevaluation #1: 8:26 AM 03/10/2025 (Dr. Kendrick Villalobos): Re-evaluated, patient has been sleeping, workup has been negative, we will discharge Medications Administered Discontinued Medications Generic Name Dose Route Start Last Admin Trade Name Freq PRN Reason Stop Dose Admin Albuterol Sulfate 2.5 mg/ 0 mg 03/10/25 06:25 03/10/25 06:28 Albuterol/Ipratropium 3 ml INHALE 03/10/25 06:26 5 dose ONCE ONE Administration Diphenhydramine HCl 50 mg 03/10/25 05:48 03/10/25 07:09 Diphenhydramine Hcl 50 Mg/Ml Vial IVPUSH 03/10/25 05:49 50 mg ONCE ONE Administration Sodium Chloride 1,000 mls @ 999 mls/hr 03/10/25 06:00 03/10/25 07:10 Ns IV 03/10/25 07:00 999 mls/hr .Q1H1M MARIELA Administration Ketorolac Tromethamine 15 mg 03/10/25 05:48 03/10/25 07:09 Ketorolac Tromethamine 15 Mg/Ml Vial IVPUSH 03/10/25 05:49 15 mg ONCE ONE Administration Metoclopramide HCl 10 mg 03/10/25 05:48 03/10/25 07:09 Metoclopramide Hcl 10 Mg/2 Ml Vial IVPUSH 03/10/25 05:49 10 mg ONCE ONE Administration Medical Decision Making Medical Decision Making MDM Narrative: 5:51 AM 03/10/2025 (Ko DIAZ): The patient is a 45-year-old female presenting to the ED for evaluation of multiple complaints. Patient reports 2 days ago she developed a right parieto-occipital headache which has been waxing and waning but otherwise constant for the past 2 days. The patient denies any recent head strike, fall, or other trauma. The patient reports today she began experiencing chest pain described as a tightness in the substernal area which radiates into the left chest and arm with cough. The patient reports having a nonproductive cough however states this is common and chronic for her secondary to asthma. The patient denies productive cough, pleurisy, or hemoptysis. Patient reports subjective chills and fatigue but denies objective fever. The patient denies associated abdominal pain, nausea, vomiting, diarrhea, constipation, urinary symptoms, or hematuria. The patient denies any recent sick contacts or trauma. The patient reports she was started on Zoloft 1-2 weeks ago, and is unsure if this is contributing to her symptoms. The patient reports she has been experiencing increasing anxiety since developing her headache, and took Ativan at 22:00, however when symptoms did not improve she presenting to the ED for evaluation. In the ED the patient appears mildly anxious, but otherwise in no acute distress. Lung sounds are clear, no abdominal tenderness. The patient's neuro exam is benign, no focal deficit. The patient has no tenderness to light or deep palpation of the scalp, no concern for occipital neuralgia. The patient's laboratory evaluation shows no leukocytosis, anemia, significant electrolyte abnormality or JONNY. Patient's LFTs are unremarkable, troponin is negative x2, EKG is nonischemic. Patient's chest x-ray shows no acute cardiopulmonary process. The patient's symptoms may be secondary to new Zoloft prescription, however given the multiple symptoms of headache, chest tightness, and cough, patient's presentation is more likely secondary to viral syndrome. We will obtain COVID and influenza swabs, and treat headache with IV fluids, Reglan, Benadryl, and Toradol. We will reassess symptoms following interventions and viral swabs. 6:56 AM 03/10/2025 (Ko DIAZ): Patient's viral swabs are negative for COVID and influenza. Patient will be signed out to Dr. Montana for reassessment following interventions. Admission/Observation Consideration of admission/observation: Escalation of care including admission/observation considered Lab Data MDM Lab Attestation statement: I reviewed the patient's lab results. 03/10/25 00:14 03/10/25 00:14 Labs: Lab Results 03/10/25 03/10/25 03/10/25 Range/Units 00:14 03:27 06:21 WBC 10.5 (4.8-10.8) X10*3/uL RBC 4.92 (4.20-5.50) X10*6/uL Hgb 14.4 (12.0-16.0) g/dl Hct 42.2 (37.0-47.0) % MCV 85.8 (80.0-98.0) fL MCH 29.3 (27.0-33.0) pg MCHC 34.1 (31.0-35.0) g/dl RDW 12.5 (11.0-16.0) % Plt Count 329 D (160-400) X10*3/uL MPV 10.2 (9.4-12.3) fL Immature Gran % (Auto) 0.3 (0.0-0.4) % Neut % (Auto) 57.6 (45-73) % Lymph % (Auto) 35.1 (20-40) % [place] % (Auto) 5.6 (2-11) % Eos % (Auto) 1.0 (0-4) % Baso % (Auto) 0.4 (0-2) % Lymph # (Auto) 3.7 (1.2-4.9) X10*3/uL [place] # (Auto) 0.6 (0.1-1.2) X10*3/uL Eos # (Auto) 0.1 (0.0-0.4) X10*3/uL Baso # (Auto) 0.0 (0.0-0.2) X10*3/uL Abs Immat Gran (auto) 0.03 (0.00-0.03) X10*3/uL Absolute Neuts (auto) 6.0 (2.0-8.3) x10*3/uL Absolute Nucleated RBC 0.000 (0.0-0.012) X10*3/uL Nucleated RBC % (auto) 0.0 (0.0-0.2) /100WBC Sodium 140 (135-145) mmol/L Potassium 4.0 (3.3-5.1) mmol/L Chloride 109 H (96-108) mmol/L Carbon Dioxide 20 L (22-29) mmol/L Anion Gap 15 (12-20) BUN 11 (9-16) mg/dL Creatinine 0.67 (0.5-1.4) mg/dL Estim Creat Clear Calc 99.5 Estimated GFR > 60 Random Glucose 99 (60-115) mg/dL Calcium 9.2 D (8.4-10.2) mg/dL Total Bilirubin 0.2 (0.0-1.0) mg/dL AST 21 (5-31) U/L ALT 18 (0-31) U/L Alkaline Phosphatase 78 (39-117) U/L Troponin I High Sens < 2.7 < 2.7 (<3.5-17.0) ng/L Total Protein 7.4 (6.5-8.0) g/dL Albumin 4.5 (3.5-5.0) g/dL COVID-19 (DARIUS) Negative (Negative) COVID-19 Clin Com See Note Influenza Type A (BHAVIN) Negative (Negative) Influenza Type B (BHAVIN) Negative (Negative) Influenza A & B Note See Note Independent Interpretation I performed an independent interpretation of an: EKG (EKG shows sinus rhythm with a rate of 74, no evidence of acute ischemia, no ST elevation, no ectopy. QTC 444. Compared to previous on 12/28/2024 there are no significant morphology changes. ) Radiology Impression Discussion of test interpretation with radiology: I have reviewed the radiologist's reading. Radiologist Impression: Exam: AP portable chest x-ray. Comparison: November 15, 2024. Findings: Heart size and pulmonary vasculature are within normal limits. No focal infiltrates. No pleural effusion. Mild eventration of the right hemidiaphragm. Impression: No acute finding This document has been electronically signed by: Rogers Neves MD on 03/10/2025 01:49:32 External Record Review External record reviewed: Outpatient record and Prior outpatient labs Discharge Plan Discharge Clinical Impression: Acute viral syndrome Patient Disposition: Home, Self-Care Instructions: Viral Syndrome (ED) Additional Instructions: Betsy por elegir el [facility] para rodriguez atenci?n m?dica hoy. Afortunadamente, rodriguez evaluaci?n de laboratorio, electrocardiograma, radiograf?a de t?rax, hisopado viral y el examen de hoy son tranquilizadores. No se encontraron evidencias de gurwinder causa card?cheryle, pulmonar, infecciosa, an?caitlin, metab?lica, renal, hep?js ni de ninguna otra causa peligrosa para kaylee s?ntomas. Kaylee hisopados virales dieron negativo para COVID e influenza. En rubina momento, no hay indicaci?n de ingreso hospitalario ni de observaci?n continua en urgencias, y es seguro darle de yifan. Es muy probable que kaylee s?ntomas dimitrios secundarios a gurwinedr enfermedad viral que le causa dolor de elizabeth, opresi?n en el pecho y exacerbaci?n de rodriguez asma subyacente. No hay indicaci?n para antibi?ticos en rubina momento. Aunque expres? rodriguez preocupaci?n de que kaylee s?ntomas pudieran estar relacionados con rodriguez nueva receta de Zoloft, no se encontr? gurwinder correlaci?n directa entre kaylee s?ntomas y rubina medicamento, por lo que le recomendamos que no suspenda el medicamento sin consultar misael con rodriguez m?dico de cabecera o el profesional que le recet? el medicamento. Contin?e usando todos kaylee dem?s medicamentos recetados regularmente seg?n las indicaciones. Debe baljit dosis alternas (escalonadas) de ibuprofeno 600 mg y Tylenol 1000 mg cada 4 horas seg?n sea necesario para aliviar el dolor. Mant?ngase clarissa hidratado y descanse lo suficiente. Consulte con rodriguez m?dico de cabecera para gurwinder reevaluaci?n, un tratamiento adicional de kaylee s?ntomas y atenci?n preventiva continua. Si no tiene un m?dico de cabecera, llame a [facility] al [phone] para asignarle un nuevo m?dico de cabecera. Mientras espera asignarle un nuevo m?dico de cabecera, puede llamar a nuestra [facility] al [phone] para necesidades que no dimitrios de emergencia. Regrese a urgencias si presenta un cambio repentino o grave en kaylee s?ntomas, fiebre superior a 38 ?C que no mejora con Tylenol o ibuprofeno, v?mitos recurrentes o cualquier otro s?ntoma o inquietud nuevo o que empeore. Thank you for choosing [facility] Emergency Department for your care today. Thankfully your laboratory evaluation, EKG, chest x-ray, viral swabs, and exam today are all reassuring. There was no evidence of a cardiac, pulmonary, infectious, anemic, metabolic, renal, liver, or other dangerous cause for your symptoms. Your viral swabs were negative for COVID and influenza. At this time there is no indication for admission to the hospital or continued ED observation, and it is safe to discharge you home. Your symptoms are most likely secondary to a viral illness causing your headache, chest tightness, and exacerbation of your underlying asthma. There is no indication for antibiotics at this time. Although you voiced concern that your symptoms may be related to your new Zoloft prescription, there was no direct correlation to in your symptoms and this medication and as such we recommend that you do not discontinue taking the medication without 1st consulting your PCP or the prescribing provider. Please continue using all your other regularly prescribed medications as directed. You should take alternating (staggered) doses of ibuprofen 600mg and Tylenol 1000mg every 4 hours as needed for any additional pain. Please stay well hydrated and get plenty of rest. Please follow up with your primary care physician for re-evaluation, additional management of your symptoms, and continued preventative care. If you do not have a primary care physician, please call the [facility] at [phone] to establish a new primary care physician. While waiting to establish your new primary care physician, you can call our [facility] at [phone] for non-emergency needs. Please return to the emergency department if you develop a severe or sudden change in your symptoms, a fever over 100.4 that does not improve with Tylenol or Ibuprofen, recurrent vomiting, or any other new or worsening symptoms or concerns. Prescriptions: No Action Nucala 100 mg/mL syringe 100 mg subcut Q4W 28 Days Qty: 1 12RF budesonide-formoterol [Symbicort] 160-4.5 mcg/actuation HFA aerosol inhaler 2 puff inhalation BID 30 Days Qty: 10.2 6RF albuterol sulfate 90 mcg/actuation HFA aerosol inhaler 2 puff inhalation Q4-6H PRN (Reason: shortness of breath or wheezing) Qty: 18 0RF albuterol sulfate 5 mg/mL solution for nebulization 2.5 mg inhalation Q6H PRN (Reason: shortness of breath or wheezing) Qty: 600 0RF prednisone 10 mg tablet See Rx Instructions .ROUTE .COMPLEX Qty: 15 0RF Rx Instructions: 50mg (5 tabs) x1 day, then 40 mg (4 tabs) x1 day, then 30 mg (3 tabs) x1 day, then 20 mg (2 tabs) times 1 day, then 10 mg (1 tab) x1 day lorazepam [Ativan] 1 mg tablet 1 mg PO TID PRN (Reason: anxiety) Qty: 10 0RF Rx Instructions: Patient may request partial fill hydroxyzine HCl 50 mg tablet 50 mg PO BEDTIME PRN (Reason: anxiety) Qty: 30 0RF doxepin 10 mg capsule 10 mg PO BEDTIME citalopram 20 mg tablet 20 mg PO QAM montelukast 10 mg tablet 10 mg PO BEDTIME ibuprofen 600 mg tablet 600 mg PO Q8H PRN (Reason: fever) omeprazole 20 mg capsule,delayed release(DR/EC) 20 mg PO DAILY Qty: 90 1RF bisacodyl 5 mg tablet,delayed release (DR/EC) 5 mg PO ONCE 1 Days Qty: 4 0RF Rx Instructions: Take four tablets once for 1 day per colonoscopy instructions polyethylene glycol 3350 [Miralax] 17 gram/dose powder 17 g PO DAILY 30 Days Qty: 510 2RF Rx Instructions: Take 17G (one cap full) daily with 8oz of water polyethylene glycol 3350 [Miralax] 17 gram/dose powder 238 g PO ONCE Qty: 238 0RF Rx Instructions: per colonoscopy prep instructions Zepbound 2.5 mg/0.5 mL pen injector 2.5 mg subcut QWEEK Rx Instructions: for 4 weeks tizanidine 2 mg tablet 2 mg PO TID PRN (Reason: muscle spasticity) 30 Days Qty: 90 0RF Referrals: Stephanie Cotton FNP [Primary Care Provider, Family Practice] Clinical Impression: Acute viral syndrome Print Language: Palauan
[2025-03-10 03:56] LABS: Troponin-I High Sensitivity < 2.7 ng/L (<3.5-17.0)
[2025-03-10 06:11] VITALS: BP 111/71; PULSE 68; RESP 18; TEMP 36.6; O2SAT 93
[2025-03-10] MEDS: Albuterol Sulfate 2.5 MG, Albuterol/Iprat 2.5/0.5MG 3 ML 3 ML INHALE (06:28)
[2025-03-10 06:29] VITALS: PULSE 71; RESP 17; O2SAT 97
[2025-03-10 06:44] LABS: COVID-19 Test Negative (Negative); IDNOW Serial# 16C4AD1C
[2025-03-10 06:45] LABS: IDNOW Serial# 152EDE1D; Influenza B2 Negative (Negative)
--- NOTE | 2025-03-10 07:44 | PC.NURSE ---
Assumed care of patient. Pt calm, cooperative. No visible s/s of distress. Medications administered per MAR.
[2025-03-10 08:39] VITALS: BP 101/59; PULSE 88; RESP 16; TEMP -17.7; TEMP 0; O2SAT 95
== END 2025-03-10 09:05 | disposition home or self-care (01) ==
PROVIDERS: Physician Assistant; Emergency Provider Emergency Medicine; PCP Registered Nurse
DX: B34.9 Viral infection, unspecified (principal); R07.9 Chest pain, unspecified; R51.9 Headache, unspecified; Z03.818 Encounter for observation for suspected exposure to other biological agents ruled out; J45.909 Unspecified asthma, uncomplicated; Z79.51 Long term (current) use of inhaled steroids
CPT/HCPCS: 36415; 71045; 80053; 84484; 85025; 87502; 87635; 93005; 94640; 96361; 96374; 96375; 99284; J1200; J1885; J2765

== ENCOUNTER → 2025-03-09 23:47 | Outpatient (BNV) | payer OTHER, SELFPAY | PROVIDERS: Emergency Provider Emergency Medicine; PCP Registered Nurse; Visit Provider Internal Medicine Cardiovascular Disease | DX: R07.9 Chest pain, unspecified (principal) | CPT/HCPCS: 93010 ==

== ENCOUNTER → 2025-03-10 00:06 | Outpatient (BNV) | payer OTHER, SELFPAY | PROVIDERS: PCP Registered Nurse; Visit Provider Radiology Diagnostic Radiology | DX: R07.9 Chest pain, unspecified (principal) | CPT/HCPCS: 71045 ==

== ENCOUNTER 2025-04-25 15:20 | Outpatient (AMB) | payer OTHER, SELFPAY ==
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
[2025-04-25 15:35] VITALS: BP 136/88; PULSE 92; O2SAT 100; BMI 33.3
== END 2025-04-25 16:03 | disposition home or self-care (01) ==
LOC: HO.PMC 15:20
PROVIDERS: PCP Registered Nurse; Visit Provider Nurse Practitioner Family
DX: M47.812 Spondylosis without myelopathy or radiculopathy, cervical region (principal); M54.6 Pain in thoracic spine; M62.838 Other muscle spasm; M50.20 Other cervical disc displacement, unspecified cervical region; M47.815 Spondylosis without myelopathy or radiculopathy, thoracolumbar region
CPT/HCPCS: 99214; G2211